=== PATIENT | male | born 1960 | race Caucasian/White ===

== ENCOUNTER → 2017-08-30 17:09 | Outpatient (CLI) | payer BC, SELFPAY ==
[2017-08-30 16:56] VITALS: BP 118/70; BMI 29.4
--- NOTE | 2017-08-30 17:26 | RAD_ITS ---
STUDY: X-RAY - LEFT TIBIA AND FIBULA REASON FOR EXAM: Male, 56 years old. Pain and swelling redness anterior albarran area status post injury 2 weeks ago TECHNIQUE: 4 view(s) of the tibia and fibula were obtained. COMPARISON: None. FINDINGS: There is a left knee, medial hemiarthroplasty. Normal visualized fibula. There is a subtle focus of soft tissue swelling anterior to the knee without evidence of underlying fracture. There is no visualized obvious foreign body. There is mild soft tissue swelling overlying the region of the patella tendon. There is mild soft tissue swelling about the medial malleolus. RAD/Tibia & Fibula 2 Views IMPRESSION: Areas of soft tissue swelling as detailed above without visualized fracture or evidence of underlying bony erosion. Medial compartment hemiarthroplasty. Electronically Signed: Sada Hammonds MD at 21:39 EST Tel , Service support ,
== END ==
PROVIDERS: Family Provider Family Medicine Geriatric Medicine; PCP Family Medicine Geriatric Medicine; Visit Provider Physician Assistant Surgical
DX: S80.12XA Contusion of left lower leg, initial encounter (principal); X58.XXXA Exposure to other specified factors, initial encounter
CPT/HCPCS: 73590

== ENCOUNTER → 2017-09-02 16:22 | Outpatient (CLI) | payer BC, SELFPAY ==
--- NOTE | 2017-08-31 14:21 | VDLE_ITS ---
Reason For Study: LEG PAIN AND SWELLING RIGHT LEFT CFV is compressible, spontaneous, phasic, GSV is normal. competent and demonstrates normal CFV is compressible, spontaneous, phasic, augmentation. competent, and demonstrates normal Procedure augmentation. Exam performed in department. FV is compressible, spontaneous, phasic, A preliminary report was called and/or faxed competent and demonstrates normal to Dr. Huertas. augmentation. POP V is compressible, spontaneous, phasic, competent and demonstrates normal augmentation. T/P Trunk is compressible. PTV is compressible. LT PerV is compressible. Interpretation Summary Deep veins of the left lower extremity are patent and compressible segmentally. There is no evidence of left lower extremity deep vein thrombosis. Valvular competence appears intact within the proximal deep venous system on the left . The left greater saphenous vein appears patent and compressible segmentally. Ordering Physician: Marlon Cottrell Referring Physician: Arnav Huertas Chi Performed By: Maribell Foster RVT
== END ==
LOC: VL 08-31 19:27 → CVS 16:23
PROVIDERS: Family Provider Family Medicine Geriatric Medicine; PCP Family Medicine Geriatric Medicine; Visit Provider Physician Assistant Surgical
DX: S80.12XA Contusion of left lower leg, initial encounter (principal); X58.XXXA Exposure to other specified factors, initial encounter; Y93.9 Activity, unspecified; Y92.9 Unspecified place or not applicable; Y99.9 Unspecified external cause status
CPT/HCPCS: 93971

== ENCOUNTER 2018-06-12 17:35 | Inpatient (IN) | payer BC, SELFPAY ==
[2018-06-12 17:37] VITALS: BP 154/102; PULSE 125; RESP 15; TEMP 36.8; O2SAT 96; BMI 29.9
--- NOTE | 2018-06-12 17:57 | ED.VISSUMM ---
- ER Visit Summary Date of Service: 06/12/18 Chief Complaint: Left knee pain History of Present Illness: The patient is a 57 M presenting with left knee pain. Patient states he was walking and his knee just gave out. He did not fall completely to the floor. He has had pain in the left knee since. He states it has been clicking and making popping noises. He tried no medications at home. He has a history of previous partial knee replacement in June [address] Mcnulty. Physical Examination: Vitals are stable. Patient is afebrile. Alert no acute distress. HEENT exam is unremarkable. Neck is supple. Lungs are clear and equal bilaterally. Heart is regular rate and rhythm. Extremities medial left knee tenderness, painful limited range of motion. No erythema or warmth. No calf tenderness. Normal distal pulses Skin is warm and dry. No focal neurologic deficit. Remainder of exam is unremarkable. Emergency Department Course and Treatment: Patient declined pain medication. X-ray of left knee shows broken hardware. Discussed with Dr. Main who recommends revision with Dr. Knight. Discussed with Dr. Knight and patient will be admitted. Disposition: Admission Impression: Left knee broken hardware This note was generated with [employer] dictation software. It may contain incorrect words, spelling, and punctuation that were not noted in review of the chart prior to signing ED Disposition - Plan for ED Patient: Chief Complaint: Lower Extremity Injury Referrals: Arnav Huertas Chi, MD [Primary Care Provider] -
--- NOTE | 2018-06-12 18:00 | RAD_ITS ---
STUDY: X-RAY - LEFT KNEE REASON FOR EXAM: Male, 57 years old. Pain TECHNIQUE: 4 view(s) of the knee. COMPARISON: None. FINDINGS: Normal visualized distal femur. Normal visualized proximal tibia and fibula. Normal proximal tibiofibular articulation. Prosthetic medial femorotibial compartment. Narrowed lateral femorotibial compartment. Normal patellofemoral articulation with patellar spurring.. The soft tissue structures are unremarkable. RAD/Knee 4 or More Views IMPRESSION: Degenerative changes and medial compartmental prosthesis No evidence for acute fracture Electronically Signed: Chidi Decker MD at 19:08 EST , Service support ,
[2018-06-12 19:16] LABS: Absolute Neutrophil Count 7.5 X10^3/uL (2.0-7.7); Basophil# 0.03 X10^3/uL; Basophil% 0.3 % (0-1); Eosinophil# 0.23 X10^3/uL; Eosinophils% 2.2 % (0-5); Hematocrit 46.4 % (40-54); Hemoglobin 15.3 g/dl (13.0-16.5); Lymphocyte % 19.5 % (19-41); Mean Corpuscular Hgb 30.7 pg (27.0-32.0); Mean Platelet Vol. 9.3 fl (6.2-12.0); Monocyte% 4.9 % (0-10); Neutrophil # 7.45 X10^3/uL (2.7-7.7); Neutrophil % 72.7 % (47-70); POSITIVE COUNT NO; POSITIVE DIFFERENTIAL NO; POSITIVE MORPHOLOGY NO; Platelet Count 178 K/mm3 (150-450); RBC Distribution Width CV 13.2 % (11.6-14.6); RBC Distribution Width SD 44.2 fl (35.1-43.9); Red Blood Count 4.99 M/mm3 (4.6-6.2); White Blood Count 10.3 K/mm3 (4.4-11.0)
[2018-06-12 19:29] LABS: Anion Gap 7 (5-15); BUN 19 mg/dL (7-18); BUN/Creat Ratio 15.1 RATIO (10-20); Calcium,Total 8.4 mg/dL (8.5-10.1); Chloride 107 mmol/L (98-107); Creatinine, Serum 1.26 mg/dL (0.70-1.30); EST Glomerular Filtration Rate 63 mL/min (>60); Est Glom Filt Rate - Afr Amer 76 mL/min (>60); Estimated Creatinine Clearance 74.86 ml/min; Glucose 149 mg/dL (74-106); Potassium 3.6 mmol/L (3.5-5.1); Sodium Level 141 mmol/L (136-145)
[2018-06-12 19:43] VITALS: BMI 29.9
[2018-06-12 20:04] VITALS: BP 128/87; PULSE 102; RESP 18; TEMP 36.9
[2018-06-12] MEDS: Lactated Ringers 1,000 ML 125 ML IV (21:56)
[2018-06-12] MEDS: Acetaminophen 500 MG Tablet 1000 MG PO (21:57)
[2018-06-12] MEDS: Losartan Potassium 50 MG Tablet PO (21:57)
[2018-06-12] MEDS: hydroCHLOROthiazide 12.5mg 12.5 MG PO (21:59)
[2018-06-12] MEDS: Pantoprazole Sodium 20 MG Tablet PO (22:00)
[2018-06-13] VITALS (11 sets, daily range): BP systolic 121–134; BP diastolic 71–95; PULSE 70–92; RESP 14–18; TEMP 35.9–37.1; O2SAT 92–98; BMI 29.2
[2018-06-13] MEDS: Lactated Ringers 1,000 ML 125 ML IV ×2 (06:11→16:20)
[2018-06-13] MEDS: Acetaminophen 500 MG Tablet 1000 MG PO ×2 (06:12→18:09)
--- NOTE | 2018-06-13 08:42 | EKG12_ITS ---
Test Reason : PRE-OPERATIVE Blood Pressure : / mmHG Vent. Rate : 074 BPM Atrial Rate : 074 BPM P-R Int : 172 ms QRS Dur : 092 ms QT Int : 400 ms P-R-T Axes : 039 -15 001 degrees QTc Int : 444 ms Normal sinus rhythm Inferior infarct , age undetermined Abnormal ECG When compared with ECG of 31-JUL-2016 04:55, Premature ventricular complexes are no longer Present Confirmed by GISELLE JOHNSON MD ([id number]), fashion editor FOREST FRITZ ([id number]) on 06/16/2018 2:26:20 PM Also confirmed by GISELLE JOHNSON MD ([id number]), FOREST Matta ([id number]) on 06/16/2018 2:27:08 PM Referred By: SYBIL Confirmed By:GISELLE JOHNSON MD
[2018-06-13 09:17] LABS: Partial Thromboplast Time 33.1 Seconds (24.1-36.2); Prothrombin Time (Protime)PT. 13.1 SECONDS (11.7-14.9)
--- NOTE | 2018-06-13 10:00 | CASEMGMT ---
RN MEGHANA Face to Face with patient for initial transition planning/care coordination assessment. RN CM introduced self and role at [facility]. Patient lying in bed, alert and oriented, at bedside. Patient willing to participate in assessment and is able to answer all questions appropriately. Care providers, pharmacy, and demographics verified. Patient wishes to discharge home and denied HHC at this time. Patient states he has no further needs or concerns at this time. CM to follow for discharge planning needs that may arise. PCP: EMILY Specialists: None Preferred Pharmacy:[facility] or [facility] Insurance: [place] Pres[place] Benef[place]: [place] Living Will/HPOA: None LNOK: Living Arrangements: Patient lives with in 1 story home with 2 steps to enter home. Transportation: DME/HHC: Patient has shower chair and crutches. Script obtained for FWW and faxed to [employer]. Script obtained for outpatient therapy and placed on chart. Disposition Plan: Patient to discharge home with outpatient therapy, family support, and follow-up plans in place. Milka KINGSTONN, RN, CM
--- NOTE | 2018-06-13 11:18 | PCM.HP.STD ---
History of Present Illness Date of Admission: 06/13/18 Chief Complaint: Knee pain, left The patient is a 57 year old M presents today with left knee pain. Patient had a left partial knee replacement in June 2016. Patient notes that he had no infections or redness of the incision after surgery however took about 6-8 months to fully recover. He did have some what he felt was instability or looseness of the knee and clicking. He had been reevaluated multiple times. He has had no fevers chills or night sweats. No signs of infection. However, yesterday while he was walking his knee gave out on him causing him to fall. Since that time he said inability to flex and extend his knee stating it feels like something is catching in there. He has 9 out of 10 pain with weightbearing and motion. Better with immobilization and bedrest. No numbness or tingling distally. He does have some associated swelling of the knee. Of note patient did have a PE 2 days after his partial knee replacement which required anticoagulation. Past Medical History Past Medical History (Chronic Problems): Chronic Problems (Last Updated 09/23/17 @ 10:02 by Zuly Chavez) Status post left knee surgery (Chronic) HTN (hypertension) (Chronic) Medical History: Medical History (Last Updated 09/23/17 @ 10:02 by Zuly Chavez) Cellulitis of left anterior lower leg (Acute) L03.116 Contusion of left calf (Acute) S80.12XA GERD (gastroesophageal reflux disease) (Acute) K21.9 Essential hypertension, benign (Acute) I10 HTN (hypertension) (Chronic) I10 Abnormal electrocardiogram (Acute) R94.31 Chest pain (Acute) R07.9 Chicken pox B01.9 Cough R05 Elevated prostate specific antigen (PSA) R97.20 Gastroenteritis K52.9 Headache R51 Herpes zoster B02.9 Keloid scar L91.0 Knee pain M25.569 Lightheadedness R42 Pulmonary embolism I26.99 Renal cyst, left N28.1 Sebaceous cyst L72.3 Dyslipidemia E78.5 Erectile dysfunction N52.9 HTN (hypertension) I10 Hypercholesteremia E78.00 Neuropathic pain M79.2 NUSRAT (obstructive sleep apnea) G47.33 Osteoarthritis of left knee M17.12 Allergies No Known Allergies Allergy (Verified 06/12/18 17:36) Home Medications: Ambulatory Orders Medication Instructions Recorded Esomeprazole Mag Trihydrate 20 mg PO QHS 07/10/16 [Nexium] Losartan/Hydrochlorothiazide 1 ea PO QHS 07/10/16 [Losartan-Hctz 50-12.5 mg Tab] Surgical History: Surgical History (Last Updated 09/23/17 @ 10:07 by Zuly Chavez) Status post left knee surgery (Chronic) Z98.890 History of back surgery Z98.890 History of knee replacement Z96.659 Broke L1 09/2010 rods & screws H/O hernia repair Z98.890, Z87.19 8 History of tonsillectomy Z98.890, Z90.89 Incision and drainage back abscess 12/31 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 S/P left knee arthroscopy Z98.890 Surgical History: - Smoking Status: Never smoker - *Family History Paternal Family History: Family History (Last Updated 09/23/17 @ 10:08 by Zuly Chavez) Father Hypertension History Items: No pertinent history Review of Systems Constitutional: Denies: Chills, Fever, Weight Change HEENT: Denies: Head Aches, Sinus Congestion, Sinus Drainage Cardiovascular: Denies: Chest Pain, Palpitations Respiratory: Denies: Cough, Shortness of breath at rest, Sputum production Gastrointestinal: Denies: Abdominal Pain, Nausea, Vomiting Genitourinary: Denies: Dysuria Musculoskeletal: Reports: Joint Pain, Joint Tenderness - See HPI Skin: Denies: Rash, Wounds Neurological: Denies: Numbness, Tingling, Focal weakness Psychiatric: Denies: Anxiety, Depression, Homicidal Ideations, Suicidal Ideations Hematologic/ Lymphatic: Denies: Easy Bruising, Easy Bleeding VTE Information - Inpt Only VTE Present on Admission: No VTE Mechan Device Prophylaxis: SCD's, Thigh High MICHELLE Hose VTE Pharm Prophylaxis ordered?: No Reason prophylaxis not ordered:: Treatment Not Indicated - Will initiate treatment after surgery Objective: X-rays of the left knee were reviewed showing a dislocated polyethylene. Implants appear to be in stable alignment and well fixed. - Physical Exam General: Alert, Oriented x3, Cooperative HEENT: Atraumatic, PERRLA Oral: Moist Mucosa Neck: No JVD Lungs: - - Nonlabored breathing Cardiovascular: Regular rate Abdomen: Non Tender, Non-Distended Extremities: No clubbing, - - Left lower extremity: Previous incision clean dry and intact, no redness or erythema. Mild effusion of the knee. Patient has crepitus with range of motion he has palpation with tenderness over the dislocated implant, you can feel it in the superior medial joint.. Motor is intact dorsiflexion, EHL and plantar flexion. Sensation is intact to light touch saphenous, kaleigh,l superficial peroneal, deep peroneal and tibial distributions. Calves are soft and supple. Vital Signs Temp Pulse Resp BP Pulse Ox 97.8 F 79 18 126/85 H 95 06/13/18 08:00 06/13/18 08:00 06/13/18 08:00 06/13/18 08:00 06/13/18 08:00 Oxygen Flow Rate (L/min) 2 Oxygen Delivery Method Room Air Weight: 221 lb 5.506 oz Body Mass Index (BMI) 29.2 Intake and Output for Last 24 Hours 06/11/18 06/12/18 06/13/18 23:59 23:59 23:59 Intake Total 1010 / 1010 Output Total 525 / 525 Balance 485 / 485 Laboratory Tests Past 24 Hrs 06/12/18 06/12/18 06/13/18 19:07 19:07 09:02 WBC 10.3 RBC 4.99 Hgb 15.3 Hct 46.4 MCV 93.0 MCH 30.7 MCHC 33.0 RDW 13.2 RDW Differential 44.2 H Plt Count 178 MPV 9.3 Immature Gran % (Auto) 0.400 Neut % (Auto) 72.7 H Lymph % (Auto) 19.5 [place] % (Auto) 4.9 Eos % (Auto) 2.2 Baso % (Auto) 0.3 Absolute Neuts (auto) 7.5 Absolute Lymphs (auto) 2.00 Total Counted Not Reportable PT 13.1 INR 1.0 APTT 33.1 Sodium 141 Potassium 3.6 Chloride 107 Carbon Dioxide 27.0 Anion Gap 7 BUN 19 H Creatinine 1.26 Estim Creat Clear Calc 74.86 Est GFR (MDRD) Af Amer 76 Est GFR (MDRD) Non-Af 63 BUN/Creatinine Ratio 15.1 Glucose 149 H Calcium 8.4 L Assessment/Plan All Active Problems (Last Updated 09/23/17 @ 10:02 by Zuly Chavez) Cellulitis of left anterior lower leg (Acute) Contusion of left calf (Acute) GERD (gastroesophageal reflux disease) (Acute) Essential hypertension, benign (Acute) Abnormal electrocardiogram (Acute) Chest pain (Acute) Left knee dislocated mobile-bearing polyethylene Natural history of the disease process and treatment options were discussed the patient. Patient has good joint spaces and the remainder of his joint. He is young in age. At this time we discussed revision total knee replacement versus polyethylene exchange. Sounds like patient has a history of instability at this time I recommended a polyethylene exchange implants appear well fixed. The remainder of his joint is healthy and I do feel it is appropriate to salvage the implant at this time. He has no signs of infection will shortly take cultures at the time of surgery. Risks and benefits were discussed the patient including but not limited to blood loss, DVTs, PEs, rest damage, infection, general risk of anesthesia including loss of life. Patient is n.p.o., antibiotics ordered on-call to the operating room we will proceed with surgery this afternoon. GILBERTO [facility] Office:
[2018-06-13] MEDS: Scopolamine 1mg/72hr Patch 1 PATCH TD (11:58)
--- NOTE | 2018-06-13 11:59 | NURSING ---
report called to gilda martínez in ac, pt taken to ac area for preops-rn notified Rx preop antb to be sent to their unit, it is not on ms3, verified that scopalamine patch not given 06/12 d/t not on unit
[2018-06-13] MEDS: Cefazolin 2 GM in 0.9% Normal Saline 100 ML IV (12:37)
--- NOTE | 2018-06-13 13:31 | PCM.OPRPT ---
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 Overcorrection was avoided grinder operator tool: Marleny Araujo Type of Anesthesia:: General Anesthesiologist: Adolfo Olivas Special Medications: 2 g Ancef, 1 g TXA at incision, 1 g TXA after tourniquet went down Specimen's removed: 3 separate specimens were sent to microbiology Estimated Blood Loss (mL): 15 Fluids Replaced: 1100 milliliters crystalloid Description of Procedure: 57 yo m history of left unicompartmental knee replacement in presents with polyethylene dislocation. Reviewed options were discussed the patient. Based on acuity of the symptoms and stability of implants on radiograph polyethylene exchange is recommended. Risks and benefits of the procedure were discussed with the patient including but not limited to blood loss, DVTs, PEs, neurovascular damage, infection, general risk of anesthesia including loss of life. Demonstrated understanding and was able to sign informed consent. On the date of procedure patient's L lower extremity was marked in the preoperative area. The patient was then taken back to the operating room where the patient was placed on the table in the supine position. All bony prominences were identified a well-padded. Anesthesia assumed control of the C-spine and airway and remained controlled throughout the remainder of the procedure. A tourniquet was placed on the operative thigh and the leg was prepped in a sterile fashion. The surgeon then scrubbed at this time .Upon reentering the room left lower extremity was draped in a standard orthopedic fashion. A timeout was then called and everyone agreed upon the side, the site, the procedure to be performed, patient's identity and antibiotics given. A midline skin incision was made and sharp dissection was taken down through skin subcutaneous tissue and fat. Appropriate flaps were elevated medially and laterally. His arthrotomy was identified and the standard medial parapatellar incision was made and the patella was subluxed laterally. The appropriate minimal MCL release was done. At this point an appropriate synovectomy was performed patient did not have significant amount of synovitis. He did have a large effusion. 3 separate specimens were sent from the synovium. Knee was then flexed up the 3 mm polyethylene was removed. Once polyethylene was removed we debrided the posterior knee ACL was checked and intact. Excessive synovium around the implant was debrided and the implants were checked. Femoral and tibial implants were stable. 6 L of normal saline were then irrigated throughout the wound with low-pressure lavage and the wound was once again explored. All remaining tissue that was suspicious was seen in the wound was once again irrigated with normal saline. Polyethylene trials were then used to determine the appropriate polyethylene. Based on our trials a 6 mm polyethylene was then opened and put back into place after appropriate trialing. This allowed for appropriate correction of the alignment and tension of the soft tissues in flexion and extension. Knee was taken through range of motion as well and no signs of impingement were noted after appropriate debridement tourniquet was let down and hemostasis was obtained as well as possible. Once the final components were placed the wound was copiously irrigated with normal saline solution. The wound was closed in a layer plascencia fashion using #1 vicryl interrupted sutures for the arthrotomy, 2-0 interrupted Vicryl for the subcuticular layer and phoebe for final skin closure. A sterile compressive dressing was then placed. The patient was then awakened from anesthesia, transferred to the [facility] and transferred to the PACU for recovery. Post op plan Patient will be placed on Xarelto due to previous PE. Medical service will be consulted. Patient is weightbearing as tolerated, activity as tolerated. Follow-up in the office in 2 weeks. Patient will remain on doxycycline for 1 week as we follow cultures. Grafts/Implants Used: Biomet Jesse partial knee system medium 6 mm left medial poly - Complications none - Admit VTE Documentation VTE Present on Admission: No VTE Mechan Device Prophylaxis: SCD's, Thigh High MICHELLE Hose VTE Pharm Prophylaxis ordered?: Yes
--- NOTE | 2018-06-13 13:37 | OP.PCM_ITS ---
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 Overcorrection was avoided human resources mgr: Marleny Araujo Type of Anesthesia:: General Anesthesiologist: Adolfo Olivas Special Medications: 2 g Ancef, 1 g TXA at incision, 1 g TXA after tourniquet went down Specimen's removed: 3 separate specimens were sent to microbiology Estimated Blood Loss (mL): 15 Fluids Replaced: 1100 milliliters crystalloid Description of Procedure: 57 yo m history of left unicompartmental knee replacement in presents with polyethylene dislocation. Reviewed options were discussed the patient. Based on acuity of the symptoms and stability of implants on radiograph polyethylene exchange is recommended. Risks and benefits of the procedure were discussed with the patient including but not limited to blood loss, DVTs, PEs, neurovascular damage, infection, general risk of anesthesia including loss of life. Demonstrated understanding and was able to sign informed consent. On the date of procedure patient's L lower extremity was marked in the preoperative area. The patient was then taken back to the operating room where the patient was placed on the table in the supine position. All bony prominences were identified a well-padded. Anesthesia assumed control of the C-spine and airway and remained controlled throughout the remainder of the procedure. A tourniquet was placed on the operative thigh and the leg was prepped in a st erile fashion. The surgeon then scrubbed at this time .Upon reentering the room left lower extremity was draped in a standard orthopedic fashion. A timeout was then called and everyone agreed upon the side, the site, the procedure to be performed, patient's identity and antibiotics given. A midline skin incision was made and sharp dissection was taken down through skin subcutaneous tissue and fat. Appropriate flaps were elevated medially and laterally. His arthrotomy was identified and the standard medial parapatellar incision was made and the patella was subluxed laterally. The appropriate minimal MCL release was done. At this point an appropriate synovectomy was performed patient did not have significant amount of synovitis. He did have a large effusion. 3 separate specimens were sent from the synovium. Knee was then flexed up the 3 mm polyethylene was removed. Once polyethylene was removed we debrided the posterior knee ACL was checked and intact. Excessive synovium around the implant was debrided and the implants were checked. Femoral and tibial implants were stable. 6 L of normal saline were then irrigated throughout the wound with low-pressure lavage and the wound was once again explored. All remaining tissue that was suspicious was seen in the wound was once again irrigated with normal saline. Polyethylene trials were then used to determine the appropriate polyethylene. Based on our trials a 6 mm polyethylene was then opened and put back into place after appropriate trialing. This allowed for appropriate correction of the alignment and tension of the soft tissues in flexion and extension. Knee was taken through range of motion as well and no signs of impingement were noted after appropriate debridement tourniquet was let down and hemostasis was obtained as well as possible. Once the final components were placed the wound was copiously irrigated with normal saline solution. The wound was closed in a layer plascencia fashion using #1 vicryl interrupted sutures for the arthrotomy, 2-0 interrupted Vicryl for the subcuticular layer and phoebe for final skin closure. A sterile compressive dressing was then placed. The patient was then awakened from anesthesia, transferred to the [facility] and transferred to the PACU for recovery. Post op plan Patient will be placed on Xarelto due to previous PE. Medical service will be consulted. Patient is weightbearing as tolerated, activity as tolerated. Follow-up in the office in 2 weeks. Patient will remain on doxycycline for 1 week as we follow cultures. Grafts/Implants Used: Biomet [place] partial knee system medium 6 mm left medial poly - Complications none - Admit VTE Documentation VTE Present on Admission: No VTE Mechan Device Prophylaxis: SCD's, Thigh High MICHELLE Hose VTE Pharm Prophylaxis ordered?: Yes
[2018-06-13] MEDS: Lactated Ringers 1,000 ML 999 ML IV (14:10)
--- NOTE | 2018-06-13 14:15 | RAD_ITS ---
STUDY: X-RAY - LEFT KNEE REASON FOR EXAM: Male, 57 years old. Postop left knee TECHNIQUE: 2 view(s) of the knee. COMPARISON: 06/12/2018 FINDINGS: Status post medial hemiarthroplasty with interval repositioning of metallic densities. There is anterior surgical skin clips, large effusion with pocket of air. There is demineralization of osseous structures. Normal fibula. Normal proximal tibiofibular articulation. There is moderate degenerative arthrosis of the lateral femorotibial compartment with moderate joint space narrowing. There is mild to moderate degenerative arthrosis of the patellofemoral articulation. RAD/Knee 1 or 2 Views IMPRESSION: Surgical repositioning of radiopaque densities. Status post right medial hemiarthroplasty. Effusion and pockets of air consistent of recent surgical intervention. Osteopenia and degenerative changes. Electronically Signed: Liliana Verma MD at 3:48 EST , Service support ,
--- NOTE | 2018-06-13 15:42 | PCM.PROGNOTE ---
Subjective: Patient seen and examined. S/P revision left partial knee replacement. Complains of pain 01/28. Hospitalist consulted for medical management. Patient reports history of PE following initial partial knee replacement 2 years ago. He is no longer on anticoagulation. He also reports a history of hypertension and GERD. Complains of mild postoperative nausea. No other complaints. - Physical Exam General: Alert, Oriented x3, Cooperative HEENT: Atraumatic, PERRLA, EOMI, Normocephalic Neck: Supple, No JVD, Negative Carotid Bruits Lungs: Clear to auscultation, Normal air movement Cardiovascular: Regular rate, Regular Rhythm, Normal S1, Normal S2, No murmurs Abdomen: Bowel Sounds Present, Soft, Non Tender, Non-Distended Extremities: No clubbing, No cyanosis, No edema, Capillary Refill Less than 3 Seconds Skin: No rashes, No breakdown Musculoskeletal: No Tenderness to Palpation of Joints or Extremities Neurological: Cranial nerves II-XII grossly intact, Neuro grossly intact Psych/Mental Status: Normal Affect, Appropriate Vital Signs Temp Pulse Resp BP Pulse Ox 97.3 F L 70 16 126/83 H 94 06/13/18 15:00 06/13/18 15:00 06/13/18 15:00 06/13/18 15:00 06/13/18 15:00 Oxygen Flow Rate (L/min) 2 Oxygen Delivery Method Nasal Cannula Weight: 221 lb 5.506 oz Body Mass Index (BMI) 29.2 Intake and Output for Last 24 Hours 06/11/18 06/12/18 06/13/18 23:59 23:59 23:59 Intake Total 2693 / 2693 Output Total 525 / 525 Balance 2168 / 2168 Microbiology Past 72 Hours 06/13/18 14:12 Gram Stain - Final Tissue - Other 06/13/18 14:12 Gram Stain - Final Tissue - Other 06/13/18 14:12 Gram Stain - Final Tissue - Other Laboratory Tests Past 24 Hrs 06/12/18 06/12/18 06/13/18 19:07 19:07 09:02 WBC 10.3 RBC 4.99 Hgb 15.3 Hct 46.4 MCV 93.0 MCH 30.7 MCHC 33.0 RDW 13.2 RDW Differential 44.2 H Plt Count 178 MPV 9.3 Immature Gran % (Auto) 0.400 Neut % (Auto) 72.7 H Lymph % (Auto) 19.5 Bailey % (Auto) 4.9 Eos % (Auto) 2.2 Baso % (Auto) 0.3 Absolute Neuts (auto) 7.5 Absolute Lymphs (auto) 2.00 Total Counted Not Reportable PT 13.1 INR 1.0 APTT 33.1 Sodium 141 Potassium 3.6 Chloride 107 Carbon Dioxide 27.0 Anion Gap 7 BUN 19 H Creatinine 1.26 Estim Creat Clear Calc 74.86 Est GFR (MDRD) Af Amer 76 Est GFR (MDRD) Non-Af 63 BUN/Creatinine Ratio 15.1 Glucose 149 H Calcium 8.4 L Medical Necessity - Tobacco Use Smoking Status: Never smoker Assessment/Plan All Active Problems (Last Updated 09/23/17 @ 10:02 by Zuly Chavez) Cellulitis of left anterior lower leg (Acute) Contusion of left calf (Acute) GERD (gastroesophageal reflux disease) (Acute) Essential hypertension, benign (Acute) Abnormal electrocardiogram (Acute) Chest pain (Acute) 1. Hypertension- stable, continue home losartan/HCTZ regimen. 2. History of PE, provoked by prior partial knee replacement- Initiated on Xarelto. 3. GERD-continue PPI. Famotidine added per ortho. 4. Status post revision left partial knee replacement due to failed left medial compartment partial knee replacement dislocation- Management per ortho. PRN pain regimen. GI prophylaxis. PT/OT. DVT prophylaxis-Xarelto This patient was seen by ALISON Streeter under the supervision of Dr. Boss.
[2018-06-13] MEDS: Ketorolac 15 MG/ML Vial IV (16:06)
[2018-06-13] MEDS: Ondansetron 4 MG/2 ML Vial IV (16:06)
[2018-06-13] MEDS: oxyCODONE 5 MG Tablet PO (18:09)
[2018-06-13] MEDS: Cefazolin 1 GM/50 ML BAG IV (21:50)
[2018-06-13] MEDS: Morphine 2 MG/ML Syringe IV (21:53)
[2018-06-13] MEDS: Losartan Potassium 50 MG Tablet PO (22:00)
[2018-06-13] MEDS: Pantoprazole Sodium 20 MG Tablet PO (22:00)
[2018-06-13] MEDS: hydroCHLOROthiazide 12.5mg 12.5 MG PO (22:00)
[2018-06-13] MEDS: Doxycycline 100 MG CAPSULE PO (22:02)
[2018-06-14 02:20] VITALS: BP 115/62; PULSE 64; RESP 16; TEMP 36.4; O2SAT 95
[2018-06-14] MEDS: Cefazolin 1 GM/50 ML BAG IV (04:30)
[2018-06-14] MEDS: Morphine 2 MG/ML Syringe IV (04:32)
[2018-06-14] MEDS: Acetaminophen 500 MG Tablet 1000 MG PO ×2 (06:12→13:51)
[2018-06-14] MEDS: Rivaroxaban 10 MG Tablet PO (06:13)
[2018-06-14] MEDS: 0.9% NaCl Peripheral Flush Adult/Peds IV (06:15)
[2018-06-14 06:34] VITALS: O2SAT 90
--- NOTE | 2018-06-14 07:45 | PCM.PN.ORT ---
Subjective: Patient is doing well. Notes that the block is beginning to wear off and pain is starting to increase. No chest pain or shortness of breath. No acute events overnight. Overall without significant complaints. Objective: Postoperative x-rays reveal well aligned proximal knee replacement with well fixed implants. - Physical Exam General: Alert, Oriented x3, Cooperative Extremities: - - Left lower extremity: Dressing is clean dry and intact Sensations intact to light touch saphenous, sural, superficial peroneal, deep peroneal, and tibial distributions Motors intact EHL, DF, PF calves are soft and supple Vital Signs Temp Pulse Resp BP Pulse Ox 97.5 F L 64 16 115/62 95 06/14/18 02:20 06/14/18 02:20 06/14/18 02:20 06/14/18 02:20 06/14/18 02:20 Oxygen Flow Rate (L/min) 2 Oxygen Delivery Method CPAP Weight: 221 lb 5.506 oz Body Mass Index (BMI) 29.2 Intake and Output for Last 24 Hours 06/12/18 06/13/18 06/14/18 23:59 23:59 23:59 Intake Total 4171 / 4171 520 / 520 Output Total 1175 / 1175 Balance 2996 / 2996 520 / 520 Microbiology Past 72 Hours 06/13/18 14:12 Gram Stain - Final Tissue - Other 06/13/18 14:12 Gram Stain - Final Tissue - Other 06/13/18 14:12 Gram Stain - Final Tissue - Other Laboratory Tests Past 24 Hrs 06/13/18 09:02 PT 13.1 INR 1.0 APTT 33.1 Medical Necessity - Tobacco Use Smoking Status: Never smoker Assessment/Plan All Active Problems (Last Updated 06/13/18 @ 18:19 by Gael Boss DO) Cellulitis of left anterior lower leg (Resolved) Contusion of left calf (Resolved) Chest pain (Resolved) Postop day 1 revision left partial knee replacement polyethylene exchange for dislocated mobile-bearing polyethylene 1. DVT prophylaxis: Xarelto, patient has history of PE 2. Pain control: Continue current regimen will discontinue IV pain medications patient wishes to attempt discharge today 3. Physical therapy: Weight-bear as tolerated activity as tolerated 4. Encourage incentive spirometry 5. Cultures: We will continue to follow cultures. Patient has no significant risk or signs of infection. Remain on doxycycline for 1 week as we follow cultures from revision. 6. Disposition: Patient is hoping for discharge today. Are going to attempt discharge today after a participates in therapy. If patient does well with therapy he will go home today. If therapy is unsuccessful he will stay overnight. [facility] Office:
--- NOTE | 2018-06-14 07:52 | PCM.DC.TKR ---
Discharge Diet: No Restrictions Discharge Activity: May Not Drive May shower in (days): 1 Ice area for (Minutes): 20 - every hour while awake. Weight Bearing Status: Weight bearing as tolerated Elevate: Operative Extremity Additional Activity Instructions:: Wear elastic stockings for 2 weeks after your surgery. Call your doctor if your incision/area has: Continuous Slow Oozing, Sudden Increased Bleeding, Increased Pain/ Swelling, Increased Redness, Foul Smelling Discharge Call your doctor if you observe: Fever of 101 or Higher, Coldness, Increased Pain, Numbness or Tingling, Change in Color, Calf discomfort, Uncontrolled pain Remove Dressing in (days):: 06-17-2018 Additional Dressing/Incision Instructions:: If incision is clean dry and intact may leave the wound open to air and continue showering. If there is continued drainage continue daily dry dressing changes and keep incision clean dry and intact until there is no drainage. Allergies/Adverse Reactions: Allergies No Known Allergies Allergy (Verified 06/12/18 17:36) Medications to take at Discharge Esomeprazole Mag Trihydrate [Nexium] 20 mg PO QHS 07/10/16 Losartan/Hydrochlorothiazide [Losartan-Hctz 50-12.5 mg Tab] 1 ea PO QHS 07/10/16 Acetaminophen [Tylenol] 1,000 mg PO Q8 #90 tab 06/14/18 Doxycycline 100 mg PO BID #14 cap 06/14/18 Ensure Enlive 120 ml PO TID liquid 06/14/18 Famotidine [Pepcid] 20 mg PO DAILY #30 tab 06/14/18 Meloxicam [Mobic] 7.5 mg PO BID #60 tab 06/14/18 Oxycodone [Oxyir] 5 - 10 mg PO Q4H PRN PRN 7 Days #60 tab 06/14/18 Rivaroxaban [Xarelto] 10 mg PO DAILY@0600 #14 tab 06/14/18 Senna/Docusate Sodium [Senokot-S] 2 tab PO BID PRN PRN #30 tab 06/14/18 The following prescriptions were given: Oxycodone [Oxyir] 5 - 10 mg PO Q4H PRN PRN 7 Days #60 tab PRN Reason: Pain Acetaminophen [Tylenol] 1,000 mg PO Q8 #90 tab Famotidine [Pepcid] 20 mg PO DAILY #30 tab Rivaroxaban [Xarelto] 10 mg PO DAILY@0600 #14 tab Senna/Docusate Sodium [Senokot-S] 2 tab PO BID PRN PRN #30 tab PRN Reason: Constipation Doxycycline 100 mg PO BID #14 cap Meloxicam [Mobic] 7.5 mg PO BID #60 tab Primary Care Physician: Arnav Huertas Chi, MD [Primary Care Provider] - Test Results: Test results from this visit will be discussed in further detail at your follow-up appointment, if applicable. Please Follow Up With: John Davila PA-C - 2 weeks When: [facility] [place] [phone]
[2018-06-14 08:00] VITALS: BP 99/68; PULSE 82; RESP 16; TEMP 36.4; O2SAT 96
[2018-06-14] MEDS: oxyCODONE 5 MG Tablet PO ×2 (08:00→13:51)
[2018-06-14] MEDS: Doxycycline 100 MG CAPSULE PO (08:06)
[2018-06-14] MEDS: Famotidine 20 MG Tablet PO (08:06)
[2018-06-14 08:07] LABS: Hematocrit 44.3 % (40-54); Hemoglobin 15.1 g/dl (13.0-16.5); Mean Corp Hgb Conc 34.1 g/gl (32-36); Mean Corpuscular Hgb 31.1 pg (27.0-32.0); Mean Corpuscular Volume 91.2 fL (80-94); Mean Platelet Vol. 9.5 fl (6.2-12.0); Platelet Count 237 K/mm3 (150-450); RBC Distribution Width CV 12.9 % (11.6-14.6); RBC Distribution Width SD 42.4 fl (35.1-43.9); Red Blood Count 4.86 M/mm3 (4.6-6.2); Scan Indicated on CBC? Y/N NO; White Blood Count 16.4 K/mm3 (4.4-11.0)
[2018-06-14 08:45] LABS: Anion Gap 9 (5-15); BUN 16 mg/dL (7-18); BUN/Creat Ratio 17.2 RATIO (10-20); Calcium,Total 8.6 mg/dL (8.5-10.1); Chloride 102 mmol/L (98-107); Creatinine, Serum 0.93 mg/dL (0.70-1.30); EST Glomerular Filtration Rate 90 mL/min (>60); Est Glom Filt Rate - Afr Amer 109 mL/min (>60); Estimated Creatinine Clearance 101.43 ml/min; Glucose 184 mg/dL (74-106); Potassium 3.5 mmol/L (3.5-5.1); Sodium Level 136 mmol/L (136-145)
--- NOTE | 2018-06-14 10:51 | PN_ITS ---
Subjective: Patient is a 57-year-old male who underwent a revision of a left partial knee replacement on 06/13/2018. Hospitalist service was consulted for management of chronic medical problems. He is possibly going to be discharged today if he does well with physical therapy. I reviewed Dr. Knight's note. All events of the past 24 hours of been reviewed. He is afebrile and vital signs are stable. Pulse ox ranges from 90-96% on room air. He is on CPAP at night for NUSRAT. All lab was personally reviewed. Hemoglobin is stable at 15.1. Electrolytes a re within normal limits and the creatinine is decreased from 1.26-0.93 with fluids. Blood sugars have been elevated in the hospital and the fasting blood sugar today was 184. They have been mildly elevated in the past but not this high. He did receive a one-time dose of dexamethasone 20 mg at the time of surgery. Following knee surgery in the past he developed a DVT/PE. He was not on anticoagulation at discharge from the hospital at that time. He has already been started on Xarelto. He states his pain is adequately controlled at rest and he has not had physical therapy yet today. He denies nausea, shortness of breath, chest pain, palpitations, calf pain. Objective: PHYSICAL EXAM: GENERAL: alert, oriented X 3, Cooperative, NAD, sitting in a chair ORAL: moist mucosa, no mucosal lesions NECK: No JVD, supple, trachea midline LUNGS: CTA, symmetric chest expansion HEART: RRR, Normal S1 and S2, no rub, no gallop, no murmur ABDOMEN: soft, NT, ND, BS present, no guarding with palpation EXTREMITIES: no edema, no cyanosis, no calf tenderness SKIN: No rashes, no breakdown NEUROLOGIC: no focal neurologic deficits PSYCH: appropriate, normal affect, pleasant L - Physical Exam Vital Signs Temp Pulse Resp BP Pulse Ox 97.5 F L 82 16 99/68 96 06/14/18 08:00 06/14/18 08:00 06/14/18 08:00 06/14/18 08:00 06/14/18 08:00 Oxygen Flow Rate (L/min) 2 Oxygen Delivery Method Room Air Weight: 221 lb 5.506 oz Body Mass Index (BMI) 29.2 Intake and Output for Last 24 Hours 06/12/18 06/13/18 06/14/18 23:59 23:59 23:59 Intake Total 4171 / 4171 520 / 520 Output Total 1175 / 1175 Balance 2996 / 2996 520 / 520 Microbiology Past 72 Hours 06/13/18 14:12 Gram Stain - Final Tissue - Other Wound Culture - Preliminary No growth-Final to follow 06/13/18 14:12 Gram Stain - Final Tissue - Other Wound Culture - Preliminary No growth-Final to follow 06/13/18 14:12 Gram Stain - Final Tissue - Other Wound Culture - Preliminary No growth-Final to follow Laboratory Tests Past 24 Hrs 06/14/18 06/14/18 07:36 07:36 WBC 16.4 H RBC 4.86 Hgb 15.1 Hct 44.3 MCV 91.2 MCH 31.1 MCHC 34.1 RDW 12.9 RDW Differential 42.4 Plt Count 237 MPV 9.5 Sodium 136 Potassium 3.5 Chloride 102 Carbon Dioxide 25.0 Anion Gap 9 BUN 16 Creatinine 0.93 Estim Creat Clear Calc 101.43 Est GFR (MDRD) Af Amer 109 Est GFR (MDRD) Non-Af 90 BUN/Creatinine Ratio 17.2 Glucose 184 H Calcium 8.6 Medical Necessity - Tobacco Use Smoking Status: Never smoker Assessment/Plan All Active Problems (Last Updated 06/13/18 @ 18:19 by Gael Boss DO) Cellulitis of left anterior lower leg (Resolved) Contusion of left calf (Resolved) Chest pain (Resolved) Impressions 1. Postoperative day #1-status post revision of left partial knee replacement by Dr. Knight 2. History of DVT/pulmonary embolus following a knee replacement 2 years ago but not on anticoagulation at that time. Patient will be discharged on Xarelto. 3. Hypertension-controlled 4. Hyperglycemia 5. GERD Patient has no personal or family history of diabetes mellitus. He did receive Decadron 20 mg yesterday and this may be the etiology of the fasting hyperglycemia. He denies any polyuria, polydipsia or blurred vision. Hemoglobin A1c has been ordered and if this is greater than 6 we will have him discuss intervention with his primary care physician. Okay to discharge from hospitalist perspective on Xarelto. If the patient remains in the hospital I will see him again in the a.m. Please do not hesitate to call with any questions or problems. Code Visit Inpatient E&M: 75445 Subs Hosp L2
[2018-06-14 11:14] LABS: Hemoglobin A1c 6.2 % (4.2-6.3)
--- NOTE | 2018-06-14 14:45 | CM.UR ---
Received call from Letitia STACY. States the took RX to [facility] to fill and their insurance requires prior auth on Xarelto. Called pharmacy and obtained the information for where to call for PA. Called that number and it said they no longer do the PA for [facility] and it gave me another number to call. Called that number and it recommended doing on-line at [facility]. However I do not have access to that so it did give a phone number [phone]. Called that number and left a voicemail according to directions including patients name, , ID number, medication strength, ordering provider, provider's NPI and a phone number for provider. also included in message that vet has hx of DVT and he had a knee surgery. I also left the phone and fax number to the pharmacy the patient uses. Requested an expedited determination. Message said normal would be 72 hours and expeditited would be 24 hours. Patient had his dose today. Alerted Letitia to what was done. She verbalizes understanding. patient had previously been on med and got the free trial. Instructed to check at pharmacy tomorrow. Whit Rowe RN, CCM.
[2018-06-14 15:57] VITALS: BP 120/75; PULSE 80; RESP 16; TEMP 36.8; O2SAT 98
--- NOTE | 2018-06-14 16:30 | NURSING ---
assisted pt to ambulate in hallway, no new bleeding noted. educated pt and on maintaining dressing with MICHELLE hose and SANCHEZ wraps. they verbalized understanding.
== END 2018-06-14 16:54 | disposition home or self-care (01) | DRG 489 ==
LOC: ED 18:22 → MS3 19:31
PROVIDERS: Admitting Provider Specialist; Emergency Provider Emergency Medicine; Family Provider Family Medicine Geriatric Medicine; PCP Family Medicine Geriatric Medicine; Visit Provider Internal Medicine
PROC: 5A09357 Assistance with Respiratory Ventilation, Less than 24 Consecutive Hours, Continuous Positive Airway Pressure (ICD-10-PCS; CPT 27487; principal; 2018-06-13 07:15)
DX: T84.023A Instability of internal left knee prosthesis, initial encounter (principal); Z96.652 Presence of left artificial knee joint; Z86.711 Personal history of pulmonary embolism; I10 Essential (primary) hypertension; K21.9 Gastro-esophageal reflux disease without esophagitis; G47.33 Obstructive sleep apnea (adult) (pediatric); Z23 Encounter for immunization
CPT/HCPCS: 36415; 73560; 73564; 80048; 83036; 85025; 85027; 85610; 85730; 87015; 87070; 87075; 87102; 87116; 87205; 87206; 93005; 97161; 97165; 99251; 99282; C1776; J7120; 90686; A4216; G0463; J2405

== ENCOUNTER 2018-06-22 12:58 | Emergency (ER) | payer BC, SELFPAY ==
[2018-06-13 08:23] VITALS: BMI 29.2
[2018-06-22 12:58] VITALS: BP 150/87; PULSE 101; RESP 16; TEMP 36.6; O2SAT 98; BMI 29.7
--- NOTE | 2018-06-22 13:32 | RAD_ITS ---
STUDY: X-RAY - LEFT KNEE REASON FOR EXAM: Male, 57 years old. Postoperative inflammation redness swelling TECHNIQUE: 3 view(s) of the knee. COMPARISON: 06/13/2018. Left knee x-ray FINDINGS: There is a medial compartment plate and tibial compartment plate hemiarthroplasty. Since prior study there is worsening of the soft tissue edema anterior to the knee and a persistent larger more inhomogeneous joint effusion. There are overlying persistent skin phoebe. There is moderate degenerative arthrosis of the lateral femorotibial compartment with moderate joint space narrowing. Normal patellofemoral articulation. RAD/Knee 1 or 2 Views IMPRESSION: Worse Soft tissue edema worse heterogeneous joint effusion finding suspicious for postoperative infection. Medial compartment hemiarthroplasty. Electronically Signed: Sada Hammonds MD at 14:48 EST Tel , Service support ,
--- NOTE | 2018-06-22 13:36 | ED.DCSUM_ITS ---
- ER Visit Summary Date of Service: 06/22/18 Chief Complaint: Left knee pain History of Present Illness: The patient is a 57 M who is 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 On Saturday, June 12, a piece of the prosthetic came out through the skin and he required reconstruction by Dr. Modnragon er on June 13. Patient was discharged and has been doing well. Over the last couple days he noted increasing pain to the area of his left knee. Today he woke up and noticed some redness. Denies any drainage or bleeding. Denies fever or systemic symptoms. He does have some swelling to the area, but it has not changed much since the surgery. He is on Xarelto for history of PE. Physical Examination: Afebrile and vital signs unremarkable. Left knee shows postoperative changes with phoebe in place anteriorly. He does have some diffuse swelling about the knee. There is also some erythema to the medial aspect of the incision and distal to the incision. He is diffusely tender. No deformity. Good range of motion. Good extension. Good strength and sensation. Neurovascular intact distally. Calf soft and supple. Test Results: X-ray and laboratory studies pending. Emergency Department Course and Treatment: Patient declined pain medicine. I am concerned for a skin infection. Will check labs and a knee x-ray. Will discuss with orthopedics. White count normal. BUN 27 but otherwise metabolic panel normal. ESR 12 and CRP 45. X-ray showed worsening edema and joint effusion concerning for surgical site infection. I was concerned he would need p.o. or possibly IV antibiotics. Findings including the x-ray findings were discussed with Dr. Villatoro. He told me that Dr. Knight typically would like to see the patient before starting antibiotics, and that based on the results and vitals, he would like to see him in the office. Dr. Villatoro contacted Dr. Knight, and he confirmed this. He will follow-up with the patient tomorrow in the office. I discussed this with the patient and he was in agreement. He was given the number and will call tomorrow morning for follow-up. Return for fevers or any new or worsening issues. Treatment Plan: As above Disposition: Discharged Impression: 1. Left knee pain This note was generated with Hip[employer]ation software. It may contain incorrect words, spelling, and punctuation that were not noted in review of the chart prior to signing ED Disposition - Plan for ED Patient: Chief Complaint: Lower Extremity Injury Referrals: Arnav Huertas Chi, MD [Primary Care Provider] -
[2018-06-22 14:06] LABS: Erythrocyte Sedimentation Rate 12 mm/hr (0-20)
[2018-06-22 14:10] LABS: Absolute Lymphocyte Count 2.12 X10^3/ul (0.83-4.51); Absolute Neutrophil Count 5.7 X10^3/uL (2.0-7.7); Basophil# 0.02 X10^3/uL; Basophil% 0.2 % (0-1); Eosinophil# 0.36 X10^3/uL; Eosinophils% 3.9 % (0-5); Hematocrit 43.5 % (40-54); Hemoglobin 14.4 g/dl (13.0-16.5); Lymphocyte # 2.12 X10^3/ul (4.0); Lymphocyte % 23.1 % (19-41); Mean Corp Hgb Conc 33.1 g/gl (32-36); Mean Corpuscular Hgb 30.3 pg (27.0-32.0); Mean Corpuscular Volume 91.6 fL (80-94); Mean Platelet Vol. 8.8 fl (6.2-12.0); Monocyte# 0.96 X10^3/uL; Monocyte% 10.4 % (0-10); Neutrophil # 5.66 X10^3/uL (2.7-7.7); Neutrophil % 61.6 % (47-70); POSITIVE COUNT NO; POSITIVE DIFFERENTIAL NO; POSITIVE MORPHOLOGY NO; Platelet Count 222 K/mm3 (150-450); RBC Distribution Width CV 12.9 % (11.6-14.6); RBC Distribution Width SD 43.2 fl (35.1-43.9); Red Blood Count 4.75 M/mm3 (4.6-6.2); White Blood Count 9.2 K/mm3 (4.4-11.0)
[2018-06-22 14:18] LABS: Anion Gap 10 (5-15); BUN 27 mg/dL (7-18); BUN/Creat Ratio 27.8 RATIO (10-20); Calcium,Total 8.6 mg/dL (8.5-10.1); Chloride 102 mmol/L (98-107); Creatinine, Serum 0.97 mg/dL (0.70-1.30); EST Glomerular Filtration Rate 85 mL/min (>60); Est Glom Filt Rate - Afr Amer 103 mL/min (>60); Estimated Creatinine Clearance 97.24 ml/min; Glucose 87 mg/dL (74-106); Potassium 3.7 mmol/L (3.5-5.1); Sodium Level 141 mmol/L (136-145)
--- NOTE | 2018-06-22 15:34 | ED.DEP ---
ED Disposition - Plan for ED Patient: Chief Complaint: Lower Extremity Injury Instructions: Post-Op Tips: Knee Referrals: Amari Knight MD [STAFF PHYSICIAN] - Additional Instructions: Call tomorrow for follow-up tomorrow. Return for any worsening issues, fevers, or any other concerns.
[2018-06-22 15:41] VITALS: BP 115/92; PULSE 91; RESP 16; O2SAT 98
--- NOTE | 2018-06-22 15:42 | ED.RN ---
REVIEWED D/C INSTRUCTIONS, FOLLOW UP CARE, AND S/S THAT WOULD WARRANT A RETURN TO THE ED WITH PT. PT VERBALIZED AN UNDERSTANDING AND DENIES FURTHER QUESTIONS FOR THIS RN. PT SKIN P/W/D, RESP EVEN AND UNLABORED, PT A&O X 3, NO DISTRESS NOTED. PT AMBULATED OUT OF ED, GAIT STEADY.
--- OUTSIDE RECORDS SUMMARY | 2018-08-15 23:35 | XMS RPT_ITS | Clinical Summary ---
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 Hypersomnia 99834810 Resolved Cristian Juan Hypersomnia (SNOMED CT) 08/20 08/20 Kyle NUSRAT, adult 15095787381 Active Cristian Juan Obstructive On (SNOMED 09/19 09/19 Kyle sleep apnea of AutoPAP, CT) adult AHI 9 Cough 91830280 Active Gael A Cough (SNOMED CT) 09/12 09/12 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 SPECIALIST-C Abnormal 699292028 Active Tracy Harman Electrocardiog EKG (SNOMED CT) 08/27 08/27 Chayo blair abnormal RN Chest pain 48486618 Active Tracy Harman Chest pain (SNOMED CT) 08/27 08/27 Chayo RN Lightheaded 061855124 Active Tova S Lightheadednes ness (SNOMED CT) 08/20 08/20 Sylvie HARD HAT DIVER s Hypersomnia 57448671 Removed Tova S Hypersomnia (SNOMED CT) 08/20 08/20 Mercer HARD HAT DIVER PE 60012485 Active Tova S Pulmonary (SNOMED CT) 08/20 08/20 Sylvie HARD HAT DIVER embolism Orthopedic 478406595 Active Reggie Lyons Postoperative surgical (SNOMED CT) 08/15 08/15 Nery physical aftercare examination Knee pain, 47216943 Active Zuly N Knee pain right (SNOMED CT) 07/25 07/25 Tejada 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 Matt Armendariz Localized, knee (SNOMED CT) 08/26 08/26 [place] primary osteoarthritis Knee pain, 89595831 Active Matt Armendariz Knee pain left (SNOMED CT) 08/26 08/26 [place] Gastroenter 04237981 Active Jianming Gastroenteriti itis, acute (SNOMED CT) 08/18 08/18 Ike armendariz Headache 06498570 Active Jianming Headache (SNOMED CT) Ike ESPINOZA SPECIAL Z12.5 Resolved Jianming Encounter for SCREENING (ICD-10-CM) Ike ESPINOZA screening for MALIGNANT malignant NEOPLASM OF neoplasm of PROSTATE prostate DIZZINESS 907649297 Resolved Jianming Dizziness (SNOMED CT) Ike ESPINOZA SEBACEOUS 634377121 Resolved Jianming Infected CYST, (SNOMED CT) Ike ESPINOZA sebaceous cyst INFECTED MAXILLARY 48023287 Resolved Jianming Maxillary SINUSITIS (SNOMED CT) 01/07 01/07 Ike ESPINOZA sinusitis MAXILLARY 51641745 Resolved Jianming Maxillary and SINUSITIS (SNOMED CT) 11/20 11/20 Ike ESPINOZA sinusitis ethimoid ETHMOID 81909880 Resolved Jianming Ethmoidal SINUSITIS (SNOMED CT) 12/26 12/26 Ike ESPINOZA sinusitis MAXILLARY 55895793 Removed Jianming Maxillary and SINUSITIS (SNOMED CT) 11/20 11/20 Ike ESPINOZA sinusitis ethimoid KELOID SCAR 58808667 Active Jianming Keloid scar (SNOMED CT) 10/13 10/13 Ike ESPINOZA DYSLIPIDEMI 458127919 Active Jianming Dyslipidemia A (SNOMED CT) 09/13 09/13 Ike ESPINOZA PROSTATE 636934206 Active Jianming Raised SPECIFIC (SNOMED CT) 09/13 09/13 Ike ESPINOZA prostate ANTIGEN, specific ELEVATED antigen SPECIAL Z12.5 Removed Jianming Encounter for SCREENING (ICD-10-CM) 0 0 Ike ESPINOZA screening for MALIGNANT malignant NEOPLASM OF neoplasm of PROSTATE prostate HEALTH 933302947 [facility] (SNOMED CT) 0 0 Ike ESPINOZA examination of EXAM patient HERPES 5338023 Active [facility] Herpes zoster ZOSTER (SNOMED CT) 04/16 04/16 Ike ESPINOZA ETHMOID 18022576 Removed [facility] Ethmoidal SINUSITIS (SNOMED CT) 12/26 12/26 Ike ESPINOZA sinusitis SEBACEOUS 688636659 Removed Jiamsing Infected CYST, (SNOMED CT) Ike ESPINOZA sebaceous cyst INFECTED DIZZINESS 522160511 Removed Jianming Dizziness (SNOMED CT) 0 Ike ESPINOZA SEBACEOUS 609198093 [facility] Epidermoid CYST (SNOMED CT) Ike ESPINOZA cyst of skin MAXILLARY 80831557 Removed Braeden Maxillary SINUSITIS (SNOMED CT) 01/07 01/07 Carlos ESPINOZA sinusitis PHARYNGITIS 825515142 Resolved [facility] Acute , ACUTE (SNOMED CT) 08/19 08/19 Carlos ESPINOZA pharyngitis PHARYNGITIS 643868526 Removed Braeden Acute , ACUTE (SNOMED CT) 08/19 08/19 Carlos ESPINOZA pharyngitis PHYSICAL 5276711 Inactive [facility] Physical EXAMINATION (SNOMED CT) 08/19 08/19 Carlos ESPINOZA examination procedure CELLULITIS 231393919 Resolved [facility] Cellulitis and AND ABSCESS (SNOMED CT) 01/08 01/08 Carlos ESPINOZA abscess of OF TRUNK trunk HYPERTENSIO 81603541 Active [facility] Hypertensive N (SNOMED CT) 01/23 01/23 Carlos ESPINOZA disorder HYPERCHOLES 74392751 Active Braeden M Hypercholester TEROLEMIA (SNOMED CT) 01/23 01/23 Carlos ESPINOZA olemia RENAL CYST, 25959409 Active Braeden Berkowitz Simple renal LEFT (SNOMED CT) 01/23 01/23 Carlos ESPINOZA cyst CELLULITIS 658594797 Removed Kota R Cellulitis and AND ABSCESS (SNOMED CT) 01/08 01/08 Natanael ESPINOZA abscess of OF TRUNK trunk Medications Medication Instructions Start Stop Generic Name NDC Provider Date Date AZITHROMYCIN 250 2 tablets by / AZITHROMYCIN [id number] Tova S MG TABS mouth today and 22 Mercer HARD HAT DIVER then 1 tablet daily for the next 4 days NEXIUM 40 MG One tablet by / ESOMEPRAZOLE [id number] Joshua CPDR mouth daily 03 MAGNESIUM Ike ESPINOZA AMLODIPINE One tablet by / AMLODIPINE [id number] Joshua BESYLATE 10 MG mouth daily 25 BESYLATE Ike ESPINOZA TABS BYSTOLIC 20 MG One tablet by / NEBIVOLOL HCL 43117824477 Jianming TABS mouth daily 02 Ike ESPINOZA AMOXICILLIN 500 One tablet by / AMOXICILLIN 04158418540 Marcianming MG CAPS mouth four Ramires times daily TRIAMCINOLONE apply to / TRIAMCINOLONE [id number] Joshua ACETONIDE 0.1 % affected area 25 ACETONIDE Ike ESPINOZA CREA twice daily, avoid face, axillary, and groin area DESONIDE 0.05 % apply to / DESONIDE 76248606867 Marcianming CREA affected area 26 Ike ESPINOZA twice daily, avoid face, axillary and groin area VALACYCLOVIR HCL One tablet by VALACYCLOVIR HCL 01953237934 Aidnaing 1 GM TABS mouth three Ike ESPINOZA times daily AMOXICILLIN 500 One tablet by / AMOXICILLIN 77718272868 Jianming MG TABS mouth three [facility] times daily BYSTOLIC 10 MG One tablet by / NEBIVOLOL HCL 31008528706 Jianming TABS mouth daily 02 Ike ESPINOZA AUGMENTIN One tablet by / AMOXICILLIN-POT [id number] Braeden Berkowitz 875-125 MG TABS mouth twice CLAVULANATE Carlos ESPINOZA daily. ZITHROMAX Z-GENA 2 tabs PO on / AZITHROMYCIN 56891039319 Braeden Berkowitz 250 MG TABS day one, then 1 Carlos ESPINOZA tab PO daily for 4 days ATENOLOL 25 MG One tablet by ATENOLOL 36345966702 Braeden Berkowitz TABS mouth daily Carlos ESPINOZA AMOXICILLIN 500 One tablet by AMOXICILLIN 68742490085 Jianming MG TABS mouth three Ike ESPINOZA times daily BYSTOLIC 10 MG One tablet by NEBIVOLOL HCL 75710225143 Jianming TABS mouth daily Ike ESPINOZA DESONIDE 0.05 % apply to DESONIDE 71201891912 Jianming CREA affected area Ike ESPINOZA twice daily, avoid face, axillary and groin area ATENOLOL 25 MG One tablet by ATENOLOL 40999833979 Jianming TABS mouth daily Ike ESPINOZA CRESTOR 10 MG One tablet by ROSUVASTATIN 53574925896 Braeden M TABS mouth daily CALCIUM Carlos ESPINOZA CRESTOR 10 MG One tablet by ROSUVASTATIN 37572673170 Jianming TABS mouth daily CALCIUM Ike ESPINOZA SULFAMETHOXAZOLE SULFAMETHOXAZOLE 21757140564 Radha Cruz -TRIMETHOPRIM -TRIMETHOPRIM David TABS TABS SULFAMETHOXAZOLE SULFAMETHOXAZOLE 44468305222 Braeden M -TRIMETHOPRIM -TRIMETHOPRIM Carlos ESPINOZA TABS TABS HYDROCODONE-ACET Two tablets by HYDROCODONE-ACET 91361962637 Radha Cruz AMINOPHEN TABS mouth daily AMINOPHEN TABS David HYDROCODONE-ACET Two tablets by HYDROCODONE-ACET 04942610121 Braeden M AMINOPHEN TABS mouth daily AMINOPHEN TABS Carlos ESPINOZA DIAZEPAM TABS 2 awee DIAZEPAM TABS 02240032781 Radha Hernandez DIAZEPAM TABS 2 aweek DIAZEPAM TABS 06125031376 Carlos ESPINOZA AMOXICILLIN 500 One tablet by AMOXICILLIN 90337561676 Jianming MG CAPS mouth four Ike ESPINOZA times daily AMLODIPINE One tablet by AMLODIPINE 14673656068 Matt Armendariz BESYLATE 10 MG mouth daily BESYLATE [place] TABS BYSTOLIC 20 MG One tablet by NEBIVOLOL HCL 56522403063 Matt Armendariz TABS mouth daily [place] TRIAMCINOLONE apply to TRIAMCINOLONE 89418145046 Matt Armendariz ACETONIDE 0.1 % affected area ACETONIDE [place] CREA twice daily, avoid face, axillary, and groin area NEXIUM 40 MG One tablet by / ESOMEPRAZOLE 94769062575 Zuly L CPDR mouth daily MAGNESIUM York LOSARTAN One tab one / LOSARTAN 85604131885 Zuly L POTASSIUM-HCTZ time daily POTASSIUM-HCTZ York 50-12.5 MG TABS NEXIUM 40 MG One tablet by / ESOMEPRAZOLE 24510277525 Zuly CPDR mouth daily 30 MAGNESIUM Floresita Chavez [employer] AZITHROMYCIN 250 2 tablets by AZITHROMYCIN 82304602185 Bambi M MG TABS mouth today and Audi then 1 tablet daily for the next 4 days XARELTO 20 MG One tablet by / RIVAROXABAN 17714372460 Zuly TABS mouth daily 30 Floresita Chavez [employer] XARELTO 20 MG One tablet by RIVAROXABAN 05773888502 Alessia A TABS mouth daily Yensho [employer] Medications Administered No information available. Allergies, Adverse Reactions, Alerts Allergy Name Reaction Description Start Date Severity Status Provider NKDA Mild Active Tracy Domingo RN Results Date Name Value Unit Range Flag Description Lab Report: CMP BILI TOTAL 0.60 mg/dL 0.00-1.00 N bilirubin, serum, total ALK PHOS 54 U/L 50-136 N alkaline phosphatase, serum ALBUMIN 3.8 g/dL 3.4-5.0 N albumin, serum Lab Report: Urinalysis, Routine (Dipstick) WBC DIPSTK U Negative Negative leukocyte esterase, urine, by dipstick OCC BLD UR 10 Negative H Occult Blood, urine NITRITE UA Negative Negative Nitrite Urine UROBILIURDIP Normal mg/dL Normal urobilinogen, urine, by dipstick PROTEIN, URN Negative Negative Albumin [Presence] in Urine PH URINE 6.0 5.0 - 8.0 pH, urine, semiquantitative SPEC GR URIN 1.020 1.002-1.030 specific gravity, urine KETONES URN Negative Negative ketones, urine, by test strip BILIRUBIN UR Negative Negative bilirubin, urine GLUCOSE UA Normal mg/dL Normal Glucose Urine CLARITY UR Clear Clear clarity, urine, point UA COLOR Yellow Yellow urine color Lab Report: Basic Metabolic Profile (BMP) ANION GAP 10 5-15 anion gap, serum CALCIUM 8.0 mg/dL 8.5-10.1 L calcium, serum BUN/CREAT 15.7 RATIO 10-20 urea nitrogen/creatinine ratio, serum CCVCREABSA 108.48 mL/min calculated corrected value of creatinine clearance with body surface area GFRAA 114 mL/min >60 Glomerular Filtration rate GFR EST 95 mL/min >60 estimated glomerular filtration rate GLUCOSE SER 130 mg/dL 70-110 H blood glucose Lab Report: CBC-Complete Blood Cnt No Diff MPV 9.7 fL 6.2-12.0 mean platelet volume RDW-SD 43.4 fL 35.1-43.9 red blood cell distribution width, size density RDW 13.1 % 11.6-14.6 red blood cell distribution width MCHC RBC 33.4 G/GL g/dL 32-36 mean corpuscular hemoglobin concentration, RBC MCH 31.1 pg 27.0-32.0 mean corpuscular hemoglobin, RBC MCV 93.0 fL 80-94 mean corpuscular volume, RBC RBC M/UL 4.54 10*6/uL 4.6-6.2 L red blood count Lab Report: Testosterone, Serum Total TESTOS FREE 202 ng/dL 241-827 L testosterone, serum, free Lab Report: Quantiferon TB-Gold TB QUANT Negative Negative Quantiferon Gold TB blood test for tuberculosis screening Clinical Lists Update: Preload CARDEFECHO 55 % Left ventricular Ejection fraction VLDL 32 mg/dL very low density lipoproteins LDL 120 mg/dL Cholesterol in LDL [Mass/volume] in Serum or Plasma HDL 43 mg/dL Cholesterol in HDL [Mass/volume] in Serum or Plasma CHOLESTEROL 195 mg/dL Cholesterol [Mass/volume] in Serum or Plasma TRIGLYCRDES 160 mg/dL Triglyceride [Mass/volume] in Serum or Plasma SGOT (AST) 10 U/L aspartate aminotransferase (SGOT), serum SGPT (ALT) 2 U/L alanine aminotransferase (SGPT), serum CREATININE 1.00 mg/dL creatinine, serum BUN 14 mg/dL urea nitrogen, blood CO2 30.0 mmol/L carbon dioxide, venous blood CHLORIDE 102 mmol/L chloride, serum POTASSIUM 3.9 mmol/L potassium, serum SODIUM 138 mmol/L sodium, serum PLATELETS 255 10*3/mm3 platelet count HCT 45.2 % hematocrit, blood HGB 14.9 g/dL hemoglobin, blood WBC BLOOD 8.7 10*9/L leukocyte (white blood cells) count, blood Replaced Document: [facility]mark ECG Observations EKG INTERP Sinus Rhythm Low voltage electrocardiogram in precordial leads. interpretation -Poor R-wave progression -may be secondary to pulmonary disease consider old anterior infarct. - Nonspecific T-abnormality. ABNORMAL EKG T AXIS -1 deg T wave axis, electrocardiogram EKG QRS AXIS -15 deg QRS axis, electrocardiogram EKG PWAVAXIS 44 deg P wave axis, electrocardiogram QRS INTERVAL 98 ms QRS duration, electrocardiogram QT INTERVAL new path ms QT interval, electrocardiogram NV INTERVAL 150 ms NV interval, electrocardiogram EKGHRTRATE 94 BPM heart rate on electrocardiogram Microbiology: RESPIRATORY PANEL MOLECULAR ZZ-GE-unk . GE use only - for [employer] import when terms are not otherwise specified Append: Dr. 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 Dietary management education, guidance, and counseling (procedure) ALCOHOLCOUNS no Alcoholism counseling (procedure) SMOK STATUS Never smoker Tobacco use [facility] Plan of Care Type Date Detail Appointment 08:00 AM Matt Mcnulty, [address] [facility], [address], [place], [address], Appointment 08:00 AM Tova Mercer [facility], [address] [place] [address], [address], [place], [address] Referral Cardiac Referral [facility], [address] [place] [address], [address], [place], [address] Referral Physical Therapy [facility], [address] [facility] [address] [facility], [place], [address] Referral Urology Referral Marcello Denton, [address] [facility], [address], [place], [address] Pending order Follow Up Appt 6 months Pending order CSM Pending order *DDIMQ - Fibrin Degrd Ultrsens Qual/Semiquan Pending order Retitration with follow up (patient on CPAP currently) Pending order BWA Pending order Follow Up Appt 3 months Pending order X-Ray, Knee Pending order X-Ray, Knee Pending order X-Ray, Knee Pending Order excluded from report: Pending order Follow Up Appt 3 months Pending order CSM Pending order *Respiratory Panel Pending order PFM Pending order EKG (In office) Pending order Complete portable sleep workup (portable,CPAP as indicated) & follow up Pending order Complete sleep workup (PSG,CPAP as indicated) & Follow up Pending Order excluded from report: Pending order BWA Pending order Follow Up Appt 1 month Pending order Complete sleep workup (PSG,CPAP as indicated) & Follow up Pending order X-Ray, Knee Pending order X-Ray, Knee Pending order *CBC without Diff Pending order *CMP Complete Metabolic Panel Pending order *Lipid Profile Pending order *UA - Urinalysis w/o Micro Pending order *Lipid Profile Pending order *PSA, Annual Screening Pending order Excision Benign Lesion Trunk/Arm/Leg 2.1-3.0 cm Pending order Echocardiogram (complete) Pending order Stress Echocardiogram (treadmill) Pending order *Lipid Profile Pending order *CMP Complete Metabolic Panel Pending order US Abdomen, limited Pending order *Urinalysis, complete Pending Order excluded from report: Pending order *Urinalysis, complete Patient education [id number] Procedures Code Procedure Name Date Entry Date 02693-4 *DDIMQ - Fibrin Degrd Ultrsens Qual/Semiquan RWFU Retitration with follow up (patient on CPAP currently) F/U BWA BWA FUA 3 months Follow Up Appt 3 months CPT-29212 X-Ray, Knee Order excluded from report: FUA 3 months Follow Up Appt 3 months F/U CSM CSM 92764-5 *Respiratory Panel CPT-67388 EKG (In office) F/U PFM PFM CPSP Complete portable sleep workup (portable,CPAP as indicated) & follow up F/U BWA [facility] FUA 1 month Follow Up Appt 1 month [id number] Cardiac Referral CS Complete sleep workup (PSG,CPAP as indicated) & Follow up Order excluded from report: Physical Therapy Physical Therapy General CPT-21446 X-Ray, Knee 83742-4 *CBC without Diff 0786-1 *CMP Complete Metabolic Panel 77248-1 *Lipid Profile 0610-1 *UA - Urinalysis w/o Micro Urology Urology Referral 62846-1 *Lipid Profile 2857-1 *PSA, Annual Screening CPT-94191 Excision Benign Lesion Trunk/Arm/Leg 2.1-3.0 cm 23044-1 *Lipid Profile 0786-1 *CMP Complete Metabolic Panel Echo Echocardiogram (complete) SET Stress Echocardiogram (treadmill) CPT-62634 US Abdomen, limited CPT-UAComp *Urinalysis, complete Order excluded from report: Vital Signs Date Name Value Unit Description BMI (Body Mass Index) 27.80 kg/m2 Body Mass Index [Ratio] Body Temperature 97.6 [degF] temperature E&M BP Diastolic 70 mm[Hg] blood pressure, diastolic - 8462-4 BP Systolic 135 mm[Hg] blood pressure, systolic - 8480-6 Heart Rate 80 /min pulse rate E&M - 8867-4 Height 72 [in_us] height E&M - 8302-2 Respiratory Rate 18 /min respiratory rate E&M - 9279-1 Weight Measured 205 [lb_av] weight E&M - 3141-9 Body Temperature 36.7 Chhaya temperature in centigrade E&M Weight Measured 98.18 kg weight in kilograms E&M BSA (Body Surface Area) 0 body surface area Height 185.42 cm height in centimeters E&M BP Diastolic 96 mm[Hg] blood pressure, diastolic, second observation BP Systolic 133 mm[Hg] blood pressure, systolic, second observation Heart Rate 70 pulse rate #2
--- OUTSIDE RECORDS SUMMARY | 2018-08-15 23:35 | XMS RPT_ITS | Clinical Summary ---
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 Hypersomnia 74251121 Resolved Cristian Juan Hypersomnia (SNOMED CT) 08/20 08/20 Kyle NUSRAT, adult 77742458159 Active Cristian Juan Obstructive On (SNOMED 09/19 09/19 Kyle sleep apnea of AutoPAP, CT) adult AHI 9 Cough 24670439 Active Gael A Cough (SNOMED CT) 09/12 09/12 Molina ADMISSIONS RECRUITER-C Abnormal 636565443 Active Tracy Harman Electrocardiog EKG (SNOMED CT) 08/27 08/27 Chayo blair abnormal RN Chest pain 80374330 Active Tracy Harman Chest pain (SNOMED CT) 08/27 08/27 Chayo RN Lightheaded 877914267 Active Tova S Lightheadednes ness (SNOMED CT) 08/20 08/20 Mercer CERTIFIED FIRE INVESTIGATOR s Hypersomnia 43692898 Removed Tova S Hypersomnia (SNOMED CT) 08/20 08/20 Mercer CERTIFIED FIRE INVESTIGATOR PE 85700674 Active Tova S Pulmonary (SNOMED CT) 08/20 08/20 Mercer CERTIFIED FIRE INVESTIGATOR embolism Orthopedic 199018989 Active Reggie Lyons Postoperative surgical (SNOMED CT) 08/15 08/15 Nery physical aftercare examination Knee pain, 48451192 Active Zuly N Knee pain right (SNOMED CT) 07/25 07/25 Tejada OA of left 928885334 Active Matt Powers Localized, knee (SNOMED CT) 08/26 08/26 Hamlet primary osteoarthritis Knee pain, 62727933 Active Matt Powers Knee pain left (SNOMED CT) 08/26 08/26 [place] Gastroenter 54732641 Active Jianming Gastroenteriti itis, acute (SNOMED CT) 08/18 08/18 Ike ESPINOZA s Headache 97414090 Active Jianming Headache (SNOMED CT) Ike ESPINOZA SPECIAL Z12.5 Resolved Jianming Encounter for SCREENING (ICD-10-CM) Ike ESPINOZA screening for MALIGNANT malignant NEOPLASM OF neoplasm of PROSTATE prostate DIZZINESS 268492845 Resolved Jianming Dizziness (SNOMED CT) Ike ESPINOZA SEBACEOUS 054307067 Resolved Jianming Infected CYST, (SNOMED CT) Ike ESPINOZA sebaceous cyst INFECTED MAXILLARY 89333602 Resolved Jianming Maxillary SINUSITIS (SNOMED CT) 01/07 01/07 Ike ESPINOZA sinusitis MAXILLARY 73838877 Resolved Jianming Maxillary and SINUSITIS (SNOMED CT) 11/20 11/20 Ike ESPINOZA sinusitis ethimoid ETHMOID 19361363 Resolved Jianming Ethmoidal SINUSITIS (SNOMED CT) 12/26 12/26 Ike ESPINOZA sinusitis MAXILLARY 21193942 Removed Jianming Maxillary and SINUSITIS (SNOMED CT) 11/20 11/20 Ike ESPINOZA sinusitis ethimoid KELOID SCAR 45527908 Active Jianming Keloid scar (SNOMED CT) 10/13 10/13 Ike ESPINOZA DYSLIPIDEMI 935763804 Active Jianming Dyslipidemia A (SNOMED CT) 09/13 09/13 Ike ESPINOZA PROSTATE 372827636 Active Jianming Raised SPECIFIC (SNOMED CT) 09/13 09/13 Ike ESPINOZA prostate ANTIGEN, specific ELEVATED antigen SPECIAL Z12.5 Removed Joshua Encounter for SCREENING (ICD-10-CM) 0 0 Ike ESPINOZA screening for MALIGNANT malignant NEOPLASM OF neoplasm of PROSTATE prostate HEALTH 025085510 Active Joshua General MAINTENANCE (SNOMED CT) 0 0 Ike ESPINOZA examination of EXAM patient HERPES 1481333 [facility]oster Z[facility] (SNOMED CT) 04/16 04/16 Ike ESPINOZA ETHMOID 58815368 Removed Jiasding Ethmoidal SINUSITIS (SNOMED CT) 12/26 12/26 Ike ESPINOZA sinusitis SEBACEOUS 963235082 Removed Jianming Infected CYST, (SNOMED CT) Ike ESPINOZA sebaceous cyst INFECTED DIZZINESS 040072015 Removed Jianming Dizziness (SNOMED CT) 0 Ike ESPINOZA SEBACEOUS 610297493 Active Joshua Epidermoid CYST (SNOMED CT) 0 0 Ike ESPINOZA cyst of skin MAXILLARY 04594399 Removed Braeden Berkowitz Maxillary SINUSITIS (SNOMED CT) 01/07 01/07 Carlos ESPINOZA sinusitis PHARYNGITIS 338637175 Resolved Braeden Berkowitz Acute , ACUTE (SNOMED CT) 08/19 08/19 Carlos ESPINOZA pharyngitis PHARYNGITIS 379220807 Removed Braeden Berkowitz Acute , ACUTE (SNOMED CT) 08/19 08/19 Carlos ESPINOZA pharyngitis PHYSICAL 6087810 Inactive Braeden Berkowitz Physical EXAMINATION (SNOMED CT) 08/19 08/19 Carlos ESPINOZA examination CELLULITIS 389605033 Resolved Braeden M Cellulitis and AND ABSCESS (SNOMED CT) 01/08 01/08 Carlos ESPINOZA abscess of OF TRUNK trunk HYPERTENSIO 45330049 Active Braeden Berkowitz Hypertensive N (SNOMED CT) 01/23 01/23 Carlos ESPINOZA disorder HYPERCHOLES 92871226 Active Braeden Berkowitz Hypercholester TEROLEMIA (SNOMED CT) 01/23 01/23 Carlos ESPINOZA olemia RENAL CYST, 17094264 Active Braeden Berkowitz Simple renal LEFT (SNOMED CT) 01/23 01/23 Carlos ESPINOZA cyst CELLULITIS 012731421 Removed Kota Cruz Cellulitis and AND ABSCESS (SNOMED CT) 01/08 01/08 Natanael ESPINOZA abscess of OF TRUNK trunk Medications Medication Instructions Start Stop Generic Name NDC Provider Date Date AZITHROMYCIN 250 2 tablets by / AZITHROMYCIN [id number] Tova S MG TABS mouth today and 22 Mercer CERTIFIED FIRE INVESTIGATOR then 1 tablet daily for the next 4 days NEXIUM 40 MG One tablet by / ESOMEPRAZOLE 29334766795 Adinaing CPDR mouth daily 03 MAGNESIUM Ike ESPINOZA AMLODIPINE One tablet by / AMLODIPINE 97122369863 Adinaing BESYLATE 10 MG mouth daily 25 BESYLATE Ike ESPINOZA TABS BYSTOLIC 20 MG One tablet by / NEBIVOLOL HCL 86257348406 Jianming TABS mouth daily 02 Ike ESPINOZA AMOXICILLIN 500 One tablet by / AMOXICILLIN 66464203184 Jianming MG CAPS mouth four Ike ESPINOZA times daily TRIAMCINOLONE apply to / TRIAMCINOLONE [id number] Joshua ACETONIDE 0.1 % affected area 25 ACETONIDE Ike ESPINOZA CREThierry twice daily, avoid face, axillary, and groin area DESONIDE 0.05 % apply to / DESONIDE 48416438975 Jianming CREA affected area 26 Ike ESPINOZA twice daily, avoid face, axillary and groin area VALACYCLOVIR HCL One tablet by / VALACYCLOVIR HCL 70069857915 Jianming 1 GM TABS mouth three Ike ESPINOZA times daily AMOXICILLIN 500 One tablet by / AMOXICILLIN 52635912642 Jianming MG TABS mouth three Ramires times daily BYSTOLIC 10 MG One tablet by / NEBIVOLOL HCL 45256182856 Jianming TABS mouth daily Ike ESPINOZA AUGMENTIN One tablet by / AMOXICILLIN-POT 21076657728 Braeden Berkowitz 875-125 MG TABS mouth twice CLAVULANATE Carlos ESPINOZA daily. ZITHROMAX Z-GENA 2 tabs PO on / AZITHROMYCIN 70951144335 Braeden M 250 MG TABS day one, then 1 Carlos ESPINOZA tab PO daily for 4 days ATENOLOL 25 MG One tablet by ATENOLOL 69683963606 Braeden Berkowitz TABS mouth daily Carlos ESPINOZA AMOXICILLIN 500 One tablet by AMOXICILLIN 85295527346 Jianming MG TABS mouth three Ike ESPINOZA times daily BYSTOLIC 10 MG One tablet by NEBIVOLOL HCL 73135453893 Jianming TABS mouth daily Ike ESPINOZA DESONIDE 0.05 % apply to DESONIDE 09915104284 Marcianmsharon CREA affected area Ike ESPINOZA twice daily, avoid face, axillary and groin area ATENOLOL 25 MG One tablet by ATENOLOL 37284728044 Jianming TABS mouth daily Ike ESPINOZA CRESTOR 10 MG One tablet by ROSUVASTATIN 65602751272 Braeden M TABS mouth daily CALCIUM Carlos ESPINOZA CRESTOR 10 MG One tablet by ROSUVASTATIN 36793870470 Jianming TABS mouth daily CALCIUM Ike ESPINOZA SULFAMETHOXAZOLE SULFAMETHOXAZOLE 37824486879 Radha Cruz -TRIMETHOPRIM -TRIMETHOPRIM David TABS TABS SULFAMETHOXAZOLE SULFAMETHOXAZOLE 42474537883 Braeden M -TRIMETHOPRIM -TRIMETHOPRIM Carlos ESPINOZA TABS TABS HYDROCODONE-ACET Two tablets by HYDROCODONE-ACET 10086177091 Radha Cruz AMINOPHEN TABS mouth daily AMINOPHEN TABS David HYDROCODONE-ACET Two tablets by HYDROCODONE-ACET 77224798264 Braeden M AMINOPHEN TABS mouth daily AMINOPHEN TABS Carlos ESPINOZA DIAZEPAM TABS 2 awee DIAZEPAM TABS 02085739598 Radha R David DIAZEPAM TABS 2 aweek DIAZEPAM TABS 92390016562 Carlos ESPINOZA AMOXICILLIN 500 One tablet by AMOXICILLIN 15617607878 Jianming MG CAPS mouth four Ike ESPINOZA times daily AMLODIPINE One tablet by AMLODIPINE 23611488321 Matt S BESYLATE 10 MG mouth daily BESYLATE Hamlet TABS BYSTOLIC 20 MG One tablet by NEBIVOLOL HCL 47754031574 Matt Powers TABS mouth daily Hamlet TRIAMCINOLONE apply to TRIAMCINOLONE 27903058191 Matt Powers ACETONIDE 0.1 % affected area ACETONIDE Ham[place] CREA twice daily, avoid face, axillary, and groin area NEXIUM 40 MG One tablet by / ESOMEPRAZOLE 08793222880 Zuly L CPDR mouth daily MAGNESIUM [place] LOSARTAN One tab one LOSARTAN 30583803581 Zuly L POTASSIUM-HCTZ time daily POTASSIUM-HCTZ York 50-12.5 MG TABS NEXIUM 40 MG One tablet by / ESOMEPRAZOLE 24725668306 Zuly CPDR mouth daily 30 MAGNESIUM Floresita Chavez DEVULCANIZER CHARGER AZITHROMYCIN 250 2 tablets by AZITHROMYCIN 89769340479 Bambi M MG TABS mouth today and Audi then 1 tablet daily for the next 4 days XARELTO 20 MG One tablet by / RIVAROXABAN 21559671619 Zuly TABS mouth daily 30 Floresita Chavez DEVULCANIZER CHARGER XARELTO 20 MG One tablet by RIVAROXABAN 49263358333 Alessia A TABS mouth daily Yensho DEVULCANIZER CHARGER Medications Administered No information available. Allergies, Adverse [...] INTERVAL new path ms QT interval, electrocardiogram HI INTERVAL 150 ms HI interval, electrocardiogram EKGHRTRATE 94 BPM heart rate on electrocardiogram Microbiology: RESPIRATORY PANEL MOLECULAR ZZ-GE-unk . GE use only - for LinkLogic import when terms are not otherwise specified Append: Dr. Francois referral (close loop) CONS[facility]ATION [facility]-[id number]^08/20/2016 Clinical consultation report (record artifact) Lab Report: D-Dimer Quantitative (DVT/PE) DDIMER < 0.27 FEU/ug/m ug/mL 0.27-0.49 L D-dimer quantitative mcg/mL Office Visit: NUSRAT & pulmonary embolism FALLRSKASSES No Fall risk assessment Office Visit MEDS REVIEW Done Documentation of current medications (procedure) DIET LANDCARE OFFICER yes Dietary management education, guidance, and counseling (procedure) ALCOHOLCOUNS no Alcoholism counseling (procedure) SMOK STATUS Never smoker Tobacco use [facility] Plan of Care Type Date Detail Appointment 08:00 AM Tova Mercer [facility], [address] [place] [address], [address], [place], [address] Referral Cardiac Referral Group Heart, [address] [place] [address], [address], [place], [address] Referral Physical Therapy General Rehab Services, [facility] [address], [place], [address] Referral Urology Referral Marcello Denton, [address] [place] [address], [address], [place], [address] Pending order X-Ray, Knee Pending order Follow Up Appt 6 months [...] Procedures Code Procedure Name Date Entry Date 91189-0 *DDIMQ - Fibrin Degrd Ultrsens Qual/Semiquan RWFU Retitration with follow up (patient on CPAP currently) F/U BWA BWA FUA 3 months Follow Up Appt 3 months CPT-69468 X-Ray, Knee Order excluded from report: FUA 3 months Follow Up Appt 3 months F/U CSM CSM 09915-5 *Respiratory Panel CPT-45336 EKG (In office) F/U PFM PFM CPSP Complete portable sleep workup (portable,CPAP as indicated) & follow up F/U BWA BWA FUA 1 month Follow Up Appt 1 month SCT-[id number] Cardiac Referral CS Complete sleep workup (PSG,CPAP as indicated) & Follow up Order excluded from report: Physical Therapy Physical Therapy General CPT-34626 X-Ray, Knee 79999-6 *CBC without Diff 0786-1 *CMP Complete Metabolic Panel 17169-9 *Lipid Profile 0610-1 *UA - Urinalysis w/o Micro Urology Urology Referral 36895-9 *Lipid Profile 2857-1 *PSA, Annual Screening CPT-36429 Excision Benign Lesion Trunk/Arm/Leg 2.1-3.0 cm 99779-8 *Lipid Profile 0786-1 *CMP Complete Metabolic Panel Echo Echocardiogram (complete) SET Stress Echocardiogram (treadmill) CPT-96413 US Abdomen, limited CPT-UAComp *Urinalysis, complete Order [...]
--- OUTSIDE RECORDS SUMMARY | 2018-08-15 23:35 | XMS RPT_ITS | Clinical Summary ---
:1960 Author Organization [facility], [facility] Address [address] [place] [address] Phone Care Team Providers Name Role Phone Zuly Kaufman Unavailable Unavailable Conditions or Problems Problem Problem Onset Status Entry Provider Comment Standard Annotate Name Code Date Date Description Prosthetic 298501202 Active Matt S Implantation unicompartm (SNOMED CT) 11/21 11/26 [place]let of joint ental knee prosthesis arthrop into knee joint Hypersomnia 71069435 Resolved Cristian Juan Hypersomnia (SNOMED CT) 08/20 08/20 Kyle NUSRAT, adult 59689962188 Active Cristian Juan Obstructive On (SNOMED 09/19 09/19 Kyle sleep apnea of AutoPAP, CT) adult AHI 9 Cough 90918303 Active Gael A Cough (SNOMED CT) 09/12 09/12 Molina FOREST 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-C Abnormal 397504196 Active Tracy Harman Electrocardiog EKG (SNOMED CT) 08/27 08/27 Chayo blair abnormal RN Chest pain 07180441 Active Tracy Harman Chest pain (SNOMED CT) 08/27 08/27 Chayo RN Lightheaded 744837441 Active Tova S Lightheadednes ness (SNOMED CT) 08/20 08/20 Sylvie EDUCATIONAL AID s Hypersomnia 72663384 Removed Tova S Hypersomnia (SNOMED CT) 08/20 08/20 Mercer EDUCATIONAL AID PE 37993167 Active Tova S Pulmonary (SNOMED CT) 08/20 08/20 Sylvie EDUCATIONAL AID embolism Orthopedic 344688133 Active Reggie Lyons Postoperative surgical (SNOMED CT) 08/15 08/15 Nery physical aftercare examination Knee pain, 57466182 Active Zuly N Knee pain right (SNOMED CT) 07/25 07/25 Tejada OA of left 026639948 Active Matt Armendariz Localized, knee (SNOMED CT) 08/26 08/26 [place]let primary osteoarthritis Knee pain, 42368262 Active Matt Armendariz Knee pain left (SNOMED CT) 08/26 08/26 [place] Gastroenter 82584434 Active Jianming Gastroenteriti itis, acute (SNOMED CT) 08/18 08/18 Ike armendariz Headache 07922600 Active Jianming Headache (SNOMED CT) Ike ESPINOZA SPECIAL Z12.5 Resolved Jianming Encounter for SCREENING (ICD-10-CM) Ike ESPINOZA screening for MALIGNANT malignant NEOPLASM OF neoplasm of PROSTATE prostate DIZZINESS 510129604 Resolved Jianming Dizziness (SNOMED CT) Ike ESPINOZA SEBACEOUS 404859205 Resolved Jianming Infected CYST, (SNOMED CT) Ike ESPINOZA sebaceous cyst INFECTED MAXILLARY 22045772 Resolved Jianming Maxillary SINUSITIS (SNOMED CT) 01/07 01/07 Ike ESPINOZA sinusitis MAXILLARY 43166094 Resolved Jianming Maxillary and SINUSITIS (SNOMED CT) 11/20 11/20 Ike ESPINOZA sinusitis ethimoid ETHMOID 92461013 Resolved Jianming Ethmoidal SINUSITIS (SNOMED CT) 12/26 12/26 Ike ESPINOZA sinusitis MAXILLARY 35283069 Removed Jianming Maxillary and SINUSITIS (SNOMED CT) 11/20 11/20 Ike ESPINOZA sinusitis ethimoid KELOID SCAR 01818216 Active Jianming Keloid scar (SNOMED CT) 10/13 10/13 Ike ESPINOZA DYSLIPIDEMI 539145236 Active Jianming Dyslipidemia A (SNOMED CT) 09/13 09/13 Ike ESPINOZA PROSTATE 540837705 Active Jianming Raised SPECIFIC (SNOMED CT) 09/13 09/13 Ike ESPINOZA prostate ANTIGEN, specific ELEVATED antigen SPECIAL Z12.5 Removed Jianmsharon Encounter for SCREENING (ICD-10-CM) 0 0 Ike ESPINOZA screening for MALIGNANT malignant NEOPLASM OF neoplasm of PROSTATE prostate HEALTH 378709872 Active [facility] General MAINTENANCE (SNOMED CT) 0 0 Ike ESPINOZA examination of EXAM patient HERPES 4057714 [facility] zoster ZOST[facility] (SNOMED CT) 04/16 04/16 Ike ESPINOZA ETHMOID 40846238 Removed [facility] Ethmoidal SINUSITIS (SNOMED CT) 12/26 12/26 Ike ESPINOZA sinusitis SEBACEOUS 325919545 Removed [facility] Infected CYST, (SNOMED CT) Ike ESPINOZA sebaceous cyst INFECTED DIZZINESS 145626483 Removed Jianming Dizziness (SNOMED CT) 0 Ike ESPINOZA SEBACEOUS 632374443 [facility] Epidermoid CYST (SNOMED CT) 0 Ike ESPINOZA cyst of skin MAXILLARY 19372887 Removed [facility] Maxillary SINUSITIS (SNOMED CT) 01/07 01/07 Carlos ESPINOZA sinusitis PHARYNGITIS 004564620 Resolved [facility] Acute , ACUTE (SNOMED CT) 08/19 08/19 Carlos ESPINOZA pharyngitis PHARYNGITIS 564830736 Removed Braeden M Acute , ACUTE (SNOMED CT) 08/19 08/19 Carlos ESPINOZA pharyngitis PHYSICAL 2893741 Inactive [facility] Physical EXAMINATION (SNOMED CT) 08/19 08/19 Carlos ESPINOZA examination procedure CELLULITIS 687213909 Resolved [facility] Cellulitis and AND ABSCESS (SNOMED CT) 01/08 01/08 Carlos ESPINOZA abscess of OF TRUNK trunk HYPERTENSIO 59413189 Active [facility] M Hypertensive N (SNOMED CT) 01/23 01/23 Carlos ESPINOZA disorder HYPERCHOLES 59877189 Active Braeden M Hypercholester TEROLEMIA (SNOMED CT) 01/23 01/23 Carlos ESPINOZA olemia RENAL CYST, 11653012 Active Braeden Berkowitz Simple renal LEFT (SNOMED CT) 01/23 01/23 Carlos ESPINOZA cyst CELLULITIS 629582684 Removed Kota R Cellulitis and AND ABSCESS (SNOMED CT) 01/08 01/08 Natanael ESPINOZA abscess of OF TRUNK trunk Medications Medication Instructions Start Stop Generic Name NDC Provider Date Date AZITHROMYCIN 250 2 tablets by / AZITHROMYCIN [id number] Toav S MG TABS mouth today and 22 Mercer EDUCATIONAL AID then 1 tablet daily for the next 4 days NEXIUM 40 MG One tablet by / ESOMEPRAZOLE 34003336525 Joshua CPDR mouth daily 03 MAGNESIUM Ike ESPINOZA AMLODIPINE One tablet by / AMLODIPINE 20115029852 Joshua BESYLATE 10 MG mouth daily 25 BESYLATE Ike ESPINOZA TABS BYSTOLIC 20 MG One tablet by / NEBIVOLOL HCL 99958412247 Jianming TABS mouth daily 02 Ike ESPINOZA AMOXICILLIN 500 One tablet by / AMOXICILLIN 45102087649 Marcianmsharon MG CAPS mouth four [facility] times daily TRIAMCINOLONE apply to / TRIAMCINOLONE 87266642003 Joshua ACETONIDE 0.1 % affected area 25 ACETONIDE Ike ESPINOZA CREA twice daily, avoid face, axillary, and groin area DESONIDE 0.05 % apply to / DESONIDE 37829005120 Marcianming CREA affected area 26 Ike ESPINOZA twice daily, avoid face, axillary and groin area VALACYCLOVIR HCL One tablet by VALACYCLOVIR HCL 39414234292 Adinaing 1 GM TABS mouth three Ike ESPINOZA times daily AMOXICILLIN 500 One tablet by / AMOXICILLIN 44503927003 Jianming MG TABS mouth three [facility] times daily BYSTOLIC 10 MG One tablet by / NEBIVOLOL HCL 12629697904 Jianming TABS mouth daily Ike ESPINOZA AUGMENTIN One tablet by / AMOXICILLIN-POT 68473652462 Braeden Berkowitz 875-125 MG TABS mouth twice CLAVULANATE Carlos ESPINOZA daily. ZITHROMAX Z-GENA 2 tabs PO on / AZITHROMYCIN 24157120918 Braeden Berkowitz 250 MG TABS day one, then 1 Carlos ESPINOZA tab PO daily for 4 days ATENOLOL 25 MG One tablet by ATENOLOL 53704147399 Braeden Berkowitz TABS mouth daily Carlos ESPINOZA BYSTOLIC 10 MG One tablet by NEBIVOLOL HCL 66335861921 Jianming TABS mouth daily Ike ESPINOZA AMOXICILLIN 500 One tablet by AMOXICILLIN 19260163739 Jianming MG CAPS mouth four Ike ESPINOZA times daily ATENOLOL 25 MG One tablet by ATENOLOL 58406749589 Jianming TABS mouth daily / Ike ESPINOZA AMLODIPINE One tablet by AMLODIPINE 30616788688 Matt Armendariz BESYLATE 10 MG mouth daily BESYLATE [place] TABS CRESTOR 10 MG One tablet by ROSUVASTATIN 99874469708 Braeden Berkowitz TABS mouth daily CALCIUM Carlos ESPINOZA CRESTOR 10 MG One tablet by ROSUVASTATIN 25471182516 Jianming TABS mouth daily CALCIUM Ike ESPINOZA AMOXICILLIN 500 One tablet by AMOXICILLIN 37818281008 Jianming MG TABS mouth three Ike ESPINOZA times daily SULFAMETHOXAZOLE SULFAMETHOXAZOLE 33595228470 Radha Cruz -TRIMETHOPRIM -TRIMETHOPRIM David TABS TABS SULFAMETHOXAZOLE SULFAMETHOXAZOLE 26404112901 Braeden Berkowitz -TRIMETHOPRIM -TRIMETHOPRIM Carlos ESPINOZA TABS TABS HYDROCODONE-ACET Two tablets by HYDROCODONE-ACET 23166824922 Radha R AMINOPHEN TABS mouth daily AMINOPHEN TABS David DIAZEPAM TABS 2 aweek DIAZEPAM TABS 34683245463 Radha Cruz David DESONIDE 0.05 % apply to DESONIDE 14476864433 Marcianming CREA affected area Ike ESPINOZA twice daily, avoid face, axillary and groin area TRIAMCINOLONE apply to TRIAMCINOLONE 42210696569 Matt Armendariz ACETONIDE 0.1 % affected area ACETONIDE [place] CREA twice daily, avoid face, axillary, and groin area BYSTOLIC 20 MG One tablet by NEBIVOLOL HCL 90716569716 Matt Armendariz TABS mouth daily [place] NEXIUM 40 MG One tablet by ESOMEPRAZOLE 14380014309 Zuly L CPDR mouth daily MAGNESIUM [place] AZITHROMYCIN 250 2 tablets by AZITHROMYCIN 14962876934 Bambi M MG TABS mouth today and Audi then 1 tablet daily for the next 4 days XARELTO 20 MG One tablet by / RIVAROXABAN 79118362842 Zuly TABS mouth daily 30 Floresita Chavez GARAGE DOOR INSTALLER XARELTO 20 MG One tablet by RIVAROXABAN 19210476719 Alessia A TABS mouth daily Yensho GARAGE DOOR INSTALLER LOSARTAN One tab one / LOSARTAN 08664550851 Zuly L POTASSIUM-HCTZ time daily POTASSIUM-HCTZ York 50-12.5 MG TABS NEXIUM 40 MG One tablet by / ESOMEPRAZOLE 17357101811 Zuly CPDR mouth daily 30 MAGNESIUM Floresita Chavez GARAGE DOOR INSTALLER DIAZEPAM TABS 2 aweek DIAZEPAM TABS 17649234664 Braeden Carlos ESPINOZA HYDROCODONE-ACET Two tablets by HYDROCODONE-ACET 58170914534 [facility] AMINOPHEN TABS mouth AMINOPHEN TABS Carlos ESPINOZA Medications Administered No information available. Allergies, Adverse [...] INTERVAL new path ms QT interval, electrocardiogram MS INTERVAL 150 ms MS interval, electrocardiogram EKGHRTRATE 94 BPM heart rate on electrocardiogram Microbiology: RESPIRATORY PANEL MOLECULAR ZZ-GE-unk . GE use only - for LinkLogic import when terms are not otherwise specified Office Visit: f/u cough FALLRSKASSES No Fall risk assessment Append: Dr. Francois referral (close loop) CONSULTATION [facility]-[id number]^08/20/2016 Clinical consultation report (record artifact) Office Visit: NUSRAT MEDS REVIEW Done Documentation of current medications (procedure) DIET SHEET METAL TECHNICIAN yes Dietary management education, guidance, and counseling (procedure) ALCOHOLCOUNS no Alcoholism counseling (procedure) SMOK STATUS Never smoker Tobacco use [facility] Lab Report: D-Dimer Quantitative (DVT/PE) DDIMER < 0.27 FEU/ug/m ug/mL 0.27-0.49 L D-dimer quantitative mcg/mL Plan of Care Type Date Detail Appointment 02:30 PM Cristian Wright, [address] [place] [address] [address], [place], [address] Appointment 08:00 AM Matt Mcnulty, [address] [facility], [address], [place], [address], Referral Cardiac Referral Group Heart, [address] [place] [address], [address], [place], [address] Referral Physical Therapy General Rehab Services, [address] [facility], [place], [address] Referral Urology Referral Marcello Denton, [address] [facility], [address], [place], [address] Pending order *DDIMQ - Fibrin Degrd Ultrsens [...] Procedures Code Procedure Name Date Entry Date 68076-5 *DDIMQ - Fibrin Degrd Ultrsens Qual/Semiquan CPT-67596 X-Ray, Knee Order excluded from report: 63596-8 *Respiratory Panel CPT-55491 EKG (In office) F/U PFM PFM CPSP Complete portable sleep workup (portable,CPAP as indicated) & follow up F/U BWA BWA FUA 1 month Follow Up Appt 1 month [id number] Cardiac Referral CS Complete sleep workup (PSG,CPAP as indicated) & Follow up Order excluded from report: Physical Therapy Physical Therapy General CPT-76095 X-Ray, Knee 86365-4 *CBC without Diff 0786-1 *CMP Complete Metabolic Panel 94156-6 *Lipid Profile 0610-1 *UA - Urinalysis w/o Micro Urology Urology Referral 51897-3 *Lipid Profile 2857-1 *PSA, Annual Screening CPT-26643 Excision Benign Lesion Trunk/Arm/Leg 2.1-3.0 cm 74943-8 *Lipid Profile 0786-1 *CMP Complete Metabolic Panel Echo Echocardiogram (complete) SET Stress Echocardiogram (treadmill) CPT-14705 US Abdomen, limited CPT-UAComp *Urinalysis, complete Order excluded from report: Vital Signs Date Name Value Unit Description BMI (Body Mass Index) 29.43 kg/m2 Body Mass Index [Ratio] Body Temperature 97.8 [degF] temperature E&M BP Diastolic 91 mm[Hg] blood pressure, diastolic - 8462-4 BP Systolic 132 mm[Hg] blood pressure, systolic - 8480-6 Heart Rate 97 /min pulse rate E&M - 8867-4 Height 72 [in_us] height E&M - 8302-2 O2 % BldC Oximetry 97 % oxygen saturation, oximetry Respiratory Rate 18 /min respiratory rate E&M - 9279-1 Weight Measured 217 [lb_av] weight E&M - 3141-9 Body Temperature [...]
--- OUTSIDE RECORDS SUMMARY | 2018-08-15 23:35 | XMS RPT_ITS | Clinical Summary ---
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 Hypersomnia 32314987 Resolved Cristian Juan Hypersomnia (SNOMED CT) 08/20 08/20 Kyle NUSRAT, adult 36846451468 Active Cristian Juan Obstructive On (SNOMED 09/19 09/19 Kyle sleep apnea of AutoPAP, CT) adult AHI 9 Cough 94688532 Active Gael A Cough (SNOMED CT) 09/12 09/12 Molina PRINCIPAL MILITARY ANALYST-C Abnormal 528032080 Active Tracy Harman Electrocardiog EKG (SNOMED CT) 08/27 08/27 Chayo blair abnormal RN Chest pain 78293488 Active Tracy Harman Chest pain (SNOMED CT) 08/27 08/27 Chayo RN Lightheaded 378495185 Active Tova S Lightheadednes ness (SNOMED CT) 08/20 08/20 Sylvie SUPERINTENDENT NONSELLING s Hypersomnia 37411231 Removed Tova S Hypersomnia (SNOMED CT) 08/20 08/20 Mercer SUPERINTENDENT NONSELLING PE 39885440 Active Tova S Pulmonary (SNOMED CT) 08/20 08/20 Sylvie SUPERINTENDENT NONSELLING embolism Orthopedic 321668850 Active Reggie Lyons Postoperative surgical (SNOMED CT) 08/15 08/15 Nery physical aftercare examination Knee pain, 15961942 Active Zuly N Knee pain right (SNOMED CT) 07/25 07/25 Tejada OA of left 916779105 Active Matt Armendariz Localized, knee (SNOMED CT) 08/26 08/26 Halmet primary osteoarthritis Knee pain, 93057026 Active Matt Armendariz Knee pain left (SNOMED CT) 08/26 08/26 [place]let Gastroenter 50598534 Active Jianming Gastroenteriti itis, acute (SNOMED CT) 08/18 08/18 Ike armendariz Headache 06291227 Active Jianming Headache (SNOMED CT) Ike ESPINOZA SPECIAL Z12.5 Resolved Jianming Encounter for SCREENING (ICD-10-CM) Ike ESPIONZA screening for MALIGNANT malignant NEOPLASM OF neoplasm of PROSTATE prostate DIZZINESS 601095030 Resolved Jianming Dizziness (SNOMED CT) Ike ESPINOZA SEBACEOUS 485418080 Resolved Jianming Infected CYST, (SNOMED CT) Ike ESPINOZA sebaceous cyst INFECTED MAXILLARY 49272137 Resolved Jianming Maxillary SINUSITIS (SNOMED CT) 01/07 01/07 Ike ESPINOZA sinusitis MAXILLARY 39506120 Resolved Jianming Maxillary and SINUSITIS (SNOMED CT) 11/20 11/20 Ike ESPINOZA sinusitis ethimoid ETHMOID 93483954 Resolved Jianming Ethmoidal SINUSITIS (SNOMED CT) 12/26 12/26 Ike ESPINOZA sinusitis MAXILLARY 20110434 Removed Jianming Maxillary and SINUSITIS (SNOMED CT) 11/20 11/20 Ike ESPINOZA sinusitis ethimoid KELOID SCAR 31973313 Active Jianming Keloid scar (SNOMED CT) 10/13 10/13 Ike ESPINOZA DYSLIPIDEMI 831575944 Active Jianming Dyslipidemia A (SNOMED CT) 09/13 09/13 Ike ESPINOZA PROSTATE 036169970 Active Jianming Raised SPECIFIC (SNOMED CT) 09/13 09/13 Ike ESPINOZA prostate ANTIGEN, specific ELEVATED antigen SPECIAL Z12.5 Removed Jianming Encounter for SCREENING (ICD-10-CM) 0 0 Ike ESPINOZA screening for MALIGNANT malignant NEOPLASM OF neoplasm of PROSTATE prostate HEALTH 209710568 Active [facility]IN[facility] (SNOMED CT) 0 0 Ike ESPINOZA examination of EXAM patient HERPES 7098933 Active [facility] Herpes zoster ZOSTER (SNOMED CT) 04/16 04/16 Ike ESPINOZA ETHMOID 52210282 Removed [facility] Ethmoidal SINUSITIS (SNOMED CT) 12/26 12/26 Ike ESPINOZA sinusitis SEBACEOUS 232737793 Removed [facility] Infected CYST, (SNOMED CT) Ike ESPINOZA sebaceous cyst INFECTED DIZZINESS 770286096 Removed Jiagaing Dizziness (SNOMED CT) 0 Ike ESPINOZA SEBACEOUS 454141729 Active [facility] Epidermoid CYST (SNOMED CT) Ike ESPINOZA cyst of skin MAXILLARY 80070970 Removed Braeden Maxillary SINUSITIS (SNOMED CT) 01/07 01/07 Carlos ESPINOZA sinusitis PHARYNGITIS 191226468 Resolved [facility] Acute , ACUTE (SNOMED CT) 08/19 08/19 Carlos ESPINOZA pharyngitis PHARYNGITIS 749306320 Removed Braeden Acute , ACUTE (SNOMED CT) 08/19 08/19 Carlos ESPINOZA pharyngitis PHYSICAL 9592625 Inactive [facility] Physical EXAMINATION (SNOMED CT) 08/19 08/19 Carlos ESPINOZA examination procedure CELLULITIS 433565749 Resolved [facility] Cellulitis and AND ABSCESS (SNOMED CT) 01/08 01/08 Carlos ESPINOZA abscess of OF TRUNK trunk HYPERTENSIO 84005055 Active [facility] M Hypertensive N (SNOMED CT) 01/23 01/23 Carlos ESPINOZA disorder HYPERCHOLES 45690560 Active Braeden M Hypercholester TEROLEMIA (SNOMED CT) 01/23 01/23 Carlos ESPINOZA olemia RENAL CYST, 46792205 Active Braeden Berkowitz Simple renal LEFT (SNOMED CT) 01/23 01/23 Carlos ESPINOZA cyst CELLULITIS 792390858 Removed Kota R Cellulitis and AND ABSCESS (SNOMED CT) 01/08 01/08 Natanael ESPINOZA abscess of OF TRUNK trunk Medications Medication Instructions Start Stop Generic Name NDC Provider Date Date AZITHROMYCIN 250 2 tablets by / AZITHROMYCIN [id number] Tova S MG TABS mouth today and 22 Mercer SUPERINTENDENT NONSELLING then 1 tablet daily for the next 4 days NEXIUM 40 MG One tablet by / ESOMEPRAZOLE 17496384068 Adinaing CPDR mouth daily 03 MAGNESIUM Ike ESPINOZA AMLODIPINE One tablet by / AMLODIPINE 73202870393 Joshua BESYLATE 10 MG mouth daily 25 BESYLATE Ike ESPINOZA TABS BYSTOLIC 20 MG One tablet by / NEBIVOLOL HCL 12214620097 Jianming TABS mouth daily 02 Ike ESPINOZA AMOXICILLIN 500 One tablet by / AMOXICILLIN 56394382251 Marcianmsharon MG CAPS mouth four Ramires times daily TRIAMCINOLONE apply to / TRIAMCINOLONE 61661245104 Joshua ACETONIDE 0.1 % affected area 25 ACETONIDE Ike ESPINOZA CREA twice daily, avoid face, axillary, and groin area DESONIDE 0.05 % apply to / DESONIDE 13352107774 Marcianming CREA affected area 26 Ike ESPINOZA twice daily, avoid face, axillary and groin area VALACYCLOVIR HCL One tablet by / VALACYCLOVIR HCL 96853795043 Adinaing 1 GM TABS mouth three Ike ESPINOZA times daily AMOXICILLIN 500 One tablet by / AMOXICILLIN 60775541010 Jianming MG TABS mouth three [facility] times daily BYSTOLIC 10 MG One tablet by / NEBIVOLOL HCL 64838669091 Jianming TABS mouth daily 02 Ike ESPINOZA AUGMENTIN One tablet by / AMOXICILLIN-POT 04453096330 Braeden Berkowitz 875-125 MG TABS mouth twice CLAVULANATE Carlos ESPINOZA daily. ZITHROMAX Z-GENA 2 tabs PO on / AZITHROMYCIN 85102454563 Braeden Berkowitz 250 MG TABS day one, then 1 Carlos ESPINOZA tab PO daily for 4 days ATENOLOL 25 MG One tablet by ATENOLOL 58778624464 Braeden Berkowitz TABS mouth daily Carlos ESPINOZA AMOXICILLIN 500 One tablet by AMOXICILLIN 38206323331 Jianming MG TABS mouth three Ike ESPINOZA times daily BYSTOLIC 10 MG One tablet by NEBIVOLOL HCL 15561048396 Jianming TABS mouth daily Ike ESPINOZA DESONIDE 0.05 % apply to DESONIDE 93365742796 Jianming CREA affected area Ike ESPINOZA twice daily, avoid face, axillary and groin area ATENOLOL 25 MG One tablet by ATENOLOL 46782802807 Jianming TABS mouth daily Ike ESPINOZA CRESTOR 10 MG One tablet by ROSUVASTATIN 73079475538 Braeden M TABS mouth daily CALCIUM Carlos ESPINOZA CRESTOR 10 MG One tablet by ROSUVASTATIN 76686948455 Jianming TABS mouth daily CALCIUM Ike ESPINOZA SULFAMETHOXAZOLE SULFAMETHOXAZOLE 01394777827 Radha Cruz -TRIMETHOPRIM -TRIMETHOPRIM David TABS TABS SULFAMETHOXAZOLE SULFAMETHOXAZOLE 95966524205 Braeden M -TRIMETHOPRIM -TRIMETHOPRIM Carlos ESPINOZA TABS TABS HYDROCODONE-ACET Two tablets by HYDROCODONE-ACET 42989884152 Radha Cruz AMINOPHEN TABS mouth daily AMINOPHEN TABS David HYDROCODONE-ACET Two tablets by HYDROCODONE-ACET 61828613468 Braeden M AMINOPHEN TABS mouth daily AMINOPHEN TABS Carlos ESPINOZA DIAZEPAM TABS 2 aw DIAZEPAM TABS 62547622443 Radha R David DIAZEPAM TABS 2 aweek DIAZEPAM TABS 30273763562 Carlos ESPINOZA AMOXICILLIN 500 One tablet by AMOXICILLIN 58573817498 Jianming MG CAPS mouth four Ike ESPINOZA times daily AMLODIPINE One tablet by AMLODIPINE 50967276376 Matt S BESYLATE 10 MG mouth daily BESYLATE [place] TABS BYSTOLIC 20 MG One tablet by NEBIVOLOL HCL 67330190318 Matt Armendariz TABS mouth daily [place] TRIAMCINOLONE apply to TRIAMCINOLONE 72500710548 Matt Armendariz ACETONIDE 0.1 % affected area ACETONIDE [place] CREA twice daily, avoid face, axillary, and groin area NEXIUM 40 MG One tablet by ESOMEPRAZOLE 86205117345 Zuly L CPDR mouth daily MAGNESIUM [place] LOSARTAN One tab one / LOSARTAN 79445713430 Zuly L POTASSIUM-HCTZ time daily POTASSIUM-HCTZ [place] 50-12.5 MG TABS NEXIUM 40 MG One tablet by / ESOMEPRAZOLE 18571394331 Zuly CPDR mouth daily 30 MAGNESIUM Floresita Chavez COMMISSARY OFFICER AZITHROMYCIN 250 2 tablets by AZITHROMYCIN 40546720397 Bambi M MG TABS mouth today and Audi then 1 tablet daily for the next 4 days XARELTO 20 MG One tablet by / RIVAROXABAN 60821399810 Zuly TABS mouth daily 30 Floresita Chavez COMMISSARY OFFICER XARELTO 20 MG One tablet by RIVAROXABAN 00738490946 Alessia A TABS mouth daily Yensho COMMISSARY OFFICER Medications Administered No information available. Allergies, Adverse [...] INTERVAL new path ms QT interval, electrocardiogram WA INTERVAL 150 ms WA interval, electrocardiogram EKGHRTRATE 94 BPM heart rate on electrocardiogram Microbiology: RESPIRATORY PANEL MOLECULAR ANGÉLICA-GE-unk . GE use only - for LinkLogic import when terms are not otherwise specified Office Visit: f/u cough FALLRSKASSES No Fall risk assessment Append: Dr. Francois referral (close loop) CONSULTATION [facility]-[id number]^08/20/2016 Clinical consultation report (record artifact) Office Visit MEDS REVIEW Done Documentation of current medications (procedure) DIET CUSTOM CAR BUILDER yes Dietary management education, guidance, and counseling (procedure) ALCOHOLCOUNS no Alcoholism counseling (procedure) SMOK STATUS Never smoker Tobacco use [facility] Lab Report: D-Dimer Quantitative (DVT/PE) DDIMER < 0.27 FEU/ug/m ug/mL 0.27-0.49 L D-dimer quantitative mcg/mL Plan of Care Type Date Detail Appointment 02:00 PM Tova Mercer CNP, [address] [facility], [facility] [address], [place], [address] Appointment 02:30 PM Cristian Wright, [address] [place] [address], [address], [place], [address] Appointment 08:00 AM Matt Mcnulty, [address] [facility], [address], [place], [address], Referral [facility], [address] [place] [address], [address], [place], [address] Referral Physical Therapy [facility], [address] [facility], [place], [address] Referral Urology Referral Marcello Denton, [address] [facility], [address], [place], [address] Pending order *DDIMQ - Fibrin Degrd Ultrsens [...] Procedures Code Procedure Name Date Entry Date 28386-6 *DDIMQ - Fibrin Degrd Ultrsens Qual/[place]an CPT-67749 X-Ray, Knee Order excluded from report: 98258-4 *Respiratory Panel CPT-49293 EKG (In office) F/U PFM PFM CPSP Complete portable sleep workup (portable,CPAP as indicated) & follow up F/U BWA BWA FUA 1 month Follow Up Appt 1 month [id number]-[id number] Cardiac Referral CS Complete sleep workup (PSG,CPAP as indicated) & Follow up Order excluded from report: Physical Therapy Physical Therapy General CPT-43847 X-Ray, Knee 79794-6 *CBC without Diff 0786-1 *CMP Complete Metabolic Panel 52721-8 *Lipid Profile 0610-1 *UA - Urinalysis w/o Micro Urology Urology Referral 95779-2 *Lipid Profile 2857-1 *PSA, Annual Screening CPT-23360 Excision Benign Lesion Trunk/Arm/Leg 2.1-3.0 cm 18865-4 *Lipid Profile 0786-1 *CMP Complete Metabolic Panel Echo Echocardiogram (complete) SET Stress Echocardiogram (treadmill) CPT-70035 US Abdomen, limited CPT-UAComp *Urinalysis, complete Order excluded from report: Vital Signs Date Name Value Unit Description Body Temperature 97.1 [degF] temperature E&M BP Diastolic 94 mm[Hg] blood pressure, diastolic - 8462-4 BP Systolic 136 mm[Hg] blood pressure, systolic - 8480-6 Heart Rate 120 /min pulse rate E&M - 8867-4 Height 0 [in_us] height E&M - 8302-2 O2 % BldC Oximetry 98 % oxygen saturation, oximetry Respiratory Rate 18 /min respiratory rate E&M - 9279-1 Weight Measured 213 [lb_av] weight E&M - 3141-9 Body Temperature 36.7 Chhaya temperature in centigrade E&M Weight Measured 98.18 kg weight in kilograms E&M BSA (Body Surface Area) 0 body surface area BMI (Body Mass Index) 28.10 kg/m2 Body Mass Index [Ratio] Height 185.42 cm height in centimeters E&M BP Diastolic 96 mm[Hg] blood pressure, diastolic, second observation BP Systolic 133 mm[Hg] blood pressure, systolic, second observation Heart Rate 70 pulse rate #2
--- OUTSIDE RECORDS SUMMARY | 2018-08-15 23:35 | XMS RPT_ITS | Clinical Summary ---
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 Hypersomnia 46060074 Resolved Cristian Juan Hypersomnia (SNOMED CT) 08/20 08/20 Kyle NUSRAT, adult 90216326517 Active Cristian Juan Obstructive On (SNOMED 09/19 09/19 Kyle sleep apnea of AutoPAP, CT) adult AHI 9 Cough 59829495 Active Gael A Cough (SNOMED CT) 09/12 09/12 Molina METAL MELTER-C Abnormal 705412952 Active Tracy Harman Electrocardiog EKG (SNOMED CT) 08/27 08/27 Chayo blair abnormal RN Chest pain 64569511 Active Tracy Harman Chest pain (SNOMED CT) 08/27 08/27 Chayo RN Lightheaded 952578898 Active Tova S Lightheadednes ness (SNOMED CT) 08/20 08/20 Sylvie RETAIL ROUTE SUPERVISOR s Hypersomnia 52546939 Removed Tova S Hypersomnia (SNOMED CT) 08/20 08/20 Mercer RETAIL ROUTE SUPERVISOR PE 42506056 Active Tova S Pulmonary (SNOMED CT) 08/20 08/20 Sylvie RETAIL ROUTE SUPERVISOR embolism Orthopedic 907970662 Active Reggie Lyons Postoperative surgical (SNOMED CT) 08/15 08/15 Nery physical aftercare examination Knee pain, 14480329 Active Zuly N Knee pain right (SNOMED CT) 07/25 07/25 Tejada OA of left 424814934 Active Matt Armendariz Localized, knee (SNOMED CT) 08/26 08/26 [place]let primary osteoarthritis Knee pain, 84546306 Active Matt Armendariz Knee pain left (SNOMED CT) 08/26 08/26 [place] Gastroenter 65941864 Active Jianming Gastroenteriti itis, acute (SNOMED CT) 08/18 08/18 Ike armendariz Headache 41343738 Active Jianming Headache (SNOMED CT) Ike ESPINOZA SPECIAL Z12.5 Resolved Jianming Encounter for SCREENING (ICD-10-CM) Ike ESPINOZA screening for MALIGNANT malignant NEOPLASM OF neoplasm of PROSTATE prostate DIZZINESS 337993074 Resolved Jianming Dizziness (SNOMED CT) Ike ESPINOZA SEBACEOUS 469574037 Resolved Jianming Infected CYST, (SNOMED CT) Ike ESPINOZA sebaceous cyst INFECTED MAXILLARY 29561828 Resolved Jianming Maxillary SINUSITIS (SNOMED CT) 01/07 01/07 Ike ESPINOZA sinusitis MAXILLARY 33450571 Resolved Jianming Maxillary and SINUSITIS (SNOMED CT) 11/20 11/20 Ike ESPINOZA sinusitis ethimoid ETHMOID 25230196 Resolved Jianming Ethmoidal SINUSITIS (SNOMED CT) 12/26 12/26 Ike ESPINOZA sinusitis MAXILLARY 43443152 Removed Jianming Maxillary and SINUSITIS (SNOMED CT) 11/20 11/20 Ike ESPINOZA sinusitis ethimoid KELOID SCAR 15642160 Active Jianming Keloid scar (SNOMED CT) 10/13 10/13 Ike ESPINOZA DYSLIPIDEMI 664574800 Active Jianming Dyslipidemia A (SNOMED CT) 09/13 09/13 Ike ESPINOZA PROSTATE 477567862 Active Jianming Raised SPECIFIC (SNOMED CT) 09/13 09/13 Ike ESPINOZA prostate ANTIGEN, specific ELEVATED antigen SPECIAL Z12.5 Removed Jianmsharon Encounter for SCREENING (ICD-10-CM) 0 0 Ike ESPINOZA screening for MALIGNANT malignant NEOPLASM OF neoplasm of PROSTATE prostate HEALTH 423876829 Active Marciaksing General MAINTENANCE (SNOMED CT) 0 0 Ike ESPINOZA examination of EXAM patient HERPES 7681303 [facility] Her[facility] zoster [facility] (SNOMED CT) 04/16 04/16 Ike ESPINOZA ETHMOID 93902199 Removed Jiaksing Ethmoidal SINUSITIS (SNOMED CT) 12/26 12/26 Ike ESPINOZA sinusitis SEBACEOUS 704569892 Removed Jiaksing Infected CYST, (SNOMED CT) Ike ESPINOZA sebaceous cyst INFECTED DIZZINESS 077889126 Removed Jianming Dizziness (SNOMED CT) 0 Ike ESPINOZA SEBACEOUS 914100738 [facility] Epidermoid CYST (SNOMED CT) 0 Ike ESPINOZA cyst of skin MAXILLARY 97142378 Removed [facility] Maxillary SINUSITIS (SNOMED CT) 01/07 01/07 Carlos ESPINOZA sinusitis PHARYNGITIS 021872053 Resolved [facility] Acute , ACUTE (SNOMED CT) 08/19 08/19 Carlos ESPINOZA pharyngitis PHARYNGITIS 261493213 Removed Braeden M Acute , ACUTE (SNOMED CT) 08/19 08/19 Carlos ESPINOZA pharyngitis PHYSICAL 4661188 Inactive [facility] Physical EXAMINATION (SNOMED CT) 08/19 08/19 Carlos ESPINOZA examination procedure CELLULITIS 374884100 Resolved [facility] Cellulitis and AND ABSCESS (SNOMED CT) 01/08 01/08 Carlos ESPINOZA abscess of OF TRUNK trunk HYPERTENSIO 25175700 Active [facility] M Hypertensive N (SNOMED CT) 01/23 01/23 Carlos ESPINOZA disorder HYPERCHOLES 39792614 Active Braeden M Hypercholester TEROLEMIA (SNOMED CT) 01/23 01/23 Carlos ESPINOZA olemia RENAL CYST, 51614168 Active Braeden Berkowitz Simple renal LEFT (SNOMED CT) 01/23 01/23 Carlos ESPINOZA cyst CELLULITIS 122914855 Removed Kota R Cellulitis and AND ABSCESS (SNOMED CT) 01/08 01/08 Natanael ESPINOZA abscess of OF TRUNK trunk Medications Medication Instructions Start Stop Generic Name NDC Provider Date Date AZITHROMYCIN 250 2 tablets by / AZITHROMYCIN [id number] Tova S MG TABS mouth today and 22 Mercer RETAIL ROUTE SUPERVISOR then 1 tablet daily for the next 4 days NEXIUM 40 MG One tablet by / ESOMEPRAZOLE 81441954949 Joshua CPDR mouth daily 03 MAGNESIUM Ike ESPINOZA AMLODIPINE One tablet by / AMLODIPINE 52212504601 Joshua BESYLATE 10 MG mouth daily 25 BESYLATE Ike ESPINOZA TABS BYSTOLIC 20 MG One tablet by / NEBIVOLOL HCL 85376474146 Jianming TABS mouth daily 02 Ike ESPINOZA AMOXICILLIN 500 One tablet by / AMOXICILLIN 02956631209 Marcianmsharon MG CAPS mouth four [facility] times daily TRIAMCINOLONE apply to / TRIAMCINOLONE 26962244489 Joshua ACETONIDE 0.1 % affected area 25 ACETONIDE Ike ESPINOZA CREA twice daily, avoid face, axillary, and groin area DESONIDE 0.05 % apply to / DESONIDE 04031179665 Marcianming CREA affected area 26 Ike ESPINOZA twice daily, avoid face, axillary and groin area VALACYCLOVIR HCL One tablet by VALACYCLOVIR HCL 55548777912 Adinaing 1 GM TABS mouth three Ike ESPINOZA times daily AMOXICILLIN 500 One tablet by / AMOXICILLIN 07736905767 Jianming MG TABS mouth three [facility] times daily BYSTOLIC 10 MG One tablet by / NEBIVOLOL HCL 80185586770 Jianming TABS mouth daily Ike ESPINOZA AUGMENTIN One tablet by / AMOXICILLIN-POT 90314833395 Braeden Berkowitz 875-125 MG TABS mouth twice CLAVULANATE Carlos ESPINOZA daily. ZITHROMAX Z-GENA 2 tabs PO on / AZITHROMYCIN 19676320380 Braeden Berkowitz 250 MG TABS day one, then 1 Carlos ESPINOZA tab PO daily for 4 days ATENOLOL 25 MG One tablet by ATENOLOL 15783083401 Braeden Berkowitz TABS mouth daily Carlos ESPINOZA AMOXICILLIN 500 One tablet by AMOXICILLIN 96394401782 Jianming MG TABS mouth three Ike ESPINOZA times daily BYSTOLIC 10 MG One tablet by NEBIVOLOL HCL 01007082658 Jianming TABS mouth daily Ike ESPINOZA DESONIDE 0.05 % apply to DESONIDE 81321468038 Jianming CREA affected area Ike ESPINOZA twice daily, avoid face, axillary and groin area ATENOLOL 25 MG One tablet by ATENOLOL 60763878782 Jianming TABS mouth daily Ike ESPINOZA CRESTOR 10 MG One tablet by ROSUVASTATIN 90002510193 Braeden M TABS mouth daily CALCIUM Carlos ESPINOZA CRESTOR 10 MG One tablet by ROSUVASTATIN 03450123044 Jianming TABS mouth daily CALCIUM Ike ESPINOZA SULFAMETHOXAZOLE SULFAMETHOXAZOLE 90812635037 Radha Cruz -TRIMETHOPRIM -TRIMETHOPRIM David TABS TABS SULFAMETHOXAZOLE SULFAMETHOXAZOLE 92839588749 Braeden M -TRIMETHOPRIM -TRIMETHOPRIM Carlos ESPINOZA TABS TABS HYDROCODONE-ACET Two tablets by HYDROCODONE-ACET 00302585847 Radha Cruz AMINOPHEN TABS mouth daily AMINOPHEN TABS David HYDROCODONE-ACET Two tablets by HYDROCODONE-ACET 71007594450 Braeden M AMINOPHEN TABS mouth daily AMINOPHEN TABS Carlos ESPINOZA DIAZEPAM TABS 2 aw DIAZEPAM TABS 87779605115 Radha Bhate DIAZEPAM TABS 2 aweek DIAZEPAM TABS 57847327073 Carlos ESPINOZA AMOXICILLIN 500 One tablet by AMOXICILLIN 11114342691 Jianming MG CAPS mouth four Ike ESPINOZA times daily AMLODIPINE One tablet by AMLODIPINE 52870189656 Matt S BESYLATE 10 MG mouth daily BESYLATE [place] TABS BYSTOLIC 20 MG One tablet by NEBIVOLOL HCL 02065315625 Matt Armendariz TABS mouth daily [place] TRIAMCINOLONE apply to TRIAMCINOLONE 60058284862 Matt Armendariz ACETONIDE 0.1 % affected area ACETONIDE [place] CREA twice daily, avoid face, axillary, and groin area NEXIUM 40 MG One tablet by / ESOMEPRAZOLE 07531250842 Zuly L CPDR mouth daily MAGNESIUM York LOSARTAN One tab one LOSARTAN 49654562293 Uzly L POTASSIUM-HCTZ time daily POTASSIUM-HCTZ York 50-12.5 MG TABS NEXIUM 40 MG One tablet by / ESOMEPRAZOLE 51686359931 Zuly CPDR mouth daily 30 MAGNESIUM Floresita Chavez SENIOR ANDROID DEVELOPER AZITHROMYCIN 250 2 tablets by AZITHROMYCIN 32799948834 Bambi M MG TABS mouth today and Audi then 1 tablet daily for the next 4 days XARELTO 20 MG One tablet by / RIVAROXABAN 09706300163 Zuly TABS mouth daily 30 Floresita Chavez SENIOR ANDROID DEVELOPER XARELTO 20 MG One tablet by RIVAROXABAN 49146171508 Alessia A TABS mouth daily Yensho SENIOR ANDROID DEVELOPER Medications Administered No information available. Allergies, Adverse [...] INTERVAL new path ms QT interval, electrocardiogram CO INTERVAL 150 ms CO interval, electrocardiogram EKGHRTRATE 94 BPM heart rate on electrocardiogram Microbiology: RESPIRATORY PANEL MOLECULAR ZZ-GE-unk . GE use only - for LinkLogic import when terms are not otherwise specified Office Visit: f/u cough FALLRSKASSES No Fall risk assessment Append: Dr. Francois referral (close loop) CONSULTATION [facility]-[id number]^08/20/2016 Clinical consultation report (record artifact) Office Visit: NUSRAT MEDS REVIEW Done Documentation of current medications (procedure) DIET TARGETING ACQUISITION OFFICER yes Dietary management education, guidance, and counseling (procedure) ALCOHOLCOUNS no Alcoholism counseling (procedure) SMOK STATUS Never smoker Tobacco use [facility] Lab Report: D-Dimer Quantitative (DVT/PE) DDIMER < 0.27 FEU/ug/m ug/mL 0.27-0.49 L D-dimer quantitative mcg/mL Plan of Care Type Date Detail Appointment 02:30 PM Cristian Wright, [address] [place] [address] [address], [place], [address] Appointment 08:00 AM Matt Mcnulty, [address] [facility], [address], [place], [address], Referral Cardiac Referral Group Heart, [address] [place] [address], [address], [place], [address] Referral Physical Therapy [facility], [address] [facility], [place], [address] Referral Urology Referral Marcello Denton, [address] [facility], [address], [place], [address] Pending order *DDIMQ - Fibrin Degrd Ultrsens [...] Procedures Code Procedure Name Date Entry Date 38175-6 *DDIMQ - Fibrin Degrd Ultrsens Qual/Semiquan CPT-99798 X-Ray, Knee Order excluded from report: 81498-8 *Respiratory Panel CPT-73501 EKG (In office) F/U PFM PFM CPSP Complete portable sleep workup (portable,CPAP as indicated) & follow up F/U BWA BWA FUA 1 month Follow Up Appt 1 month SCT-[id number] Cardiac Referral CS Complete sleep workup (PSG,CPAP as indicated) & Follow up Order excluded from report: Physical Therapy Physical Therapy General CPT-81695 X-Ray, Knee 71333-8 *CBC without Diff 0786-1 *CMP Complete Metabolic Panel 88063-6 *Lipid Profile 0610-1 *UA - Urinalysis w/o Micro Urology Urology Referral 39733-1 *Lipid Profile 2857-1 *PSA, Annual Screening CPT-16167 Excision Benign Lesion Trunk/Arm/Leg 2.1-3.0 cm 56618-8 *Lipid Profile 0786-1 *CMP Complete Metabolic Panel Echo Echocardiogram (complete) SET Stress Echocardiogram (treadmill) CPT-70173 US Abdomen, limited CPT-UAComp *Urinalysis, complete Order [...]
--- OUTSIDE RECORDS SUMMARY | 2018-08-15 23:36 | XMS RPT_ITS | Clinical Summary ---
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 Hypersomnia 88544986 Resolved Cristian Juan Hypersomnia (SNOMED CT) 08/20 08/20 Kyle NUSRAT, adult 57553864509 Active Cristian Juan Obstructive On (SNOMED 09/19 09/19 Kyle sleep apnea of AutoPAP, CT) adult AHI 9 Cough 44739608 Active Gael A Cough (SNOMED CT) 09/12 09/12 Jesse MEDICAL PARASITOLOGIST-C Abnormal 868448030 Active Tracy Harman Electrocardiog EKG (SNOMED CT) 08/27 08/27 Chayo blair abnormal RN Chest pain 43479066 Active Tracy Harman Chest pain (SNOMED CT) 08/27 08/27 Chayo RN Lightheaded 609682201 Active Tova S Lightheadednes ness (SNOMED CT) 08/20 08/20 Sylvie GROUNDS/MAINTENANCE SPECIALIST s Hypersomnia 29201970 Removed Tova S Hypersomnia (SNOMED CT) 08/20 08/20 Mercer GROUNDS/MAINTENANCE SPECIALIST PE 98544020 Active Tova S Pulmonary (SNOMED CT) 08/20 08/20 Sylvie GROUNDS/MAINTENANCE SPECIALIST embolism Orthopedic 005681721 Active Reggie Lyons Postoperative surgical (SNOMED CT) 08/15 08/15 Nery physical aftercare examination Knee pain, 10365393 Active Zuly N Knee pain right (SNOMED CT) 07/25 07/25 Tejada OA of left 971743572 Active Matt Armendariz Localized, knee (SNOMED CT) 08/26 08/26 [place] primary osteoarthritis Knee pain, 52587278 Active Matt Armendariz Knee pain left (SNOMED CT) 08/26 08/26 [place] Gastroenter 11287145 Active Jianming Gastroenteriti itis, acute (SNOMED CT) 08/18 08/18 Ike armendariz Headache 98333891 Active Jianming Headache (SNOMED CT) Ike ESPINOZA SPECIAL Z12.5 Resolved Jianming Encounter for SCREENING (ICD-10-CM) Ike ESPINOZA screening for MALIGNANT malignant NEOPLASM OF neoplasm of PROSTATE prostate DIZZINESS 952685240 Resolved Jianming Dizziness (SNOMED CT) Ike ESPINOZA SEBACEOUS 581159077 Resolved Jianming Infected CYST, (SNOMED CT) Ike ESPINOZA sebaceous cyst INFECTED MAXILLARY 34317632 Resolved Jianming Maxillary SINUSITIS (SNOMED CT) 01/07 01/07 Ike ESPINOZA sinusitis MAXILLARY 56270473 Resolved Jianming Maxillary and SINUSITIS (SNOMED CT) 11/20 11/20 Ike ESPINOZA sinusitis ethimoid ETHMOID 45825783 Resolved Jianming Ethmoidal SINUSITIS (SNOMED CT) 12/26 12/26 Ike ESPINOZA sinusitis MAXILLARY 38446182 Removed Jianming Maxillary and SINUSITIS (SNOMED CT) 11/20 11/20 Ike ESPINOZA sinusitis ethimoid KELOID SCAR 01656822 Active Jianming Keloid scar (SNOMED CT) 10/13 10/13 Ike ESPINOZA DYSLIPIDEMI 974534585 Active Jianming Dyslipidemia A (SNOMED CT) 09/13 09/13 Ike ESPINOZA PROSTATE 518570626 Active Jianming Raised SPECIFIC (SNOMED CT) 09/13 09/13 Ike ESPINOZA prostate ANTIGEN, specific ELEVATED antigen SPECIAL Z12.5 [facility] Encounter for SCREENING (ICD-10-CM) 0 0 Ike ESPINOZA screening for MALIGNANT malignant NEOPLASM OF neoplasm of PROSTATE prostate HEALTH 566487713 Active Jiawaing General MAINTENANCE (SNOMED CT) 0 0 Ike ESPINOZA examination of EXAM patient HERPES 5561907 [facility] Herpes zoster ZOSTER (SNOMED CT) 04/16 04/16 Ike ESPINOZA ETHMOID 25372804 Removed Jiawaing Ethmoidal SINUSITIS (SNOMED CT) 12/26 12/26 Ike ESPINOZA sinusitis SEBACEOUS 173309574 Removed Jiawaing Infected CYST, (SNOMED CT) Ike ESPINOZA sebaceous cyst INFECTED DIZZINESS 926319601 Removed Jianming Dizziness (SNOMED CT) 0 Ike ESPINOZA SEBACEOUS 768451226 [facility] Epidermoid CYST (SNOMED CT) 0 kIe ESPINOZA cyst of skin MAXILLARY 24659859 Removed Braeden Berkowitz Maxillary SINUSITIS (SNOMED CT) 01/07 01/07 Carlos ESPINOZA sinusitis PHARYNGITIS 839273981 Resolved Braeden Berkowitz Acute , ACUTE (SNOMED CT) 08/19 08/19 Carlos ESPINOZA pharyngitis PHARYNGITIS 458371942 Removed Braeden Berkowitz Acute , ACUTE (SNOMED CT) 08/19 08/19 Carlos ESPINOZA pharyngitis PHYSICAL 7007764 Inactive Braeden Berkowitz Physical EXAMINATION (SNOMED CT) 08/19 08/19 Carlos ESPINOZA examination procedure CELLULITIS 759280689 Resolved Braeden M Cellulitis and AND ABSCESS (SNOMED CT) 01/08 01/08 Carlos ESPINOZA abscess of OF TRUNK trunk HYPERTENSIO 67115467 Active Braeden M Hypertensive N (SNOMED CT) 01/23 01/23 Carlos ESPINOZA disorder HYPERCHOLES 81057577 Active Braeden M Hypercholester TEROLEMIA (SNOMED CT) 01/23 01/23 Carlos ESPINOZA olemia RENAL CYST, 94235471 Active Braeden Berkowitz Simple renal LEFT (SNOMED CT) 01/23 01/23 Carlos ESPINOZA cyst CELLULITIS 817413664 Removed Kota Cruz Cellulitis and AND ABSCESS (SNOMED CT) 01/08 01/08 Natanael ESPINOZA abscess of OF TRUNK trunk Medications Medication Instructions Start Stop Generic Name NDC Provider Date Date AZITHROMYCIN 250 2 tablets by / AZITHROMYCIN 58188242297 Tova S MG TABS mouth today and 22 Mercer GROUNDS/MAINTENANCE SPECIALIST then 1 tablet daily for the next 4 days NEXIUM 40 MG One tablet by / ESOMEPRAZOLE 38938780675 Joshua CPDR mouth daily 03 MAGNESIUM Ike ESPINOZA AMLODIPINE One tablet by / AMLODIPINE 02465908394 Joshua BESYLATE 10 MG mouth daily 25 BESYLATE Ike ESPINOZA TABS BYSTOLIC 20 MG One tablet by / NEBIVOLOL HCL 22272099213 Jianming TABS mouth daily 02 Ike ESPINOZA AMOXICILLIN 500 One tablet by / AMOXICILLIN 41810502072 Marcianming MG CAPS mouth four Ramires times daily TRIAMCINOLONE apply to / TRIAMCINOLONE 57151341102 Joshua ACETONIDE 0.1 % affected area 25 ACETONIDE Ike ESPINOZA CREA twice daily, avoid face, axillary, and groin area DESONIDE 0.05 % apply to / DESONIDE 83607088696 Jianming CREA affected area 26 Ike ESPINOZA twice daily, avoid face, axillary and groin area VALACYCLOVIR HCL One tablet by VALACYCLOVIR HCL 66073534683 Jianming 1 GM TABS mouth three Ike ESPINOZA times daily AMOXICILLIN 500 One tablet by / AMOXICILLIN 76202134065 Jianming MG TABS mouth three [facility] times daily BYSTOLIC 10 MG One tablet by / NEBIVOLOL HCL 70430713699 Jianming TABS mouth daily Ike ESPINOZA AUGMENTIN One tablet by / AMOXICILLIN-POT 34949642610 Braeden Berkowitz 875-125 MG TABS mouth twice CLAVULANATE Carlos ESPINOZA daily. ZITHROMAX Z-GENA 2 tabs PO on / AZITHROMYCIN 26383608787 Braeden Berkowitz 250 MG TABS day one, then 1 Carlos ESPINOZA tab PO daily for 4 days ATENOLOL 25 MG One tablet by ATENOLOL 64251903408 Braeden Berkowitz TABS mouth daily Carlos ESPINOZA AMOXICILLIN 500 One tablet by AMOXICILLIN 32665032246 Jianming MG TABS mouth three Ike ESPINOZA times daily BYSTOLIC 10 MG One tablet by NEBIVOLOL HCL 16455944182 Jianming TABS mouth daily Ike ESPINOZA DESONIDE 0.05 % apply to DESONIDE 00447887945 Marcianmsharon CREA affected area Ike ESPINOZA twice daily, avoid face, axillary and groin area ATENOLOL 25 MG One tablet by ATENOLOL 77243219330 Jianming TABS mouth daily Ike ESPINOZA CRESTOR 10 MG One tablet by ROSUVASTATIN 13007473846 Braeden M TABS mouth daily CALCIUM Carlos ESPINOZA CRESTOR 10 MG One tablet by ROSUVASTATIN 11329168036 Jianming TABS mouth daily CALCIUM Ike ESPINOZA SULFAMETHOXAZOLE SULFAMETHOXAZOLE 71420261210 Radha Cruz -TRIMETHOPRIM -TRIMETHOPRIM David TABS TABS SULFAMETHOXAZOLE SULFAMETHOXAZOLE 14409480163 Braeden Berkowitz -TRIMETHOPRIM -TRIMETHOPRIM Carlos ESPINOZA TABS TABS HYDROCODONE-ACET Two tablets by HYDROCODONE-ACET 92887746104 Radha Cruz AMINOPHEN TABS mouth daily AMINOPHEN TABS David HYDROCODONE-ACET Two tablets by HYDROCODONE-ACET 79860899235 Braeden M AMINOPHEN TABS mouth daily AMINOPHEN TABS Carlos ESPINOZA DIAZEPAM TABS 2 aw DIAZEPAM TABS 79239776097 Radha R David DIAZEPAM TABS 2 aweek DIAZEPAM TABS 72241875604 Carlos ESPINOZA AMOXICILLIN 500 One tablet by AMOXICILLIN 37114303079 Jianming MG CAPS mouth four Ike ESPINOZA times daily AMLODIPINE One tablet by AMLODIPINE 46686684195 Matt S BESYLATE 10 MG mouth daily BESYLATE [place] TABS BYSTOLIC 20 MG One tablet by NEBIVOLOL HCL 08325796606 Matt Armendariz TABS mouth daily [place] TRIAMCINOLONE apply to TRIAMCINOLONE 97773887341 Matt Armendariz ACETONIDE 0.1 % affected area ACETONIDE [place] CREA twice daily, avoid face, axillary, and groin area NEXIUM 40 MG One tablet by ESOMEPRAZOLE 46060773073 Zuly L CPDR mouth daily MAGNESIUM York LOSARTAN One tab one / LOSARTAN 49804648388 Zuly L POTASSIUM-HCTZ time daily POTASSIUM-HCTZ York 50-12.5 MG TABS NEXIUM 40 MG One tablet by / ESOMEPRAZOLE 76258299805 Zuly CPDR mouth daily 30 MAGNESIUM Floresita Chavez ASSOCIATE PROFESSOR OF ANTHROPOLOGY AZITHROMYCIN 250 2 tablets by AZITHROMYCIN 34009951466 Bambi M MG TABS mouth today and Audi then 1 tablet daily for the next 4 days XARELTO 20 MG One tablet by / RIVAROXABAN 32279669596 Zuly TABS mouth daily 30 Floresita Chavez ASSOCIATE PROFESSOR OF ANTHROPOLOGY XARELTO 20 MG One tablet by RIVAROXABAN 93888582886 Alessia A TABS mouth daily Yensho ASSOCIATE PROFESSOR OF ANTHROPOLOGY Medications Administered No information available. Allergies, Adverse [...] Append: Dr. Francois referral (close loop) CONSULTATION [facility]-[id number]^08/20/2016 Clinical consultation report (record artifact) Office Visit MEDS REVIEW Done Documentation of current medications (procedure) DIET ZONING ENGINEER yes Dietary management education, guidance, and counseling (procedure) ALCOHOLCOUNS no Alcoholism counseling (procedure) SMOK STATUS Never smoker Tobacco use [facility] Plan of Care Type Date Detail Appointment 02:00 PM Tova Mercer CNP, [address] [place] [address], [address], [place], [address] Appointment 02:30 PM Cristian Wright, [address] [place] [address], [address], [place], [address] Appointment 08:00 AM Matt Mcnulty, [address] [facility], [address], [place], [address], Referral Cardiac Referral Group Heart, [address] [place] [address], [address], [place], [address] Referral Physical Therapy [facility], [address] [facility], [place], [address] Referral Urology Referral Marcello Denton, [address] [facility], [address], [place], [address] Pending order *DDIMQ - Fibrin Degrd Ultrsens [...] Procedures Code Procedure Name Date Entry Date CPT-67652 X-Ray, Knee Order excluded from report: 88588-7 *Respiratory Panel CPT-69224 EKG (In office) F/U PFM PFM CPSP Complete portable sleep workup (portable,CPAP as indicated) & follow up F/U BWA BWA FUA 1 month Follow Up Appt 1 month [id number] Cardiac Referral CS Complete sleep workup (PSG,CPAP as indicated) & Follow up Order excluded from report: Physical Therapy Physical Therapy General CPT-58026 X-Ray, Knee 27548-6 *CBC without Diff 0786-1 *CMP Complete Metabolic Panel 11960-3 *Lipid Profile 0610-1 *UA - Urinalysis w/o Micro Urology Urology Referral 81593-1 *Lipid Profile 2857-1 *PSA, Annual Screening CPT-82609 Excision Benign Lesion Trunk/Arm/Leg 2.1-3.0 cm 18425-7 *Lipid Profile 0786-1 *CMP Complete Metabolic Panel Echo Echocardiogram (complete) SET Stress Echocardiogram (treadmill) CPT-27165 US Abdomen, limited CPT-UAComp *Urinalysis, complete Order [...]
--- OUTSIDE RECORDS SUMMARY | 2018-08-15 23:36 | XMS RPT_ITS | Clinical Summary ---
:1960 Author Organization [facility] Address [address] [place] [address] Phone Care Team Providers Name Role Phone Tejada, Zuly N Unavailable Conditions or Problems Problem Problem Onset Status Entry Provider Comment Standard Annotate Name Code Date Date Description Hypersomnia 29158126 Resolved Cristian Juan Hypersomnia (SNOMED CT) 08/20 08/20 Kyle NUSRAT, adult [id number] Active Cristian Juan Obstructive On (SNOMED 09/19 09/19 Kyle sleep apnea of AutoPAP, CT) adult AHI 9 Cough 70308115 Active Gael A Cough (SNOMED CT) 09/12 09/12 Molina BAG BLEACHER-C Abnormal 453700745 Active Tracy Harman Electrocardiog EKG (SNOMED CT) 08/27 08/27 Chayo blair abnormal RN Chest pain 77301310 Active Tracy Harman Chest pain (SNOMED CT) 08/27 08/27 Chayo RN Lightheaded 466509997 Active Tova S Lightheadednes ness (SNOMED CT) 08/20 08/20 Sylvie LOPEZ s Hypersomnia 15449434 Removed Tova S Hypersomnia (SNOMED CT) 08/20 08/20 Mercer SHAKER WASHER PE 53344813 Active Tova S Pulmonary (SNOMED CT) 08/20 08/20 Mercer SHAKER WASHER embolism Orthopedic 332654616 Active Reggie Lyons Postoperative surgical (SNOMED CT) 08/15 08/15 Nery physical aftercare examination Knee pain, 98291709 Active Zuly Yee Knee pain right (SNOMED CT) 07/25 07/25 Tejdaa OA of left 041003530 Active Matt Armendariz Localized, knee (SNOMED CT) 08/26 08/26 [place] primary osteoarthritis Knee pain, 71345245 Active Matt Armendariz Knee pain left (SNOMED CT) 08/26 08/26 [place] Gastroenter 33163695 Active Jianming Gastroenteriti itis, acute (SNOMED CT) 08/18 08/18 Ike armendariz Headache 89197635 Active Jianming Headache (SNOMED CT) Ike ESPINOZA SPECIAL Z12.5 Resolved Jianming Encounter for SCREENING (ICD-10-CM) Ike ESPINOZA screening for MALIGNANT malignant NEOPLASM OF neoplasm of PROSTATE prostate DIZZINESS 285850139 Resolved Jianming Dizziness (SNOMED CT) Ike ESPINOZA SEBACEOUS 361572483 Resolved Jianming Infected CYST, (SNOMED CT) Ike ESPINOZA sebaceous cyst INFECTED MAXILLARY 26056681 Resolved Jianming Maxillary SINUSITIS (SNOMED CT) 01/07 01/07 Ike ESPINOZA sinusitis MAXILLARY 25958696 Resolved Jianming Maxillary and SINUSITIS (SNOMED CT) 11/20 11/20 Ike ESPINOZA sinusitis ethimoid ETHMOID 85739868 Resolved Jianming Ethmoidal SINUSITIS (SNOMED CT) 12/26 12/26 Ike ESPINOZA sinusitis MAXILLARY 56124988 Removed Jianming Maxillary and SINUSITIS (SNOMED CT) 11/20 11/20 Ike ESPINOZA sinusitis ethimoid KELOID SCAR 01555685 Active Jianming Keloid scar (SNOMED CT) 10/13 10/13 Ike ESPINOZA DYSLIPIDEMI 288718654 Active Jianming Dyslipidemia A (SNOMED CT) 09/13 09/13 Ike ESPINOZA PROSTATE 926045701 Active Jianming Raised SPECIFIC (SNOMED CT) 09/13 09/13 Ike ESPINOZA prostate ANTIGEN, specific ELEVATED antigen SPECIAL Z12.5 Removed Jianming Encounter for SCREENING (ICD-10-CM) Ike ESPINOZA screening for MALIGNANT malignant NEOPLASM OF neoplasm of PROSTATE prostate HEALTH 164519928 Active Jianming General MAINTENANCE (SNOMED CT) 0 Ike ESPINOZA examination of EXAM patient HER[facility] 7001081 [facility] (SNOMED CT) 04/16 04/16 Ike ESPINOZA ETHMOID 02056790 Removed Jiahiing Ethmoidal SINUSITIS (SNOMED CT) 12/26 12/26 Ike ESPINOZA sinusitis SEBACEOUS 284952996 Removed Jianming Infected CYST, (SNOMED CT) Ike ESPINOZA sebaceous cyst INFECTED DIZZINESS 144385520 Removed Jianming Dizziness (SNOMED CT) Ike ESPINOZA SEBACEOUS 992594742 Active Jianming Epidermoid CYST (SNOMED CT) 0 Ike ESPINOZA cyst of skin MAXILLARY 31764015 Removed Braeden Maxillary SINUSITIS (SNOMED CT) 01/07 01/07 Carlos ESPINOZA sinusitis PHARYNGITIS 214926949 Resolved [facility] Acute , ACUTE (SNOMED CT) 08/19 08/19 Carlos ESPINOZA pharyngitis PHARYNGITIS 145680957 Removed Psychiatric M Acute , ACUTE (SNOMED CT) 08/19 08/19 Carlos ESPINOZA pharyngitis PHYSICAL 0273837 Inactive [facility] Physical EXAMINATION (SNOMED CT) 08/19 08/19 Carlos ESPINOZA examination procedure CELLULITIS 057286698 Resolved Braeden Cellulitis and AND ABSCESS (SNOMED CT) 01/08 01/08 Carlos ESPINOZA abscess of OF TRUNK trunk HYPERTENSIO 77985891 Active shar M Hypertensive N (SNOMED CT) 01/23 01/23 Carlos ESPINOZA disorder HYPERCHOLES 23918403 Active Braeden M Hypercholester TEROLEMIA (SNOMED CT) 01/23 01/23 Carlos ESPINOZA olemia RENAL CYST, 01358689 Active Braeden M Simple renal LEFT (SNOMED CT) 01/23 01/23 Carlos ESPINOZA cyst CELLULITIS 433120500 Removed Kota Cruz Cellulitis and AND ABSCESS (SNOMED CT) 01/08 01/08 Natanael ESPINOZA abscess of OF TRUNK trunk Medications Medication Instructions Start Stop Generic Name ND Provider Date Date AZITHROMYCIN 250 2 tablets by / AZITHROMYCIN [id number] Tova S MG TABS mouth today and 22 Mercer SHAKER WASHER then 1 tablet daily for the next 4 days NEXIUM 40 MG One tablet by / ESOMEPRAZOLE 58730160176 Joshua CPDR mouth daily 03 MAGNESIUM Ike ESPINOZA AMLODIPINE One tablet by / AMLODIPINE [id number] Joshua BESYLATE 10 MG mouth daily 25 BESYLATE Ike ESPINOZA TABS BYSTOLIC 20 MG One tablet by / NEBIVOLOL HCL 25195698844 Jianming TABS mouth daily 02 Ike ESPINOZA AMOXICILLIN 500 One tablet by / AMOXICILLIN 67237196660 Marcianming MG CAPS mouth four Ike ESPINOZA times daily TRIAMCINOLONE apply to / TRIAMCINOLONE [id number] Joshua ACETONIDE 0.1 % affected area 25 ACETONIDE Ike ESPINOZA CREThierry twice daily, avoid face, axillary, and groin area DESONIDE 0.05 % apply to / DESONIDE 95260082415 Marcianming CREA affected area 26 Ike ESPINOZA twice daily, avoid face, axillary and groin area VALACYCLOVIR HCL One tablet by / VALACYCLOVIR 50644696888 Jianming 1 GM TABS mouth three HCL Ike ESPINOZA times daily AMOXICILLIN 500 One tablet by / AMOXICILLIN 33496219035 Jianming MG TABS mouth three Ramires times daily BYSTOLIC 10 MG One tablet by / NEBIVOLOL HCL 39847597266 Jianming TABS mouth daily Ike ESPINOZA AUGMENTIN One tablet by / AMOXICILLIN-POT [id number] Braeden Berkowitz 875-125 MG TABS mouth twice CLAVULANATE Carlos ESPINOZA daily. ZITHROMAX Z-GENA 2 tabs PO on / AZITHROMYCIN 82188682244 Braeden M 250 MG TABS day one, then 1 Carlos ESPINOZA tab PO daily for 4 days ATENOLOL 25 MG One tablet by ATENOLOL 09802957334 Braeden M TABS mouth daily Carlos ESPINOZA AMOXICILLIN 500 One tablet by AMOXICILLIN 55744889973 Jianming MG TABS mouth three Ike ESPINOZA times daily BYSTOLIC 10 MG One tablet by NEBIVOLOL HCL 70073854956 Jianming TABS mouth daily Ike ESPINOZA DESONIDE 0.05 % apply to DESONIDE 41167874017 Marcianming CREA affected area Iek ESPINOZA twice daily, avoid face, axillary and groin area ATENOLOL 25 MG One tablet by ATENOLOL 16414047385 Jianming TABS mouth daily Ike ESPINOZA CRESTOR 10 MG One tablet by ROSUVASTATIN 43809504527 Braeden M TABS mouth daily CALCIUM Carlos ESPINOZA CRESTOR 10 MG One tablet by ROSUVASTATIN 21573403295 Jianming TABS mouth daily CALCIUM Ike ESPINOZA SULFAMETHOXAZOLE SULFAMETHOXAZOL 37930713622 Radha Cruz -TRIMETHOPRIM E-TRIMETHOPRIM David TABS TABS SULFAMETHOXAZOLE SULFAMETHOXAZOL 54846909314 Braeden -TRIMETHOPRIM E-TRIMETHOPRIM Carlos ESPINOZA TABS TABS HYDROCODONE-ACET Two tablets by HYDROCODONE-SANCHEZ 36350623601 Radha Cruz AMINOPHEN TABS mouth daily TAMINOPHEN TABS David HYDROCODONE-ACET Two tablets by HYDROCODONE-SANCHEZ 34770777931 [facility] AMINOPHEN TABS mouth TAMINOPHEN TABS Carlos ESPINOZA DIAZEPAM TABS 2 aw DIAZEPAM TABS 36141703987 Radha Bhate DIAZEPAM TABS 2 aweek DIAZEPAM TABS 70271574431 Braeden Carlos ESPINOZA AMOXICILLIN 500 One tablet by AMOXICILLIN 72356050413 Jianming MG CAPS mouth four Ike ESPINOZA times daily AMLODIPINE One tablet by AMLODIPINE 41139054998 Matt S BESYLATE 10 MG mouth daily BESYLATE [place] TABS BYSTOLIC 20 MG One tablet by NEBIVOLOL HCL 55151178828 Matt S TABS mouth daily [place] TRIAMCINOLONE apply to TRIAMCINOLONE [id number] Matt Armendariz ACETONIDE 0.1 % affected area ACETONIDE [place] CREA twice daily, avoid face, axillary, and groin area LOSARTAN One tab one LOSARTAN 23194765537 Zuly L POTASSIUM-HCTZ time daily 06 POTASSIUM-HCTZ [place] 50-12.5 MG TABS XARELTO 20 MG One tablet by / RIVAROXABAN 61815378703 Zuly TABS mouth daily 30 Floresita Chavez EPIC ANALYST NEXIUM 40 MG One tablet by / ESOMEPRAZOLE 73007192557 Zuly CPDR mouth daily 30 MAGNESIUM Floresita Chavez EPIC ANALYST NEXIUM 40 MG One tablet by ESOMEPRAZOLE 20097219229 Zuly L CPDR mouth daily MAGNESIUM [place] AZITHROMYCIN 250 2 tablets by AZITHROMYCIN 23114734620 Bambi M MG TABS mouth today and Audi then 1 tablet daily for the next 4 days Medications Administered No information available. Allergies, Adverse Reactions, Alerts Allergy Name Reaction Start Date Severity Status Provider Description NKDA Mild Active Tracy Domingo RN Results [...] UA Negative Negative Nitrite Urine UROBILIURDIP Normal mg/d Normal urobilinogen, urine, L by dipstick PROTEIN, URN Negative Negative Albumin [Presence] in Urine PH URINE 6.0 5.0 - 8.0 pH, urine, semiquantitative SPEC GR URIN 1.020 1.002-1.030 specific gravity, urine KETONES URN Negative Negative ketones, urine, by test strip BILIRUBIN UR Negative Negative bilirubin, urine GLUCOSE UA Normal mg/d Normal Glucose Urine L CLARITY UR Clear Clear clarity, urine, point UA COLOR Yellow Yellow urine color Lab Report: Basic Metabolic Profile (BMP) ANION GAP 10 5-15 anion gap, serum CALCIUM 8.0 mg/dL 8.5-10.1 L calcium, serum BUN/CREAT 15.7 RATIO 10-20 urea nitrogen/creatin ine ratio, serum CCVCREABSA 108.48 mL/min calculated corrected [...] SODIUM 138 mmol/L sodium, serum PLATELETS 255 10*3/mm platelet count 3 HCT 45.2 % hematocrit, blood HGB 14.9 g/dL hemoglobin, blood WBC BLOOD 8.7 10*9/L leukocyte (white blood cells) count, blood Replaced Document: [facility] ECG Observations EKG INTERP Sinus Rhythm Low electrocardiogram voltage in interpretation precordial leads. -Poor R-wave progression -may be secondary to pulmonary disease consider old anterior infarct. - Nonspecific T-abnormality. ABNORMAL EKG T AXIS -1 deg T wave axis, electrocardiogram EKG QRS AXIS -15 deg QRS axis, electrocardiogram EKG PWAVAXIS 44 deg P wave axis, electrocardiogram QRS INTERVAL 98 ms QRS duration, electrocardiogram QT INTERVAL new path ms QT interval, electrocardiogram UT INTERVAL 150 ms UT interval, electrocardiogram EKGHRTRATE 94 BPM heart rate on electrocardiogram Microbiology: RESPIRATORY PANEL MOLECULAR ZZ-GE-unk . GE use only - for LinkLogic import when terms are not otherwise specified Office Visit: f/u cough FALLRSKASSES No Fall risk assessment MEDS REVIEW Done Documentation of current medications (procedure) DIET BUILDING TRADES INSTRUCTOR yes Dietary management education, guidance, and counseling (procedure) ALCOHOLCOUNS no Alcoholism counseling (procedure) SMOK STATUS Never smoker Tobacco use [facility] Append: Dr. Francois referral (close loop) CONSULTATION [facility]-[id number]^08/20/2016 Clinical consultation report (record artifact) Plan of Care Type Date Detail Appointment 08:15 AM Matt Mcnulty, [address] [place] [address], [address], [place], [address], Appointment 08:00 AM Tova Mercer [facility], [address] [place] [address], [address], [place], [address] Appointment 08:00 AM Matt Mcnulty, [address] [place] [address], [address], [place], [address], Referral Cardiac Referral [facility], [address] [place] [address], [address], [place], [address] Referral Physical Therapy [facility], [facility] [address], [place], [address] Referral Urology Referral Marcello Denton, [address] [place] [address], [address], [place], [address] Pending order X-Ray, Knee Pending order X-Ray, [...] Procedures Code Procedure Name Date Entry Date CPT-03619 X-Ray, Knee Order excluded from report: 06449-9 *Respiratory Panel CPT-54212 EKG (In office) F/U PFM PFM CPSP Complete portable sleep workup (portable,CPAP as indicated) & follow up F/U BWA BWA FUA 1 month Follow Up Appt 1 month [facility]-[id number] Cardiac Referral CS Complete sleep workup (PSG,CPAP as indicated) & Follow up Order excluded from report: Physical Therapy Physical Therapy General CPT-23121 X-Ray, Knee 78671-8 *CBC without Diff 0786-1 *CMP Complete Metabolic Panel 52794-1 *Lipid Profile 0610-1 *UA - Urinalysis w/o Micro Urology Urology Referral 76928-4 *Lipid Profile 2857-1 *PSA, Annual Screening CPT-75864 Excision Benign Lesion Trunk/Arm/Leg 2.1-3.0 cm 40312-6 *Lipid Profile 0786-1 *CMP Complete Metabolic Panel Echo Echocardiogram (complete) SET Stress Echocardiogram (treadmill) CPT-36269 US Abdomen, limited CPT-UAComp *Urinalysis, complete Order [...] weight in kilograms E&M BSA (Body Surface 0 body surface area Area) BMI (Body Mass Index) 28.10 kg/m2 Body Mass Index [Ratio] Height 185.42 cm height in centimeters E&M BP Diastolic 96 mm[Hg] blood pressure, diastolic, second observation BP Systolic 133 mm[Hg] blood pressure, systolic, second observation Heart Rate 70 pulse rate #2
--- OUTSIDE RECORDS SUMMARY | 2018-08-15 23:36 | XMS RPT_ITS | Clinical Summary ---
:1960 Author Organization [employer] [facility] Address [address] [place] [address] Phone Care Team Providers Name Role Phone Hamlet Matt Priya Unavailable Conditions or Problems Problem Problem Onset Status Entry Provider Comment Standard Annotate Name Code Date Date Description Hypersomnia 98454070 Resolved Cristian Juan Hypersomnia (SNOMED CT) 08/20 08/20 Kyle NUSRAT, adult 39205115418 Active Cristian Juan Obstructive On (SNOMED 09/19 09/19 Kyle sleep apnea of AutoPAP, CT) adult AHI 9 Cough 53157149 Active Gael A Cough (SNOMED CT) 09/12 09/12 Molina STNA-C Abnormal 984995456 Active Tracy Harman Electrocardiog EKG (SNOMED CT) 08/27 08/27 Chayo blair abnormal RN Chest pain 04931456 Active Tracy Harman Chest pain (SNOMED CT) 08/27 08/27 Chayo RN Lightheaded 291401131 Active Tova S Lightheadednes ness (SNOMED CT) 08/20 08/20 Sylvie AUTO PORTER s Hypersomnia 88465891 Removed Tova S Hypersomnia (SNOMED CT) 08/20 08/20 Mercer AUTO PORTER PE 74423761 Active Tova S Pulmonary (SNOMED CT) 08/20 08/20 Mercer AUTO PORTER embolism Orthopedic 288389365 Active Reggie Lyons Postoperative surgical (SNOMED CT) 08/15 08/15 Nery physical aftercare examination Knee pain, 74806891 Active Zuly N Knee pain right (SNOMED CT) 07/25 07/25 Tejada OA of left 175816277 Active Matt Armendariz Localized, knee (SNOMED CT) 08/26 08/26 Hamlet primary osteoarthritis Knee pain, 37473782 Active Matt Armendariz Knee pain left (SNOMED CT) 08/26 08/26 Hamlet Gastroenter 55270640 Active Jianming Gastroenteriti itis, acute (SNOMED CT) 08/18 08/18 Ike armendariz Headache 26933273 Active Jianming Headache (SNOMED CT) Ike ESPINOZA SPECIAL Z12.5 Resolved Jianming Encounter for SCREENING (ICD-10-CM) Ike ESPINOZA screening for MALIGNANT malignant NEOPLASM OF neoplasm of PROSTATE prostate DIZZINESS 162132312 Resolved Jianming Dizziness (SNOMED CT) Ike ESPINOZA SEBACEOUS 566195217 Resolved Jianming Infected CYST, (SNOMED CT) Ike ESPINOZA sebaceous cyst INFECTED MAXILLARY 62407781 Resolved Jianming Maxillary SINUSITIS (SNOMED CT) 01/07 01/07 Ike ESPINOZA sinusitis MAXILLARY 42686336 Resolved Jianming Maxillary and SINUSITIS (SNOMED CT) 11/20 11/20 Ike ESPINOZA sinusitis ethimoid ETHMOID 54749613 Resolved Jianming Ethmoidal SINUSITIS (SNOMED CT) 12/26 12/26 Ike ESPINOZA sinusitis MAXILLARY 38777983 Removed Jianming Maxillary and SINUSITIS (SNOMED CT) 11/20 11/20 Ike ESPINOZA sinusitis ethimoid KELOID SCAR 36242252 Active Jianming Keloid scar (SNOMED CT) 10/13 10/13 Ike ESPINOZA DYSLIPIDEMI 447457035 Active Jianming Dyslipidemia A (SNOMED CT) 09/13 09/13 Ike ESPINOZA PROSTATE 844563264 Active Jianming Raised SPECIFIC (SNOMED CT) 09/13 09/13 Ike ESPINOZA prostate ANTIGEN, specific ELEVATED antigen SPECIAL Z12.5 Removed Jianming Encounter for SCREENING (ICD-10-CM) Ike ESPINOZA screening for MALIGNANT malignant NEOPLASM OF neoplasm of PROSTATE prostate HEALTH 605378867 Active Jianming General MAINTENANCE (SNOMED CT) Ike ESPINOZA examination of EXAM patient HERPES 5011929 Active Jianming Herpes zoster ZOSTER (SNOMED CT) 04/16 04/16 Ike ESPINOZA ETHMOID 62368099 Removed Jianming Ethmoidal SINUSITIS (SNOMED CT) 12/26 12/26 Ike ESPINOZA sinusitis SEBACEOUS 763143280 Removed Jianming Infected CYST, (SNOMED CT) Ike ESPINOZA sebaceous cyst INFECTED DIZZINESS 718823417 Removed Jianming Dizziness (SNOMED CT) Ike ESPINOZA SEBACEOUS 464938794 Active Jianming Epidermoid CYST (SNOMED CT) Ike ESPINOZA cyst of skin MAXILLARY 88147451 Removed Braeden Maxillary SINUSITIS (SNOMED CT) 01/07 01/07 Carlos ESPINOZA sinusitis PHARYNGITIS 617608568 Resolved [facility] M Acute , ACUTE (SNOMED CT) 08/19 08/19 Carlos ESPINOZA pharyngitis PHARYNGITIS 797730135 Removed Braeden M Acute , ACUTE (SNOMED CT) 08/19 08/19 Carlos ESPINOZA pharyngitis PHYSICAL 4237296 Inactive [facility] M Physical EXAMINATION (SNOMED CT) 08/19 08/19 Carlos ESPINOZA examination procedure CELLULITIS Resolved ar M Cellulitis and AND ABSCESS (SNOMED CT) 01/08 01/08 Carlos ESPINOZA abscess of OF TRUNK trunk HYPERTENSIO 23896212 Active shar M Hypertensive N (SNOMED CT) 01/23 01/23 Carlos ESPINOZA disorder HYPERCHOLES 01878712 Active Braeden M Hypercholester TEROLEMIA (SNOMED CT) 01/23 01/23 Carlos ESPINOZA olemia RENAL CYST, 85334786 Active Braeden M Simple renal LEFT (SNOMED CT) 01/23 01/23 Carlos ESPINOZA cyst CELLULITIS 504863918 Removed Kota Cruz Cellulitis and AND ABSCESS (SNOMED CT) 01/08 01/08 Natanael ESPINOZA abscess of OF TRUNK trunk Medications Medication Instructions Start Stop Generic Name ND Provider Date Date AZITHROMYCIN 250 2 tablets by / AZITHROMYCIN [id number] Tova S MG TABS mouth today and 22 Mercer AUTO PORTER then 1 tablet daily for the next 4 days NEXIUM 40 MG One tablet by / ESOMEPRAZOLE 08389312590 Joshua CPDR mouth daily 03 MAGNESIUM Ike ESPINOZA AMLODIPINE One tablet by / AMLODIPINE 76560973367 Joshua BESYLATE 10 MG mouth daily 25 BESYLATE Ike ESPINOZA TABS BYSTOLIC 20 MG One tablet by / NEBIVOLOL HCL 96294237111 Jianming TABS mouth daily 02 Ike ESPINOZA AMOXICILLIN 500 One tablet by / AMOXICILLIN 29336163064 Marcianming MG CAPS mouth four Ramires times daily TRIAMCINOLONE apply to / TRIAMCINOLONE 06243469111 Joshua ACETONIDE 0.1 % affected area 25 ACETONIDE Ike ESPINOZA CREThierry twice daily, avoid face, axillary, and groin area DESONIDE 0.05 % apply to / DESONIDE 41810207983 Marcianmsharon CREA affected area 26 Ike ESPINOZA twice daily, avoid face, axillary and groin area VALACYCLOVIR HCL One tablet by / VALACYCLOVIR 72946726547 Jianming 1 GM TABS mouth three HCL Ike ESPINOZA times daily AMOXICILLIN 500 One tablet by / AMOXICILLIN 65948001110 Jianming MG TABS mouth three 07 Ramires times daily BYSTOLIC 10 MG One tablet by / NEBIVOLOL HCL 78652069612 Marcianming TABS mouth daily 02 Ike ESPINOZA AUGMENTIN One tablet by / AMOXICILLIN-POT 72385856395 Braeden Berkowitz 875-125 MG TABS mouth twice CLAVULANATE Carlos ESPINOZA daily. ZITHROMAX Z-GENA 2 tabs PO on / AZITHROMYCIN 16563599756 Braeden M 250 MG TABS day one, then 1 Carlos ESPINOZA tab PO daily for 4 days ATENOLOL 25 MG One tablet by ATENOLOL 55345935171 Braeden M TABS mouth daily Carlos ESPINOZA AMOXICILLIN 500 One tablet by AMOXICILLIN 24653103465 Jianming MG TABS mouth three Ike ESPINOZA times daily BYSTOLIC 10 MG One tablet by NEBIVOLOL HCL 61032511716 Jianming TABS mouth daily Ike ESPINOZA DESONIDE 0.05 % apply to DESONIDE 87565144632 Marcianmsharon CREA affected area Ike ESPINOZA twice daily, avoid face, axillary and groin area ATENOLOL 25 MG One tablet by ATENOLOL 36693258283 Jianming TABS mouth daily Ike ESPINOZA CRESTOR 10 MG One tablet by ROSUVASTATIN 27797605352 Braeden M TABS mouth daily CALCIUM Carlos ESPINOZA CRESTOR 10 MG One tablet by ROSUVASTATIN 24679918732 Jianming TABS mouth daily CALCIUM Ike ESPINOZA SULFAMETHOXAZOLE SULFAMETHOXAZOL 54908804173 Radha Cruz -TRIMETHOPRIM E-TRIMETHOPRIM David TABS TABS SULFAMETHOXAZOLE SULFAMETHOXAZOL 47905847925 Braeden -TRIMETHOPRIM E-TRIMETHOPRIM Carlos ESPINOZA TABS TABS HYDROCODONE-ACET Two tablets by HYDROCODONE-SANCHEZ 20987678744 Radha Cruz AMINOPHEN TABS mouth daily TAMINOPHEN TABS David HYDROCODONE-ACET Two tablets by HYDROCODONE-SANCHEZ 82051374711 Braeden M AMINOPHEN TABS mouth TAMINOPHEN TABS Carlos ESPINOZA DIAZEPAM TABS 2 aw DIAZEPAM TABS 27802164751 Radha Hernandez DIAZEPAM TABS 2 aweek DIAZEPAM TABS 68273664303 Braeden Carlos ESPINOZA AMOXICILLIN 500 One tablet by AMOXICILLIN 84863072048 Jianming MG CAPS mouth four Ike ESPINOZA times daily AMLODIPINE One tablet by AMLODIPINE 50868822429 Matt S BESYLATE 10 MG mouth daily BESYLATE Hamlet TABS BYSTOLIC 20 MG One tablet by NEBIVOLOL HCL 84981013332 Matt S TABS mouth daily Hamlet TRIAMCINOLONE apply to TRIAMCINOLONE 11762292287 Matt Armendariz ACETONIDE 0.1 % affected area ACETONIDE Hamlet CREA twice daily, avoid face, axillary, and groin area LOSARTAN One tab one LOSARTAN 17828823595 Zuly L POTASSIUM-HCTZ time daily POTASSIUM-HCTZ York 50-12.5 MG TABS XARELTO 20 MG One tablet by / RIVAROXABAN 97712602151 Zuly TABS mouth daily 30 Floresita Chavez REFINERY OPERATOR COKING NEXIUM 40 MG One tablet by / ESOMEPRAZOLE 50067330229 Zuly CPDR mouth daily 30 MAGNESIUM Floresita Chavez REFINERY OPERATOR COKING NEXIUM 40 MG One tablet by ESOMEPRAZOLE 44247938389 Zuly L CPDR mouth daily MAGNESIUM York AZITHROMYCIN 250 2 tablets by AZITHROMYCIN 02334600507 Bambi M MG TABS mouth today and [...] INTERVAL new path ms QT interval, electrocardiogram [place] INTERVAL 150 ms [place] interval, electrocardiogram EKGHRTRATE 94 BPM heart rate on electrocardiogram Microbiology: RESPIRATORY PANEL MOLECULAR ZZ-GE-unk . GE use only - for LinkLogic import when terms are not otherwise specified Office Visit: f/u cough FALLRSKASSES No Fall risk assessment MEDS REVIEW Done Documentation of current medications (procedure) DIET CONSOLIDATION ACCOUNTANT yes Dietary management education, guidance, and counseling (procedure) ALCOHOLCOUNS no Alcoholism counseling (procedure) SMOK STATUS Never smoker Tobacco use [facility] Append: Dr. Francois referral (close loop) CONSULTATION [facility]-[id number]^08/20/2016 Clinical consultation report (record artifact) Plan of Care Type Date Detail Appointment 08:15 AM Matt Mcnulty, [address] [place] [address], [address], [place], [address], Appointment 08:00 AM Tova Mercer [facility], [address] [place] [address] [address], [place], [address] Appointment 08:00 AM Matt Mcnulty, [address] [place] [address], [address], [place], [address], Referral Cardiac Referral [facility], [address] [place] [address], [address], [place], [address] Referral Physical Therapy General Re[facility] Services, [facility], [facility] [place], [address] Referral Urology Referral Marcello Denton, [address] [facility], [address], [place], [address] Pending order X-Ray, Knee Pending order X-Ray, [...] Procedures Code Procedure Name Date Entry Date CPT-13767 X-Ray, Knee Order excluded from report: 69302-0 *Respiratory Panel CPT-59598 EKG (In office) F/U PFM PFM CPSP Complete portable sleep workup (portable,CPAP as indicated) & follow up F/U BWA BWA FUA 1 month Follow Up Appt 1 month SCT-[id number] Cardiac Referral CS Complete sleep workup (PSG,CPAP as indicated) & Follow up Order excluded from report: Physical Therapy Physical Therapy General CPT-04123 X-Ray, Knee 93120-6 *CBC without Diff 0786-1 *CMP Complete Metabolic Panel 71031-8 *Lipid Profile 0610-1 *UA - Urinalysis w/o Micro Urology Urology Referral 67638-0 *Lipid Profile 2857-1 *PSA, Annual Screening CPT-52697 Excision Benign Lesion Trunk/Arm/Leg 2.1-3.0 cm 58110-7 *Lipid Profile 0786-1 *CMP Complete Metabolic Panel Echo Echocardiogram (complete) SET Stress Echocardiogram (treadmill) CPT-98641 US Abdomen, limited CPT-UAComp *Urinalysis, complete Order [...]
--- OUTSIDE RECORDS SUMMARY | 2018-08-15 23:36 | XMS RPT_ITS ---
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 Hypersomnia 58496378 Resolved Cristian Juan Hypersomnia (SNOMED CT) 08/20 08/20 Kyle NUSRAT, adult 01268604684 Active Cristian Juan Obstructive On (SNOMED 09/19 09/19 Kyle sleep apnea of AutoPAP, CT) adult AHI 9 Cough 20374354 Active Gael A Cough (SNOMED CT) 09/12 09/12 Molina SUPERVISOR 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 AND 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-C Abnormal 342278761 Active Tracy Harman Electrocardiog EKG (SNOMED CT) 08/27 08/27 Chayo blair abnormal RN Chest pain 42354955 Active Tracy Harman Chest pain (SNOMED CT) 08/27 08/27 Chayo RN Lightheaded 743565156 Active Tova S Lightheadednes ness (SNOMED CT) 08/20 08/20 Mercer ENVIRONMENTAL INTERN s Hypersomnia 82463027 Removed Tova S Hypersomnia (SNOMED CT) 08/20 08/20 Mercer ENVIRONMENTAL INTERN PE 77537548 Active Tova S Pulmonary (SNOMED CT) 08/20 08/20 Mercer ENVIRONMENTAL INTERN embolism Orthopedic 869474561 Active Reggie Lyons Postoperative surgical (SNOMED CT) 08/15 08/15 Nery physical aftercare examination Knee pain, 32320398 Active Zuly N Knee pain right (SNOMED CT) 07/25 07/25 Tejada OA of left 357966090 Active Matt Powers Localized, knee (SNOMED CT) 08/26 08/26 Hamlet primary osteoarthritis Knee pain, 63289587 Active Matt Powers Knee pain left (SNOMED CT) 08/26 08/26 Hamlet Gastroenter 53578137 Active Jianming Gastroenteriti itis, acute (SNOMED CT) 08/18 08/18 Ike ESPINOZA s Headache 96328990 Active Jianming Headache (SNOMED CT) Ike ESPINOZA SPECIAL Z12.5 Resolved Jianming Encounter for SCREENING (ICD-10-CM) Ike ESPINOZA screening for MALIGNANT malignant NEOPLASM OF neoplasm of PROSTATE prostate DIZZINESS 399100581 Resolved Jianming Dizziness (SNOMED CT) Ike ESPINOZA SEBACEOUS 429434325 Resolved Jianming Infected CYST, (SNOMED CT) Ike ESPINOZA sebaceous cyst INFECTED MAXILLARY 81220778 Resolved Jianming Maxillary SINUSITIS (SNOMED CT) 01/07 01/07 Ike ESPINOZA sinusitis MAXILLARY 42851302 Resolved Jianming Maxillary and SINUSITIS (SNOMED CT) 11/20 11/20 Ike ESPINOZA sinusitis ethimoid ETHMOID 35549295 Resolved Jianming Ethmoidal SINUSITIS (SNOMED CT) 12/26 12/26 Ike ESPINOZA sinusitis MAXILLARY 60296812 Removed Jianming Maxillary and SINUSITIS (SNOMED CT) 11/20 11/20 Ike ESPINOZA sinusitis ethimoid KELOID SCAR 31212955 Active Jianming Keloid scar (SNOMED CT) 10/13 10/13 Ike ESPINOZA DYSLIPIDEMI 951486301 Active Jianming Dyslipidemia A (SNOMED CT) 09/13 09/13 Ike ESPINOZA PROSTATE 376642992 Active Jianming Raised SPECIFIC (SNOMED CT) 09/13 09/13 Ike ESPINOZA prostate ANTIGEN, specific ELEVATED antigen SPECIAL Z12.5 Removed Joshua Encounter for SCREENING (ICD-10-CM) 0 0 Ike ESPINOZA screening for MALIGNANT malignant NEOPLASM OF neoplasm of PROSTATE prostate HEALTH 043613018 Active Joshua General MAINTENANCE (SNOMED CT) 0 0 Ike ESPINOZA examination of EXAM patient HER[facility]65470 [facility] (SNOMED CT) 04/16 04/16 Ike ESPINOZA ETHMOID 61413901 Removed Jiacting Ethmoidal SINUSITIS (SNOMED CT) 12/26 12/26 Ike ESPINOZA sinusitis SEBACEOUS 097591817 Removed Jianming Infected CYST, (SNOMED CT) Ike ESPINOZA sebaceous cyst INFECTED DIZZINESS 419211308 Removed Jianming Dizziness (SNOMED CT) 0 Ike ESPINOZA SEBACEOUS 212530986 Active Joshua Epidermoid CYST (SNOMED CT) 0 0 Ike ESPINOZA cyst of skin MAXILLARY 06172022 Removed Braeden Berkowitz Maxillary SINUSITIS (SNOMED CT) 01/07 01/07 Carlos ESPINOZA sinusitis PHARYNGITIS 609134556 Resolved Braeden Berkowitz Acute , ACUTE (SNOMED CT) 08/19 08/19 Calros ESPINOZA pharyngitis PHARYNGITIS 295899733 Removed Braeden Berkowitz Acute , ACUTE (SNOMED CT) 08/19 08/19 Carlos ESPINOZA pharyngitis PHYSICAL 7250279 Inactive Braeden Berkowitz Physical EXAMINATION (SNOMED CT) 08/19 08/19 Carlos ESPINOZA examination CELLULITIS 697057833 Resolved Braeden M Cellulitis and AND ABSCESS (SNOMED CT) 01/08 01/08 Carlos ESPINOZA abscess of OF TRUNK trunk HYPERTENSIO 58495441 Active Braeden Berkowitz Hypertensive N (SNOMED CT) 01/23 01/23 Carlos ESPINOZA disorder HYPERCHOLES 75963790 Active Braeden Berkowitz Hypercholester TEROLEMIA (SNOMED CT) 01/23 01/23 Carlos ESPINOZA olemia RENAL CYST, 03131431 Active Braeden Berkowitz Simple renal LEFT (SNOMED CT) 01/23 01/23 Carlos ESPINOZA cyst CELLULITIS 645891521 Removed Kota Cruz Cellulitis and AND ABSCESS (SNOMED CT) 01/08 01/08 Natanael ESPINOZA abscess of OF TRUNK trunk Medications Medication Instructions Start Stop Generic Name NDC Provider Date Date AZITHROMYCIN 250 2 tablets by / AZITHROMYCIN [id number] Tova S MG TABS mouth today and 22 Mercer ENVIRONMENTAL INTERN then 1 tablet daily for the next 4 days NEXIUM 40 MG One tablet by / ESOMEPRAZOLE 22724510452 Adinaing CPDR mouth daily 03 MAGNESIUM Ike ESPINOZA AMLODIPINE One tablet by / AMLODIPINE 42941021716 Adinaing BESYLATE 10 MG mouth daily 25 BESYLATE Ike ESPINOZA TABS BYSTOLIC 20 MG One tablet by / NEBIVOLOL HCL 24748167915 Jianming TABS mouth daily 02 Ike ESPINOZA AMOXICILLIN 500 One tablet by / AMOXICILLIN 63285614463 Jianming MG CAPS mouth four Ike ESPINOZA times daily TRIAMCINOLONE apply to / TRIAMCINOLONE 41213120095 Joshua ACETONIDE 0.1 % affected area 25 ACETONIDE Ike ESPINOZA CREThierry twice daily, avoid face, axillary, and groin area DESONIDE 0.05 % apply to / DESONIDE 70229936258 Jianming CREA affected area 26 Ike ESPINOZA twice daily, avoid face, axillary and groin area VALACYCLOVIR HCL One tablet by / VALACYCLOVIR HCL 53128147665 Jianming 1 GM TABS mouth three Ike ESPINOZA times daily AMOXICILLIN 500 One tablet by / AMOXICILLIN 14909102467 Jianming MG TABS mouth three Ramires times daily BYSTOLIC 10 MG One tablet by / NEBIVOLOL HCL 44014215631 Jianming TABS mouth daily Ike ESPINOZA AUGMENTIN One tablet by / AMOXICILLIN-POT 98908456012 Braeden Berkowitz 875-125 MG TABS mouth twice CLAVULANATE Carlos ESPINOZA daily. ZITHROMAX Z-GEAN 2 tabs PO on / AZITHROMYCIN 02694106530 Braeden M 250 MG TABS day one, then 1 Carlos ESPINOZA tab PO daily for 4 days ATENOLOL 25 MG One tablet by ATENOLOL 50326058622 Braeden Berkowitz TABS mouth daily Carlos ESPINOZA AMOXICILLIN 500 One tablet by AMOXICILLIN 19393254602 Jianming MG TABS mouth three Ike ESPINOZA times daily BYSTOLIC 10 MG One tablet by NEBIVOLOL HCL 92970816416 Jianming TABS mouth daily Ike ESPINOZA DESONIDE 0.05 % apply to DESONIDE 82620865955 Marcianmsharon CREA affected area Ike ESPINOZA twice daily, avoid face, axillary and groin area ATENOLOL 25 MG One tablet by ATENOLOL 98646618967 Jianming TABS mouth daily Ike ESPINOZA CRESTOR 10 MG One tablet by ROSUVASTATIN 40179781324 Braeden M TABS mouth daily CALCIUM Carlos ESPINOZA CRESTOR 10 MG One tablet by ROSUVASTATIN 07323790623 Jianming TABS mouth daily CALCIUM Ike ESPINOZA SULFAMETHOXAZOLE SULFAMETHOXAZOLE 20533602430 Radha Cruz -TRIMETHOPRIM -TRIMETHOPRIM David TABS TABS SULFAMETHOXAZOLE SULFAMETHOXAZOLE 49222106726 Braeden M -TRIMETHOPRIM -TRIMETHOPRIM Carlos ESPINOZA TABS TABS HYDROCODONE-ACET Two tablets by HYDROCODONE-ACET 11355320303 Radha Cruz AMINOPHEN TABS mouth daily AMINOPHEN TABS David HYDROCODONE-ACET Two tablets by HYDROCODONE-ACET 92780992352 Braeden M AMINOPHEN TABS mouth daily AMINOPHEN TABS Carlos ESPINOZA DIAZEPAM TABS 2 awee DIAZEPAM TABS 37663291931 Radha R David DIAZEPAM TABS 2 aweek DIAZEPAM TABS 73734132709 Carlos ESPINOZA AMOXICILLIN 500 One tablet by AMOXICILLIN 66692266391 Jianming MG CAPS mouth four Ike ESPINOZA times daily AMLODIPINE One tablet by AMLODIPINE 20107516040 Matt S BESYLATE 10 MG mouth daily BESYLATE [place] TABS BYSTOLIC 20 MG One tablet by NEBIVOLOL HCL 42557842104 Matt Powers TABS mouth daily [place]let TRIAMCINOLONE apply to TRIAMCINOLONE 93175178507 Matt Powers ACETONIDE 0.1 % affected area ACETONIDE [place] CREA twice daily, avoid face, axillary, and groin area NEXIUM 40 MG One tablet by / ESOMEPRAZOLE 08046160584 Zuly L CPDR mouth daily MAGNESIUM [place] LOSARTAN One tab one LOSARTAN 37645826664 Zuly L POTASSIUM-HCTZ time daily POTASSIUM-HCTZ York 50-12.5 MG TABS NEXIUM 40 MG One tablet by / ESOMEPRAZOLE 26402575864 Zuly CPDR mouth daily 30 MAGNESIUM Floresita Chavez HATCH SUPERVISOR AZITHROMYCIN 250 2 tablets by AZITHROMYCIN 83609810414 Bambi M MG TABS mouth today and Audi then 1 tablet daily for the next 4 days XARELTO 20 MG One tablet by / RIVAROXABAN 41556215381 Zuly TABS mouth daily 30 Floresita Chavez HATCH SUPERVISOR XARELTO 20 MG One tablet by RIVAROXABAN 33549123069 Alessia A TABS mouth daily Yensho HATCH SUPERVISOR Medications Administered No information available. Allergies, Adverse [...] INTERVAL new path ms QT interval, electrocardiogram [place] INTERVAL 150 ms DC interval, electrocardiogram EKGHRTRATE 94 BPM heart rate on electrocardiogram Microbiology: RESPIRATORY PANEL MOLECULAR ZZ-GE-unk . GE use only - for LinkLogic import when terms are not otherwise specified Append: Dr. Francois referral (close loop) CONSULTATION [facility]-[id number]^08/20/2016 Clinical consultation report (record artifact) Lab Report: D-Dimer Quantitative (DVT/PE) DDIMER < 0.27 FEU/ug/m ug/mL 0.27-0.49 L D-dimer quantitative mcg/mL Office Visit: NUSRAT & pulmonary embolism FALLRSKASSES No Fall risk assessment MEDS REVIEW Done Documentation of current medications (procedure) DIET STANDPIPE TENDER yes Dietary management education, guidance, and counseling (procedure) ALCOHOLCOUNS no Alcoholism counseling (procedure) SMOK STATUS Never smoker Tobacco use [facility] Plan of Care Type Date Detail Appointment 08:00 AM Matt Mcnulty, [address] [facility], [address], [place], [address], Appointment 08:00 AM Tova Mercer [facility], [address] [place] [address], [address], [place], [address] Referral Cardiac Referral Group Heart, [address] [place] [address], [address], [place], [address] Referral Physical Therapy General Rehab Services, [address] [facility], [place], [address] Referral Urology Referral Marcello Denton, [address] [facility], [address], [place], [address] Pending order X-Ray, Knee Pending order Follow [...] Procedures Code Procedure Name Date Entry Date 76883-5 *DDIMQ - Fibrin Degrd Ultrsens Qual/Semiquan RWFU Retitration with follow up (patient on CPAP currently) F/U BWA BWA FUA 3 months Follow Up Appt 3 months CPT-22587 X-Ray, Knee Order excluded from report: FUA 3 months Follow Up Appt 3 months F/U CSM CSM 96695-1 *Respiratory Panel CPT-12678 EKG (In office) F/U PFM PFM CPSP Complete portable sleep workup (portable,CPAP as indicated) & follow up F/U BWA BWA FUA 1 month Follow Up Appt 1 month SCT-[id number] Cardiac Referral CS Complete sleep workup (PSG,CPAP as indicated) & Follow up Order excluded from report: Physical Therapy Physical Therapy General CPT-06550 X-Ray, Knee 93447-0 *CBC without Diff 0786-1 *CMP Complete Metabolic Panel 60879-6 *Lipid Profile 0610-1 *UA - Urinalysis w/o Micro Urology Urology Referral 46426-0 *Lipid Profile 2857-1 *PSA, Annual Screening CPT-04335 Excision Benign Lesion Trunk/Arm/Leg 2.1-3.0 cm 95772-3 *Lipid Profile 0786-1 *CMP Complete Metabolic Panel Echo Echocardiogram (complete) SET Stress Echocardiogram (treadmill) CPT-59248 US Abdomen, limited CPT-UAComp *Urinalysis, complete Order [...]
--- OUTSIDE RECORDS SUMMARY | 2018-08-15 23:37 | XMS RPT_ITS | Clinical Summary ---
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 Hypersomnia 98681947 Resolved Cristian Juan Hypersomnia (SNOMED CT) 08/20 08/20 Kyle NUSRAT, adult 98560260333 Active Cristian Juan Obstructive On (SNOMED 09/19 09/19 Kyle sleep apnea of AutoPAP, CT) adult AHI 9 Cough 30241732 Active Gale A Cough (SNOMED CT) 09/12 09/12 Jesse FACILITIES CUSTODIAN-C Abnormal 890817813 Active Tracy Harman Electrocardiog EKG (SNOMED CT) 08/27 08/27 Chayo blair abnormal RN Chest pain 49455825 Active Tracy Harman Chest pain (SNOMED CT) 08/27 08/27 Chayo RN Lightheaded 126198350 Active Tova S Lightheadednes ness (SNOMED CT) 08/20 08/20 Sylvie SPORTS JOURNALIST s Hypersomnia 12566426 Removed Tova S Hypersomnia (SNOMED CT) 08/20 08/20 Mercer SPORTS JOURNALIST PE 61457758 Active Tova S Pulmonary (SNOMED CT) 08/20 08/20 Sylvie SPORTS JOURNALIST embolism Orthopedic 208143900 Active Reggie Lyons Postoperative surgical (SNOMED CT) 08/15 08/15 Nery physical aftercare examination Knee pain, 79364938 Active Zuly N Knee pain right (SNOMED CT) 07/25 07/25 Tejada OA of left 222020425 Active Matt Armendariz Localized, knee (SNOMED CT) 08/26 08/26 Hamlet primary osteoarthritis Knee pain, 64971983 Active Matt Armendariz Knee pain left (SNOMED CT) 08/26 08/26 [place] Gastroenter 25405068 Active Jianming Gastroenteriti itis, acute (SNOMED CT) 08/18 08/18 Ike armendariz Headache 58307180 Active Jianming Headache (SNOMED CT) Ike ESPINOZA SPECIAL Z12.5 Resolved Jianming Encounter for SCREENING (ICD-10-CM) Ike ESPINOZA screening for MALIGNANT malignant NEOPLASM OF neoplasm of PROSTATE prostate DIZZINESS 453407073 Resolved Jianming Dizziness (SNOMED CT) Ike ESPINOZA SEBACEOUS 287558376 Resolved Jianming Infected CYST, (SNOMED CT) Ike ESPINOZA sebaceous cyst INFECTED MAXILLARY 90625901 Resolved Jianming Maxillary SINUSITIS (SNOMED CT) 01/07 01/07 Ike ESPINOZA sinusitis MAXILLARY 99179691 Resolved Jianming Maxillary and SINUSITIS (SNOMED CT) 11/20 11/20 Ike ESPINOZA sinusitis ethimoid ETHMOID 92953030 Resolved Jianming Ethmoidal SINUSITIS (SNOMED CT) 12/26 12/26 Ike ESPINOZA sinusitis MAXILLARY 65088712 Removed Jianming Maxillary and SINUSITIS (SNOMED CT) 11/20 11/20 Ike ESPINOZA sinusitis ethimoid KELOID SCAR 51264596 Active Jianming Keloid scar (SNOMED CT) 10/13 10/13 Ike ESPINOZA DYSLIPIDEMI 910200728 Active Jianming Dyslipidemia A (SNOMED CT) 09/13 09/13 Ike ESPINOZA PROSTATE 211128323 Active Jianming Raised SPECIFIC (SNOMED CT) 09/13 09/13 Ike ESPINOZA prostate ANTIGEN, specific ELEVATED antigen SPECIAL Z12.5 [facility] Encounter for SCREENING (ICD-10-CM) 0 0 Ike ESPINOZA screening for MALIGNANT malignant NEOPLASM OF neoplasm of PROSTATE prostate HEALTH 463817963 Active Jiaaring General MAINTENANCE (SNOMED CT) 0 0 Iek ESPINOZA examination of EXAM patient HERPES 8007901 [facility] Herpes zoster ZOSTER (SNOMED CT) 04/16 04/16 Ike ESPINOZA ETHMOID 33257528 Removed Jiaaring Ethmoidal SINUSITIS (SNOMED CT) 12/26 12/26 Ike ESPINOZA sinusitis SEBACEOUS 331551444 Removed Jiaaring Infected CYST, (SNOMED CT) Ike ESPINOZA sebaceous cyst INFECTED DIZZINESS 386882201 Removed Jianming Dizziness (SNOMED CT) 0 Ike ESPINOZA SEBACEOUS 261881028 [facility] Epidermoid CYST (SNOMED CT) 0 Ike ESPINOZA cyst of skin MAXILLARY 53691648 Removed Braeden Berkowitz Maxillary SINUSITIS (SNOMED CT) 01/07 01/07 Carlos ESPINOZA sinusitis PHARYNGITIS 949960772 Resolved Braeden Berkowitz Acute , ACUTE (SNOMED CT) 08/19 08/19 Carlos ESPINOZA pharyngitis PHARYNGITIS 488744893 Removed Braeden Berkowitz Acute , ACUTE (SNOMED CT) 08/19 08/19 Carlos ESPINOZA pharyngitis PHYSICAL 8064115 Inactive Braeden Berkowitz Physical EXAMINATION (SNOMED CT) 08/19 08/19 Carlos ESPINOZA examination procedure CELLULITIS 306310750 Resolved Braeden M Cellulitis and AND ABSCESS (SNOMED CT) 01/08 01/08 Carlos ESPINOZA abscess of OF TRUNK trunk HYPERTENSIO 76254325 Active Braeden M Hypertensive N (SNOMED CT) 01/23 01/23 Carlos ESPINOZA disorder HYPERCHOLES 83798233 Active Braeden M Hypercholester TEROLEMIA (SNOMED CT) 01/23 01/23 Carlos ESPINOZA olemia RENAL CYST, 51228310 Active Braeden Berkowitz Simple renal LEFT (SNOMED CT) 01/23 01/23 Carlos ESPINOZA cyst CELLULITIS 983326615 Removed Kota Cruz Cellulitis and AND ABSCESS (SNOMED CT) 01/08 01/08 Natanael ESPINOZA abscess of OF TRUNK trunk Medications Medication Instructions Start Stop Generic Name NDC Provider Date Date AZITHROMYCIN 250 2 tablets by / AZITHROMYCIN [id number] Tova S MG TABS mouth today and 22 Mercer SPORTS JOURNALIST then 1 tablet daily for the next 4 days NEXIUM 40 MG One tablet by / ESOMEPRAZOLE 43917065827 Joshua CPDR mouth daily 03 MAGNESIUM Ike ESPINOZA AMLODIPINE One tablet by / AMLODIPINE 86139339495 Joshua BESYLATE 10 MG mouth daily 25 BESYLATE Ike ESPINOZA TABS BYSTOLIC 20 MG One tablet by / NEBIVOLOL HCL 06552570556 Jianming TABS mouth daily 02 Ike ESPINOZA AMOXICILLIN 500 One tablet by / AMOXICILLIN 05168820845 Marcianming MG CAPS mouth four Ramires times daily TRIAMCINOLONE apply to / TRIAMCINOLONE 02061117959 Joshua ACETONIDE 0.1 % affected area 25 ACETONIDE Ike ESPINOZA CREA twice daily, avoid face, axillary, and groin area DESONIDE 0.05 % apply to / DESONIDE 36701042438 Jianming CREA affected area 26 Ike ESPINOZA twice daily, avoid face, axillary and groin area VALACYCLOVIR HCL One tablet by VALACYCLOVIR HCL 49360239675 Jianming 1 GM TABS mouth three Ike ESPINOZA times daily AMOXICILLIN 500 One tablet by / AMOXICILLIN 29600922261 Jianming MG TABS mouth three [facility] times daily BYSTOLIC 10 MG One tablet by / NEBIVOLOL HCL 12696484711 Jianming TABS mouth daily Ike ESPINOZA AUGMENTIN One tablet by / AMOXICILLIN-POT 00355046902 Braeden Berkowitz 875-125 MG TABS mouth twice CLAVULANATE Carlos ESPINOZA daily. ZITHROMAX Z-GENA 2 tabs PO on / AZITHROMYCIN 24601279364 Braeden Berkowitz 250 MG TABS day one, then 1 Carlos ESPINOZA tab PO daily for 4 days ATENOLOL 25 MG One tablet by ATENOLOL 48920400750 Braeden M TABS mouth daily Carlos ESPINOZA BYSTOLIC 10 MG One tablet by NEBIVOLOL HCL 92020007940 Jianming TABS mouth daily Iek ESPINOZA DESONIDE 0.05 % apply to DESONIDE 17854080232 Jianming CREA affected area Ike ESPINOZA twice daily, avoid face, axillary and groin area AMOXICILLIN 500 One tablet by AMOXICILLIN 98022666050 Jianming MG CAPS mouth four Ike ESPINOZA times daily SULFAMETHOXAZOLE SULFAMETHOXAZOLE 49915613598 Radha Cruz -TRIMETHOPRIM -TRIMETHOPRIM David TABS TABS CRESTOR 10 MG One tablet by ROSUVASTATIN 13659453694 [facility] TABS mouth daily CALCIUM Carlos ESPINOZA DIAZEPAM TABS 2 aweek DIAZEPAM TABS 74543845959 Carlos ESPINOZA AMOXICILLIN 500 One tablet by AMOXICILLIN 54777479667 Jianming MG TABS mouth three Ike ESPINOZA times daily SULFAMETHOXAZOLE SULFAMETHOXAZOLE 21254235766 Braeden -TRIMETHOPRIM -TRIMETHOPRIM Carlos ESPINOZA TABS TABS DIAZEPAM TABS 2 aw DIAZEPAM TABS 12583674070 Radha Hernandez HYDROCODONE-ACET Two tablets by HYDROCODONE-ACET 65782831520 Radha Cruz AMINOPHEN TABS mouth daily AMINOPHEN TABS David TRIAMCINOLONE apply to TRIAMCINOLONE 89469865830 Matt Armendariz ACETONIDE 0.1 % affected area ACETONIDE [place] CREA twice daily, avoid face, axillary, and groin area AMLODIPINE One tablet by AMLODIPINE 02271866554 Matt S BESYLATE 10 MG mouth daily BESYLATE [place] TABS BYSTOLIC 20 MG One tablet by NEBIVOLOL HCL 79487200484 Matt S TABS mouth daily [place] LOSARTAN One tab one / LOSARTAN 21907782668 Zuly Lyons POTASSIUM-HCTZ time daily POTASSIUM-HCTZ York 50-12.5 MG TABS NEXIUM 40 MG One tablet by / ESOMEPRAZOLE 40413461779 Zuly CPDR mouth daily 30 MAGNESIUM Floresita Chavez SUPERVISOR BOTTLE MACHINES HYDROCODONE-ACET Two tablets by HYDROCODONE-ACET 95121106072 Braeden Berkowitz AMINOPHEN TABS mouth daily / AMINOPHEN TABS Carlos ESPINOZA ATENOLOL 25 MG One tablet by ATENOLOL 81486175373 Jianming TABS mouth daily / Ike ESPINOZA CRESTOR 10 MG One tablet by ROSUVASTATIN 70010808291 Jianming TABS mouth daily / CALCIUM Ike ESPINOZA NEXIUM 40 MG One tablet by / ESOMEPRAZOLE 35948316734 Zuly L CPDR mouth daily MAGNESIUM York AZITHROMYCIN 250 2 tablets by AZITHROMYCIN 27931754473 Bambi M MG TABS mouth today and Audi then 1 tablet daily for the next 4 days XARELTO 20 MG One tablet by / RIVAROXABAN 13971816801 Zuly TABS mouth daily 30 Floresita Chavez SUPERVISOR BOTTLE MACHINES XARELTO 20 MG One tablet by / RIVAROXABAN 24317793104 Alessia A TABS mouth daily Yensho SUPERVISOR BOTTLE MACHINES Medications Administered No information available. Allergies, Adverse [...] INTERVAL new path ms QT interval, electrocardiogram ID INTERVAL 150 ms ID interval, electrocardiogram EKGHRTRATE 94 BPM heart rate on electrocardiogram Microbiology: RESPIRATORY PANEL MOLECULAR ZZ-GE-unk . GE use only - for LinkLogic import when terms are not otherwise specified Office Visit: f/u cough FALLRSKASSES No Fall risk assessment Append: Dr. Francois referral (close loop) CONSULTATION [facility]-[id number]^08/20/2016 Clinical consultation report (record artifact) Office Visit MEDS REVIEW Done Documentation of current medications (procedure) DIET LACING STRING CUTTER yes Dietary management education, guidance, and counseling (procedure) ALCOHOLCOUNS no Alcoholism counseling (procedure) SMOK STATUS Never smoker Tobacco use [facility] Lab Report: D-Dimer Quantitative (DVT/PE) DDIMER < 0.27 FEU/ug/m ug/mL 0.27-0.49 L D-dimer quantitative mcg/mL Plan of Care Type Date Detail Appointment 02:30 PM Cristian Wright, [address] [place] [address], [address], [place], [address] Appointment 08:00 AM Matt Mcnulty, [address] [facility], [address], [place], [address], Referral Cardiac Referral Group Heart, [address] [place] [address], [address], [place], [address] Referral Physical Therapy [facility], [address] [facility], [place], [address] Referral Urology Referral Marcello Denton, [address] [facility], [address], [place], [address] Pending order *DDIMQ - Fibrin Degrd Ultrsens [...] Procedures Code Procedure Name Date Entry Date 91825-6 *DDIMQ - Fibrin Degrd Ultrsens Qual/Semiquan CPT-06345 X-Ray, Knee Order excluded from report: 90777-7 *Respiratory Panel CPT-06618 EKG (In office) F/U PFM PFM CPSP Complete portable sleep workup (portable,CPAP as indicated) & follow up F/U BWA BWA FUA 1 month Follow Up Appt 1 month [id number] Cardiac Referral CS Complete sleep workup (PSG,CPAP as indicated) & Follow up Order excluded from report: Physical Therapy Physical Therapy General CPT-11701 X-Ray, Knee 50594-6 *CBC without Diff 0786-1 *CMP Complete Metabolic Panel 24924-6 *Lipid Profile 0610-1 *UA - Urinalysis w/o Micro Urology Urology Referral 39273-0 *Lipid Profile 2857-1 *PSA, Annual Screening CPT-95859 Excision Benign Lesion Trunk/Arm/Leg 2.1-3.0 cm 11638-2 *Lipid Profile 0786-1 *CMP Complete Metabolic Panel Echo Echocardiogram (complete) SET Stress Echocardiogram (treadmill) CPT-75196 US Abdomen, limited CPT-UAComp *Urinalysis, complete Order [...]
--- OUTSIDE RECORDS SUMMARY | 2018-08-15 23:37 | XMS RPT_ITS | Clinical Summary ---
:1960 Author Organization [facility] Address [address] [place] [address] Phone Care Team Providers Name Role Phone Bambi Huntley Unavailable Unavailable Conditions or Problems Problem Problem Onset Status Entry Provider Comment Standard Annotate Name Code Date Date Description Prosthetic 727706016 Active Matt Armendariz Implantation unicompartm (SNOMED CT) 11/21 11/26 [place] of joint ental knee prosthesis arthrop into knee joint Hypersomnia 99250149 Resolved Cristian Juan Hypersomnia (SNOMED CT) 08/20 08/20 Kyle NUSRAT, adult 72204305457 Active Cristian Juan Obstructive On (SNOMED 09/19 09/19 Kyle sleep apnea of AutoPAP, CT) adult AHI 9 Cough 45150294 Active Gael A Cough (SNOMED CT) 09/12 09/12 Molina PRINCIPAL PRODUCT MANAGER-C Abnormal 405939473 Active Tracy Harman Electrocardiog EKG (SNOMED CT) 08/27 08/27 Chayo blair abnormal RN Chest pain 24694543 Active Tracy Harman Chest pain (SNOMED CT) 08/27 08/27 Chayo RN Lightheaded 061543945 Active Tova S Lightheadednes ness (SNOMED CT) 08/20 08/20 Sylvie ELEMENTARY SCHOOL ART TEACHER s Hypersomnia 04510465 Removed Tova S Hypersomnia (SNOMED CT) 08/20 08/20 Mercer ELEMENTARY SCHOOL ART TEACHER PE 74481042 Active Tova S Pulmonary (SNOMED CT) 08/20 08/20 Sylvie ELEMENTARY SCHOOL ART TEACHER embolism Orthopedic 404187195 Active Reggie Lyons Postoperative surgical (SNOMED CT) 08/15 08/15 Nery physical aftercare examination Knee pain, 56361834 Active Zuly N Knee pain right (SNOMED CT) 07/25 07/25 Tejada OA of left 715270722 Active Matt Armendariz Localized, knee (SNOMED CT) 08/26 08/26 [place] primary osteoarthritis Knee pain, 20235768 Active Matt Armendariz Knee pain left (SNOMED CT) 08/26 08/26 [place] Gastroenter 22897850 Active Jianming Gastroenteriti itis, acute (SNOMED CT) 08/18 08/18 Ike armendariz Headache 77760233 Active Jianming Headache (SNOMED CT) Ike ESPINOZA SPECIAL Z12.5 Resolved Jianming Encounter for SCREENING (ICD-10-CM) Ike ESPINOZA screening for MALIGNANT malignant NEOPLASM OF neoplasm of PROSTATE prostate DIZZINESS 123160430 Resolved Jianming Dizziness (SNOMED CT) Ike ESPINOZA SEBACEOUS 191371938 Resolved Jianming Infected CYST, (SNOMED CT) Ike ESPINOZA sebaceous cyst INFECTED MAXILLARY 57333162 Resolved Jianming Maxillary SINUSITIS (SNOMED CT) 01/07 01/07 Ike ESPINOZA sinusitis MAXILLARY 01863507 Resolved Jianming Maxillary and SINUSITIS (SNOMED CT) 11/20 11/20 Ike ESPINOZA sinusitis ethimoid ETHMOID 09367182 Resolved Jianming Ethmoidal SINUSITIS (SNOMED CT) 12/26 12/26 Ike ESPINOZA sinusitis MAXILLARY 74643915 Removed Jianming Maxillary and SINUSITIS (SNOMED CT) 11/20 11/20 Ike ESPINOZA sinusitis ethimoid KELOID SCAR 58946011 Active Jianming Keloid scar (SNOMED CT) 10/13 10/13 Ike ESPINOZA DYSLIPIDEMI 143849403 Active Jianming Dyslipidemia A (SNOMED CT) 09/13 09/13 Ike ESPINOZA PROSTATE 543982061 Active Jianming Raised SPECIFIC (SNOMED CT) 09/13 09/13 Ike ESPINOZA prostate ANTIGEN, specific ELEVATED antigen SPECIAL Z12.5 Removed Jianming Encounter for SCREENING (ICD-10-CM) 0 0 Ike ESPINOZA screening for MALIGNANT malignant NEOPLASM OF neoplasm of PROSTATE prostate HEALTH 093007536 [facility] (SNOMED CT) 0 0 Ike ESPINOZA examination of EXAM patient HERPES 0394884 [facility] Herpes zoster ZOSTER (SNOMED CT) 04/16 04/16 Ike ESPINOZA ETHMOID 07309435 [facility] Ethmoidal SINUSITIS (SNOMED CT) 12/26 12/26 Ike ESPINOZA sinusitis SEBACEOUS 544332069 Removed Jiacaing Infected CYST, (SNOMED CT) Ike ESPINOZA sebaceous cyst INFECTED DIZZINESS 006735810 Removed Jianming Dizziness (SNOMED CT) 0 Ike ESPINOZA SEBACEOUS 728461158 [facility] Epidermoid CYST (SNOMED CT) Ike ESPINOZA cyst of skin MAXILLARY 66722058 Removed Braeden Maxillary SINUSITIS (SNOMED CT) 01/07 01/07 Carlos ESPINOZA sinusitis PHARYNGITIS 671095263 Resolved [facility] Acute , ACUTE (SNOMED CT) 08/19 08/19 Carlos ESPINOZA pharyngitis PHARYNGITIS 323618543 Removed Braeden Acute , ACUTE (SNOMED CT) 08/19 08/19 Carlos ESPINOZA pharyngitis PHYSICAL 4379110 Inactive [facility] Physical EXAMINATION (SNOMED CT) 08/19 08/19 Carlos ESPINOZA examination procedure CELLULITIS 447944934 Resolved [facility] Cellulitis and AND ABSCESS (SNOMED CT) 01/08 01/08 Carlos ESPINOZA abscess of OF TRUNK trunk HYPERTENSIO 02237236 Active [facility] Hypertensive N (SNOMED CT) 01/23 01/23 Carlos ESPINOZA disorder HYPERCHOLES 56585533 Active Braeden M Hypercholester TEROLEMIA (SNOMED CT) 01/23 01/23 Carlos ESPINOZA olemia RENAL CYST, 67209406 Active Braeden Berkowitz Simple renal LEFT (SNOMED CT) 01/23 01/23 Carlos ESPINOZA cyst CELLULITIS 035534100 Removed Kota R Cellulitis and AND ABSCESS (SNOMED CT) 01/08 01/08 Natanael ESPINOZA abscess of OF TRUNK trunk Medications Medication Instructions Start Stop Generic Name NDC Provider Date Date AZITHROMYCIN 250 2 tablets by / AZITHROMYCIN [id number] Tova S MG TABS mouth today and 22 Mercer ELEMENTARY SCHOOL ART TEACHER then 1 tablet daily for the next 4 days NEXIUM 40 MG One tablet by / ESOMEPRAZOLE 76817976069 Joshua CPDR mouth daily 03 MAGNESIUM Ike ESPINOZA AMLODIPINE One tablet by / AMLODIPINE 99911425706 Joshua BESYLATE 10 MG mouth daily 25 BESYLATE Ike ESPINOZA TABS BYSTOLIC 20 MG One tablet by / NEBIVOLOL HCL 53309371422 Jianming TABS mouth daily 02 Ike ESPINOZA AMOXICILLIN 500 One tablet by / AMOXICILLIN 78649195636 Marcianming MG CAPS mouth four Ramires times daily TRIAMCINOLONE apply to / TRIAMCINOLONE 50817369963 Joshua ACETONIDE 0.1 % affected area 25 ACETONIDE Ike ESPINOZA CREA twice daily, avoid face, axillary, and groin area DESONIDE 0.05 % apply to / DESONIDE 53323342823 Marcianming CREA affected area 26 Ike ESPINOZA twice daily, avoid face, axillary and groin area VALACYCLOVIR HCL One tablet by VALACYCLOVIR HCL 59867366839 Adinaing 1 GM TABS mouth three Ike ESPINOZA times daily AMOXICILLIN 500 One tablet by / AMOXICILLIN 07933866885 Jianming MG TABS mouth three [facility] times daily BYSTOLIC 10 MG One tablet by / NEBIVOLOL HCL 81031732477 Jianming TABS mouth daily 02 Ike ESPINOZA AUGMENTIN One tablet by / AMOXICILLIN-POT 44887833410 Braeden Berkowitz 875-125 MG TABS mouth twice CLAVULANATE Carlos ESPINOZA daily. ZITHROMAX Z-GENA 2 tabs PO on / AZITHROMYCIN 84572384902 Braeden Berkowitz 250 MG TABS day one, then 1 Carlos ESPINOZA tab PO daily for 4 days ATENOLOL 25 MG One tablet by ATENOLOL 41580398487 Braeden Berkowitz TABS mouth daily Carlos ESPINOZA AMOXICILLIN 500 One tablet by AMOXICILLIN 42981401819 Jianming MG TABS mouth three Ike ESPINOZA times daily BYSTOLIC 10 MG One tablet by NEBIVOLOL HCL 69588098867 Jianming TABS mouth daily Ike ESPINOZA DESONIDE 0.05 % apply to DESONIDE 12244445332 Jianming CREA affected area Ike ESPINOZA twice daily, avoid face, axillary and groin area ATENOLOL 25 MG One tablet by ATENOLOL 51096019203 Jianming TABS mouth daily Ike ESPINOZA CRESTOR 10 MG One tablet by ROSUVASTATIN 33175528954 Braeden M TABS mouth daily CALCIUM Carlos ESPINOZA CRESTOR 10 MG One tablet by ROSUVASTATIN 78463079579 Jianming TABS mouth daily CALCIUM Ike ESPINOZA SULFAMETHOXAZOLE SULFAMETHOXAZOLE 25994653550 Radha Cruz -TRIMETHOPRIM -TRIMETHOPRIM David TABS TABS SULFAMETHOXAZOLE SULFAMETHOXAZOLE 57573348625 Braeden M -TRIMETHOPRIM -TRIMETHOPRIM Carlos ESPINOZA TABS TABS HYDROCODONE-ACET Two tablets by HYDROCODONE-ACET 93642323326 Radha Cruz AMINOPHEN TABS mouth daily AMINOPHEN TABS David HYDROCODONE-ACET Two tablets by HYDROCODONE-ACET 71919712922 Braeden M AMINOPHEN TABS mouth daily AMINOPHEN TABS Carlos ESPINOZA DIAZEPAM TABS 2 awee DIAZEPAM TABS 43466564291 Radha Hernandez DIAZEPAM TABS 2 aweek DIAZEPAM TABS 02746732692 Carlos ESPINOZA AMOXICILLIN 500 One tablet by AMOXICILLIN 87401753565 Jianming MG CAPS mouth four Ike ESPINOZA times daily AMLODIPINE One tablet by AMLODIPINE 08397125573 Matt Armendariz BESYLATE 10 MG mouth daily BESYLATE [place] TABS BYSTOLIC 20 MG One tablet by NEBIVOLOL HCL 95155769894 Matt Armendariz TABS mouth daily [place] TRIAMCINOLONE apply to TRIAMCINOLONE 21764042366 Matt Armendariz ACETONIDE 0.1 % affected area ACETONIDE [place] CREA twice daily, avoid face, axillary, and groin area NEXIUM 40 MG One tablet by / ESOMEPRAZOLE 85015009604 Zuly L CPDR mouth daily MAGNESIUM York LOSARTAN One tab one / LOSARTAN 40205888835 Zuly L POTASSIUM-HCTZ time daily POTASSIUM-HCTZ York 50-12.5 MG TABS NEXIUM 40 MG One tablet by / ESOMEPRAZOLE 76444241181 Zuly CPDR mouth daily 30 MAGNESIUM Floresita Chavez CRANKSHAFT GRINDER AZITHROMYCIN 250 2 tablets by AZITHROMYCIN 44441391768 Bambi M MG TABS mouth today and Audi then 1 tablet daily for the next 4 days XARELTO 20 MG One tablet by / RIVAROXABAN 10315375428 Zuly TABS mouth daily 30 Floresita Chavez CRANKSHAFT GRINDER XARELTO 20 MG One tablet by RIVAROXABAN 11087256274 Alessia A TABS mouth daily Yensho CRANKSHAFT GRINDER Medications Administered No information available. Allergies, Adverse [...] INTERVAL new path ms QT interval, electrocardiogram AK INTERVAL 150 ms AK interval, electrocardiogram EKGHRTRATE 94 BPM heart rate on electrocardiogram Microbiology: RESPIRATORY PANEL MOLECULAR ZZ-GE-unk . GE use only - for LinkLogic import when terms are not otherwise specified Append: Dr. Francois referral (close loop) CONSULTATION [facility]-[id number]^08/20/2016 Clinical consultation report (record artifact) Lab Report: D-Dimer Quantitative (DVT/PE) DDIMER < 0.27 FEU/ug/m ug/mL 0.27-0.49 L D-dimer quantitative mcg/mL Office Visit: NUSRAT & pulmonary embolism FALLRSKASSES No Fall risk assessment MEDS REVIEW Done Documentation of current medications (procedure) DIET POWER GENERATION TURBINE ROOM OPERATOR yes Dietary management education, guidance, and counseling (procedure) ALCOHOLCOUNS no Alcoholism counseling (procedure) SMOK STATUS Never smoker Tobacco use [facility] Plan of Care Type Date Detail Appointment 02:00 PM Cristian Wright, [address] [facility], [address], [place], [address] Appointment 08:00 AM Matt Mcnulty, [address] [facility], [address], [place], [address], Appointment 08:00 AM Tova Mercer CNP, [address] [place] [address], [address], [place], [address] Referral Cardiac Referral Group Heart, [address] [place] [address], [address], [place], [address] Referral Physical Therapy General Rehab Services, [address] [facility], [place], [address] Referral Urology Referral Marcello Denton, [address] [facility], [address], [place], [address] Pending order Follow Up Appt 6 months [...] Procedures Code Procedure Name Date Entry Date 24154-7 *DDIMQ - Fibrin Degrd Ultrsens Qual/Semiquan RWFU Retitration with follow up (patient on CPAP currently) F/U BWA BWA FUA 3 months Follow Up Appt 3 months CPT-76050 X-Ray, Knee Order excluded from report: FUA 3 months Follow Up Appt 3 months F/U CSM CSM 96137-0 *Respiratory Panel CPT-19859 EKG (In office) F/U PFM PFM CPSP Complete portable sleep workup (portable,CPAP as indicated) & follow up F/U BWA BWA FUA 1 month Follow Up Appt 1 month [facility]-[id number] Cardiac Referral CS Complete sleep workup (PSG,CPAP as indicated) & Follow up Order excluded from report: Physical Therapy Physical Therapy General CPT-42422 X-Ray, Knee 50315-2 *CBC without Diff 0786-1 *CMP Complete Metabolic Panel 31835-6 *Lipid Profile 0610-1 *UA - Urinalysis w/o Micro Urology Urology Referral 01754-5 *Lipid Profile 2857-1 *PSA, Annual Screening CPT-34944 Excision Benign Lesion Trunk/Arm/Leg 2.1-3.0 cm 76193-6 *Lipid Profile 0786-1 *CMP Complete Metabolic Panel Echo Echocardiogram (complete) SET Stress Echocardiogram (treadmill) CPT-67009 US Abdomen, limited CPT-UAComp *Urinalysis, complete Order [...]
--- OUTSIDE RECORDS SUMMARY | 2018-08-15 23:37 | XMS RPT_ITS | Clinical Summary ---
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 Hypersomnia 92233573 Resolved Cristian Juan Hypersomnia (SNOMED CT) 08/20 08/20 Kyle NUSRAT, adult 44589180149 Active Cristian Juan Obstructive On (SNOMED 09/19 09/19 Kyle sleep apnea of AutoPAP, CT) adult AHI 9 Cough 57412265 Active Gael A Cough (SNOMED CT) 09/12 09/12 Molina PETAL SHAPER HAND-C Abnormal 110481184 Active Tracy Harman Electrocardiog EKG (SNOMED CT) 08/27 08/27 Chayo blair abnormal RN Chest pain 70508122 Active Tracy Harman Chest pain (SNOMED CT) 08/27 08/27 Chayo RN Lightheaded 579160774 Active Tova S Lightheadednes ness (SNOMED CT) 08/20 08/20 Sylvie EMAIL ENGINEER s Hypersomnia 46472898 Removed Tova S Hypersomnia (SNOMED CT) 08/20 08/20 Mercer EMAIL ENGINEER PE 24422532 Active Tova S Pulmonary (SNOMED CT) 08/20 08/20 Sylvie EMAIL ENGINEER embolism Orthopedic 948707453 Active Reggie Lyons Postoperative surgical (SNOMED CT) 08/15 08/15 Nery physical aftercare examination Knee pain, 94428797 Active Zuly N Knee pain right (SNOMED CT) 07/25 07/25 Tejada OA of left 595189554 Active Matt Armendariz Localized, knee (SNOMED CT) 08/26 08/26 Hamlet primary osteoarthritis Knee pain, 59793560 Active Matt Armendariz Knee pain left (SNOMED CT) 08/26 08/26 [place]let Gastroenter 96955514 Active Jianming Gastroenteriti itis, acute (SNOMED CT) 08/18 08/18 Ike armendariz Headache 60665970 Active Jianming Headache (SNOMED CT) Ike ESPINOZA SPECIAL Z12.5 Resolved Jianming Encounter for SCREENING (ICD-10-CM) Ike ESPINOZA screening for MALIGNANT malignant NEOPLASM OF neoplasm of PROSTATE prostate DIZZINESS 607863956 Resolved Jianming Dizziness (SNOMED CT) Ike ESPINOZA SEBACEOUS 897523450 Resolved Jianming Infected CYST, (SNOMED CT) Ike ESPINOZA sebaceous cyst INFECTED MAXILLARY 33916524 Resolved Jianming Maxillary SINUSITIS (SNOMED CT) 01/07 01/07 Ike ESPINOZA sinusitis MAXILLARY 01176959 Resolved Jianming Maxillary and SINUSITIS (SNOMED CT) 11/20 11/20 Ike ESPINOZA sinusitis ethimoid ETHMOID 61729739 Resolved Jianming Ethmoidal SINUSITIS (SNOMED CT) 12/26 12/26 Ike ESPINOZA sinusitis MAXILLARY 50995486 Removed Jianming Maxillary and SINUSITIS (SNOMED CT) 11/20 11/20 Ike ESPINOZA sinusitis ethimoid KELOID SCAR 03743769 Active Jianming Keloid scar (SNOMED CT) 10/13 10/13 Ike ESPINOZA DYSLIPIDEMI 446308184 Active Jianming Dyslipidemia A (SNOMED CT) 09/13 09/13 Ike ESPINOZA PROSTATE 394194065 Active Jianming Raised SPECIFIC (SNOMED CT) 09/13 09/13 Ike ESPINOZA prostate ANTIGEN, specific ELEVATED antigen SPECIAL Z12.5 Removed Jianming Encounter for SCREENING (ICD-10-CM) 0 0 Ike ESPINOZA screening for MALIGNANT malignant NEOPLASM OF neoplasm of PROSTATE prostate HEALTH 243242407 [facility] (SNOMED CT) 0 0 Ike ESPINOZA examination of EXAM patient HERPES 3027783 Active [facility] Herpes zoster ZOSTER (SNOMED CT) 04/16 04/16 Ike ESPINOZA ETHMOID 93083652 Removed [facility] Ethmoidal SINUSITIS (SNOMED CT) 12/26 12/26 Ike ESPINOZA sinusitis SEBACEOUS 074604587 Removed Jiaiaing Infected CYST, (SNOMED CT) Ike ESPINOZA sebaceous cyst INFECTED DIZZINESS 600075753 Removed Jianming Dizziness (SNOMED CT) 0 Ike ESPINOZA SEBACEOUS 226269225 [facility] Epidermoid CYST (SNOMED CT) Ike ESPINOZA cyst of skin MAXILLARY 29554770 Removed Braeden Maxillary SINUSITIS (SNOMED CT) 01/07 01/07 Carlos ESPINOZA sinusitis PHARYNGITIS 489634936 Resolved [facility] Acute , ACUTE (SNOMED CT) 08/19 08/19 Carlos ESPINOZA pharyngitis PHARYNGITIS 718993280 Removed Braeden Acute , ACUTE (SNOMED CT) 08/19 08/19 Carlos ESPINOZA pharyngitis PHYSICAL 9755162 Inactive [facility] Physical EXAMINATION (SNOMED CT) 08/19 08/19 Carlos ESPINOZA examination procedure CELLULITIS 837501845 Resolved [facility] Cellulitis and AND ABSCESS (SNOMED CT) 01/08 01/08 Carlos ESPINOZA abscess of OF TRUNK trunk HYPERTENSIO 25319797 Active [facility] Hypertensive N (SNOMED CT) 01/23 01/23 Carlos ESPINOZA disorder HYPERCHOLES 31735619 Active Braeden M Hypercholester TEROLEMIA (SNOMED CT) 01/23 01/23 Carlos ESPINOZA olemia RENAL CYST, 25141458 Active Braeden Berkowitz Simple renal LEFT (SNOMED CT) 01/23 01/23 Carlos ESPINOZA cyst CELLULITIS 925699042 Removed Kota R Cellulitis and AND ABSCESS (SNOMED CT) 01/08 01/08 Natanael ESPINOZA abscess of OF TRUNK trunk Medications Medication Instructions Start Stop Generic Name NDC Provider Date Date AZITHROMYCIN 250 2 tablets by / AZITHROMYCIN [id number] Tova S MG TABS mouth today and 22 Mercer EMAIL ENGINEER then 1 tablet daily for the next 4 days NEXIUM 40 MG One tablet by / ESOMEPRAZOLE 21587522124 Joshua CPDR mouth daily 03 MAGNESIUM Ike ESPINOZA AMLODIPINE One tablet by / AMLODIPINE 64447772439 Joshua BESYLATE 10 MG mouth daily 25 BESYLATE Ike ESPINOZA TABS BYSTOLIC 20 MG One tablet by / NEBIVOLOL HCL 67044923177 Jianming TABS mouth daily 02 Ike ESPINOZA AMOXICILLIN 500 One tablet by / AMOXICILLIN 90007565413 Marcianming MG CAPS mouth four Ramires times daily TRIAMCINOLONE apply to / TRIAMCINOLONE 04078220565 Joshua ACETONIDE 0.1 % affected area 25 ACETONIDE Ike ESPINOZA CREA twice daily, avoid face, axillary, and groin area DESONIDE 0.05 % apply to / DESONIDE 25692097030 Marcianming CREA affected area 26 Ike ESPINOZA twice daily, avoid face, axillary and groin area VALACYCLOVIR HCL One tablet by VALACYCLOVIR HCL 43369619119 Aidnaing 1 GM TABS mouth three Ike ESPINOZA times daily AMOXICILLIN 500 One tablet by / AMOXICILLIN 27807517135 Jianming MG TABS mouth three [facility] times daily BYSTOLIC 10 MG One tablet by / NEBIVOLOL HCL 56556107051 Jianming TABS mouth daily 02 Ike ESPINOZA AUGMENTIN One tablet by / AMOXICILLIN-POT 56260438546 Bareden Berkowitz 875-125 MG TABS mouth twice CLAVULANATE Carlos ESPINOZA daily. ZITHROMAX Z-GENA 2 tabs PO on / AZITHROMYCIN 47738054580 Braeden Berkowitz 250 MG TABS day one, then 1 04 Carlos ESPINOZA tab PO daily for 4 days ATENOLOL 25 MG One tablet by ATENOLOL 56701441873 Braeden M TABS mouth daily Carlos ESPINOZA HYDROCODONE-ACET Two tablets by HYDROCODONE-ACET 77860685549 Braeden AMINOPHEN TABS mouth daily AMINOPHEN TABS Carlos ESPINOZA HYDROCODONE-ACET Two tablets by HYDROCODONE-ACET 11353128634 Radha Cruz AMINOPHEN TABS mouth daily AMINOPHEN TABS David DIAZEPAM TABS 2 aweek DIAZEPAM TABS 15722001920 Carlos ESPINOZA BYSTOLIC 10 MG One tablet by NEBIVOLOL HCL 32913152690 Jianming TABS mouth daily Ike ESPINOZA AMOXICILLIN 500 One tablet by AMOXICILLIN 60120006773 Jianming MG CAPS mouth four Ike ESPINOZA times daily ATENOLOL 25 MG One tablet by ATENOLOL 52912781005 Jianming TABS mouth daily Ike ESPINOZA DIAZEPAM TABS 2 aw DIAZEPAM TABS 43777074699 Radha Cruz Davdi SULFAMETHOXAZOLE SULFAMETHOXAZOLE 15874987874 [facility] -TRIMETHOPRIM -TRIMETHOPRIM Carlos ESPINOZA TABS TABS AMOXICILLIN 500 One tablet by AMOXICILLIN 85409423902 Jianming MG TABS mouth three Ike ESPINOZA times daily SULFAMETHOXAZOLE SULFAMETHOXAZOLE 18563874573 Radha Cruz -TRIMETHOPRIM -TRIMETHOPRIM David TABS TABS CRESTOR 10 MG One tablet by ROSUVASTATIN 29091167714 Jianming TABS mouth daily CALCIUM Ike ESPINOZA CRESTOR 10 MG One tablet by ROSUVASTATIN 05361817790 Braeden M TABS mouth daily CALCIUM Carlos ESPINOZA DESONIDE 0.05 % apply to DESONIDE 51328872862 Marcianming CREA affected area Ike ESPINOZA twice daily, avoid face, axillary and groin area TRIAMCINOLONE apply to TRIAMCINOLONE 61785048784 Matt Armendariz ACETONIDE 0.1 % affected area ACETONIDE [place] GARCIA twice daily, avoid face, axillary, and groin area BYSTOLIC 20 MG One tablet by NEBIVOLOL HCL 38183622536 Matt S TABS mouth daily [place] NEXIUM 40 MG One tablet by ESOMEPRAZOLE 25417834277 Zuly L CPDR mouth daily MAGNESIUM [place] AZITHROMYCIN 250 2 tablets by AZITHROMYCIN 61065573601 Bambi M MG TABS mouth today and Audi then 1 tablet daily for the next 4 days AMLODIPINE One tablet by AMLODIPINE 71571615145 Matt S BESYLATE 10 MG mouth daily BESYLATE [place] TABS XARELTO 20 MG One tablet by / RIVAROXABAN 30007021581 Zuly TABS mouth daily 30 Floresita Chavez OUTSIDE SALES ENGINEER LOSARTAN One tab one / LOSARTAN 10683529645 Zuly L POTASSIUM-HCTZ time daily POTASSIUM-HCTZ York 50-12.5 MG TABS NEXIUM 40 MG One tablet by / ESOMEPRAZOLE 25937193993 Zuly CPDR mouth daily 30 MAGNESIUM Floresita Chavez OUTSIDE SALES ENGINEER XARELTO 20 MG One tablet by RIVAROXABAN 72136778877 Alessia A TABS mouth daily Yensho OUTSIDE SALES ENGINEER Medications Administered No information available. Allergies, Adverse [...] INTERVAL new path ms QT interval, electrocardiogram KS INTERVAL 150 ms KS interval, electrocardiogram EKGHRTRATE 94 BPM heart rate on electrocardiogram Microbiology: RESPIRATORY PANEL MOLECULAR ZZ-GE-unk . GE use only - for LinkLogic import when terms are not otherwise specified Append: Dr. Francois referral (close loop) CONSULTATION [facility]-[id number]^08/20/2016 Clinical consultation report (record artifact) Lab Report: D-Dimer Quantitative (DVT/PE) DDIMER < 0.27 FEU/ug/m ug/mL 0.27-0.49 L D-dimer quantitative mcg/mL Office Visit: NUSRAT & pulmonary embolism FALLRSKASSES No Fall risk assessment MEDS REVIEW Done Documentation of current medications (procedure) DIET SUPERVISOR AIR CONDITIONING INSTALLER yes Dietary management education, guidance, and counseling (procedure) ALCOHOLCOUNS no Alcoholism counseling (procedure) SMOK STATUS Never smoker Tobacco use [facility] Plan of Care Type Date Detail Appointment 08:00 AM Matt Mcnulty, [address] [facility], [address], [place], [address], Appointment 08:00 AM Tova Mercer [facility], [address] [place] [address], [address], [place], [address] Referral Cardiac Referral Group Heart, [address] [place] [address], [address], [place], [address] Referral Physical Therapy [facility], [address] [facility], [place], [address] Referral Urology Referral Marcello Denton, [address] [facility], [address], [place], [address] Pending order Follow Up Appt 6 months [...] Procedures Code Procedure Name Date Entry Date 37638-3 *DDIMQ - Fibrin Degrd Ultrsens Qual/Semiquan RWFU Retitration with follow up (patient on CPAP currently) F/U BWA BWA FUA 3 months Follow Up Appt 3 months CPT-18003 X-Ray, Knee Order excluded from report: FUA 3 months Follow Up Appt 3 months F/U CSM CSM 41907-6 *Respiratory Panel CPT-70770 EKG (In office) F/U PFM PFM CPSP Complete portable sleep workup (portable,CPAP as indicated) & follow up F/U BWA [facility] FUA 1 month Follow Up Appt 1 month [id number] Cardiac Referral CS Complete sleep workup (PSG,CPAP as indicated) & Follow up Order excluded from report: Physical Therapy Physical Therapy General CPT-58785 X-Ray, Knee 58993-8 *CBC without Diff 0786-1 *CMP Complete Metabolic Panel 10477-3 *Lipid Profile 0610-1 *UA - Urinalysis w/o Micro Urology Urology Referral 52310-2 *Lipid Profile 2857-1 *PSA, Annual Screening CPT-39112 Excision Benign Lesion Trunk/Arm/Leg 2.1-3.0 cm 17240-4 *Lipid Profile 0786-1 *CMP Complete Metabolic Panel Echo Echocardiogram (complete) SET Stress Echocardiogram (treadmill) CPT-90308 US Abdomen, limited CPT-UAComp *Urinalysis, complete Order [...]
--- OUTSIDE RECORDS SUMMARY | 2018-08-15 23:37 | XMS RPT_ITS | Clinical Summary ---
:1960 [address] 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 Hypersomnia 48779288 Resolved Cristian Juan Hypersomnia (SNOMED CT) 08/20 08/20 Kyle NUSRAT, adult 01220157452 Active Cristian Juan Obstructive On (SNOMED 09/19 09/19 Kyle sleep apnea of AutoPAP, CT) adult AHI 9 Cough 48446256 Active Gael A Cough (SNOMED CT) 09/12 09/12 Molina [employer] Abnormal 456170588 Active Tracy Harman Electrocardiog EKG (SNOMED CT) 08/27 08/27 Chayo blair abnormal RN Chest pain 24968273 Active Tracy Harman Chest pain (SNOMED CT) 08/27 08/27 Chayo RN Lightheaded 353688255 Active Tova S Lightheadednes ness (SNOMED CT) 08/20 08/20 Mercer MANAGER STONE s Hypersomnia 19361866 Removed Tova S Hypersomnia (SNOMED CT) 08/20 08/20 Mercer MANAGER STONE PE 83747708 Active Tova S Pulmonary (SNOMED CT) 08/20 08/20 Mercer MANAGER STONE embolism Orthopedic 890715447 Active Reggie Lyons Postoperative surgical (SNOMED CT) 08/15 08/15 Nery physical aftercare examination Knee pain, 14071222 Active Zuly N Knee pain right (SNOMED CT) 07/25 07/25 Tejada OA of left 321102186 Active Matt Powers Localized, knee (SNOMED CT) 08/26 08/26 Hamlet primary osteoarthritis Knee pain, 50145847 Active Matt Powers Knee pain left (SNOMED CT) 08/26 08/26 [place] Gastroenter 04990792 Active Jianming Gastroenteriti itis, acute (SNOMED CT) 08/18 08/18 Ike ESPINOZA s Headache 26449791 Active Jianming Headache (SNOMED CT) Ike ESPINOZA SPECIAL Z12.5 Resolved Jianming Encounter for SCREENING (ICD-10-CM) Ike ESPINOZA screening for MALIGNANT malignant NEOPLASM OF neoplasm of PROSTATE prostate DIZZINESS 220267621 Resolved Jianming Dizziness (SNOMED CT) Ike ESPINOZA SEBACEOUS 714373352 Resolved Jianming Infected CYST, (SNOMED CT) Ike ESPINOZA sebaceous cyst INFECTED MAXILLARY 37619756 Resolved Jianming Maxillary SINUSITIS (SNOMED CT) 01/07 01/07 Ike ESPINOZA sinusitis MAXILLARY 80849357 Resolved Jianming Maxillary and SINUSITIS (SNOMED CT) 11/20 11/20 Ike ESPINOZA sinusitis ethimoid ETHMOID 53489375 Resolved Jianming Ethmoidal SINUSITIS (SNOMED CT) 12/26 12/26 Ike ESPINOZA sinusitis MAXILLARY 05266511 Removed Jianming Maxillary and SINUSITIS (SNOMED CT) 11/20 11/20 Ike ESPINOZA sinusitis ethimoid KELOID SCAR 29765291 Active Jianming Keloid scar (SNOMED CT) 10/13 10/13 Ike ESPINOZA DYSLIPIDEMI 006509021 Active Jianming Dyslipidemia A (SNOMED CT) 09/13 09/13 Ike ESPINOZA PROSTATE 916497210 Active Jianming Raised SPECIFIC (SNOMED CT) 09/13 09/13 Ike ESPINOZA prostate ANTIGEN, specific ELEVATED antigen SPECIAL Z12.5 Removed Joshua Encounter for SCREENING (ICD-10-CM) 0 0 Ike ESPINOZA screening for MALIGNANT malignant NEOPLASM OF neoplasm of PROSTATE prostate HEALTH 141785260 Active Joshua General MAINTENANCE (SNOMED CT) 0 0 Ike ESPINOZA examination of EXAM patient HERPES 5258637 [facility] Herpes zoster ZOSTER (SNOMED CT) 04/16 04/16 Ike ESPINOZA ETHMOID 45286096 Removed Jianjing Ethmoidal SINUSITIS (SNOMED CT) 12/26 12/26 Ike ESPINOZA sinusitis SEBACEOUS 350294185 Removed Jianming Infected CYST, (SNOMED CT) Ike ESPINOZA sebaceous cyst INFECTED DIZZINESS 029881628 Removed Jianming Dizziness (SNOMED CT) 0 Ike ESPINOZA SEBACEOUS 679711002 Active Joshua Epidermoid CYST (SNOMED CT) 0 0 Ike ESPINOZA cyst of skin MAXILLARY 76682999 Removed Braeden Berkowitz Maxillary SINUSITIS (SNOMED CT) 01/07 01/07 Carlos ESPINOZA sinusitis PHARYNGITIS 153714926 Resolved Braeden Berkowitz Acute , ACUTE (SNOMED CT) 08/19 08/19 Carlos ESPINOZA pharyngitis PHARYNGITIS 450929005 Removed Braeden Berkowitz Acute , ACUTE (SNOMED CT) 08/19 08/19 Carlos ESPINOZA pharyngitis PHYSICAL 6337411 Inactive Braeden Berkowitz Physical EXAMINATION (SNOMED CT) 08/19 08/19 Carlos ESPINOZA examination procedure CELLULITIS 489047468 Resolved Braeden M Cellulitis and AND ABSCESS (SNOMED CT) 01/08 01/08 Carlos ESPINOZA abscess of OF TRUNK trunk HYPERTENSIO 03591171 Active Braeden Berkowitz Hypertensive N (SNOMED CT) 01/23 01/23 Carlos ESPINOZA disorder HYPERCHOLES 81633538 Active Braeden Berkowitz Hypercholester TEROLEMIA (SNOMED CT) 01/23 01/23 Carlos ESPINOZA olejenny RENAL CYST, 41086111 Active Braeden Berkowitz Simple renal LEFT (SNOMED CT) 01/23 01/23 Carlos ESPINOZA cyst CELLULITIS 134637473 Removed Kota Cruz Cellulitis and AND ABSCESS (SNOMED CT) 01/08 01/08 Natanael ESPINOZA abscess of OF TRUNK trunk Medications Medication Instructions Start Stop Generic Name NDC Provider Date Date AZITHROMYCIN 250 2 tablets by / AZITHROMYCIN 63391700900 Tova S MG TABS mouth today and 22 Mercer MANAGER STONE then 1 tablet daily for the next 4 days NEXIUM 40 MG One tablet by / ESOMEPRAZOLE 25629396432 Joshua CPDR mouth daily 03 MAGNESIUM Ike ESPINOZA AMLODIPINE One tablet by / AMLODIPINE 05654014285 Joshua BESYLATE 10 MG mouth daily 25 BESYLATE Ike ESPINOZA TABS BYSTOLIC 20 MG One tablet by / NEBIVOLOL HCL 95556977587 Jianming TABS mouth daily 02 Ike ESPINOZA AMOXICILLIN 500 One tablet by / AMOXICILLIN 84795853038 Marcianming MG CAPS mouth four Ramires times daily TRIAMCINOLONE apply to / TRIAMCINOLONE 90286328441 Joshua ACETONIDE 0.1 % affected area 25 ACETONIDE Ike ESPINOZA CREThierry twice daily, avoid face, axillary, and groin area DESONIDE 0.05 % apply to / DESONIDE 76842267894 Jianming CREA affected area 26 Ike ESPINOZA twice daily, avoid face, axillary and groin area VALACYCLOVIR HCL One tablet by / VALACYCLOVIR 27741666470 Jianming 1 GM TABS mouth three HCL Ike ESPINOZA times daily AMOXICILLIN 500 One tablet by / AMOXICILLIN 56380403708 Jianming MG TABS mouth three 07 Ramires times daily BYSTOLIC 10 MG One tablet by / NEBIVOLOL HCL 75491916695 Jianming TABS mouth daily 02 Ike ESPINOZA AUGMENTIN One tablet by / AMOXICILLIN-POT 37700291232 Braeden Berkowitz 875-125 MG TABS mouth twice CLAVULANATE Carlos ESPINOZA daily. ZITHROMAX Z-GENA 2 tabs PO on / AZITHROMYCIN 34120772276 Braeden M 250 MG TABS day one, then 1 Carlos ESPINOZA tab PO daily for 4 days ATENOLOL 25 MG One tablet by ATENOLOL 50411475001 Braeden M TABS mouth daily Carlos ESPINOZA AMOXICILLIN 500 One tablet by AMOXICILLIN 41815643167 Jianming MG TABS mouth three Ike ESPINOZA times daily BYSTOLIC 10 MG One tablet by / NEBIVOLOL HCL 70836909764 Jianming TABS mouth daily Ike ESPINOZA DESONIDE 0.05 % apply to DESONIDE 21511365500 Jianming CREA affected area Ike ESPINOZA twice daily, avoid face, axillary and groin area ATENOLOL 25 MG One tablet by ATENOLOL 71419518451 Jianming TABS mouth daily Ike ESPINOZA CRESTOR 10 MG One tablet by ROSUVASTATIN 69214925102 Braeden M TABS mouth daily CALCIUM Carlos ESPINOZA CRESTOR 10 MG One tablet by ROSUVASTATIN 81923749526 Jianming TABS mouth daily CALCIUM Ike ESPINOZA SULFAMETHOXAZOLE SULFAMETHOXAZOL 80202002943 Radha Cruz -TRIMETHOPRIM E-TRIMETHOPRIM David TABS TABS SULFAMETHOXAZOLE SULFAMETHOXAZOL 12528599454 Braeden M -TRIMETHOPRIM E-TRIMETHOPRIM Carlos ESPINOZA TABS TABS HYDROCODONE-ACET Two tablets by HYDROCODONE-SANCHEZ 72476308709 Radha Cruz AMINOPHEN TABS mouth daily TAMINOPHEN TABS David HYDROCODONE-ACET Two tablets by HYDROCODONE-SANCHEZ 74240046127 Braeden M AMINOPHEN TABS mouth daily TAMINOPHEN TABS Carlos ESPINOZA DIAZEPAM TABS 2 aw DIAZEPAM TABS 89471057801 Radha R David DIAZEPAM TABS 2 aweek DIAZEPAM TABS 63007560078 Carlos ESPNIOZA AMOXICILLIN 500 One tablet by AMOXICILLIN 00073233647 Jianming MG CAPS mouth four Ike ESPINOZA times daily AMLODIPINE One tablet by AMLODIPINE 61457153798 Matt S BESYLATE 10 MG mouth daily BESYLATE [place] TABS BYSTOLIC 20 MG One tablet by NEBIVOLOL HCL 99145122724 Matt S TABS mouth daily [place] TRIAMCINOLONE apply to TRIAMCINOLONE 59624427251 Matt Powers ACETONIDE 0.1 % affected area ACETONIDE [place] CREA twice daily, avoid face, axillary, and groin area LOSARTAN One tab one LOSARTAN 46378781039 Zuly L POTASSIUM-HCTZ time daily POTASSIUM-HCTZ York 50-12.5 MG TABS XARELTO 20 MG One tablet by / RIVAROXABAN 68136302777 Zuly TABS mouth daily 30 Floresita Chavez FINANCE LECTURER NEXIUM 40 MG One tablet by / ESOMEPRAZOLE 54748498102 Zuly CPDR mouth daily 30 MAGNESIUM Floresita Chavez FINANCE LECTURER NEXIUM 40 MG One tablet by ESOMEPRAZOLE 85168256034 Zuly L CPDR mouth daily MAGNESIUM [place] AZITHROMYCIN 250 2 tablets by AZITHROMYCIN 10294134292 Bambi M MG TABS mouth today and [...] INTERVAL new path ms QT interval, electrocardiogram NE INTERVAL 150 ms NE interval, electrocardiogram EKGHRTRATE 94 BPM heart rate on electrocardiogram Microbiology: RESPIRATORY PANEL MOLECULAR ZZ-GE-unk . GE use only - for LinkLogic import when terms are not otherwise specified Office Visit: f/u cough FALLRSKASSES No Fall risk assessment Append: Dr. Francois referral (close loop) CONSULTATION [facility]-[id number]^08/20/2016 Clinical consultation report (record artifact) Office Visit MEDS REVIEW Done Documentation of current medications (procedure) DIET PIG FURNACE OPERATOR yes Dietary management education, guidance, and counseling (procedure) ALCOHOLCOUNS no Alcoholism counseling (procedure) SMOK STATUS Never smoker Tobacco use [facility] Plan of Care Type Date Detail Appointment 08:00 AM Tova Mercer [facility], [address] [place] [address], [address], [place], [address] Appointment 08:00 AM Matt Mcnulty, [address] [facility], [address], [place], [address], Referral Cardiac Referral [facility], [address] [place] [address], [address], [place], [address] Referral Physical Therapy [facility], [address] [facility], [place], [address] Referral Urology Referral Marcello Denton, [address] [facility], [address], [place], [address] Pending order X-Ray, Knee Pending order X-Ray, [...] Procedures Code Procedure Name Date Entry Date CPT-92107 X-Ray, Knee Order excluded from report: 01083-4 *Respiratory Panel CPT-25824 EKG (In office) F/U PFM PFM CPSP Complete portable sleep workup (portable,CPAP as indicated) & follow up F/U BWA BWA FUA 1 month Follow Up Appt 1 month [id number] Cardiac Referral CS Complete sleep workup (PSG,CPAP as indicated) & Follow up Order excluded from report: Physical Therapy Physical Therapy General CPT-73120 X-Ray, Knee 99098-8 *CBC without Diff 0786-1 *CMP Complete Metabolic Panel 19136-8 *Lipid Profile 0610-1 *UA - Urinalysis w/o Micro Urology Urology Referral 39091-6 *Lipid Profile 2857-1 *PSA, Annual Screening CPT-48007 Excision Benign Lesion Trunk/Arm/Leg 2.1-3.0 cm 32634-6 *Lipid Profile 0786-1 *CMP Complete Metabolic Panel Echo Echocardiogram (complete) SET Stress Echocardiogram (treadmill) CPT-59377 US Abdomen, limited CPT-UAComp *Urinalysis, complete Order [...]
--- OUTSIDE RECORDS SUMMARY | 2018-08-15 23:38 | XMS RPT_ITS | Clinical Summary ---
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 Hypersomnia 23697422 Resolved Cristian Juan Hypersomnia (SNOMED CT) 08/20 08/20 Kyle NUSRAT, adult 34462682189 Active Cristian Juan Obstructive On (SNOMED 09/19 09/19 Kyle sleep apnea of AutoPAP, CT) adult AHI 9 Cough 53083366 Active Gael A Cough (SNOMED CT) 09/12 09/12 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 Abnormal 312734539 Active Tracy Harman Electrocardiog EKG (SNOMED CT) 08/27 08/27 Chayo blair abnormal RN Chest pain 27857877 Active Tracy Harman Chest pain (SNOMED CT) 08/27 08/27 Chayo RN Lightheaded 913063117 Active Tova S Lightheadednes ness (SNOMED CT) 08/20 08/20 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 Hypersomnia 06336074 Removed Tova S Hypersomnia (SNOMED CT) 08/20 08/20 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 PE 02591527 Active Tova S Pulmonary (SNOMED CT) 08/20 08/20 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 embolism Orthopedic 412213389 Active Reggie Lyons Postoperative surgical (SNOMED CT) 08/15 08/15 Nery physical aftercare examination Knee pain, 71507384 Active Zuly N Knee pain right (SNOMED CT) 07/25 07/25 Tejada 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 Active Matt Powers Localized, knee (SNOMED CT) 08/26 08/26 [place] primary osteoarthritis Knee pain, 96891471 Active Matt Powers Knee pain left (SNOMED CT) 08/26 08/26 [place] Gastroenter 40080766 Active Jianming Gastroenteriti itis, acute (SNOMED CT) 08/18 08/18 Ike ESPINOZA s Headache 60471800 Active Jianming Headache (SNOMED CT) Ike ESPINOZA SPECIAL Z12.5 Resolved Jianming Encounter for SCREENING (ICD-10-CM) Ike ESPINOZA screening for MALIGNANT malignant NEOPLASM OF neoplasm of PROSTATE prostate DIZZINESS 500097342 Resolved Jianming Dizziness (SNOMED CT) Ike ESPINOZA SEBACEOUS 060188021 Resolved Jianming Infected CYST, (SNOMED CT) Ike ESPINOZA sebaceous cyst INFECTED MAXILLARY 36599711 Resolved Jianming Maxillary SINUSITIS (SNOMED CT) 01/07 01/07 Ike ESPINOZA sinusitis MAXILLARY 08225489 Resolved Jianming Maxillary and SINUSITIS (SNOMED CT) 11/20 11/20 Ike ESPINOZA sinusitis ethimoid ETHMOID 13337979 Resolved Jianming Ethmoidal SINUSITIS (SNOMED CT) 12/26 12/26 Ike ESPINOZA sinusitis MAXILLARY 06014316 Removed Jianming Maxillary and SINUSITIS (SNOMED CT) 11/20 11/20 Ike ESPINOZA sinusitis ethimoid KELOID SCAR 24400010 Active Jianming Keloid scar (SNOMED CT) 10/13 10/13 Ike ESPINOZA DYSLIPIDEMI 026106335 Active Jianming Dyslipidemia A (SNOMED CT) 09/13 09/13 Ike ESPINOZA PROSTATE 398044447 Active Jianming Raised SPECIFIC (SNOMED CT) 09/13 09/13 Ike ESPINOZA prostate ANTIGEN, specific ELEVATED antigen SPECIAL Z12.5 Removed Joshua Encounter for SCREENING (ICD-10-CM) 0 0 Ike ESPINOZA screening for MALIGNANT malignant NEOPLASM OF neoplasm of PROSTATE prostate HEALTH 919176519 Active Joshua General MAINTENANCE (SNOMED CT) 0 0 Ike ESPINOZA examination of EXAM patient HERPES 4001924 [facility] (SNOMED CT) 04/16 04/16 Ike ESPINOZA ETHMOID 84279541 Removed Jiadcing Ethmoidal SINUSITIS (SNOMED CT) 12/26 12/26 Ike ESPINOZA sinusitis SEBACEOUS 544224688 Removed Jianming Infected CYST, (SNOMED CT) Ike ESPINOZA sebaceous cyst INFECTED DIZZINESS 382509598 Removed Jianming Dizziness (SNOMED CT) 0 Ike ESPINOZA SEBACEOUS 586643241 Active Joshua Epidermoid CYST (SNOMED CT) 0 0 Ike ESPINOZA cyst of skin MAXILLARY 87706393 Removed Braeden Berkowitz Maxillary SINUSITIS (SNOMED CT) 01/07 01/07 Carlos ESPINOZA sinusitis PHARYNGITIS 123573326 Resolved Braeden Berkowitz Acute , ACUTE (SNOMED CT) 08/19 08/19 Carlos ESPINOZA pharyngitis PHARYNGITIS 540622473 Removed Braeden Berkowitz Acute , ACUTE (SNOMED CT) 08/19 08/19 Carlos ESPINOZA pharyngitis PHYSICAL 9054637 Inactive Braeden Berkowitz Physical EXAMINATION (SNOMED CT) 08/19 08/19 Carlos ESPINOZA examination procedure CELLULITIS 842055067 Resolved Braeden M Cellulitis and AND ABSCESS (SNOMED CT) 01/08 01/08 Carlos ESPINOZA abscess of OF TRUNK trunk HYPERTENSIO 81056758 Active Braeden Berkowitz Hypertensive N (SNOMED CT) 01/23 01/23 Carlos ESPINOZA disorder HYPERCHOLES 96772249 Active Braeden Berkowitz Hypercholester TEROLEMIA (SNOMED CT) 01/23 01/23 Carlos ESPINOZA olejenny RENAL CYST, 86125040 Active Braeden Berkowitz Simple renal LEFT (SNOMED CT) 01/23 01/23 Carlos ESPINOZA cyst CELLULITIS 557188981 Removed Kota Cruz Cellulitis and AND ABSCESS (SNOMED CT) 01/08 01/08 Natanael ESPINOZA abscess of OF TRUNK trunk Medications Medication Instructions Start Stop Generic Name NDC Provider Date Date AZITHROMYCIN 250 2 tablets by / AZITHROMYCIN [id number] Tova S MG TABS mouth today and 22 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 then 1 tablet daily for the next 4 days NEXIUM 40 MG One tablet by / ESOMEPRAZOLE [id number] Joshua CPDR mouth daily 03 MAGNESIUM Ike ESPINOZA AMLODIPINE One tablet by / AMLODIPINE 35392811219 Joshua BESYLATE 10 MG mouth daily 25 BESYLATE Ike ESPINOZA TABS BYSTOLIC 20 MG One tablet by / NEBIVOLOL HCL 81672156607 Jianming TABS mouth daily 02 Ike ESPINOZA AMOXICILLIN 500 One tablet by / AMOXICILLIN 61143113250 Marcianming MG CAPS mouth four Ramires times daily TRIAMCINOLONE apply to / TRIAMCINOLONE [id number] Joshua ACETONIDE 0.1 % affected area 25 ACETONIDE Ike ESPINOZA CREThierry twice daily, avoid face, axillary, and groin area DESONIDE 0.05 % apply to / DESONIDE 64394632722 Jianming CREA affected area 26 Ike ESPINOZA twice daily, avoid face, axillary and groin area VALACYCLOVIR HCL One tablet by / VALACYCLOVIR 53358018230 Jianming 1 GM TABS mouth three HCL Ike ESPINOZA times daily AMOXICILLIN 500 One tablet by / AMOXICILLIN 76170354529 Jianming MG TABS mouth three 07 Ramires times daily BYSTOLIC 10 MG One tablet by / NEBIVOLOL HCL 10323850711 Jianming TABS mouth daily 02 Ike ESPINOZA AUGMENTIN One tablet by / AMOXICILLIN-POT [id number] Braeden Berkowitz 875-125 MG TABS mouth twice CLAVULANATE Carlos ESPINOZA daily. ZITHROMAX Z-GENA 2 tabs PO on / AZITHROMYCIN 73480086803 Braeden M 250 MG TABS day one, then 1 Carlos ESPINOZA tab PO daily for 4 days ATENOLOL 25 MG One tablet by ATENOLOL 80747458124 [facility] M TABS mouth daily Carlos ESPINOZA AMOXICILLIN 500 One tablet by AMOXICILLIN 95365762841 Jianming MG TABS mouth three Ike ESPINOZA times daily DESONIDE 0.05 % apply to DESONIDE 74363988618 Jianming CREA affected area Ike ESPINOZA twice daily, avoid face, axillary and groin area AMOXICILLIN 500 One tablet by AMOXICILLIN 88931123521 Jianming MG CAPS mouth four Ike ESPINOZA times daily AMLODIPINE One tablet by AMLODIPINE 09300195502 Matt Powers BESYLATE 10 MG mouth daily BESYLATE [place] TABS ATENOLOL 25 MG One tablet by ATENOLOL 57375292128 Jianming TABS mouth daily / Ike ESPINOZA CRESTOR 10 MG One tablet by ROSUVASTATIN 03487597484 [facility] M TABS mouth daily CALCIUM Carlos ESPINOZA CRESTOR 10 MG One tablet by ROSUVASTATIN 07141220674 Jianming TABS mouth daily CALCIUM Ike ESPINOZA SULFAMETHOXAZOLE SULFAMETHOXAZOL 23526127552 Radha R -TRIMETHOPRIM E-TRIMETHOPRIM David TABS TABS SULFAMETHOXAZOLE SULFAMETHOXAZOL 06070576561 Braeden -TRIMETHOPRIM E-TRIMETHOPRIM Carlos ESPINOZA TABS TABS HYDROCODONE-ACET Two tablets by HYDROCODONE-SANCHEZ 49473899899 Radha R AMINOPHEN TABS mouth daily TAMINOPHEN TABS David HYDROCODONE-ACET Two tablets by HYDROCODONE-SANCHEZ 88936412753 Braeden M AMINOPHEN TABS mouth daily TAMINOPHEN TABS Carlos ESPINOZA DIAZEPAM TABS 2 awee DIAZEPAM TABS 50934456946 Radha R David DIAZEPAM TABS 2 aweek DIAZEPAM TABS 80066379683 Carlos ESPINOZA AZITHROMYCIN 250 2 tablets by / AZITHROMYCIN 37974386256 Bambi M MG TABS mouth today and Audi then 1 tablet daily for the next 4 days BYSTOLIC 20 MG One tablet by NEBIVOLOL HCL 49199017809 Matt Powers TABS mouth daily [place] BYSTOLIC 10 MG One tablet by NEBIVOLOL HCL 63515181257 Joshua TABS mouth daily Ike ESPINOZA NEXIUM 40 MG One tablet by ESOMEPRAZOLE 38593546911 Zuly L CPDR mouth daily MAGNESIUM [place] TRIAMCINOLONE apply to TRIAMCINOLONE 98787384256 Matt Powers ACETONIDE 0.1 % affected area ACETONIDE [place] CREA twice daily, avoid face, axillary, and groin area LOSARTAN One tab one LOSARTAN 40787441869 Zuly L POTASSIUM-HCTZ time daily POTASSIUM-HCTZ [place] 50-12.5 MG TABS XARELTO 20 MG One tablet by / RIVAROXABAN 17845235536 Zuly TABS mouth daily 30 Floresita Chavez BIRD RAISER NEXIUM 40 MG One tablet by / ESOMEPRAZOLE 48427535411 Zuly CPDR mouth daily 30 MAGNESIUM Floresita Chavez BIRD RAISER Medications Administered No information available. Allergies, Adverse [...] Append: Dr. Francois referral (close loop) CONSULTATION RUST-[id number]^08/20/2016 Clinical consultation report (record artifact) Office Visit MEDS REVIEW Done Documentation of current medications (procedure) DIET POULTRY OFFAL ICER yes Dietary management education, guidance, and counseling (procedure) ALCOHOLCOUNS no Alcoholism counseling (procedure) SMOK STATUS Never smoker Tobacco use [facility] Plan of Care Type Date Detail Appointment 08:00 AM Tova Mercer [facility], [address] [place] [address], [address], [place], [address] Appointment 08:00 AM Matt Mcnulty, [address] [facility], [address], [place], [address], Referral Cardiac Referral [facility], [address] [place] [address], [address], [place], [address] Referral Physical Therapy [facility], [address] [facility] [address], [place], [address] Referral Urology Referral Marcello Denton, [address] [facility], [address], [place], [address] Pending order X-Ray, Knee Pending order X-Ray, [...] Procedures Code Procedure Name Date Entry Date CPT-44855 X-Ray, Knee Order excluded from report: 76869-4 *Respiratory Panel CPT-43344 EKG (In office) F/U PFM PFM CPSP Complete portable sleep workup (portable,CPAP as indicated) & follow up F/U BWA BWA FUA 1 month Follow Up Appt 1 month [id number] Cardiac Referral CS Complete sleep workup (PSG,CPAP as indicated) & Follow up Order excluded from report: Physical Therapy Physical Therapy General CPT-56295 X-Ray, Knee 92771-5 *CBC without Diff 0786-1 *CMP Complete Metabolic Panel 81205-2 *Lipid Profile 0610-1 *UA - Urinalysis w/o Micro Urology Urology Referral 05916-4 *Lipid Profile 2857-1 *PSA, Annual Screening CPT-65463 Excision Benign Lesion Trunk/Arm/Leg 2.1-3.0 cm 49699-0 *Lipid Profile 0786-1 *CMP Complete Metabolic Panel Echo Echocardiogram (complete) SET Stress Echocardiogram (treadmill) CPT-59141 US Abdomen, limited CPT-UAComp *Urinalysis, complete Order [...]
--- OUTSIDE RECORDS SUMMARY | 2018-08-15 23:38 | XMS RPT_ITS ---
:1960 Author Organization OHIP Support Name Relationship Address Phone CHARTER Unavailable [address] + [place] [address] SHAHLA, R[place] Unavailable [address] + [place] [address] CHARTER Unavailable [address] + [place] [address] SHAVER, RICO Unavailable [address] + [place] [address] CHARTER Unavailable [address] + [place] [address] SHAVER, RICO Unavailable [address] + [place] [address] CHARTER Unavailable [address] + [place] [address] SHAVER, RICO Unavailable [address] + [place] [address] CHARTER Unavailable [address] + [place] [address] SHAVER, RICO Unavailable [address] + [place] [address] CHARTER Unavailable [address] + [place] [address] SHAVER, IRCO Unavailable [address] + [place] [address] CHARTER Unavailable [address] + [place] [address] SHAVER, RICO Unavailable [address] + [place] [address] CHARTER Unavailable [address] + [place] [address] SHAHLA, R[place] Unavailable [address] + [place] [address] RICO GALE Unavailable [address] + [place] [address] TIME ARIAS CABLE Unavailable [address] + [place] [address] RICO GALE Unavailable [address] + [place] [address] TIME ARIAS CABLE Unavailable [address] + [place] [address] Care Team Providers Name Role Phone Valentín, Mangum Attending Unavailable Sybil Amari Referring Unavailable Aleksandar, Arnav Chi Attending Unavailable Aleksandar, Arnav Chi Primary Care Unavailable SimbaMarlon Attending Unavailable Aleksandar, Arnav Chi Referring Unavailable Aleksandar, Arnav Chi Primary Care Unavailable Simba, Marlon Attending Unavailable Simba, Marlon Referring Unavailable Aleksandar, Arnav Chi Primary Care Unavailable SimbaMarlon Attending Unavailable Simba, Marlon Referring Unavailable Aleksandar, Arnav Chi Primary Care Unavailable Aleksandar, Arnav Chi Primary Care Unavailable Amari Knight Admitting Unavailable Tereletsky, Gael Consulting Unavailable Sementi, Dorota Attending Unavailable Sybil, Amari Admitting Unavailable Aleksandar, Arnav Chi Primary Care Unavailable Tereletsky, Gael Consulting Unavailable Tereletsky, Gael Attending Unavailable Sybil, Amari Consulting Unavailable Sybil, Amari Admitting Unavailable Sementi, Dorota Attending Unavailable Aleksandar, Arnav Chi Primary Care Unavailable Tereletsky, Gael Consulting Unavailable Sementi, Dorota Consulting Unavailable Sybil, Amari Attending Unavailable Sybil, Amari Referring Unavailable Aleksandar, Arnav Chi Primary Care Unavailable Aleksandar, Arnav Chi Primary Care Unavailable Brandon Alvarez Attending Unavailable PROBLEMS PROBLEMS DATE TYPE CONDITION / CODE ATTENDING STATUS SOURCE 07/04/2018 Unknown R94.31 - Abnormal Valentín, Mangum Active [place] electrocardiogram Community [ECG] [EKG] / Hospital R94.31(ICD-10) Repository 07/04/2018 Unknown I10 - Essential Valentín, Mangum Active [place] (primary) hypertension Community / I10(ICD-10) Hospital Repository 06/16/2018 Unknown G89.18 - Other acute Sementi, Active [place] postprocedural pain / [facility] Community G89.18(ICD-10) Hospital Repository 09/03/2017 Unknown S80.12XA - Contusion Marlon Cottrell Active [place] of left lower leg, Community initial encounter / Hospital S80.12XA(ICD-10) Repository 08/30/2017 Unknown J01.90 - Acute SimbaMarlon Active [place] sinusitis, unspecified Community / J01.90(ICD-10) Hospital Repository 07/12/2017 Unknown E87.6 - Hypokalemia / Arnav Huertas Chi Active [place] E87.6(ICD-10) [facility] Hospital Repository PROCEDURES PROCEDURES No Procedure Records FoundRESULTS RESULTS DISCHARGE INSTRUCTION Observed: 06/22/2018 Status: F Source: [place] 4:54 PM [facility] REPOSITORY [facility] Medical Records Department [address] [place] [address] Discharge Instruction 06/22/18 1534 MR#: [id number] Acct: [id number] Name: TAZ GALE Rep #: [id number] : 1960 57 From: Brandon Alvarez MD PCP: Arnav Huertas MD, Chi Status: DEP ER ED Disposition - Plan for ED Patient: Chief Complaint: Lower Extremity Injury Instructions: Post-Op Tips: Knee Referrals: Amari Knight MD [STAFF PHYSICIAN] - Additional Instructions: Call tomorrow for follow-up tomorrow. Return for any worsening issues, fevers, or any other concerns. What to do if you have Problems For any increased pain, shortness of breath, bleeding, nausea or vomiting, chest pain, or any unexpected problems, contact your Primary Care Provider. Call [facility] Registry ([phone]) or report to the closest Emergency Room. Call 911 if necessary. 06/22/18 2242 <Electronically signed by Brandon Alvarez MD> Date Brandon Alvarez MD Cosigner Signature (If Indicated): Date CC: Arnav Huertas MD EMERGENCY DEPARTMENT Observed: 06/22/2018 Status: F Source: [place] SUMMARY 4:54 PM [facility] REPOSITORY [facility] Medical Records Department [address] [place] [address] Emergency Department Summary 06/22/18 1334 MR#: [id number] Acct: [id number] Name: TAZ GALE Rep #: [id number] : 1960 57 From: Brandon Alvarez MD PCP: Arnav Huertas MD, Chi Status: DEP ER - ER Visit Summary Date of Service: 06/22/18 Chief Complaint: Left knee pain History of Present Illness: The patient is a 57 M who is 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 On Saturday, June 12, a piece of the prosthetic came out through the skin and he required reconstruction by Dr. Knight on June 13. Patient was discharged and has been doing well. Over the last couple days he noted increasing pain to the area of his left knee. Today he woke up and noticed some redness. Denies any drainage or bleeding. Denies fever or systemic symptoms. He does have some swelling to the area, but it has not changed much since the surgery. He is on Xarelto for history of PE. Physical Examination: Afebrile and vital signs unremarkable. Left knee shows postoperative changes with phoebe in place anteriorly. He does have some diffuse swelling about the knee. There is also some erythema to the medial aspect of the incision and distal to the incision. He is diffusely tender. No deformity. Good range of motion. Good extension. Good strength and sensation. Neurovascular intact distally. Calf soft and supple. Test Results: X-ray and laboratory studies pending. Emergency Department Course and Treatment: Patient declined pain medicine. I am concerned for a skin infection. Will check labs and a knee x-ray. Will discuss with orthopedics. White count normal. BUN 27 but otherwise metabolic panel normal. ESR 12 and CRP 45. X-ray showed worsening edema and joint effusion concerning for surgical site infection. I was concerned he would need p.o. or possibly IV antibiotics. Findings including the x-ray findings were discussed with Dr. Villatoro. He told me that Dr. Knight typically would like to see the patient before starting antibiotics, and that based on the results and vitals, he would like to see him in the office. Dr. Villatoro contacted Dr. Knight, and he confirmed this. He will follow-up with the patient tomorrow in the office. I discussed this with the patient and he was in agreement. He was given the number and will call tomorrow morning for follow- up. Return for fevers or any new or worsening issues. Treatment Plan: As above Disposition: Discharged Impression: 1. Left knee pain This note was generated with Boomrat dictation software. It may contain incorrect words, spelling, and punctuation that were not noted in review of the chart prior to signing ED Disposition - Plan for ED Patient: Chief Complaint: Lower Extremity Injury Referrals: Arnav Huertas Chi, MD [Primary Care Provider] - What to do if you have Problems For any increased pain, shortness of breath, bleeding, nausea or vomiting, chest pain, or any unexpected problems, contact your Primary Care Provider. Call [facility] ([phone]) or report to the closest Emergency Room. Call 911 if necessary. 06/22/18 1654 <Electronically signed by Brandno Alvarez MD> Date Brandon Alvarez MD Cosigner Signature (If Indicated): Date CC: Arnav Huertas MD ERYTHROCYTE SED RATE Collected: 06/22/2018 Status: F Source: [place] 1:55 PM [facility] REPOSITORY TYPE CODE TESTS RESULT OUT OF RANGE REFERENCE UNITS LAB L102.0000 0-20 mm/hr Normal SED RATE 12 Performed By: #### L101.9900, L100.0100 #### [facility] [address] [place], [address] CBC W/DIFF, AUTOMATED Collected: 06/22/2018 Status: F Source: [place] 1:55 PM [facility] REPOSITORY TYPE CODE TESTS RESULT OUT OF RANGE REFERENCE UNITS LAB L100.1000 4.4-11.0 K/mm3 Normal WBC 9.2 LAB L100.1200 4.6-6.2 M/mm3 Normal RBC 4.75 LAB L100.1300 13.0-16.5 g/dl Normal HGB 14.4 LAB L100.1400 40-54 % Normal HCT 43.5 LAB L100.1500 80-94 fL Normal MCV 91.6 LAB L100.1600 27.0-32.0 pg Normal MCH 30.3 LAB L100.1700 32-36 g/gl Normal MCHC 33.1 LAB L100.1810 11.6-14.6 % Normal RDW CV 12.9 LAB L100.1820 35.1-43.9 fl Normal RDW SD 43.2 LAB L100.1900 150-450 K/mm3 Normal PLT 222 LAB L100.2000 6.2-12.0 fl Normal MPV 8.8 LAB L100.2100 47-70 % Normal NEUT% 61.6 LAB L100.2200 19-41 % Normal LY% 23.1 LAB L100.2300 0-10 % High MONO% 10.4 LAB L100.2400 0-5 % Normal EO% 3.9 LAB L100.2500 0-1 % Normal BASO% 0.2 LAB L100.2550 0.0-0.9 % Normal IM GRAN % 0.800 Result Comment: IG% - Immature Granulocytes (promyelocytes, myelocytes and metamyelocytes) > 1% indicates that a LEFT SHIFT is Present. LAB L100.2620 2.0-7.7 X10 3/uL Normal Absolute Neut 5.7 LAB L100.2720 0.83-4.51 X10 3/ul Normal Absolute Lymph 2.12 Performed By: #### L101.9900, L100.0100 #### [facility] [address] [place], [address] BASIC METABOLIC Collected: 06/22/2018 Status: F Source: [place] PROFILE ([facility]) 1:55 PM [facility] REPOSITORY TYPE CODE TESTS RESULT OUT OF RANGE REFERENCE UNITS LAB L501.0100 74-106 mg/dL Normal GLU 87 Result Comment: Please note revised GLUCOSE reference range effective 2017. LAB L501.1000 7-18 mg/dL High BUN 27 LAB L501.1100 0.70-1.30 mg/dL Normal CREAT,SERUM 0.97 Result Comment: The validity of the calculated GFR AND GFRAA in patients over 70 years has not been determined. Clinical correlation is essential. LAB L501.1110 >60 mL/min Normal EST GFR 85 Result Comment: Non- GFR Calc LAB L501.1115 >60 mL/min Normal EST GFR - AA 103 Result Comment: GFR Calc LAB L501.1255 ml/min Normal Estimated CRCL 97.24 LAB L501.1300 10-20 RATIO High BUN/CRE 27.8 LAB L501.2200 8.5-10 mg/dL Normal .1 CA 8.6 LAB L501.5300 136-14 mmol/L Normal 5 NA 141 LAB L501.5600 3.5-5. mmol/L Normal 1 K 3.7 LAB L501.5900 98-107 mmol/L Normal CL 102 LAB L501.6100 21.0-3 mmol/L Normal 2.0 CO2 29.0 LAB L501.6200 5-15 Normal GAP 10 Performed By: #### L500.2500, L501.6710 #### [facility] [address] [facility], [address] CRP Collected: 06/22/2018 Status: F Source: [place] 1:55 PM [facility] REPOSITORY TYPE CODE TESTS RESULT OUT OF RANGE REFERENCE UNITS LAB L501.6710 0.0-3.0 mg/L High 45.20 C-REACTIVE PROT Result Comment: C-Reactive Protein (CRP) provides useful information for the diagnosis, therapy and monitoring of inflammatory processes and associated diseases. For the evaluation of Relative Risk for Cardiovascular Disease, a High Sensitivity CRP (HSCRP) should be ordered. Performed By: #### L500.2500, L501.6710 #### [facility] [address] [facility] [place], [address] KNEE 1 OR 2 VIEWS Observed: 06/22/2018 Status: F Source: [place] 1:33 PM [facility] REPOSITORY [facility] Imaging Services [address] [place] [address] Knee 1 or 2 Views MR#: [id number] Acct: [id number] Name: SANDEEPYURI SCHUMACHERDinorah Bañuelos Rep #: [id number] : 1960 M 57 From: Sada Hammonds MD PCP: Arnav Huertas MD, Chi Status: REG ER Study: Knee 1 or 2 Views Date of Exam: 06/22/18 Exam# [id number] Ordering Dr: Brandon Alvarez MD STUDY: X-RAY - LEFT KNEE REASON FOR EXAM: Male, 57 years old. Postoperative inflammation redness swelling TECHNIQUE: 3 view(s) of the knee. COMPARISON: 06/13/2018. Left knee x-ray FINDINGS: There is a medial compartment plate and tibial compartment plate hemiarthroplasty. Since prior study there is worsening of the soft tissue edema anterior to the knee and a persistent larger more inhomogeneous joint effusion. There are overlying persistent skin phoebe. There is moderate degenerative arthrosis of the lateral femorotibial compartment with moderate joint space narrowing. Normal patellofemoral articulation. RAD/Knee 1 or 2 Views IMPRESSION: Worse Soft tissue edema worse heterogeneous joint effusion finding suspicious for postoperative infection. Medial compartment hemiarthroplasty. Electronically Signed: Sada Hammonds MD at 14:48 EST Tel , Service support , CC: Brandon Alvarez MD; Arnav Huertas MD Manufacturing Production Technician: Signed 12 LEAD ELECTROCARDIOGRAM Observed: 06/20/2018 Status: F Source: [place] 9:23 AM [facility] REPOSITORY [facility] Cardiovascular Services [address] [place] [address] 12 Lead EKG 06/13/18 1037 MR#: [id number] Acct: [id number] Name: TAZ GALE Sarmad Rep #: [id number] : 1960 57 From: Jovanni Laura MD Attending Dr: Dorota Colón Status: DIS IN Ordering Dr: Amari Knight MD Date: 06/13/18 Location: [facility] Sex: M C Admitted: 06/12/18 Test Reason : PRE-OPERATIVE Blood Pressure : / mmHG Vent. Rate : 074 BPM Atrial Rate : 074 BPM P-R Int : 172 ms QRS Dur : 092 ms QT Int : 400 ms P-R-T Axes : 039 -15 001 degrees QTc Int : 444 ms Normal sinus rhythm Inferior infarct , age undetermined Abnormal ECG When compared with ECG of 31-JUL-2016 04:55, Premature ventricular complexes are no longer Present Confirmed by JOVANNI LAURA MD ([id number]), movie editor [employer] ([id number]) on 06/16/2018 2:26:20 PM Also confirmed by JOVANNI LAURA MD ([id number]), movie editor [employer] ([id number]) on 06/16/2018 2:27:08 PM Referred By: SYBIL Confirmed By:JOVANNI LAURA MD 06/16/18 1427 Date Jovanni Laura MD CC: Dorota Colón; Amari Knight MD; Arnav Huertas MD Signed INITAL EVALUATION (1) Observed: 06/19/2018 Status: F Source: [place] - PT 12:12 PM [facility] REPOSITORY [facility] [address] [place] [address]. [address] [place], [place] [address] Fax REHABILITATION SERVICES INITIAL EVALUATION MR#: [id number] Acct: [id number] Name: TAZ GALE Rep #: [id number] : 1960 57 From: Zion aWshburn PT, ATC Referring Dr.: Amari Knight MD Status: REG RCR Insurance: [employer] S[employer] PAY INSURANCE Patient's Visit Information TAZ GALE is a 57 year old M referred to Physical Therapy by Amari Knight MD with a diagnosis of L TKA. Date of Evaluation: 06/19/18 Physical Therapist: Zion Washburn PT, - Visit Plan Frequency: 2-3x /Week Duration: 4-6 Weeks Plan: L knee PROM/mobs, stretching and strengthening, balance and proprio, nustep, and HEP - Subjective Findings: DOS: 06/13/18. Pt reports he had L TKA performed on 07/19/16. Pt reports he was cooking turkeys on when his prostheic popped out of place in his L knee. Pt reports there was immediate pain and swelling, but he waited until after dinner to go to the ER. Pt reports he had a retread performed on the following day where they replaced his disc that came out. Pt reports he is still in a lot of pain today. Pt notes his incision is painful and still seeping some. Pt reports he is trying to stretch his L knee at home, but it really pulls on his phoebe when he tries. No Tingling or numbness in L LE. sleep difficulty secondary to pain. 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 Pt negotiates one step at a time. 4/10 at rest, 8/10 at worst. - Pain L TKA Pain Intensity (Out of 10): 4 Pain Intensity Range: 8 - Objective Neuro: B LE sensation is WNL to light touch. Girth at joint line: L knee 41 cm, R knee 37 cm. ROM: R knee 0-125 degrees; L knee. Observation: Incision covered by bandage today. Appears to be healing well with no obvious signs of infection. MMT: R knee is 5/5 throughout. L knee 3-/5 and painful - Goals Goal 1:: Decrease R knee pain x 50% to aid with sleep Goal Time Frame: 4-6 Weeks Goal 2:: Increase R knee ROM x 50 degrees to aid with restoring a normalized gait pattern Goal Time Frame: 4-6 Weeks Goal 3:: Increase R knee strength x 1 grade to aid with RTW Goal Time Frame: 4-6 Weeks Goal 4:: I with HEP - Rehabilitation Potential Physical Therapy Diagnosis: L knee pain, weakness, and limited ROM secondary to L TKA Rehabilitation Potential: Good - Anticipated Interventions Patient/Client Instruction: Educate patient on: Condition, Plan of Care For the Purpose of:: To improve self management Therapeutic Exercise to Include: Strength training, Balance training, Flexibilty training, Gait and locomotor training, Passive ROM, Active ROM, Dynamic Lumbar Stabilization For the Purpose of:: To decrease pain, To increase ROM, To improve muscle performance and motor function Cryotherapy (ice pack, ice massage): Yes For the Purpose of:: To decrease pain Thank you for the opportunity to evaluate your patient. For Medicare and Medicare HMO plans, please review the plan of care and approve it. It will need to be FAXED BACK to us at [phone] for Medicare purposes. For Medicare only, by signing this I certify the plan of care. Please let me know if there are questions or concerns regarding this plan of care. Physician Signature: Date: <Electronically signed by Zion Washburn PT, ATC> 06/19/18 1212 CC: Amari Knight MD; Arnav Huertas MD [facility] Signed DISCHARGE INSTRUCTION Observed: 06/14/2018 Status: F Source: [place] 7:53 AM [facility] REPOSITORY [facility] Medical Records Department [address] [place] [address] Instructions for Home/Discharge Instructions 06/14/18 0752 MR#: [id number] Acct: [id number] Name: TAZ GALE Rep #: [id number] : 1960 57 From: Amari Knight MD PCP: Arnav Huertas MD, Chi Status: ADM IN Discharge Diet: No Restrictions Discharge Activity: May Not Drive May shower in (days): 1 Ice area for (Minutes): 20 - every hour while awake. Weight Bearing Status: Weight bearing as tolerated Elevate: Operative Extremity Additional Activity Instructions:: Wear elastic stockings for 2 weeks after your surgery. Call your doctor if your incision/area has: Continuous Slow Oozing, Sudden Increased Bleeding, Increased Pain/ Swelling, Increased Redness, Foul Smelling Discharge Call your doctor if you observe: Fever of 101 or Higher, Coldness, Increased Pain, Numbness or Tingling, Change in Color, Calf discomfort, Uncontrolled pain Remove Dressing in (days):: 06-17-2018 Additional Dressing/Incision Instructions:: If incision is clean dry and intact may leave the wound open to air and continue showering. If there is continued drainage continue daily dry dressing changes and keep incision clean dry and intact until there is no drainage. Allergies/Adverse Reactions: Allergies No Known Allergies Allergy (Verified 06/12/18 17:36) Medications to take at Discharge Esomeprazole Mag Trihydrate [Nexium] 20 mg PO QHS 07/10/16 Losartan/Hydrochlorothiazide [Losartan-Hctz 50-12.5 mg Tab] 1 ea PO QHS 07/10/16 Acetaminophen [Tylenol] 1,000 mg PO Q8 #90 tab 06/14/18 Doxycycline 100 mg PO BID #14 cap 06/14/18 Ensure Enlive 120 ml PO TID liquid 06/14/18 Famotidine [Pepcid] 20 mg PO DAILY #30 tab 06/14/18 Meloxicam [Mobic] 7.5 mg PO BID #60 tab 06/14/18 Oxycodone [Oxyir] 5 - 10 mg PO Q4H PRN PRN 7 Days #60 tab 06/14/18 Rivaroxaban [Xarelto] 10 mg PO DAILY@0600 #14 tab 06/14/18 Senna/Docusate Sodium [Senokot-S] 2 tab PO BID PRN PRN #30 tab 06/14/18 The following prescriptions were given: Oxycodone [Oxyir] 5 - 10 mg PO Q4H PRN PRN 7 Days #60 tab PRN Reason: Pain Acetaminophen [Tylenol] 1,000 mg PO Q8 #90 tab Famotidine [Pepcid] 20 mg PO DAILY #30 tab Rivaroxaban [Xarelto] 10 mg PO DAILY@0600 #14 tab Senna/Docusate Sodium [Senokot-S] 2 tab PO BID PRN PRN #30 tab PRN Reason: Constipation Doxycycline 100 mg PO BID #14 cap Meloxicam [Mobic] 7.5 mg PO BID #60 tab Primary Care Physician: Arnav Huertas Chi, MD [Primary Care Provider] - Test Results: Test results from this visit will be discussed in further detail at your follow-up appointment, if applicable. Please Follow Up With: John Davila PA-C - 2 weeks When: [facility] [place] [phone] 06/14/18 0750 <Electronically signed by Amari Knight MD> Date Amari Knight MD CC: Gael Boss DO; Arnav Huertas MD CBC-COMPLETE BLOOD CNT Collected: 06/14/2018 Status: F Source: [place] NO DIFF 7:36 AM [facility] REPOSITORY TYPE CODE TESTS RESULT OUT OF RANGE REFERENCE UNITS LAB L100.1000 4.4-11.0 K/mm3 High WBC 16.4 LAB L100.1200 4.6-6.2 M/mm3 Normal RBC 4.86 LAB L100.1300 13.0-16.5 g/dl Normal HGB 15.1 LAB L100.1400 40-54 % Normal HCT 44.3 LAB L100.1500 80-94 fL Normal MCV 91.2 LAB L100.1600 27.0-32.0 pg Normal MCH 31.1 LAB L100.1700 32-36 g/gl Normal MCHC 34.1 LAB L100.1810 11.6-14.6 % Normal RDW CV 12.9 LAB L100.1820 35.1-43.9 fl Normal RDW SD 42.4 LAB L100.1900 150-450 K/mm3 Normal PLT 237 LAB L100.2000 6.2-12.0 fl Normal MPV 9.5 Performed By: #### L100.0500 #### [facility] [address] [place], [address] BASIC METABOLIC Collected: 06/14/2018 Status: F Source: [place] PROFILE (BMP) 7:36 AM [facility] REPOSITORY TYPE CODE TESTS RESULT OUT OF RANGE REFERENCE UNITS LAB L501.0100 74-106 mg/dL High GLU 184 Result Comment: Fasting Glucose result greater than or equal to 126 mg/dL suggests DIABETES MELLITUS per A.D.A. criteria. Please note revised GLUCOSE reference range effective 2017. LAB L501.1000 7-18 mg/dL Normal BUN 16 LAB L501.1100 0.70-1.30 mg/dL Normal CREAT,SERUM 0.93 Result Comment: The validity of the calculated GFR AND GFRAA in patients over 70 years has not been determined. Clinical correlation is essential. LAB L501.1110 >60 mL/min Normal EST GFR 90 Result Comment: Non- GFR Calc LAB L501.1115 >60 mL/min Normal EST GFR - AA 109 Result Comment: GFR Calc LAB L501.1255 ml/min Normal Estimated CRCL 101.43 LAB L501.1300 10-20 RATIO BUN/CRE Normal 17.2 LAB L501.2200 8.5-10 mg/dL .1 CA Normal 8.6 LAB L501.5300 136-14 mmol/L 5 NA Normal 136 LAB L501.5600 3.5-5. mmol/L 1 K Normal 3.5 LAB L501.5900 98-107 mmol/L CL Normal 102 LAB L501.6100 21.0-3 mmol/L 2.0 CO2 Normal 25.0 LAB L501.6200 5-15 GAP Normal 9 Performed By: #### L500.2500 #### [facility] [address] [facility] [place], [place], [address] HEMOGLOBIN A1C Collected: 06/14/2018 Status: F Source: [place] 7:36 AM [facility] REPOSITORY Order Comment: Comments: OK to use the AM blood draw TYPE CODE TESTS RESULT OUT OF RANGE REFERENCE UNITS LAB L501.9985 4.2-6.3 % Normal HGB A1C 6.2 Performed By: #### L501.9985 #### [facility] [address] [facility] [place], [place], [address] Observed: 06/13/2018 Status: F Source: [place] CULTURE, DEEP WOUND 2:12 PM [facility] REPOSITORY Order Date: 02/20/17 Comments: #1. MEDIAL GUTTER, LEFT KNEE Gram Stain Gram Stain No White Blood Cells No organisms seen Wound Culture No growth aerobically. Cult, Anaerobic No growth in 5 days. Performed By: #### M100.1500 #### [facility] [address] [facility] [place], [place], [address] Observed: 06/13/2018 Status: F Source: [place] CULTURE, DEEP WOUND 2:12 PM [facility] REPOSITORY Order Date: 02/20/17 Comments: #3. POSTERIOR KNEE, LEFT Gram Stain Gram Stain No White Blood Cells No organisms seen Wound Culture No growth aerobically. Cult, Anaerobic No growth in 5 days. Performed By: #### M100.1500 #### [facility] [address] [facility] [place], [address] Observed: 06/13/2018 Status: F Source: [place] CULTURE, DEEP WOUND 2:12 PM [facility] REPOSITORY Order Date: 02/20/17 Comments: #2. ACL MEMBRANE, LEFT Gram Stain Gram Stain No White Blood Cells No organisms seen Wound Culture No growth aerobically. Cult, Anaerobic No growth in 5 days. 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 Reviewed options were discussed the patient. Based on acuity of the symptoms and stability of implants on radiograph polyethylene exchange is recommended. Risks and benefits of the procedure were discussed with the patient including but not limited to blood loss, DVTs, PEs, neurovascular damage, infection, general risk of anesthesia including loss of life. Demonstrated understanding and was able to sign informed consent. On the date of procedure patient's L lower extremity was marked in the preoperative area. The patient was then taken back to the operating room where the patient was placed on the table in the supine position. All bony prominences were identified a well-padded. Anesthesia assumed control of the C-spine and airway and remained controlled throughout the remainder of the procedure. A tourniquet was placed on the operative thigh and the leg was prepped in a sterile fashion. The surgeon then scrubbed at this time .Upon reentering the room left lower extremity was draped in a standard orthopedic fashion. A timeout was then called and everyone agreed upon the side, the site, the procedure to be performed, patient's identity and antibiotics given. A midline skin incision was made and sharp dissection was taken down through skin subcutaneous tissue and fat. Appropriate flaps were elevated medially and laterally. His arthrotomy was identified and the standard medial parapatellar incision was made and the patella was subluxed laterally. The appropriate minimal MCL release was done. At this point an appropriate synovectomy was performed patient did not have significant amount of synovitis. He did have a large effusion. 3 separate specimens were sent from the synovium. Knee was then flexed up the 3 mm polyethylene was removed. Once polyethylene was removed we debrided the posterior knee ACL was checked and intact. Excessive synovium around the implant was debrided and the implants were checked. Femoral and tibial implants were stable. 6 L of normal saline were then irrigated throughout the wound with low-pressure lavage and the wound was once again explored. All remaining tissue that was suspicious was seen in the wound was once again irrigated with normal saline. Polyethylene trials were then used to determine the appropriate polyethylene. Based on our trials a 6 mm polyethylene was then opened and put back into place after appropriate trialing. This allowed for appropriate correction of the alignment and tension of the soft tissues in flexion and extension. Knee was taken through range of motion as well and no signs of impingement were noted after appropriate debridement tourniquet was let down and hemostasis was obtained as well as possible. Once the final components were placed the wound was copiously irrigated with normal saline solution. The wound was closed in a layer plascencia fashion using #1 vicryl interrupted sutures for the arthrotomy, 2-0 interrupted Vicryl for the subcuticular layer and phoebe for final skin closure. A sterile compressive dressing was then placed. The patient was then awakened from anesthesia, transferred to the r[place] and transferred to the PACU for recovery. Post op plan Patient will be placed on Xarelto due to previous PE. Medical service will be consulted. Patient is weightbearing as tolerated, activity as tolerated. Follow-up in the office in 2 weeks. Patient will remain on doxycycline for 1 week as we follow cultures. Grafts/Implants Used: [employer] partial knee system medium 6 mm left medial poly - Complications none - Admit VTE Documentation VTE Present on Admission: No VTE Mechan Device Prophylaxis: SCD's, Thigh High MICHELLE Hose VTE Pharm Prophylaxis ordered?: Yes 06/13/18 1338 <Electronically signed by Amari Knight MD> Date Amari Knight MD CC: Amari Knight MD; Arnav Huertas MD Signed KNEE 1 OR 2 VIEWS Observed: 06/13/2018 Status: F Source: [place] 12:23 PM [facility] REPOSITORY [facility] Imaging Services [address] [place] [address] Knee 1 or 2 Views MR#: [id number] Acct: [id number] Name: TAZ GALE Rep #: [id number] : 1960 M 57 From: Liliana Verma MD PCP: Arnav Huertas MD, Chi Status: ADM IN Study: Knee 1 or 2 Views Date of Exam: 06/13/18 Exam# [id number] Ordering Dr: Amari Knight MD STUDY: X-RAY - LEFT KNEE REASON FOR EXAM: Male, 57 years old. Postop left knee TECHNIQUE: 2 view(s) of the knee. COMPARISON: 06/12/2018 FINDINGS: Status post medial hemiarthroplasty with interval repositioning of metallic densities. There is anterior surgical skin clips, large effusion with pocket of air. There is demineralization of osseous structures. Normal fibula. Normal proximal tibiofibular articulation. There is moderate degenerative arthrosis of the lateral femorotibial compartment with moderate joint space narrowing. There is mild to moderate degenerative arthrosis of the patellofemoral articulation. RAD/Knee 1 or 2 Views IMPRESSION: Surgical repositioning of radiopaque densities. Status post right medial hemiarthroplasty. Effusion and pockets of air consistent of recent surgical intervention. Osteopenia and degenerative changes. Electronically Signed: Liliana Verma MD at 3:48 EST , Service support , CC: Amari Knight MD; Arnav Huertas MD Manufacturing Production Technician: Signed HISTORY AND PHYSICAL Observed: 06/13/2018 Status: F Source: [place] EXAM 11:24 AM [facility] REPOSITORY [facility] Medical Records Department [address] [place] [address] History and Physical 06/13/18 1118 MR#: [id number] Acct: [id number] Name: TAZ GALE Rep #: [id number] : 1960 57 From: Amari Knight MD PCP: Arnav Huertas MD, Chi Status: ADM IN Location: [facility] GV152-5 History of Present Illness Date of Admission: 06/13/18 Chief Complaint: Knee pain, left The patient is a 57 year old M presents today with left knee pain. Patient had a left partial knee replacement in June 2016. Patient notes that he had no infections or redness of the incision after surgery however took about 6-8 months to fully recover. He did have some what he felt was instability or looseness of the knee and clicking. He had been reevaluated multiple times. He has had no fevers chills or night sweats. No signs of infection. However, yesterday while he was walking his knee gave out on him causing him to fall. Since that time he said inability to flex and extend his knee stating it feels like something is catching in there. He has 9 out of 10 pain with weightbearing and motion. Better with immobilization and bedrest. No numbness or tingling distally. He does have some associated swelling of the knee. Of note patient did have a PE 2 days after his partial knee replacement which required anticoagulation. Past Medical History Past Medical History (Chronic Problems): Chronic Problems (Last Updated 09/23/17 @ 10:02 by Zuly Chavez) Status post left knee surgery (Chronic) HTN (hypertension) (Chronic) Medical History: Medical History (Last Updated 09/23/17 @ 10:02 by Zuly Chavez) Cellulitis of left anterior lower leg (Acute) L03.116 Contusion of left calf (Acute) S80.12XA GERD (gastroesophageal reflux disease) (Acute) K21.9 Essential hypertension, benign (Acute) I10 HTN (hypertension) (Chronic) I10 Abnormal electrocardiogram (Acute) R94.31 Chest pain (Acute) R07.9 Chicken pox B01.9 Cough R05 Elevated prostate specific antigen (PSA) R97.20 Gastroenteritis K52.9 Headache R51 Herpes zoster B02.9 Keloid scar L91.0 Knee pain M25.569 Lightheadedness R42 Pulmonary embolism I26.99 Renal cyst, left N28.1 Sebaceous cyst L72.3 Dyslipidemia E78.5 Erectile dysfunction N52.9 HTN (hypertension) I10 Hypercholesteremia E78.00 Neuropathic pain M79.2 NUSRAT (obstructive sleep apnea) G47.33 Osteoarthritis of left knee M17.12 Allergies No Known Allergies Allergy (Verified 06/12/18 17:36) Home Medications: Ambulatory Orders Medication Instructions Recorded Esomeprazole Mag Trihydrate 20 mg PO QHS 07/10/16 [Nexium] Losartan/Hydrochlorothiazide 1 ea PO QHS 07/10/16 [Losartan-Hctz 50-12.5 mg Tab] Surgical History: Surgical History (Last Updated 09/23/17 @ 10:07 by Zuly Chavez) Status post left knee surgery (Chronic) Z98.890 History of back surgery Z98.890 History of knee replacement Z96.659 Broke L1 09/2010 rods AND screws H/O hernia repair Z98.890, Z87.19 8 History of tonsillectomy Z98.890, Z90.89 Incision and drainage back abscess 6/12 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 S/P left knee arthroscopy Z98.890 Surgical History: - Smoking Status: Never smoker - *Family History Paternal Family History: Family History (Last Updated 09/23/17 @ 10:08 by Zuly Chavez) Father Hypertension History Items: No pertinent history Review of Systems Constitutional: Denies: Chills, Fever, Weight Change HEENT: Denies: Head Aches, Sinus Congestion, Sinus Drainage Cardiovascular: Denies: Chest Pain, Palpitations Respiratory: Denies: Cough, Shortness of breath at rest, Sputum production Gastrointestinal: Denies: Abdominal Pain, Nausea, Vomiting Genitourinary: Denies: Dysuria Musculoskeletal: Reports: Joint Pain, Joint Tenderness - See HPI Skin: Denies: Rash, Wounds Neurological: Denies: Numbness, Tingling, Focal weakness Psychiatric: Denies: Anxiety, Depression, Homicidal Ideations, Suicidal Ideations Hematologic/ Lymphatic: Denies: Easy Bruising, Easy Bleeding VTE Information - Inpt Only VTE Present on Admission: No VTE Mechan Device Prophylaxis: SCD's, Thigh High MICHELLE Hose VTE Pharm Prophylaxis ordered?: No Reason prophylaxis not ordered:: Treatment Not Indicated - Will initiate treatment after surgery Objective: X-rays of the left knee were reviewed showing a dislocated polyethylene. Implants appear to be in stable alignment and well fixed. - Physical Exam General: Alert, Oriented x3, Cooperative HEENT: Atraumatic, PERRLA Oral: Moist Mucosa Neck: No JVD Lungs: - - Nonlabored breathing Cardiovascular: Regular rate Abdomen: Non Tender, Non-Distended Extremities: No clubbing, - - Left lower extremity: Previous incision clean dry and intact, no redness or erythema. Mild effusion of the knee. Patient has crepitus with range of motion he has palpation with tenderness over the dislocated implant, you can feel it in the superior medial joint.. Motor is intact dorsiflexion, EHL and plantar flexion. Sensation is intact to light touch saphenous, kaleigh,l superficial peroneal, deep peroneal and tibial distributions. Calves are soft and supple. Vital Signs Temp Pulse Resp BP Pulse Ox 97.8 F 79 18 126/85 H 95 06/13/18 08:00 06/13/18 08:00 06/13/18 08:00 06/13/18 08:00 06/13/18 08:00 Oxygen Flow Rate (L/min) 2 Oxygen Delivery Method Room Air Weight: 221 lb 5.506 oz Body Mass Index (BMI) 29.2 Intake and Output for Last 24 Hours Intake Total 1010 / 1010 Output Total 525 / 525 Balance 485 / 485 Laboratory Tests Past 24 Hrs Assessment/Plan All Active Problems (Last Updated 09/23/17 @ 10:02 by Zuly Chavez) Cellulitis of left anterior lower leg (Acute) Contusion of left calf (Acute) GERD (gastroesophageal reflux disease) (Acute) Essential hypertension, benign (Acute) Abnormal electrocardiogram (Acute) Chest pain (Acute) Left knee dislocated mobile-bearing polyethylene Natural history of the disease process and treatment options were discussed the patient. Patient has good joint spaces and the remainder of his joint. He is young in age. At this time we discussed revision total knee replacement versus polyethylene exchange. Sounds like patient has a history of instability at this time I recommended a polyethylene exchange implants appear well fixed. The remainder of his joint is healthy and I do feel it is appropriate to salvage the implant at this time. He has no signs of infection will shortly take cultures at the time of surgery. Risks and benefits were discussed the patient including but not limited to blood loss, DVTs, PEs, rest damage, infection, general risk of anesthesia including loss of life. Patient is n.p.o., antibiotics ordered on-call to the operating room we will proceed with surgery this afternoon. [facility] Office: 06/13/18 1124 <Electronically signed by Amari Knight MD> Date Amari Knight MD Cosigner Signature: Date (if applicable) CC: Amari Knight MD; Arnav Huertas MD Signed PROTHROMBIN TIME W/INR Collected: 06/13/2018 Status: F Source: [facility] 9:02 AM [facility] REPOSITORY TYPE CODE TESTS RESULT OUT OF RANGE REFERENCE UNITS LAB L300.4150 11.7-14.9 SECONDS Normal PROTIME 13.1 LAB L300.4200 Normal INR 1.0 Performed By: #### L300.3900, L300.4310 #### [facility] [address] [place], [place], [address] PARTIAL THROMBOPLAST Collected: 06/13/2018 Status: F Source: [place] TIME 9:02 AM [facility] REPOSITORY TYPE CODE TESTS RESULT OUT OF RANGE REFERENCE UNITS LAB L300.4310 24.1-36.2 Seconds Normal PTT 33.1 Performed By: #### L300.3900, L300.4310 #### [facility] [address] [place], [address] CBC W/DIFF, AUTOMATED Collected: 06/12/2018 Status: F Source: [place] 7:07 PM [facility] REPOSITORY TYPE CODE TESTS RESULT OUT OF RANGE REFERENCE UNITS LAB L100.1000 4.4-11.0 K/mm3 Normal WBC 10.3 LAB L100.1200 4.6-6.2 M/mm3 Normal RBC 4.99 LAB L100.1300 13.0-16.5 g/dl Normal HGB 15.3 LAB L100.1400 40-54 % Normal HCT 46.4 LAB L100.1500 80-94 fL Normal MCV 93.0 LAB L100.1600 27.0-32.0 pg Normal MCH 30.7 LAB L100.1700 32-36 g/gl Normal MCHC 33.0 LAB L100.1810 11.6-14.6 % Normal RDW CV 13.2 LAB L100.1820 35.1-43.9 fl High RDW SD 44.2 LAB L100.1900 150-450 K/mm3 Normal PLT 178 LAB L100.2000 6.2-12.0 fl Normal MPV 9.3 LAB L100.2100 47-70 % High NEUT% 72.7 LAB L100.2200 19-41 % Normal LY% 19.5 LAB L100.2300 0-10 % Normal MONO% 4.9 LAB L100.2400 0-5 % Normal EO% 2.2 LAB L100.2500 0-1 % Normal BASO% 0.3 LAB L100.2550 0.0-0.9 % Normal IM GRAN % 0.400 Result Comment: IG% - Immature Granulocytes (promyelocytes, myelocytes and metamyelocytes) > 1% indicates that a LEFT SHIFT is Present. LAB L100.2620 2.0-7.7 X10 3/uL Normal Absolute Neut 7.5 LAB L100.2720 0.83-4.51 X10 3/ul Normal Absolute Lymph 2.00 Performed By: #### L100.0100 #### [facility] [address] [place], [place], [address] BASIC METABOLIC Collected: 06/12/2018 Status: F Source: [place] PROFILE (BMP) 7:07 PM [facility] REPOSITORY TYPE CODE TESTS RESULT OUT OF RANGE REFERENCE UNITS LAB L501.0100 74-106 mg/dL High GLU 149 Result Comment: Fasting Glucose result greater than or equal to 126 mg/dL suggests DIABETES MELLITUS per A.D.A. criteria. Please note revised GLUCOSE reference range effective 2017. LAB L501.1000 7-18 mg/dL High BUN 19 LAB L501.1100 0.70-1.30 mg/dL Normal CREAT,SERUM 1.26 Result Comment: The validity of the calculated GFR AND GFRAA in patients over 70 years has not been determined. Clinical correlation is essential. LAB L501.1110 >60 mL/min Normal EST GFR 63 Result Comment: Non- GFR Calc LAB L501.1115 >60 mL/min Normal EST GFR - AA 76 Result Comment: GFR Calc LAB L501.1255 ml/min Normal Estimated CRCL 74.86 LAB L501.1300 10-20 RATIO Normal BUN/CRE 15.1 LAB L501.2200 8.5-10 mg/dL Low .1 CA 8.4 LAB L501.5300 136-14 mmol/L Normal 5 NA 141 LAB L501.5600 3.5-5. mmol/L Normal 1 K 3.6 LAB L501.5900 98-107 mmol/L Normal CL 107 LAB L501.6100 21.0-3 mmol/L Normal 2.0 CO2 27.0 LAB L501.6200 5-15 Normal GAP 7 Performed By: #### L500.2500 #### [facility] [address] [place], [address] EMERGENCY DEPARTMENT Observed: 06/12/2018 Status: F Source: [place] SUMMARY 7:03 PM [facility] REPOSITORY [facility] Medical Records Department [address] [place] [address] Emergency Department Summary 06/12/18 1757 MR#: [id number] Acct: [id number] Name: TAZ GALE Rep #: [id number] : 1960 57 From: Emily Chavez MD PCP: Arnav Huertas MD, Chi Status: REG ER - ER Visit Summary Date of Service: 06/12/18 Chief Complaint: Left knee pain History of Present Illness: The patient is a 57 M presenting with left knee pain. Patient states he was walking and his knee just gave out. He did not fall completely to the floor. He has had pain in the left knee since. He states it has been clicking and making popping noises. He tried no medications at home. He has a history of previous partial knee replacement in June [address] Mcnulty. Physical Examination: Vitals are stable. Patient is afebrile. Alert no acute distress. HEENT exam is unremarkable. Neck is supple. Lungs are clear and equal bilaterally. Heart is regular rate and rhythm. Extremities medial left knee tenderness, painful limited range of motion. No erythema or warmth. No calf tenderness. Normal distal pulses Skin is warm and dry. No focal neurologic deficit. Remainder of exam is unremarkable. Emergency Department Course and Treatment: Patient declined pain medication. X-ray of left knee shows broken hardware. Discussed with Dr. Main who recommends revision with Dr. Knight. Discussed with Dr. Knight and patient will be admitted. Disposition: Admission Impression: Left knee broken hardware This note was generated with Boom[employer] dictation software. It may contain incorrect words, spelling, and punctuation that were not noted in review of the chart prior to signing ED Disposition - Plan for ED Patient: Chief Complaint: Lower Extremity Injury Referrals: Arnav Huertas Chi, MD [Primary Care Provider] - What to do if you have Problems For any increased pain, shortness of breath, bleeding, nausea or vomiting, chest pain, or any unexpected problems, contact your Primary Care Provider. Call [facility] ([phone]) or report to the closest Emergency Room. Call 911 if necessary. 06/12/18 1903 <Electronically signed by Emily Chavez MD> Date Emily Chavez MD Cosigner Signature (If Indicated): Date CC: Arnav Huertas MD KNEE 4 OR MORE Observed: 06/12/2018 Status: F Source: [place] VIEWS 5:45 PM [facility] REPOSITORY [facility] Imaging Services [address] [place] [address] Knee 4 or More Views MR#: [id number] Acct: [id number] Name: TAZ GALE Rep #: [id number] : 1960 M 57 From: Chidi Decker MD PCP: Arnav Huertas MD, Chi Status: REG ER Study: Knee 4 or More Views Date of Exam: 06/12/18 Exam# [id number] Ordering Dr: Emily Chavez MD STUDY: X-RAY - LEFT KNEE REASON FOR EXAM: Male, 57 years old. Pain TECHNIQUE: 4 view(s) of the knee. COMPARISON: None. FINDINGS: Normal visualized distal femur. Normal visualized proximal tibia and fibula. Normal proximal tibiofibular articulation. Prosthetic medial femorotibial compartment. Narrowed lateral femorotibial compartment. Normal patellofemoral articulation with patellar spurring.. The soft tissue structures are unremarkable. RAD/Knee 4 or More Views IMPRESSION: Degenerative changes and medial compartmental prosthesis No evidence for acute fracture Electronically Signed: Chidi Decker MD at 19:08 EST , Service support , CC: Emily Chavez MD; Arnav Huertas MD Manufacturing Production Technician: Signed VENOUS DUPLEX LOWER Observed: 09/02/2017 Status: F Source: [place] EXTREMITY 10:05 PM [facility] REPOSITORY [facility] Cardiovascular Services [address] [place] [address] Venous Duplex US, Unilateral 09/02/17 1534 MR#: [id number] Acct: [id number] Name: TAZ GALE Rep #: [id number] : 1960 56 From: Amador Oconnell MD Attending Dr: Marlon Farfan Status: REG CLI Ordering Dr: Marlon Cottrell Date: 08/31/17 Location: [facility] Sex: M C Admitted: Reason For Study: LEG PAIN AND SWELLING RIGHT LEFT CFV is compressible, spontaneous, phasic, GSV is normal. competent and demonstrates normal CFV is compressible, spontaneous, phasic, augmentation. competent, and demonstrates normal Procedure augmentation. Exam performed in department. FV is compressible, spontaneous, phasic, A preliminary report was called and/or faxed competent and demonstrates normal to Dr. Huertas. augmentation. POP V is compressible, spontaneous, phasic, competent and demonstrates normal augmentation. T/P Trunk is compressible. PTV is compressible. LT PerV is compressible. Interpretation Summary Deep veins of the left lower extremity are patent and compressible segmentally. There is no evidence of left lower extremity deep vein thrombosis. Valvular competence appears intact within the proximal deep venous system on the left . The left greater saphenous vein appears patent and compressible segmentally. Ordering Physician: Marlon Cottrell Referring Physician: Arnav Huertas Chi Performed By: Maribell Foster RVT 09/02/172203 Date Amador Oconnell MD CC: Marlon JEFFERY; Arnav Huertas MD Date Dictated: 09/02/171533 Date Transcribed: 09/02/172203 Manufacturing Production Technician: Signed URGENT CARE VISIT Observed: 08/30/2017 Status: F Source: [place] REPORT 5:49 PM [facility] [address] [place] [address] [address] [place] [address] OFFICE VISIT Date of Service: 08/30/17 MR#: [id number] Acct: [id number] Name: TAZ GALE Rep #: [id number] : 1960 Provider: Marlon JEFFERY Age/Sex: 56/M Location: [facility] Status: Signed Intake Vital Signs08/30/17 Height 6 ft 1 in Intake Visit Reasons: SICK Allergies No Known Allergies Allergy (Verified 08/30/17 17:00) Medications Esomeprazole Mag Trihydrate [Nexium] 20 mg PO QHS 07/10/16 [History Confirmed 08/30/17] Losartan/Hydrochlorothiazide [Losartan-Hctz 50-12.5 mg Tab] 1 ea PO QHS 07/10/16 [History Confirmed 08/30/17] doxycycline hyclate 100 mg capsule 100 mg PO BID 10 Days #20 cap 08/30/17 [Rx Confirmed 08/30/17] PFSH Medical History Knee pain (Acute) HTN (hypertension) (Chronic) Surgical History History of back surgery (Acute) History of knee replacement (Acute) Social History Smoking Status: Never smoker alcohol intake: current alcohol intake frequency: a few times a month HPI HPI Details: TAZ GALE, is a 56 M who presents to the office today for left lower extremity pain. Patient states that 2 weeks ago he was playing softball with his granddaughter and was hit in the left albarran twice in the same spot. He has continued to have pain and redness with warmth to the same area since then. He also reports a history of blood clot approximately 1 year ago. He denies any long travel, smoking history or hormonal therapies. No shortness of breath, difficulty breathing or chest pain. He denies fever, chills, sweats. No nausea, vomiting, diarrhea. No other associated symptoms or alleviating/aggravating factors. ROS Const Constitutional: No chills, fever(s), abnormal sleep pattern or fatigue Resp Respiratory: No shortness of breath, chest congestion, pain on inspiration or cough Cardio Cardiology: No chest pain at rest, chest pain with exertion or shortness of breath Musc Musculoskeletal: Positive for abnormal walking; no joint swelling, limited range of motion, muscle cramps, numbness, stiffness, tingling or muscle weakness Skin Skin: Positive for redness (Redness and warmth to the left albarran); no wounds or lesions Neuro Neurology: Positive for abnormal walking; no behavioral changes, confusion, numbness or tingling Psych Psychiatric: No behavioral changes, No confusion, No abnormal sleep pattern Endo Endocrine: No fatigue Exam Const General: cooperative, healthy appearing [facility] Head: normocephalic, atraumatic Ears: hearing grossly normal bilaterally Face and sinus: face symmetric Eyes General: appearance normal, both eyes and all related structures Pupils: PERRL Resp Effort AND Inspection: normal respiratory effort Auscultation: Bilateral: Clear to Auscultation Cardio Rate: regular rate Rhythm: regular rhythm Heart Sounds: S1 normal, S2 normal Musc Musculoskeletal: No decreased ROM, joint tenderness or muscle weakness Skin General: no rashes or lesions noted Other: Erythema and warmth measuring approximately 5 cm in diameter to the anterior left lower extremity over the tibia. No streaking or fluctuance. Neuro General: alert, CN's II-XI intact bilaterally, moves all extremities Extrem General: full ROM, normal capillary refill, pedal edema on the left Location: of the ankle Severity: pitting and 2+, no calf tenderness Other: Negative Homans and Marcelino sign. Psych Appearance: grossly normal Mental Status: mental status grossly normal Assessment AND Plan Problems 1. Contusion of left calf, initial encounter S80.12XA Status Acute 2. Cellulitis of left anterior lower leg L03.116 Status Acute Plan X-ray left lower extremity read and interpreted myself to find no acute fractures. Awaiting radiology interpretation at time of dictation. Patient will be sent to the hospital for Doppler ultrasound of left lower extremity due to history of blood clots. Patient advised of potential red flags when appropriate report to the ED. Patient verbalized understanding of all the above. This note was generated with Boomrat dictation software. It may contain incorrect words, spelling, and punctuation that were not noted in checking the note before signing. Orders Orders: Medications New: Coding Level of Care Code Off vis,est,level 4 Diagnoses Contusion of left calf, initial encounter S80.12XA Encounter type: initial encounter Cellulitis of left anterior lower leg L03.116 08/30/17 1749 <Electronically signed by Marlon JEFFERY> Date Marlon JEFFERY Cosigner Signature: Date (if applicable) CC: TIBIA AND FIBULA Observed: 08/30/2017 Status: F Source: [place] 2 VIEWS 5:16 PM [facility] REPOSITORY [facility] Imaging Services [address] [place] [address] Tibia AND Fibula 2 Views MR#: [id number] Acct: [id number] Name: TAZ GALE Rep #: [id number] : 1960 M 56 From: Sada Hammonds MD PCP: Aleksandar ESPINOZA,Arnav Chi Status: REG CLI Study: Tibia AND Fibula 2 Views Date of Exam: 08/30/17 Exam# [id number] Ordering Dr: Marlon Cottrell STUDY: X-RAY - LEFT TIBIA AND FIBULA REASON FOR EXAM: Male, 56 years old. Pain and swelling redness anterior albarran area status post injury 2 weeks ago TECHNIQUE: 4 view(s) of the tibia and fibula were obtained. COMPARISON: None. FINDINGS: There is a left knee, medial hemiarthroplasty. Normal visualized fibula. There is a subtle focus of soft tissue swelling anterior to the knee without evidence of underlying fracture. There is no visualized obvious foreign body. There is mild soft tissue swelling overlying the region of the patella tendon. There is mild soft tissue swelling about the medial malleolus. RAD/Tibia AND Fibula 2 Views IMPRESSION: Areas of soft tissue swelling as detailed above without visualized fracture or evidence of underlying bony erosion. Medial compartment hemiarthroplasty. Electronically Signed: Sada Hammonds MD at 21:39 EST Tel , Service support , CC: Marlon JEFFERY; Arnav Huertas MD Manufacturing Production Technician: Signed BASIC METABOLIC Collected: 07/12/2017 Status: F Source: [place] PROFILE (BMP) 3:23 PM [facility] REPOSITORY TYPE CODE TESTS RESULT OUT OF RANGE REFERENCE UNITS LAB L501.0100 70-110 mg/dL Normal GLU 94 LAB L501.1000 7-18 mg/dL Normal BUN 15 LAB L501.1100 0.70-1.30 mg/dL Normal 1.12 CREAT,SERUM Result Comment: The validity of the calculated GFR AND GFRAA in patients over 70 years has not been determined. Clinical correlation is essential. LAB L501.1110 >60 mL/min Normal EST GFR 72 Result Comment: Non- GFR Calc LAB L501.1115 >60 mL/min Normal EST GFR - AA 88 Result Comment: GFR Calc LAB L501.1300 10-20 RATIO Normal BUN/CRE 13.4 LAB L501.2200 8.5-10.1 mg/dL CA Normal 8.9 LAB L501.5300 136-145 mmol/L NA Normal 141 LAB L501.5600 3.5-5.1 mmol/L K Normal 3.6 Result Comment: Slight Hemolysis, Result may be falsely increased. LAB L501.5900 98-107 mmol/L Normal CL 103 LAB L501.6100 21.0-32.0 mmol/L Normal CO2 30.0 LAB L501.6200 5-15 Normal 8 GAP Performed By: #### L500.2500 #### [facility] [address], [address] ALLERGIES ALLERGIES DATE TYPE / CODE NAME / CODE REACTION SEVERITY SOURCE 06/22/2018 Drug No Known Unknown [facility] Allergy/4160 Allergies/F00 Hospital 02008(SNOMED [id number](RXNOR Repository CT) M) ENCOUNTERS ENCOUNTERS ADMIT/DISCHARGE ACCOUNT ADMITTING ENCOUNTER LOCATION SOURCE NUMBER CLASS 07/09/2018 [id number] Ambulatory [place] 8 [facility] ing:PT Repository 06/22/2018/ [id number] Emergency [place] 8 6 [facility] ing:ED Repository 06/13/2018 [id number] Ambulatory BMSBuilding:W [place] 2 [facility] Repository 06/12/2018/ [id number] Sybil, Inpatient Enoch [place] 8 2 Amari Encounter [facility] ing:HU6Ydhf: Repository GE256Xhc: 1 06/12/2018 [id number] Sybil, Ambulatory BMSBuilding:B Enoch 2 Amari RYAN.[facility] Repository 06/12/2018 [id number] Sybil, Ambulatory BMSBuilding:B Enoch 6 Amari RYAN.[facility] Repository 09/02/2017 [id number] Ambulatory [place] 5 [facility] ing:CVS Repository 08/30/2017 [id number] Ambulatory [place] 3 [facility] ing:RAD Repository 08/30/2017/ [id number] Ambulatory BMSBuilding:B [place] 8 2 MS.[facility] Repository 07/12/2017 [id number] Ambulatory [place] 5 [facility] ing:LAB.FUTUR Repository E PAYERS PAYERS ENCOUNTER GUARANTOR PAYER SUBSCRIBER SOURCE 07/09/2018 TAZ Bañuelos Primary TAZ [id number] KEVIN [facility] SHAVERDOB: [facility] gregory BAUM y Number: [id number] Hospital [address]Ybd: (687) [id number] Repository [phone] (HP) Date:7433-50-64VB [address]TCA[address] PATINO [address]WN: 07/09/2018 Secondary NOT GIVENUNK [place] Insurance:SELF PAY [facility] Number: Effective Repository Date:2018-06-17 06/22/2018 TAZ D Primary TAZ D [place] [id number] KEVIN Insurance:ANTHEMPolic SHAVERDOB: [facility] [place] Number: [id number] Hospital [address]Cko: [phone]) [id number] Repository [phone] () Date:5587-66-84QV [address] [address]QC: 06/22/2018 Secondary NOT GIVENUNK E[place]ch Insurance:SELF PAY [facility] Number: Effective Repository Date:2018-06-22 06/13/2018 TAZ D Primary TAZ D [place] [id number] KEVIN Insurance:ANTHEMPolic SHAVERDOB: [facility] [place] Number: [id number] Hospital [address]Ral: (330) [id number] Repository [phone] () Date:4841-32-50HG [address] [address]CK: 06/13/2018 Secondary NOT GIVENUNK [place] Insurance:SELF PAY [facility] Number: Effective Repository Date:2018-06-13 06/12/2018 TAZ D Primary TAZ D [place] [id number] KEVIN Insurance:ANTHEMPolic SHAVERDOB: [facility] [place] Number: [id number] Hospital [address]Oif: (330) [id number] Repository [phone] () Date:0389-95-77VD [address] [address]GR: 06/12/2018 Secondary NOT GIVENUNK [place] Insurance:SELF PAY [facility] Number: Effective Repository Date:2018-06-12 06/12/2018 TAZ D Primary TAZ D [place] [id number] KEVIN Insurance:ANTHEMPolic SHAVERDOB: [facility] [place] y Number: [id number] Hospital [address]Qiu: (330) [id number] Repository [phone] (HP) Date:4024-14-44NM [address], [place] [address]RU: 06/12/2018 Secondary NOT GIVENUNK Enoch Insurance:SELF PAY [facility] Number: Effective Repository Date:2018-06-12 06/12/2018 TAZ D Primary TAZ D [place] [id number] KEVIN Insurance:ANTHEMPolic SHAVERDOB: [facility] gregory BAUM y Number: [id number] Hospital [address]Psd: (330) [id number] Repository [phone] (HP) Date:1804-73-07QX [address]TOGFMP, [place] [address]NZ: 06/12/2018 Secondary NOT GIVENUNK [place] Insurance:SELF PAY [facility] Number: Effective Repository Date:2018-06-12 09/02/2017 TAZ D Primary TAZ D [place] [id number] KEVIN Insurance:ANTHEMPolic SHAVERDOB: [facility] gregory BAUM y Number: [id number] Hospital [address]Wdp: (330) [id number] Repository [phone] () Date:6824-07-16GE [address], [place] [address]VM: 09/02/2017 Secondary NOT GIVENUNK [place] Insurance:SELF PAY [facility] Number: Effective Repository Date:2017-08-31 08/30/2017 TAZ D Primary TAZ D [place] [id number] KEVIN Insurance:ANTHEMPolic SHAVERDOB: [facility] [place] y Number: [id number] Hospital [address]Dul: (330) [id number] Repository [phone] () Date:7334-93-89HS [address]IZMXF, [place] [address]UD: 08/30/2017 Secondary NOT GIVENUNK [place] Insurance:SELF PAY [facility] Number: Effective Repository Date:2017-08-30 08/30/2017 TAZ D Primary TAZ D [place] [id number] KEVIN Insurance:CORIE [facility] [id number] Hospital [address]Lxu: (330) Number: Repository [phone] () [id number] Date:2364-84-80NH [address] [address]VN: 08/30/2017 Secondary NOT GIVENUNK Enoch Insurance:SELF PAY [facility] Number: Effective Repository Date:2017-08-30 07/12/2017 Taz D Primary Taz D [place] [id number] KEVIN Insurance:CORIE JaegerB: [facility] [place] [place] [facility] [id number] Hospital [address]Top: (330) Number: Repository [phone] () [id number] Date:9597-78-63OV [address] [place] [address]EH: 07/12/2017 Secondary NOT GIVENUNK [place] Insurance:SELF PAY [facility] Number: Effective Repository Date:2017-07-11
== END 2018-06-22 15:43 | disposition home or self-care (01) ==
PROVIDERS: Emergency Provider Emergency Medicine; Family Provider Family Medicine Geriatric Medicine; PCP Family Medicine Geriatric Medicine
DX: M25.562 Pain in left knee (principal); I10 Essential (primary) hypertension; G47.33 Obstructive sleep apnea (adult) (pediatric); K21.9 Gastro-esophageal reflux disease without esophagitis; Z79.01 Long term (current) use of anticoagulants; Z79.899 Other long term (current) drug therapy; Z86.711 Personal history of pulmonary embolism; Z96.659 Presence of unspecified artificial knee joint
CPT/HCPCS: 73560; 80048; 85025; 85652; 86140; 99283; A4216

== ENCOUNTER → 2018-07-10 16:01 | Outpatient (CLI) | payer BC, SELFPAY ==
[2018-06-22 12:58] VITALS: BMI 29.7
[2018-07-10 17:20] LABS: Absolute Lymphocyte Count 1.89 X10^3/ul (0.83-4.51); Absolute Neutrophil Count 4.9 X10^3/uL (2.0-7.7); Basophil# 0.01 X10^3/uL; Basophil% 0.1 % (0-1); Eosinophils% 3.9 % (0-5); Hematocrit 47.1 % (40-54); Hemoglobin 15.3 g/dl (13.0-16.5); Lymphocyte # 1.89 X10^3/ul (4.0); Lymphocyte % 24.7 % (19-41); Mean Corp Hgb Conc 32.5 g/gl (32-36); Mean Corpuscular Hgb 30.2 pg (27.0-32.0); Mean Corpuscular Volume 92.9 fL (80-94); Mean Platelet Vol. 9.7 fl (6.2-12.0); Monocyte# 0.55 X10^3/uL; Monocyte% 7.2 % (0-10); Neutrophil # 4.87 X10^3/uL (2.7-7.7); Neutrophil % 63.7 % (47-70); Platelet Count 237 K/mm3 (150-450); RBC Distribution Width CV 13.6 % (11.6-14.6); RBC Distribution Width SD 45.1 fl (35.1-43.9); Red Blood Count 5.07 M/mm3 (4.6-6.2); White Blood Count 7.7 K/mm3 (4.4-11.0)
[2018-07-10 17:30] LABS: POSITIVE COUNT NO; POSITIVE DIFFERENTIAL NO; POSITIVE MORPHOLOGY NO
[2018-07-10 18:00] LABS: ALB/GLOB Ratio 1.3 RATIO (0.9-2.4); AST(SGOT) 14 U/L (15-37); Alanine Aminotransfer ALT/SGPT 28 U/L (16-61); Alkaline Phosphatase 78 U/L (45-117); Anion Gap 8 (5-15); BUN 18 mg/dL (7-18); BUN/Creat Ratio 20.4 RATIO (10-20); Calcium,Total 8.4 mg/dL (8.5-10.1); Chloride 105 mmol/L (98-107); Creatinine, Serum 0.88 mg/dL (0.70-1.30); EST Glomerular Filtration Rate 95 mL/min (>60); Est Glom Filt Rate - Afr Amer 115 mL/min (>60); Globulin 3.1 g/dL (2.2-4.2); Glucose 115 mg/dL (74-106); PSA,Total - Annual Screen 4.46 ng/mL (0.00-4.00); Potassium 3.4 mmol/L (3.5-5.1); Protein, Total 7.1 g/dL (6.4-8.2); Sodium Level 141 mmol/L (136-145); Thyroid Stim Hormone (TSH) 1.44 uIU/mL (0.358-3.74)
== END ==
PROVIDERS: Family Provider Family Medicine Geriatric Medicine; PCP Family Medicine Geriatric Medicine; Visit Provider Family Medicine Geriatric Medicine
DX: I10 Essential (primary) hypertension (principal); Z12.5 Encounter for screening for malignant neoplasm of prostate
CPT/HCPCS: 36415; 80053; 84153; 84443; 85025; G0103

== ENCOUNTER → 2018-07-21 12:55 | Outpatient (CLI) | payer BC, SELFPAY ==
[2018-06-22 12:58] VITALS: BMI 29.7
[2018-07-21 13:55] LABS: Anion Gap 10 (5-15); BUN 14 mg/dL (7-18); BUN/Creat Ratio 14.1 RATIO (10-20); Calcium,Total 9.2 mg/dL (8.5-10.1); Chloride 103 mmol/L (98-107); EST Glomerular Filtration Rate 83 mL/min (>60); Est Glom Filt Rate - Afr Amer 100 mL/min (>60); Glucose 151 mg/dL (74-106); Potassium 3.6 mmol/L (3.5-5.1); Sodium Level 141 mmol/L (136-145)
== END ==
PROVIDERS: Family Provider Family Medicine Geriatric Medicine; PCP Family Medicine Geriatric Medicine; Referring Provider Family Medicine Geriatric Medicine; Visit Provider Family Medicine Geriatric Medicine
DX: E87.6 Hypokalemia (principal)
CPT/HCPCS: 36415; 80048

== ENCOUNTER 2018-07-23 15:30 | Outpatient (RCR) | payer BC, SELFPAY ==
[2018-06-13 08:23] VITALS: BMI 29.2
--- NOTE | 2018-06-19 12:12 | HP.PTEVAL_ITS ---
Patient's Visit Information PAM GALE is a 57 year old M referred to Physical Therapy by Amari Knight MD with a diagnosis of L TKA. Date of Evaluation: 06/19/18 Physical Therapist: Zion Washburn PT, - Visit Plan Frequency: 2-3x /Week Duration: 4-6 Weeks Plan: L knee PROM/mobs, stretching and strengthening, balance and proprio, nustep, and HEP - Subjective Findings: DOS: 06/13/18. Pt reports he had L TKA performed on 07/19/16. Pt reports he was cooking turkeys on when his prostheic popped out of place in his L knee. Pt reports there was immediate pain and swelling, but he waited until after dinner to go to the ER. Pt reports he had a retread performed on the following day where they replaced his disc that came out. Pt reports he is still in a lot of pain today. Pt notes his incision is painful and still seeping some. Pt reports he is trying to stretch his L knee at home, but it really pulls on his phoebe when he tries. No Tingling or numbness in L LE. sleep difficulty secondary to pain. 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 Pt negotiates one step at a time. 4/10 at rest, 8/10 at worst. - Pain L TKA Pain Intensity (Out of 10): 4 Pain Intensity Range: 8 - Objective Neuro: B LE sensation is WNL to light touch. Girth at joint line: L knee 41 cm, R knee 37 cm. ROM: R knee 0-125 degrees; L knee. Observation: Incision covered by bandage today. Appears to be healing well with no obvious signs of infection. MMT: R knee is 5/5 throughout. L knee 3-/5 and painful - Goals Goal 1:: Decrease R knee pain x 50% to aid with sleep Goal Time Frame: 4-6 Weeks Goal 2:: Increase R knee ROM x 50 degrees to aid with restoring a normalized gait pattern Goal Time Frame: 4-6 Weeks Goal 3:: Increase R knee strength x 1 grade to aid with RTW Goal Time Frame: 4-6 Weeks Goal 4:: I with HEP - Rehabilitation Potential Physical Therapy Diagnosis: L knee pain, weakness, and limited ROM secondary to L TKA Rehabilitation Potential: Good - Anticipated Interventions Patient/Client Instruction: Educate patient on: Condition, Plan of Care For the Purpose of:: To improve self management Therapeutic Exercise to Include: Strength training, Balance training, Flexibilty training, Gait and locomotor training, Passive ROM, Active ROM, Dynamic Lumbar Stabilization For the Purpose of:: To decrease pain, To increase ROM, To improve muscle performance and motor function Cryotherapy (ice pack, ice massage): Yes For the Purpose of:: To decrease pain Thank you for the opportunity to evaluate your patient. For Medicare and Medicare HMO plans, please review the plan of care and approve it. It will need to be FAXED BACK to us at [phone] for Medicare purposes. For Medicare only, by signing this I certify the plan of care. Please let me know if there are questions or concerns regarding this plan of care. Physician Signature: Date:
--- NOTE | 2018-07-23 16:03 | HP.PTDCSUM ---
HP - PT D/C Summary It has been my pleasure to treat PAM GALE under orders from Amari Knight MD, for the diagnosis of L TKA for a total of 8 visit(s). Discharge Date: Please see the following information for a summary of their discharge status. - Subjective Subjective: Pt reports he has been sore for the last few days since his last treatment - Pain L TKA Pain Intensity (Out of 10): 4 - Objective Objective/Function: L knee pain 4/10. L knee MMT: 5/5 throughout. L knee ROM: 0-4-120. I with HEP. Rx goals achieved - Goals Goal 1:: Decrease L knee pain x 50% to aid with sleep Goal Progress: Goal Met Goal 2:: Increase L knee ROM x 50 degrees to aid with restoring a normalized gait pattern Goal Progress: Goal Met Goal 3:: Increase L knee strength x 1 grade to aid with RTW Goal Progress: Goal Met Goal 4:: I with HEP Goal Progress: Goal Met - Plan Plan: Discharge - D/C Information If there are questions or concerns regarding this patient's physical therapy, please feel free to call me at [phone]. Thank you for the referral of this patient. Sincerely, Zoin Washburn, PT, ATC
== END 2018-07-23 19:00 | disposition home or self-care (01) ==
LOC: PT 15:30
PROVIDERS: Family Provider Family Medicine Geriatric Medicine; PCP Family Medicine Geriatric Medicine; Referring Provider Specialist; Visit Provider Specialist
DX: Z96.652 Presence of left artificial knee joint (principal)
CPT/HCPCS: 97110; 97162; 97530

== ENCOUNTER → 2019-03-06 11:55 | Outpatient (CLI) | payer BC, SELFPAY ==
--- NOTE | 2019-03-06 12:03 | RAD_ITS ---
HISTORY: left leg pain, edemafoot bruising ADDITIONAL HISTORY: None provided. COMPARISON: None TECHNIQUE: Left foot 3 views Number of images including paperwork: 3 FINDINGS: BONES: No acute fracture. JOINTS: No subluxation. Hammertoe deformities. Moderate to severe degenerative changes of the fifth toe PIP joint. SOFT TISSUES: No distinct foreign body. RAD/Foot min 3 Views IMPRESSION: No acute osseous abnormality. at 0344 Reported and signed by: Magdalena Hendrix MD Electronically Signed: Magdalena Hendrix MD at 3:43 EDT Tel , Service support ,
--- NOTE | 2019-03-06 12:03 | RAD_ITS ---
STUDY: X-RAY - LEFT ANKLE REASON FOR EXAM: Male, 58 years old. Left leg pain. TECHNIQUE: 3 view(s) of the ankle. COMPARISON: Tibia and fibula examination dated August 30, 2017 FINDINGS: Stable visualized distal tibia and fibula. Normal medial and lateral malleoli. Normal tibiotalar articulation and ankle mortise. Normal visualized talus and calcaneus. There are degenerative changes of the midfoot. There is diffuse soft tissue swelling. RAD/Ankle min 3 Views IMPRESSION: Degenerative changes. Diffuse soft tissue swelling. Electronically Signed: Janice Duron MD at 16:59 EDT Tel , Service support ,
--- NOTE | 2019-03-06 12:27 | VDLE_ITS ---
Reason For Study: Edema RIGHT LEFT GSV is normal. GSV is normal. CFV is compressible, spontaneous, phasic, CFV is compressible, spontaneous, phasic, competent and demonstrates normal competent, and demonstrates normal augmentation. augmentation. FV is compressible, spontaneous, phasic, FV is compressible, spontaneous, phasic, competent and demonstrates normal competent and demonstrates normal augmentation. augmentation. POP V is compressible, spontaneous, phasic, POP V is compressible, spontaneous, phasic, competent and demonstrates normal competent and demonstrates normal augmentation. augmentation. T/P Trunk is compressible. T/P Trunk is compressible. PTV is compressible. PTV is compressible. RT PerV is compressible. LT PerV is compressible. Procedure Exam performed in department. A preliminary report was called and/or faxed to Aleksandar. Interpretation Summary Deep veins of the lower extremities are bilaterally patent and compressible segmentally. There is no evidence of deep vein thrombosis on either side. Valvular competence appears intact within the proximal deep venous systems bilaterally. The great saphenous veins appear bilaterally patent and compressible segmentally. Ordering Physician: Arnav Huertas Referring Physician: Arnav Huertas Chi Performed By: Milka Mir RVT
== END ==
PROVIDERS: Family Provider Family Medicine Geriatric Medicine; PCP Family Medicine Geriatric Medicine; Referring Provider Family Medicine Geriatric Medicine; Visit Provider Family Medicine Geriatric Medicine
DX: M25.579 Pain in unspecified ankle and joints of unspecified foot (principal); M79.605 Pain in left leg; R60.0 Localized edema
CPT/HCPCS: 73610; 73630; 93970

== ENCOUNTER → 2019-07-16 16:52 | Outpatient (CLI) | payer BC, SELFPAY ==
[2019-07-16 17:30] LABS: Absolute Lymphocyte Count 2.12 X10^3/uL (0.83-4.51); Absolute Neutrophil Count 6.6 X10^3/uL (2.0-7.7); Basophil# 0.04 X10^3/uL; Basophil% 0.4 % (0-1); Eosinophil# 0.37 X10^3/uL; Eosinophils% 3.7 % (0-5); Hematocrit 49.1 % (40-54); Hemoglobin 16.5 g/dL (13.0-16.5); Lymphocyte # 2.12 X10^3/ul (4.0); Lymphocyte % 21.3 % (19-41); Mean Corp Hgb Conc 33.6 g/dL (32-36); Mean Corpuscular Hgb 30.5 pg (27.0-32.0); Mean Corpuscular Volume 90.8 fL (80-94); Mean Platelet Vol. 9.5 fl (6.2-12.0); Monocyte# 0.79 X10^3/uL; Monocyte% 7.9 % (0-10); NRBC Flagged by Analyzer 0 % (0-5); Neutrophil # 6.58 X10^3/uL (2.7-7.7); Neutrophil % 66.2 % (47-70); Platelet Count 202 K/mm3 (150-450); RBC Distribution Width SD 42.9 fl (35.1-43.9); Red Blood Count 5.41 M/mm3 (4.6-6.2)
[2019-07-16 17:54] LABS: ALB/GLOB Ratio 1.3 RATIO (0.9-2.4); AST(SGOT) 22 U/L (15-37); Alanine Aminotransfer ALT/SGPT 36 U/L (16-61); Albumin, Serum 3.9 g/dL (3.2-5.0); Alkaline Phosphatase 75 U/L (45-117); Anion Gap 6 (5-15); BUN 14 mg/dL (7-18); BUN/Creat Ratio 13.2 RATIO (10-20); Calcium,Total 9.1 mg/dL (8.5-10.1); Chloride 107 mmol/L (98-107); Creatinine, Serum 1.06 mg/dL (0.70-1.30); EST Glomerular Filtration Rate 77 mL/min (>60); Est Glom Filt Rate - Afr Amer 93 mL/min (>60); Globulin 3.1 g/dL (2.2-4.2); Glucose 108 mg/dL (74-106); PSA,Total - Annual Screen 3.43 ng/mL (0.00-4.00); Potassium 3.8 mmol/L (3.5-5.1); Sodium Level 143 mmol/L (136-145); Thyroid Stim Hormone (TSH) 1.18 uIU/mL (0.358-3.74)
[2019-07-16 17:55] LABS: Vitamin D,25 Hydroxy 12.2 ng/mL (29.95-100.01)
== END ==
PROVIDERS: Family Provider Family Medicine Geriatric Medicine; PCP Family Medicine Geriatric Medicine; Visit Provider Family Medicine Geriatric Medicine
DX: I10 Essential (primary) hypertension (principal); E55.9 Vitamin D deficiency, unspecified; Z12.5 Encounter for screening for malignant neoplasm of prostate
CPT/HCPCS: 36415; 80053; 82306; 84153; 84443; 85025; G0103

== ENCOUNTER → 2019-12-07 16:53 | Outpatient (CLI) | payer BC, SELFPAY ==
--- NOTE | 2019-12-07 16:56 | RAD_ITS ---
STUDY: X-RAY - RIGHT ANKLE REASON FOR EXAM: Male, 59 years old. patient states he has joint pain all over his body, has had it for a couple years now and states it is now worse TECHNIQUE: 3 view(s) of the ankle. COMPARISON: None. FINDINGS: Normal visualized distal tibia and fibula. Normal medial and lateral malleoli. Normal tibiotalar articulation and ankle mortise. Normal visualized talus and calcaneus. The visualized subtalar, talonavicular, calcaneocuboid and tarsal articulations are normal. The soft tissue structures are unremarkable. RAD/Ankle min 3 Views IMPRESSION: Normal x-ray examination of the ankle. Electronically Signed: Elton Dinero MD at 18:14 EDT , Service support ,
--- NOTE | 2019-12-07 16:58 | RAD_ITS ---
STUDY: X-RAY - RIGHT FOOT CLINICAL: Male, 59 years old. patient states he has joint pain all over his body, has had it for a couple years now and states it is now worse TECHNIQUE: 3 view(s) of the foot. COMPARISON: None. FINDINGS: Normal talus, calcaneus, and tarsal bones. Normal visualized subtalar, talonavicular, calcaneocuboid, tarsal and tarsometatarsal articulations. Normal metatarsi. Normal metatarsophalangeal joint of the great toe. Normal tibial and fibular sesamoid bones. Normal interphalangeal joint of the great toe. Normal phalanges of the great toe. Normal second through fifth metatarsophalangeal joints. There is Hammer toe deformity of the second through fifth toes. The soft tissue structures are unremarkable. RAD/Foot min 3 Views IMPRESSION: Hammertoe deformities Electronically Signed: Elton Dinero MD at 18:21 EDT , Service support ,
--- NOTE | 2019-12-07 16:58 | RAD_ITS ---
STUDY: X-RAY - PELVIS AND RIGHT HIP REASON FOR EXAM: Male, 59 years old. patient states he has joint pain all over his body, has had it for a couple years now and states it is now worse TECHNIQUE: 3 views of the pelvis and hip. COMPARISON: None. FINDINGS: There is a non-specific bowel gas pattern. Normal visualized soft tissue structures. Soft tissue calcifications medial to the lesser trochanter on the right. Normal bilateral iliac wings, sacroiliac joints and visualized sacrum. Normal bilateral superior and inferior pubic rami. Normal pubic symphysis. Normal bilateral ischial tuberosities. Normal visualized femoral head. Normal acetabulum. Normal hip joint. RAD/HIP, UNI W/ Pelvis 2-3 Views IMPRESSION: Possible calcific peritendinitis or myositis ossificans right hip. Electronically Signed: Elton Dinero MD at 18:16 EDT , Service support ,
--- NOTE | 2019-12-07 16:59 | RAD_ITS ---
STUDY: X-RAY - LEFT HAND REASON FOR EXAM: Male, 59 years old. patient states he has joint pain all over his body, has had it for a couple years now and states it is now worse TECHNIQUE: 3 view(s) of the hand. COMPARISON: None. FINDINGS: Normal radiocarpal articulation. Normal distal radioulnar joint. Normal visualized carpal bones. Normal carpal articulations Normal carpometacarpal articulation of the thumb. Normal second through fifth carpometacarpal joints. Normal metacarpi. Normal metacarpophalangeal joint of the thumb. Normal interphalangeal joint of the thumb. Normal proximal and distal phalanges of the thumb. Normal metacarpophalangeal joints of the second through fifth fingers. Normal proximal and distal interphalangeal joints of the second through fifth fingers. Normal phalanges of the second through fifth fingers. 3 mm linear hyperdensity noted in along the interphalangeal joint of the thumb. IMPRESSION: Subcutaneous metallic foreign body in the thumb otherwise Normal x-ray examination of the hand. Electronically Signed: Elton Dinero MD at 17:52 EDT , Service support , RAD/Hand Min 3 Views
--- NOTE | 2019-12-07 17:15 | RAD_ITS ---
STUDY: X-RAY - RIGHT HAND REASON FOR EXAM: Male, 59 years old. patient states he has joint pain all over his body, has had it for a couple years now and states it is now worse TECHNIQUE: 3 view(s) of the hand. COMPARISON: None. FINDINGS: Normal radiocarpal articulation. Normal distal radioulnar joint. Normal visualized carpal bones. Normal carpal articulations Normal carpometacarpal articulation of the thumb. Normal second through fifth carpometacarpal joints. Normal metacarpi. Normal metacarpophalangeal joint of the thumb. Normal interphalangeal joint of the thumb. Normal proximal and distal phalanges of the thumb. Normal metacarpophalangeal joints of the second through fifth fingers. Normal proximal and distal interphalangeal joints of the second through fifth fingers. Flexion of the fifth distal interphalangeal joint. Normal phalanges of the second through fifth fingers. The soft tissue structures are unremarkable. RAD/Hand Min 3 Views IMPRESSION: Probable mallet deformity fifth DIP joint, age indeterminate. Electronically Signed: Elton Dinero MD at 18:02 EDT , Service support ,
[2019-12-07 17:26] LABS: Absolute Lymphocyte Count 1.82 X10^3/uL (0.83-4.51); Absolute Neutrophil Count 5.2 X10^3/uL (2.0-7.7); Basophil# 0.04 X10^3/uL; Basophil% 0.5 % (0-1); Eosinophil# 0.29 X10^3/uL; Eosinophils% 3.6 % (0-5); Hematocrit 48.3 % (40-54); Hemoglobin 15.9 g/dL (13.0-16.5); Lymphocyte # 1.82 X10^3/ul (4.0); Lymphocyte % 22.7 % (19-41); Mean Corp Hgb Conc 32.9 g/dL (32-36); Mean Corpuscular Hgb 30.5 pg (27.0-32.0); Mean Corpuscular Volume 92.7 fL (80-94); Mean Platelet Vol. 9.4 fl (6.2-12.0); Monocyte# 0.66 X10^3/uL; Monocyte% 8.2 % (0-10); NRBC Flagged by Analyzer 0 % (0-5); Neutrophil # 5.18 X10^3/uL (2.7-7.7); Neutrophil % 64.5 % (47-70); Platelet Count 201 K/mm3 (150-450); RBC Distribution Width CV 13.1 % (11.6-14.6); RBC Distribution Width SD 44.2 fl (35.1-43.9); Red Blood Count 5.21 M/mm3 (4.6-6.2)
[2019-12-07 17:34] LABS: Erythrocyte Sedimentation Rate 3 mm/hr (0-20)
[2019-12-07 19:01] LABS: Anion Gap 8 (5-15); BUN 18 mg/dL (7-18); BUN/Creat Ratio 22.6 RATIO (10-20); CRP < 2.90 mg/L (0.0-3.0); Calcium,Total 8.9 mg/dL (8.5-10.1); Chloride 105 mmol/L (98-107); EST Glomerular Filtration Rate 106 mL/min (>60); Est Glom Filt Rate - Afr Amer 129 mL/min (>60); Glucose 104 mg/dL (74-106); Potassium 3.4 mmol/L (3.5-5.1); Rheumatoid Factor < 10.0 IU/mL (<15); Sodium Level 139 mmol/L (136-145)
[2019-12-10 09:06] LABS: ANTINUCLEAR ANTIBODIES DIRECT Negative (Negative)
== END ==
PROVIDERS: PCP Family Medicine Geriatric Medicine; Referring Provider Family Medicine Geriatric Medicine; Visit Provider Family Medicine Geriatric Medicine
DX: R10.30 Lower abdominal pain, unspecified (principal); M25.571 Pain in right ankle and joints of right foot; M79.642 Pain in left hand; M79.641 Pain in right hand; R25.9 Unspecified abnormal involuntary movements; M25.551 Pain in right hip
CPT/HCPCS: 36415; 73130; 73502; 73610; 73630; 80048; 85025; 85652; 86038; 86140; 86431

== ENCOUNTER → 2019-12-22 14:43 | Outpatient (CLI) | payer BC, SELFPAY ==
[2019-12-22 15:42] LABS: Anion Gap 8 (5-15); BUN 18 mg/dL (7-18); BUN/Creat Ratio 20.3 RATIO (10-20); Calcium,Total 8.5 mg/dL (8.5-10.1); Chloride 107 mmol/L (98-107); Creatinine, Serum 0.89 mg/dL (0.70-1.30); EST Glomerular Filtration Rate 94 mL/min (>60); Est Glom Filt Rate - Afr Amer 114 mL/min (>60); Glucose 141 mg/dL (74-106); Potassium 3.7 mmol/L (3.5-5.1); Sodium Level 143 mmol/L (136-145)
== END ==
PROVIDERS: PCP Family Medicine Geriatric Medicine; Visit Provider Family Medicine Geriatric Medicine
DX: E87.6 Hypokalemia (principal)
CPT/HCPCS: 36415; 80048

== ENCOUNTER → 2020-05-05 17:30 | Outpatient (CLI) | payer BC, SELFPAY | PROVIDERS: PCP Family Medicine Geriatric Medicine; Referring Provider Family Medicine Geriatric Medicine; Visit Provider Family Medicine Geriatric Medicine | DX: R68.83 Chills (without fever) (principal) | CPT/HCPCS: 87635; C9803; U0003 ==

== ENCOUNTER → 2020-05-31 14:18 | Outpatient (CLI) | payer BC, SELFPAY ==
--- NOTE | 2020-05-31 14:35 | RAD_ITS ---
STUDY: X-RAY - RIGHT ELBOW REASON FOR EXAM: Male, 59 years old. PAIN X COUPLE WEEKS TECHNIQUE: 3 view(s) of the elbow. COMPARISON: None. FINDINGS: Normal visualized humerus, radius and ulna. Normal radiocapitellar and ulnotrochlear articulations. The soft tissue structures are unremarkable. RAD/Elbow min 3 Views IMPRESSION: Normal x-ray examination of the elbow. Electronically Signed: Victoriano Hoover, at 15:56 EST , Service support ,
== END ==
PROVIDERS: PCP Family Medicine Geriatric Medicine; Referring Provider Family Medicine Geriatric Medicine; Visit Provider Family Medicine Geriatric Medicine
DX: M25.521 Pain in right elbow (principal)
CPT/HCPCS: 73080

== ENCOUNTER → 2020-07-20 11:29 | Outpatient (CLI) | payer BC, SELFPAY ==
[2020-07-20 17:23] LABS: Absolute Lymphocyte Count 1.98 X10^3/uL (0.83-4.51); Absolute Neutrophil Count 5.7 X10^3/uL (2.0-7.7); Basophil# 0.06 X10^3/uL; Basophil% 0.7 % (0-1); Eosinophil# 0.47 X10^3/uL; Eosinophils% 5.2 % (0-5); Hematocrit 50.4 % (40-54); Hemoglobin 16.1 g/dL (13.0-16.5); Lymphocyte # 1.98 X10^3/ul (4.0); Lymphocyte % 21.9 % (19-41); Mean Corp Hgb Conc 31.9 g/dL (32-36); Mean Corpuscular Hgb 29.5 pg (27.0-32.0); Mean Corpuscular Volume 92.5 fL (80-94); Mean Platelet Vol. 9.5 fl (6.2-12.0); Monocyte# 0.74 X10^3/uL; Monocyte% 8.2 % (0-10); NRBC Flagged by Analyzer 0 % (0-5); Neutrophil # 5.74 X10^3/uL (2.7-7.7); Neutrophil % 63.4 % (47-70); Platelet Count 196 K/mm3 (150-450); RBC Distribution Width CV 13.2 % (11.6-14.6); RBC Distribution Width SD 44.8 fl (35.1-43.9); Red Blood Count 5.45 M/mm3 (4.6-6.2)
[2020-07-20 17:35] LABS: ALB/GLOB Ratio 1.3 RATIO (0.9-2.4); AST(SGOT) 13 U/L (15-37); Alanine Aminotransfer ALT/SGPT 33 U/L (16-61); Albumin, Serum 4.1 g/dL (3.2-5.0); Alkaline Phosphatase 67 U/L (45-117); Anion Gap 3 (5-15); BUN 21 mg/dL (7-18); BUN/Creat Ratio 21.9 RATIO (10-20); Calcium,Total 8.8 mg/dL (8.5-10.1); Chloride 110 mmol/L (98-107); Creatinine, Serum 0.96 mg/dL (0.70-1.30); EST Glomerular Filtration Rate 86 mL/min (>60); Est Glom Filt Rate - Afr Amer 104 mL/min (>60); Globulin 3.2 g/dL (2.2-4.2); Glucose 99 mg/dL (74-106); PSA,Total - Annual Screen 4.25 ng/mL (0.00-4.00); Potassium 3.8 mmol/L (3.5-5.1); Protein, Total 7.3 g/dL (6.4-8.2); Sodium Level 142 mmol/L (136-145); Thyroid Stim Hormone (TSH) 1.39 uIU/mL (0.358-3.74)
== END ==
PROVIDERS: PCP Family Medicine Geriatric Medicine; Visit Provider Family Medicine Geriatric Medicine
DX: I10 Essential (primary) hypertension (principal); Z12.5 Encounter for screening for malignant neoplasm of prostate
CPT/HCPCS: 36415; 80053; 84153; 84443; 85025; G0103

== ENCOUNTER → 2020-07-27 | Outpatient (CLI) | payer BC, SELFPAY | END | disposition home or self-care (01) | LOC: LABSPEC 17:19 | PROVIDERS: PCP Family Medicine Geriatric Medicine; Referring Provider Family Medicine Geriatric Medicine; Visit Provider Family Medicine Geriatric Medicine | DX: Z20.822 Contact with and (suspected) exposure to COVID-19 (principal) | CPT/HCPCS: 87633; 87635; C9803; U0005; U0003 ==

== ENCOUNTER → 2021-04-19 15:13 | Outpatient (CLI) | payer BC, SELFPAY ==
[2021-04-19 16:53] LABS: CRP 3.38 mg/L (0.0-3.0); Rheumatoid Factor < 10.0 IU/mL (<15); Uric Acid 8.6 mg/dL (3.5-7.2)
[2021-04-19 17:01] LABS: Absolute Lymphocyte Count 2.07 X10^3/uL (0.83-4.51); Absolute Neutrophil Count 5.4 X10^3/uL (2.0-7.7); Basophil# 0.05 X10^3/uL; Basophil% 0.6 % (0-1); Eosinophil# 0.39 X10^3/uL; Eosinophils% 4.5 % (0-5); Hematocrit 49.1 % (40-54); Hemoglobin 16.2 g/dL (13.0-16.5); Lymphocyte # 2.07 X10^3/ul (0.83-4.51); Lymphocyte % 23.9 % (19-41); Mean Corpuscular Hgb 30.7 pg (27.0-32.0); Mean Platelet Vol. 9.7 fl (6.2-12.0); Monocyte# 0.72 X10^3/uL; Monocyte% 8.3 % (0-10); NRBC Flagged by Analyzer 0 % (0-5); Neutrophil # 5.38 X10^3/uL (2.7-7.7); Neutrophil % 62.1 % (47-70); Platelet Count 210 K/mm3 (150-450); RBC Distribution Width SD 44.5 fl (35.1-43.9); Red Blood Count 5.28 M/mm3 (4.6-6.2); White Blood Count 8.7 K/mm3 (4.4-11.0)
[2021-04-19 17:20] LABS: Erythrocyte Sedimentation Rate 3 mm/hr (0-20)
[2021-04-21 15:34] LABS: ANTINUCLEAR ANTIBODIES DIRECT Negative (Negative)
== END ==
PROVIDERS: PCP Family Medicine Geriatric Medicine; Visit Provider Student in an Organized Health Care Education/Training Program
DX: M67.442 Ganglion, left hand (principal)
CPT/HCPCS: 36415; 84550; 85025; 85652; 86038; 86140; 86431

== ENCOUNTER → 2021-07-05 17:46 | Outpatient (CLI) | payer BC, SELFPAY ==
--- NOTE | 2021-07-05 17:54 | CT_ITS ---
STUDY: CT RIGHT LOWER EXTREMITY WITHOUT CONTRAST REASON FOR EXAM: Varus deformity of the right knee, right knee osteoarthritis, surgical planning. TECHNIQUE: Transaxial CT imaging of the lower extremity was performed. Coronal and sagittal images were reformatted. Individualized dose optimization techniques were used for this CT. COMPARISON: None. FINDINGS: Knee: There are small marginal osteophytes, a subchondral cyst of the medial tibial plateau (coronal reconstruction 29) and severe joint space narrowing of the medial femorotibial compartment (coronal reconstruction 32).. Normal lateral femoral condyle and lateral tibial plateau. There is preservation of the articular joint space of the lateral knee compartment. There are small marginal osteophytes of the patellofemoral articulation, subchondral cystic change of the medial patellar facet (axial image 264) and mild/moderate joint space narrowing of the lateral aspect of the patellofemoral articulation (axial image 262). Normal proximal tibiofibular articulation. There is a very small joint effusion. The quadriceps tendon is grossly normal. The patellar tendon is grossly normal. Normal Hoffa''s fat pad. There is a popliteal cyst measuring approximately 5.6 cm in length (sagittal reconstruction 47). There is soft tissue swelling at the anterior aspect of the knee. Hip: There is moderate joint space narrowing of the superior medial right hip (coronal reconstruction 59). Ankle: Normal tibiotalar, posterior subtalar and talonavicular articulations. There is a small posterior calcaneal enthesophyte. CT/Extremity Lower without Contra IMPRESSION: Right knee osteoarthritis. Electronically Signed: Arnaud Pedraza MD at 14:59 EST Tel , Service support ,
== END ==
PROVIDERS: PCP Family Medicine Geriatric Medicine; Visit Provider Specialist
DX: M21.161 Varus deformity, not elsewhere classified, right knee (principal)
CPT/HCPCS: 73700

== ENCOUNTER → 2021-07-07 13:47 | Outpatient (CLI) | payer BC, SELFPAY ==
--- NOTE | 2021-07-07 13:54 | ECHOD_ITS ---
Reason For Study: ABNORMAL EKG Procedure This was a 2D Doppler, Color Flow transthoracic echocardiogram. The study was technically difficult. Exam performed in department. Left Ventricle Based upon the 2D echocardiographic images obtained appears to be grossly normal left ventricular size, wall motion, and systolic function. The estimated ejection fraction is 65 %. Diastolic function is indeterminate. Right Ventricle Normal RV size. Normal systolic function. Atria Normal left atrium. Normal right atrium. No doppler evidence for ASD. Mitral Valve There is no mitral annular calcification. Mild mitral valve prolapse. Trivial mitral valve insufficiency. Tricuspid Valve Normal tricuspid valve. Trivial tricuspid valve insufficiency. Unable to estimate RV systolic pressure/pulmonary artery pressure due to technically difficult study. Aortic Valve Trisinus/trileaflet aortic valve. Normal aortic valve. Pulmonic Valve The pulmonic valve is not well visualized. Great Vessels Normal sized aortic root. Pericardium/Pleural No pericardial effusion. MMode/2D Measurements & Calculations LVIDd: 4.9 cm IVSd: 1.1 cm Ao root diam: 3.4 cm LVIDs: 3.0 cm LVPWd: 1.2 cm FS: 38.2 % LAV(MOD-bp): 53.3 ml LA A4 area: 18.6 cm2 LA dimension(2D): 4.4 cm LAV(MOD-bp) Indexed: 23.2 ml/m2 LAV(MOD-sp2): 52.1 ml LAV(MOD-sp4): 52.0 ml RA A4 area: 13.6 cm2 Time Measurements MV dec time: 0.17 sec Doppler Measurements & Calculations MV E max royal: 63.5 cm/sec Lat Peak E' Royal: 5.6 cm/sec Med Peak E' Royal: 5.0 cm/sec MV A max royal: 70.7 cm/sec E/E' lat: 11.3 E/E' med: 12.6 MV E/A: 0.90 Ao V2 max: 100.2 cm/sec LV V1 max: 81.3 cm/sec PA V2 max: 98.3 cm/sec Ao max P.0 mmHg LV V1 max P.6 mmHg ECHO/Echo Complete Interpretation Summary The study was technically difficult. Based upon the 2D echocardiographic images obtained appears to be grossly ryan l left ventricular size, wall motion, and systolic function. The estimated ejection fraction is 65 %. Mild mitral valve prolapse. Trivial mitral valve insufficiency. Trivial tricuspid valve insufficiency. Unable to estimate RV systolic pressure/pulmonary artery pressure due to techni max difficult study. Diastolic function is indeterminate. Ordering Physician: Marcello Francois Referring Physician: Arnav Huertas Chi Performed By: Juany Loo, HAL, RVT
== END ==
PROVIDERS: PCP Family Medicine Geriatric Medicine; Referring Provider Internal Medicine Cardiovascular Disease; Visit Provider Internal Medicine Cardiovascular Disease
DX: Z01.810 Encounter for preprocedural cardiovascular examination (principal); I10 Essential (primary) hypertension; I34.1 Nonrheumatic mitral (valve) prolapse; R94.31 Abnormal electrocardiogram [ECG] [EKG]
CPT/HCPCS: 93306

== ENCOUNTER 2021-07-12 05:22 | Day surgery (SDC) | payer BC, SELFPAY ==
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
[2021-06-28 15:31] LABS: Absolute Lymphocyte Count 2.31 X10^3/uL (0.83-4.51); Absolute Neutrophil Count 5.6 X10^3/uL (2.0-7.7); Basophil# 0.05 X10^3/uL; Basophil% 0.5 % (0-1); Eosinophil# 0.38 X10^3/uL; Eosinophils% 4.2 % (0-5); Hematocrit 50.2 % (40-54); Hemoglobin 16.9 g/dL (13.0-16.5); Lymphocyte # 2.31 X10^3/ul (0.83-4.51); Lymphocyte % 25.3 % (19-41); Mean Corp Hgb Conc 33.7 g/dL (32-36); Mean Corpuscular Hgb 30.5 pg (27.0-32.0); Mean Corpuscular Volume 90.6 fL (80-94); Mean Platelet Vol. 9.2 fl (6.2-12.0); Monocyte# 0.71 X10^3/uL; Monocyte% 7.8 % (0-10); NRBC Flagged by Analyzer 0 % (0-5); Neutrophil # 5.63 X10^3/uL (2.7-7.7); Neutrophil % 61.5 % (47-70); Platelet Count 205 K/mm3 (150-450); RBC Distribution Width CV 13.2 % (11.6-14.6); RBC Distribution Width SD 43.8 fl (35.1-43.9); Red Blood Count 5.54 M/mm3 (4.6-6.2); White Blood Count 9.1 K/mm3 (4.4-11.0)
[2021-06-28 16:01] LABS: Albumin, Serum 3.8 g/dL (3.2-5.0); Anion Gap 6 (5-15); BUN 18 mg/dL (7-18); BUN/Creat Ratio 16.8 RATIO (10-20); Calcium,Total 8.8 mg/dL (8.5-10.1); Chloride 105 mmol/L (98-107); Creatinine, Serum 1.07 mg/dL (0.70-1.30); EST Glomerular Filtration Rate 75 mL/min (>60); Est Glom Filt Rate - Afr Amer 91 mL/min (>60); Glucose 144 mg/dL (74-106); Potassium 4.1 mmol/L (3.5-5.1); Sodium Level 141 mmol/L (136-145)
[2021-06-28 16:32] LABS: Magnesium 2.1 mg/dL (1.6-2.6)
[2021-07-12] VITALS (26 sets, daily range): BP systolic 88–148; BP diastolic 63–100; PULSE 78–98; RESP 16–18; TEMP 36.1–36.9; O2SAT 92–98; BMI 29.8
[2021-07-12] MEDS: Celecoxib 200 MG Capsule 400 MG PO (06:20)
[2021-07-12] MEDS: Gabapentin 600 MG Tablet PO (06:21)
[2021-07-12] MEDS: Acetaminophen 500 MG Tablet 1000 MG PO ×2 (06:21→14:00)
[2021-07-12] MEDS: Lactated Ringers 1,000 ML 999 ML IV ×2 (06:21→09:15)
--- NOTE | 2021-07-12 06:59 | OP.PCM_ITS ---
Report of Operation Date of Procedure: 07/12/21 Pre-Operative Diagnosis: Right knee primary osteoarthritis Post-Operative Diagnosis: Right knee primary osteoarthritis Surgery/Procedure Performed:: Right minimally invasive robotic total knee replacement Description of Surgical Findings:: Stable knee with good patella tracking Surgeon: Amari Knight hygiene assistant: Romel Davila Type of Anesthesia: General Anesthesiologist: Konrad Laguerre Special Medications: 2 g Ancef, 1 g TXA at incision, 1 g TXA closure, 10 mg Decadron, joint cocktail (5 mg Duramorph, 30 mL of 0.5% Ropivicaine, 1000 units of epinephrine, 30 mg of Toradol) Specimen's removed: Bony cuts Estimated Blood Loss (mL): 100 Fluids Replaced: 1300 ML Description of Procedure: Implants used: 1. Bolton size 4 triathlon cruciate retaining distal femoral press-fit component 2. Bolton size 5 press-fit tritanium tibial baseplate 3. Roseanna X3 10 mm CS polyethylene 4. Roseanna X3 38 mm asymmetric patella Brief history operative indications: 60-year-old M with history of right knee osteoarthritis with radiographic findings with loss of joint space, osteophyte formation and subchondral sclerosis. Failed conservative measures as mentioned in the H&P. Discussion of total knee arthroplasty as well as risk and benefits were discussed the patient including but not limited to blood loss, DVTs, PEs, neurovascular damage, gene ral risk of anesthesia including loss of life, and stiffness or instability were discussed with patient. Patient demonstrated understanding and was able to sign informed consent. Procedure: On the date of procedure patient's right lower extremity was marked in the preoperative area. The patient was then taken back to the operating room where the patient was placed on the table in the supine position. All bony prominences were identified a well-padded. Anesthesia assumed control of the C-spine and airway and remained controlled throughout the remainder of the procedure. A tourniquet was placed on the right upper thigh and the leg was prepped in a sterile fashion. The surgeon then scrubbed at this time .Upon reentering the room right lower extremity was draped in a standard orthopedic fashion. A timeout was then called and everyone agreed upon the side, the site, the procedure to be performed, patient's identity and antibiotics given. Esmarch bandage was used to exsanguinate the extremity and the tourniquet was placed up to 250 mmHg with the knee in flexion. A midline skin incision was made and sharp dissection was taken down through skin subcutaneous tissue and fat. The standard medial parapatellar incision was made and the patella was subluxed laterally. An Appropriate deep MCL release was done and the fat pad was resected. Our attention was then directed to the patella. The patella was everted and a flat resection was made. The knee was then flexed up in 2 femoral pins were placed inside the incision and 2 tibial pins were placed outside the incision in the medial tibia bicortically. Once this was completed the 2 checkpoints in the femur and tibia were placed. Knee was then flexed up and the bony landmarks were registered. Once this was completed knee was taken through range of motion and manually stressed allowing us to a plan for an appropriate tibial cut. The robotic arm was brought into the field sterilely and checkpoint and saw were registered. Based on the patient's deformity the tibial cut was made in 2 degrees varus. At this time the tensioner was then placed in the joint and ligament tension was checked at 90 degrees and full extension. Based on the patient's ligamentous tension appropriate adjustments were made to the operative plan and ligament releases were done. Once we were happy with our operative plan with balanced flexion and extension gaps our attention was directed to the femur. The robot was brought into the field sterilely and registered. Posterior condylar cuts, anterior chamfer cuts and anterior cuts were appropriately made for a size 4 femur. When these were completed the saws were switched out in the distal femoral and posterior chamfer cuts were made. Protecting the soft tissue throughout this time. A size 5 tibial base plate was selected. the knee was flexed to 90 degrees and the soft tissues and posterior osteophytes were removed from the joint. 40 cc of the periarticular injection was injected into the posterior medial corner of the joint. The appropriate trials were then placed on the femur and tibia. A trial polyethylene was trialed to ensure proper balancing and stability of the knee. The appropriate tibial internal rotation was then marked with a bovie. Our attention was then directed to the patella. The lug holes were drilled and the patella trial was placed. Patellar tracking was checked and deemed appropriate. Once we were happy lug holes were drilled for the femur and trial components were removed. the tibia was subluxed and pinned into place and the keel was punched and drilled appropriately. Final components were verified and opened, and cement was mixed in a vacuum. [employer] Simplex cement was used. The wound was copiously irrigated with normal saline. When the cement was ready the components were impacted into place starting with the tibia, femur and finally cementing the patella. The trial poly component was placed and the knee was placed in full extension. All excess cement was removed in the process. Once the cement had cured the tracking, alignment and balance were verified and a size 10 mm CS polyethylene component was placed. Once the final components were placed a 3-minute dilute Betadine lavage was performed followed by an Irrisept lavage was performed and the wound was copiously irrigated with normal saline solution and the periarticular injection was given. The wound was closed in a layer plascencia fashion using #1 vicryl interrupted sutures for the arthrotomy, 2-0 interrupted Vicryl suture for the subcuticular layer and phoebe for final skin closure. A sterile compressive dressing was then placed. The patient was then awakened from anesthesia, transferred to the [place] and transferred to the PACU for recovery. Post op plan DVT ppx: Xarelto 10 mg daily due to previous DVT, thigh high compression stockings Follow up: in office in 2 weeks for wound check PT: to start POD #0 at hospital, outpatient PT should be arranged. My physician financial services assistant was a vital part of this case. He was important in appropriate retraction during the case, and protection of soft tissues during bony cuts. His intimate knowledge of the case and my steps aided in safe and expedient completion of the procedure as well as appropriate position of the leg during the case. He was also vital in assisting with closure under my direct supervision. Due to the complexity of this case robotic arm was used to assist in the surgery to improve accuracy and clinical outcomes. Complications No intraoperative complications Admit VTE Documentation VTE Present on Admission: No VTE Mechan Device Prophylaxis: SCD's and Thigh High MICHELLE Hose VTE Pharm Prophylaxis ordered?: Yes
[2021-07-12 07:00] LABS: Bedside Glucose 96 mg/dL (70-110)
[2021-07-12] MEDS: dexAMETHasone 10 MG/ML Vial IV (07:45)
--- NOTE | 2021-07-12 09:33 | RAD_ITS ---
STUDY: X-RAY - RIGHT KNEE REASON FOR EXAM: Postoperative evaluation of right total knee arthroplasty. TECHNIQUE: 2 view(s) of the knee. COMPARISON: CT images 07/05/2021. FINDINGS: There is a right total knee arthroplasty without evidence of complication. There is postoperative gas in the soft tissues and overlying skin phoebe. RAD/Knee 1 or 2 Views IMPRESSION: Uncomplicated right total knee arthroplasty. Electronically Signed: Arnaud Pedraza MD at 14:26 EST Tel , Service support ,
[2021-07-12 12:05] LABS: Bedside Glucose 191 mg/dL (70-110)
--- NOTE | 2021-07-12 13:51 | SUR.PHASEII ---
1330 oxygen 2lpm via n/c applied d/t spo2 fluctuates from mid 80s to mid 90s. pt head lowered d/t feeling weak and shaky.
[2021-07-12] MEDS: Cefazolin 1 GM/50 ML BAG IV (14:04)
[2021-07-12] MEDS: Ketorolac 30 MG/ML Syringe IV (15:03)
== END 2021-07-12 17:17 | disposition home or self-care (01) ==
LOC: SDC 05:23 → AC 05:24
PROVIDERS: Anesthesiology; PCP Family Medicine Geriatric Medicine; Referring Provider Specialist; Visit Provider Specialist
PROC: 0SRC0JZ Replacement of Right Knee Joint with Synthetic Substitute, Open Approach (ICD-10-PCS; CPT 27447; principal; 2021-07-12 07:00)
DX: M17.11 Unilateral primary osteoarthritis, right knee (principal); M21.161 Varus deformity, not elsewhere classified, right knee; I10 Essential (primary) hypertension; E78.5 Hyperlipidemia, unspecified; K21.9 Gastro-esophageal reflux disease without esophagitis; G47.33 Obstructive sleep apnea (adult) (pediatric); Z79.01 Long term (current) use of anticoagulants; Z79.1 Long term (current) use of non-steroidal anti-inflammatories (NSAID); Z79.899 Other long term (current) drug therapy; Z86.718 Personal history of other venous thrombosis and embolism; Z86.711 Personal history of pulmonary embolism; Z96.652 Presence of left artificial knee joint
CPT/HCPCS: 01402; 27447; 64447; S2900; 36415; 73560; 80048; 82040; 82962; 83735; 85025; 87081; 97162; C1776; J7120; J2310; J2405

== ENCOUNTER 2021-07-28 12:56 | Outpatient (CLI) | payer BC, SELFPAY ==
--- NOTE | 2021-07-28 13:03 | VDLE_ITS ---
Reason For Study: PAIN RIGHT GSV is normal. CFV is compressible, spontaneous, phasic, competent and demonstrates normal augmentation. FV is compressible, spontaneous, phasic, competent and demonstrates normal augmentation. POP V is compressible, spontaneous, phasic, competent and demonstrates normal augmentation. T/P Trunk is compressible. PTV is compressible. RT PerV is compressible. Hypoechoic, nonvascularized structure measuring 2.46 x 1.58 cm noted in the rt Popliteal space . Procedure Exam performed in department. A preliminary report was called and/or faxed to [employer]. VL/Venous Duplex US, Unilateral Interpretation Summary There is no evidence of right lower extremity deep vein thrombosis. Right great saphenous vein appears patent and compressible segmentally. Right popliteal space nonvascular 2.46 x 1.58 cm structure consistent with a Benson's cyst. Clinical correlation would be appropr iate. Ordering Physician: Amari Knight Referring Physician: GREG DIAZ Performed By: Kathrine Scott, HAL, RVT
== END 2021-07-28 23:59 | disposition short-term general hospital (02) ==
LOC: CVS 12:57
PROVIDERS: PCP Family Medicine Geriatric Medicine; Referring Provider Specialist; Visit Provider Specialist
DX: M79.661 Pain in right lower leg (principal)
CPT/HCPCS: 93971

== ENCOUNTER 2021-08-16 09:59 | Outpatient (CLI) | payer BC, SELFPAY ==
[2021-08-16 12:09] LABS: Absolute Lymphocyte Count 1.78 X10^3/uL (0.83-4.51); Absolute Neutrophil Count 5.8 X10^3/uL (2.0-7.7); Basophil# 0.05 X10^3/uL; Basophil% 0.6 % (0-1); Eosinophil# 0.47 X10^3/uL; Eosinophils% 5.3 % (0-5); Hematocrit 44.8 % (40-54); Hemoglobin 14.1 g/dL (13.0-16.5); Lymphocyte # 1.78 X10^3/ul (0.83-4.51); Lymphocyte % 20.2 % (19-41); Mean Corp Hgb Conc 31.5 g/dL (32-36); Mean Corpuscular Hgb 29.3 pg (27.0-32.0); Mean Corpuscular Volume 93.1 fL (80-94); Mean Platelet Vol. 9.1 fl (6.2-12.0); Monocyte# 0.67 X10^3/uL; Monocyte% 7.6 % (0-10); NRBC Flagged by Analyzer 0 % (0-5); Neutrophil % 65.7 % (47-70); Platelet Count 237 K/mm3 (150-450); RBC Distribution Width CV 13.4 % (11.6-14.6); RBC Distribution Width SD 45.6 fl (35.1-43.9); Red Blood Count 4.81 M/mm3 (4.6-6.2); White Blood Count 8.8 K/mm3 (4.4-11.0)
[2021-08-16 12:41] LABS: ALB/GLOB Ratio 0.9 RATIO (0.9-2.4); AST(SGOT) 15 U/L (15-37); Alanine Aminotransfer ALT/SGPT 27 U/L (16-61); Albumin, Serum 3.6 g/dL (3.2-5.0); Alkaline Phosphatase 84 U/L (45-117); Anion Gap 7 (5-15); BUN 16 mg/dL (7-18); BUN/Creat Ratio 15.2 RATIO (10-20); Calcium,Total 8.8 mg/dL (8.5-10.1); Chloride 102 mmol/L (98-107); Creatinine, Serum 1.05 mg/dL (0.70-1.30); EST Glomerular Filtration Rate 77 mL/min (>60); Est Glom Filt Rate - Afr Amer 93 mL/min (>60); Globulin 3.8 g/dL (2.2-4.2); Glucose 136 mg/dL (74-106); PSA,Total - Annual Screen 3.95 ng/mL (0.00-4.00); Potassium 3.3 mmol/L (3.5-5.1); Protein, Total 7.4 g/dL (6.4-8.2); Sodium Level 139 mmol/L (136-145); Thyroid Stim Hormone (TSH) 1.67 uIU/mL (0.358-3.74)
== END 2021-08-16 23:59 | disposition short-term general hospital (02) ==
LOC: POLAB3 10:00
PROVIDERS: PCP Family Medicine Geriatric Medicine; Visit Provider Family Medicine Geriatric Medicine
DX: I10 Essential (primary) hypertension (principal); Z12.5 Encounter for screening for malignant neoplasm of prostate
CPT/HCPCS: 36415; 80053; 84153; 84443; 85025; G0103

== ENCOUNTER 2021-08-25 14:03 | Outpatient (CLI) | payer BC, SELFPAY ==
[2021-08-25 14:46] LABS: Anion Gap 4 (5-15); BUN 14 mg/dL (7-18); BUN/Creat Ratio 17.1 RATIO (10-20); Calcium,Total 8.9 mg/dL (8.5-10.1); Chloride 103 mmol/L (98-107); Creatinine, Serum 0.82 mg/dL (0.70-1.30); EST Glomerular Filtration Rate 102 mL/min (>60); Est Glom Filt Rate - Afr Amer 124 mL/min (>60); Glucose 102 mg/dL (74-106); Potassium 4.1 mmol/L (3.5-5.1); Sodium Level 140 mmol/L (136-145)
== END 2021-08-25 23:59 | disposition short-term general hospital (02) ==
LOC: LAB 14:03 → LAB.FUTURE 14:04 → LAB 14:04
PROVIDERS: PCP Family Medicine Geriatric Medicine; Visit Provider Family Medicine Geriatric Medicine
DX: E87.6 Hypokalemia (principal)
CPT/HCPCS: 36415; 80048

== ENCOUNTER 2021-09-06 10:42 | Day surgery (SDC) | payer BC, SELFPAY ==
[2021-09-06] VITALS (7 sets, daily range): BP systolic 127–134; BP diastolic 84–100; PULSE 95–107; RESP 16–18; TEMP 36.3–36.9; O2SAT 94–99; BMI 28.2
[2021-09-06] MEDS: Lactated Ringers 1,000 ML 15 ML IV (11:10)
--- NOTE | 2021-09-06 14:32 | PCM.OPRPT ---
Report of Operation Date of Procedure: 09/06/21 Pre-Operative Diagnosis: right knee arthrofibrosis Post-Operative Diagnosis: Right knee arthrofibrosis Surgery/Procedure Performed:: Right knee manipulation under anesthesia Description of Surgical Findings:: Preop flexion 100 degrees, postmanipulation flexion 125 Surgeon: Amari Knight customer account representative: None Type of Anesthesia: General Anesthesiologist: Konrad Laguerre Special Medications: Decadron IV Estimated Blood Loss (mL): 0 Fluids Replaced: 200 mL Description of Procedure: Brief history operative indications: 60-year-old male with history of right total knee replacement done 8 weeks ago presented with arthrofibrosis in the office. He also had associated pain with the stiffness. Based on this we elected to proceed with a manipulation under anesthesia. Risks the procedure were discussed the patient including the risk of general anesthesia which includes loss of life as well as the risk of fracture. Procedure: On the date of procedure patient's right lower extremity is marked in the preoperative area. They were brought back to the operating room where they were left on her gurney. Anesthesia was administered and anesthesia assumed control her C-spine airway and remaining control throughout the main procedure. Once patient was comfortably asleep the preoperative range of motion was measured at 100?. Gentle pressure was placed on the knee with the hip in flexion scar tissue was broken up and the knee was flexed 125?. Patient tolerated the procedure well was awakened by anesthesia and transferred back to recovery. Postoperative plan: Patient will proceed with physical therapy this afternoon. They will start a prednisone Dosepak tomorrow. They will have physical therapy every day for 2 weeks and follow-up in 2 weeks. Montelukast will be written for 6 weeks. Complications No intraoperative complications Admit VTE Documentation VTE Present on Admission: No VTE Mechan Device Prophylaxis: SCD's VTE Pharm Prophylaxis ordered?: No Reason prophylaxis not ordered:: Procedure Not Indicated
[2021-09-06] MEDS: Ketorolac 15 MG/ML Vial IV (15:34)
== END 2021-09-06 23:59 | disposition home or self-care (01) ==
LOC: SDC 10:43 → AC 10:44
PROVIDERS: PCP Family Medicine Geriatric Medicine; Referring Provider Specialist; Visit Provider Specialist
PROC: (CPT 27570; principal; 2021-09-06 12:40)
DX: M24.661 Ankylosis, right knee (principal); Z47.1 Aftercare following joint replacement surgery; Z96.651 Presence of right artificial knee joint; I10 Essential (primary) hypertension; K21.9 Gastro-esophageal reflux disease without esophagitis; Z86.718 Personal history of other venous thrombosis and embolism; G47.30 Sleep apnea, unspecified; E78.5 Hyperlipidemia, unspecified
CPT/HCPCS: 27570; 01380; 64447; J7120; J2405

== ENCOUNTER → 2022-05-28 | Outpatient (CLI) | payer BC, SELFPAY ==
--- NOTE | 2022-05-28 17:06 | MRI_ITS ---
Exam: MR Spine Lumbar W/O Contrast Comparison: July 03, 2016 and CTA of the chest July 28, 2016. History: SPINAL STENOSIS, POST LAMINECTOMY SYNDROME Contrast: FINDINGS: There are artifacts from stabilization hardware at T11-L2, with no vertebral body screws at L1 but only mild decreased height at L1 and small Schmorl''s node in the upper body. No evidence of spinal stenosis. The conus of the cord is at T12-L1. No suspicious fluid collection. Mild soft tissue scarring, no fluid collection in the posterior soft tissues. The posterior spinous process at L1 appears shortened. Normal disc height. Slight decreased T2 signal intensity in the L4-5 disc with minimal endplate changes of the inferior endplate of L4. Mild annular disc bulge L4-5 without significant protrusion or herniation. Normal aorta caliber. Large left renal cyst, 5.8 cm x 5.2 cm, it was 3.8 cm x 3.[address] July 03, 2016. MRI/Spine Lumbar (Routine) IMPRESSION: Postoperative changes at T11-L2. Stable from previous CTs back to 2016. No suspicious acute findings. Mild chronic changes. No significant spinal stenosis, cauda equina or conus impingement, suspicious fluid collection, or frankly herniated disc. Larger but simple-appearing left renal cyst. Electronically Signed: Aura Gonzales MD at 7:37 EST ,
== END | disposition home or self-care (01) ==
PROVIDERS: PCP Family Medicine Geriatric Medicine; Referring Provider Orthopaedic Surgery; Visit Provider Orthopaedic Surgery
DX: M48.061 Spinal stenosis, lumbar region without neurogenic claudication (principal); M47.26 Other spondylosis with radiculopathy, lumbar region; M96.1 Postlaminectomy syndrome, not elsewhere classified
CPT/HCPCS: 72148

== ENCOUNTER → 2022-06-29 | Outpatient (CLI) | payer BC, SELFPAY | END | disposition home or self-care (01) | LOC: PSN 08:56 | PROVIDERS: PCP Family Medicine Geriatric Medicine; Referring Provider Family Medicine Geriatric Medicine; Visit Provider Family Medicine Geriatric Medicine | DX: R68.89 Other general symptoms and signs (principal) | CPT/HCPCS: 87635; 87804; 87807; C9803; U0003; U0005 ==

== ENCOUNTER → 2022-08-20 | Outpatient (CLI) | payer BC, SELFPAY ==
[2022-08-20 13:31] LABS: Absolute Lymphocyte Count 2.03 X10^3/uL (0.83-4.51); Absolute Neutrophil Count 6.4 X10^3/uL (2.0-7.7); Basophil# 0.06 X10^3/uL; Basophil% 0.6 % (0-1); Eosinophil# 0.31 X10^3/uL; Eosinophils% 3.1 % (0-5); Hematocrit 49.4 % (40-54); Hemoglobin 16.1 g/dL (13.0-16.5); Lymphocyte # 2.03 X10^3/ul (0.83-4.51); Lymphocyte % 20.5 % (19-41); Mean Corp Hgb Conc 32.6 g/dL (32-36); Mean Corpuscular Hgb 30.1 pg (27.0-32.0); Mean Corpuscular Volume 92.3 fL (80-94); Mean Platelet Vol. 9.5 fl (6.2-12.0); Monocyte% 9.1 % (0-10); NRBC Flagged by Analyzer 0 % (0-5); Neutrophil # 6.44 X10^3/uL (2.7-7.7); Neutrophil % 65.1 % (47-70); Platelet Count 173 K/mm3 (150-450); RBC Distribution Width CV 13.8 % (11.6-14.6); RBC Distribution Width SD 47.1 fl (35.1-43.9); Red Blood Count 5.35 M/mm3 (4.6-6.2); White Blood Count 9.9 K/mm3 (4.4-11.0)
[2022-08-20 14:13] LABS: ALB/GLOB Ratio 1.2 RATIO (0.9-2.4); AST(SGOT) 19 U/L (15-37); Alanine Aminotransfer ALT/SGPT 30 U/L (16-61); Albumin, Serum 3.6 g/dL (3.2-5.0); Alkaline Phosphatase 72 U/L (45-117); Anion Gap 8 (5-15); BUN 15 mg/dL (7-18); BUN/Creat Ratio 16.8 RATIO (10-20); Calcium,Total 9.1 mg/dL (8.5-10.1); Chloride 104 mmol/L (98-107); Creatinine, Serum 0.89 mg/dL (0.70-1.30); EST Glomerular Filtration Rate 93 mL/min (>60); Est Glom Filt Rate - Afr Amer 112 mL/min (>60); Globulin 3.1 g/dL (2.2-4.2); Glucose 107 mg/dL (74-106); PSA,Total - Annual Screen 5.26 ng/mL (0.00-4.00); Potassium 3.9 mmol/L (3.5-5.1); Protein, Total 6.7 g/dL (6.4-8.2); Sodium Level 141 mmol/L (136-145); Thyroid Stim Hormone (TSH) 2.31 uIU/mL (0.358-3.74)
== END | disposition home or self-care (01) ==
LOC: POLAB3 09:26
PROVIDERS: PCP Family Medicine Geriatric Medicine; Visit Provider Family Medicine Geriatric Medicine
DX: I10 Essential (primary) hypertension (principal); Z12.5 Encounter for screening for malignant neoplasm of prostate
CPT/HCPCS: 36415; 80053; 84153; 84443; 85025; G0103

== ENCOUNTER → 2022-08-30 | Outpatient (CLI) | payer BC, SELFPAY ==
--- NOTE | 2022-08-30 15:40 | RAD_ITS ---
STUDY: X-RAY - UNILATERAL RIBS ( RIGHT ) WITH CHEST REASON FOR EXAM: Male, 61 years old. RIB PAIN TECHNIQUE - RIBS: 5 view(s) of the ribs. TECHNIQUE - CHEST: Single frontal view of the chest. COMPARISON: Chest x-ray September 07, 2015 FINDINGS - RIBS: Normal visualized ribs without a demonstrated fracture. FINDINGS - CHEST: Bibasilar subsegmental atelectasis. Lumbar hardware. The lungs are clear and expanded. There is no demonstrated pleural abnormality. Normal size heart. Normal mediastinum and manolo. Normal visualized pulmonary arteries. Normal visualized aortic arch and descending thoracic aorta. Normal visualized thoracic spine. Normal visualized ribs, clavicles, and shoulders. There is no demonstrated abnormality of the visualized soft tissue structures of the upper abdomen. RAD/Ribs Uni Min 3V w/PA Chest IMPRESSION: RIBS: Normal x-ray examination of the ribs. CHEST: Normal x-ray examination of the chest. Electronically Signed: Elton Dinero MD at 0:04 EST ,
== END | disposition home or self-care (01) ==
LOC: RAD 15:36
PROVIDERS: PCP Family Medicine Geriatric Medicine; Referring Provider Family Medicine Geriatric Medicine; Visit Provider Family Medicine Geriatric Medicine
DX: R07.81 Pleurodynia (principal)
CPT/HCPCS: 71101

== ENCOUNTER → 2023-01-07 | Outpatient (CLI) | payer BC, SELFPAY ==
[2023-01-07 17:49] LABS: PSA,Total- Diagnostic 5.61 ng/mL (0.0-4.0)
== END | disposition home or self-care (01) ==
LOC: LAB 16:36
PROVIDERS: PCP Family Medicine Geriatric Medicine; Referring Provider Urology; Visit Provider Urology
DX: R97.20 Elevated prostate specific antigen [PSA] (principal)
CPT/HCPCS: 36415; 84153

== ENCOUNTER → 2023-02-14 | Outpatient (CLI) | payer BC, SELFPAY ==
--- NOTE | 2023-02-14 13:24 | MRI_ITS ---
MR Prostate WO/W Contrast 02/14/2023 1:46 PM COMPARISON: None CLINICAL HISTORY: Elevated PSA TECHNIQUE: Standard prostate MR protocol was used before and after administration of 19 cc of IV Clariscan. FINDINGS: PSA density: PSA level not provided. Post-biopsy hemorrhage: None Multiparametric MR evaluation: Heterogeneous appearance of the central gland is consistent with benign prostatic hyperplasia. Diffuse T2 hypointensity of the peripheral zone with restricted diffusion most likely represents prostatitis. Capsular margin and neurovascular bundle: Normal Seminal vesicles: Normal Lymph nodes: No lymphadenopathy in the field of view. Bones: No suspicious lesions in the field of view. MRI/Pelvis W/WO Contrast IMPRESSION: PI-RADS 2 - Benign prostatic hyperplasia and prostatitis. Electronically Signed: Zak Shen MD at 20:22 EDT ,
[2023-02-14 13:58] LABS: EGFR FINGERSTICK > 60.0000 mL/min (>60)
== END | disposition home or self-care (01) ==
PROVIDERS: PCP Family Medicine Geriatric Medicine; Referring Provider Urology; Visit Provider Urology
DX: R97.20 Elevated prostate specific antigen [PSA] (principal)
CPT/HCPCS: 72197; A9575

== ENCOUNTER → 2023-07-01 | Outpatient (CLI) | payer BC, SELFPAY ==
[2023-07-01 18:22] LABS: PSA,Total- Diagnostic 6.62 ng/mL (0.0-4.0)
== END | disposition home or self-care (01) ==
LOC: LAB 16:46
PROVIDERS: PCP Family Medicine Geriatric Medicine; Referring Provider Urology; Visit Provider Urology
DX: R97.20 Elevated prostate specific antigen [PSA] (principal)
CPT/HCPCS: 36415; 84153

== ENCOUNTER → 2023-08-16 | Outpatient (CLI) | payer BC, SELFPAY ==
--- NOTE | 2023-08-16 | PROSBIL_PTH ---
PATHOLOGY RESULTS PATIENT: PAM GALE [facility] U#:[id number] AGE/SX: 62/M ROOM: RE08/16/[address]: Dr. Darian Morgan MD : 1960 BED: DIS: 08/16/2023 SPEC #: [id number] RECD: 08/16/23 15:20 STATUS: MONIQUE ALVAREZ #: [id number] GREGORY: 08/16/23 00:[address]: Darian Morgan DEPT: SURGICAL PATHOLOGY RECD BY: Claudia Santamaria ENTERED: 08/19/23 14:13 SP TYPE: PROST BX ANSHUL DR: Dr. Arnav Huertas MD Tissues: PROSTATE RIGHT PROSTATE RIGHT PROSTATE RIGHT PROSTATE LEFT PROSTATE LEFT PROSTATE LEFT Procedures: PROSTATE BX HEADER OPERATION: Bilateral ultrasound-guided prostate biopsy PRE-OP DIAGNOSIS: Elevated PSA TISSUE SUBMITTED: A - Right base, B - Right mid, C - Right apex, D - Left base, E - Left mid, F - Left apex MICROSCOPIC DIAGNOSIS A. Right prostate, base, core biopsy: Prostatic tissue, negative for malignancy. B. Right prostate, mid, core biopsy: Prostatic tissue, negative for malignancy. C. Right prostate, apex, core biopsy: Prostatic tissue, negative for malignancy. Focal minimal chronic inflammation. D. Left prostate, base, core biopsy: Prostatic adenocarcinoma. Rougon grade: 3+3=6 Number of cores involved: 1/2 Proportion of tissue involved: ~10% Perineural invasion: Not identified. Greatest tumor length: 0.7 cm, discontinuous. See comment. E. Left prostate, mid, core biopsy: Prostatic tissue, negative for malignancy. F. Left prostate, apex, core biopsy: Prostatic tissue, negative for malignancy. Focal minimal chronic inflammation. SJ:robert 08/20/2023 COMMENT D. Immunohistochemistry ([id number]) supports the above diagnosis. Case has been reviewed in consultation with Dr. Lee who concurs with the above diagnosis. IDC:AM MICROSCOPIC DESCRIPTION Slides are reviewed. GROSS DESCRIPTION A - Received is one container designated prostate, right base. The specimen consists of two elongated fragments of light yancey-white soft tissue measuring 0.8 and 1.2 cm in length and 0.1 cm in diameter. The specimen is totally submitted in one cassette. B - Received is one container designated prostate, right mid. The specimen consists of two elongated fragments of light yancey-white soft tissue each measuring 1.5 cm in length and 0.1 cm in diameter. The specimen is totally submitted in one cassette. C - Received is one container designated prostate, right apex. The specimen consists of two elongated fragments of light yancey-white soft tissue each measuring 1.0 cm in length and 0.1 cm in diameter. The specimen is totally submitted in one cassette. D - Received is one container designated prostate, left base. The specimen consists of two elongated fragments of light yancey-white soft tissue measuring 1.1 and 1.5 cm in length and 0.1 cm in diameter. The specimen is totally submitted in one cassette. E - Received is one container designated prostate, left mid. The specimen consists of two elongated fragments of light yancey-white soft tissue each measuring 1.1 cm in length and 0.1 cm in diameter. The specimen is totally submitted in one cassette. F - Received is one container designated prostate, left apex. The specimen consists of two elongated fragments of light yancey-white soft tissue each measuring 1.3 cm in length and 0.1 cm in diameter. The specimen is totally submitted in one cassette. / SJ:rg 08/19/2023 TC:0 CPT: 21717 x6
--- NOTE | 2023-08-16 | IMM_PTH ---
PATHOLOGY RESULTS PATIENT: PAM GALE [facility] U#:[id number] AGE/SX: 62/M ROOM: RE08/16/[address]: Dr. Darian Morgan MD : 1960 BED: DIS: 08/16/2023 SPEC #: [id number] RECD: 08/20/23 12:41 STATUS: MONIQUE REQ #: [id number] GREGORY: 08/16/23 00:[address]: Darian Morgan DEPT: IMMUNOHISTOCHEMISTRY RECD BY: Claudia Santamaria ENTERED: 08/20/23 12:42 SP TYPE: IMMUNO OTHR DR: Dr. Arnav Huertas MD Tissues: PROSTATE LEFT Procedures: P40 (add) 34BE12 (initial) PHYSICIAN & INSTITUTION [place] [id number] SPECIMEN INFORMATION: Tissue Source: D - Left prostate, base, core biopsy Clinical Info: Elevated PSA Specimen Number: [id number] CPT code: 58047, 32096 METHODOLOGY: Deparaffinized sections of prefer/formalin-fixed tissue or PAP/DQ stained slides are incubated with monoclonal/polyclonal antibodies/oligonucleotide probes. Localization is made via biotin free immunoperoxidase method. Appropriate controls are performed and reacted as expected. Results on target cell population are indicated in the following table: RESULTS: ANTIBODY / CLONE RESULT Block D P40 (BC28) negative 34BE12 (34BE12) negative These tests were developed and their performance characteristics determined by [facility]. They may not have been cleared or approved by the U.S. Food and Drug Administration. The FDA has determined that such clearance or approval is not necessary. The above immunohistochemical/dualISH markers are ordered and reviewed by the Pathologist. INTERPRETATION: Reza Left prostate, base, core biopsy: Adenocarcinoma. ERICKSON:robert 08/21/2023
== END | disposition home or self-care (01) ==
LOC: LABSPEC 15:41
PROVIDERS: PCP Family Medicine Geriatric Medicine; Referring Provider Urology; Visit Provider Urology
DX: C61 Malignant neoplasm of prostate (principal); R97.20 Elevated prostate specific antigen [PSA]
CPT/HCPCS: 88305; 88341; 88342; G0416

== ENCOUNTER → 2023-08-21 | Outpatient (CLI) | payer BC, SELFPAY ==
[2023-08-21 15:34] LABS: Absolute Lymphocyte Count 1.91 X10^3/uL (0.83-4.51); Absolute Neutrophil Count 6.9 X10^3/uL (2.0-7.7); Basophil# 0.06 X10^3/uL; Basophil% 0.6 % (0-1); Eosinophil# 0.24 X10^3/uL; Eosinophils% 2.4 % (0-5); Hematocrit 50.8 % (40-54); Hemoglobin 16.6 g/dL (13.0-16.5); Lymphocyte # 1.91 X10^3/ul (0.83-4.51); Lymphocyte % 19.4 % (19-41); Mean Corp Hgb Conc 32.7 g/dL (32-36); Mean Corpuscular Hgb 29.9 pg (27.0-32.0); Mean Corpuscular Volume 91.5 fL (80-94); Mean Platelet Vol. 9.3 fl (6.2-12.0); Monocyte# 0.68 X10^3/uL; Monocyte% 6.9 % (0-10); NRBC Flagged by Analyzer 0 % (0-5); Neutrophil % 70.3 % (47-70); Platelet Count 221 K/mm3 (150-450); RBC Distribution Width SD 43.9 fl (35.1-43.9); Red Blood Count 5.55 M/mm3 (4.6-6.2); White Blood Count 9.8 K/mm3 (4.4-11.0)
[2023-08-21 16:06] LABS: ALB/GLOB Ratio 1.2 RATIO (0.9-2.4); AST(SGOT) 15 U/L (15-37); Alanine Aminotransfer ALT/SGPT 32 U/L (16-61); Albumin, Serum 3.8 g/dL (3.2-5.0); Alkaline Phosphatase 76 U/L (45-117); Anion Gap 5 (5-15); BUN 13 mg/dL (7-18); BUN/Creat Ratio 13.4 RATIO (10-20); Calcium,Total 8.8 mg/dL (8.5-10.1); Chloride 108 mmol/L (98-107); Creatinine, Serum 0.97 mg/dL (0.70-1.30); EST Glomerular Filtration Rate 83 mL/min (>60); Est Glom Filt Rate - Afr Amer 101 mL/min (>60); Globulin 3.1 g/dL (2.2-4.2); Glucose 160 mg/dL (74-106); Potassium 3.6 mmol/L (3.5-5.1); Protein, Total 6.9 g/dL (6.4-8.2); Sodium Level 140 mmol/L (136-145); Thyroid Stim Hormone (TSH) 1.27 uIU/mL (0.358-3.74)
== END | disposition home or self-care (01) ==
PROVIDERS: PCP Family Medicine Geriatric Medicine; Visit Provider Family Medicine Geriatric Medicine
DX: I10 Essential (primary) hypertension (principal); Z12.5 Encounter for screening for malignant neoplasm of prostate
CPT/HCPCS: 36415; 80053; 84443; 85025

== ENCOUNTER → 2023-12-17 | Outpatient (CLI) | payer BC, SELFPAY ==
[2023-12-17 18:34] LABS: PSA,Total- Diagnostic 5.54 ng/mL (0.0-4.0)
== END | disposition home or self-care (01) ==
LOC: LAB 15:36
PROVIDERS: PCP Family Medicine Geriatric Medicine; Referring Provider Nurse Practitioner; Visit Provider Nurse Practitioner
DX: C61 Malignant neoplasm of prostate (principal)
CPT/HCPCS: 36415; 84153

== ENCOUNTER → 2024-06-22 | Outpatient (CLI) | payer BC, SELFPAY ==
[2024-06-22 17:39] LABS: PSA,Total- Diagnostic 5.38 ng/mL (0.0-4.0)
== END | disposition home or self-care (01) ==
PROVIDERS: PCP Family Medicine Geriatric Medicine; Referring Provider Urology; Visit Provider Urology
DX: C61 Malignant neoplasm of prostate (principal)
CPT/HCPCS: 36415; 84153

== ENCOUNTER → 2024-06-24 | Outpatient (CLI) | payer BC, SELFPAY ==
--- NOTE | 2024-06-24 07:48 | EKG12_ITS ---
Test Reason : PREOP Blood Pressure : */* mmHG Vent. Rate : 78 BPM Atrial Rate : 78 BPM P-R Int : 162 ms QRS Dur : 92 ms QT Int : 386 ms P-R-T Axes : 47 -14 16 degrees QTcB Int : 440 ms Normal sinus rhythm with sinus arrhythmia Normal ECG Confirmed by Matt Jones ([id number]), medical editor BREANNE CARTER ([id number]) on 06/24/2024 8:29:16 AM Referred By: Darian Morgan Confirmed By: Matt Jones
[2024-06-24 08:50] LABS: Hematocrit 49.6 % (40-54); Hemoglobin 16.5 g/dL (13.0-16.5); Mean Corp Hgb Conc 33.3 g/dL (32-36); Mean Corpuscular Hgb 30.4 pg (27.0-32.0); Mean Corpuscular Volume 91.5 fL (80-94); Mean Platelet Vol. 9.4 fl (6.2-12.0); Platelet Count 195 K/mm3 (150-450); RBC Distribution Width CV 13.3 % (11.6-14.6); RBC Distribution Width SD 44.5 fl (35.1-43.9); Red Blood Count 5.42 M/mm3 (4.6-6.2); White Blood Count 7.8 K/mm3 (4.4-11.0)
[2024-06-24 09:13] LABS: Anion Gap 4 (5-15); BUN 17 mg/dL (7-18); BUN/Creat Ratio 18.2 RATIO (10-20); Calcium,Total 9.1 mg/dL (8.5-10.1); Chloride 105 mmol/L (98-107); Creatinine, Serum 0.94 mg/dL (0.70-1.30); EST Glomerular Filtration Rate 87 mL/min (>60); Est Glom Filt Rate - Afr Amer 105 mL/min (>60); Glucose 120 mg/dL (74-106); Potassium 3.9 mmol/L (3.5-5.1); Sodium Level 140 mmol/L (136-145)
== END | disposition home or self-care (01) ==
PROVIDERS: PCP Family Medicine Geriatric Medicine; Referring Provider Urology; Visit Provider Urology
DX: Z01.810 Encounter for preprocedural cardiovascular examination (principal); Z01.812 Encounter for preprocedural laboratory examination
CPT/HCPCS: 36415; 80048; 85027; 93005

== ENCOUNTER → 2024-07-03 | Outpatient (CLI) | payer BC, SELFPAY ==
--- NOTE | 2024-07-03 | IMM_PTH ---
PATIENT: PAM GALE LOC: [facility] U#:[id number] AGE/SX: 63/M ROOM: RE07/03/[address]: Dr. Darian Morgan MD : 1960 BED: DIS: 07/03/2024 SPEC #: [id number] RECD: 07/07/24 13:24 STATUS: MONIQUE REQ #: [id number] GREGORY: 07/03/24 00:[address]: Darian Morgan DEPT: IMMUNOHISTOCHEMISTRY RECD BY: Dionisio Fraser ENTERED: 07/07/24 13:24 SP TYPE: IMMUNO OTHR DR: Dr. Arnav Huertas MD Tissues: E - PROSTATE LEFT F - PROSTATE LEFT Procedures: 34BE12 (add) P40 (add) P40 (initial) PHYSICIAN & INSTITUTION [place] [id number] SPECIMEN INFORMATION: Tissue Source: E- Left mid, F- Left apex Clinical Info: Elevated PSA Specimen Number: [id number] E,F CPT code: 10464,07355d5 METHODOLOGY: Deparaffinized sections of prefer/formalin-fixed tissue or PAP/DQ stained slides are incubated with monoclonal/polyclonal antibodies/oligonucleotide probes. Localization is made via biotin free immunoperoxidase method. Appropriate controls are performed and reacted as expected. Results on target cell population are indicated in the following table: RESULTS: ANTIBODY / CLONE RESULT Block E P40 (BC28) negative 34BE12 (34BE12) negative Block F P40 (BC28) negative 34BE12 (34BE12) negative These tests were developed and their performance characteristics determined by [facility]. They may not have been cleared or approved by the U.S. Food and Drug Administration. The FDA has determined that such clearance or approval is not necessary. The above immunohistochemical/dualISH markers are ordered and reviewed by the Pathologist. INTERPRETATION: E. Prostate, left mid, core biopsy: Adenocarcinoma. F. Prostate, left apex, core biopsy: Adenocarcinoma. Case has been reviewed in consultation with Dr. Lee who concurs with the above diagnosis. IDC:BERTHA Short 07/08/2024
--- NOTE | 2024-07-03 07:30 | PROSBIL_PTH ---
PATIENT: PAM GALE LOC: [facility] U#:[id number] AGE/SX: 63/M ROOM: RE07/03/[address]: Dr. Darian Morgan MD : 1960 BED: DIS: 07/03/2024 SPEC #: [id number] RECD: 07/03/24 15:01 STATUS: MONIQUE REJose #: [id number] GREGORY: 07/03/24 07:[address]: Darian Morgan DEPT: SURGICAL PATHOLOGY RECD BY: Efrain Tidwell ENTERED: 07/06/24 09:08 SP TYPE: PROST BX ANSHUL DR: Dr. Arnav Huertas MD [facility] Tissues: A - PROSTATE RIGHT B - PROSTATE RIGHT C - PROSTATE RIGHT D - PROSTATE LEFT E - PROSTATE LEFT F - PROSTATE LEFT Procedures: PROSTATE BX HEADER OPERATION: Prostate biopsy PRE-OP DIAGNOSIS: Elevated PSA TISSUE SUBMITTED: A - Right base, B - Right mid, C - Right apex, D - Left base, E - Left mid, F - Left apex MICROSCOPIC DIAGNOSIS A. Right prostate, apex, core biopsy: Prostatic tissue, negative for malignancy. B. Right prostate, mid, core biopsy: Prostatic tissue, negative for malignancy. C. Right prostate, base, core biopsy: Prostatic tissue, negative for malignancy. D. Left prostate, apex, core biopsy: Prostatic tissue, negative for malignancy. E. Left prostate, mid, core biopsy: Prostatic adenocarcinoma. Laurel grade: 3+3=6 Number of cores involved: 1/2 Proportion of tissue involved: <5 % Perineural invasion: Not identified. Greatest tumor length: <0.1 cm See comment. F. Left prostate, base, core biopsy: Prostatic adenocarcinoma. Laurel grade: 3+3=6 Number of cores involved: 1/2 Proportion of tissue involved: ~5 % Perineural invasion: Not identified. Greatest tumor length: 0.2 cm See comment. SJ 07/07/2024 COMMENT E, F. Immunohistochemistry ([id number]) supports the above diagnosis. Case has been reviewed in consultation with Dr. Lee who concurs with the above diagnosis. IDC:AM MICROSCOPIC DESCRIPTION Slides are reviewed. GROSS DESCRIPTION A - Received is one container designated prostate, right base. The specimen consists of two elongated fragments of light yancey-white soft tissue measuring 1.0 and 1.2 cm in length and 0.1 cm in diameter. The specimen is totally submitted in one cassette. B - Received is one container designated prostate, right mid. The specimen consists of two elongated fragments of light yancey-white soft tissue measuring 1.6 and 1.8 cm in length and 0.1 cm in diameter. The specimen is totally submitted in one cassette. C - Received is one container designated prostate, right apex. The specimen consists of two elongated fragments of light yancey-white soft tissue each measuring 1.8 cm in length and 0.1 cm in diameter. The specimen is totally submitted in one cassette. D - Received is one container designated prostate, left base. The specimen consists of two elongated fragments of light yancey-white soft tissue each measuring 1.5 cm in length and 0.1 cm in diameter. The specimen is totally submitted in one cassette. E - Received is one container designated prostate, left mid. The specimen consists of two elongated fragments of light yancey-white soft tissue measuring 1.8 and 2.0 cm in length and 0.1 cm in diameter. The specimen is totally submitted in one cassette. F - Received is one container designated prostate, left apex. The specimen consists of two elongated fragments of light yancey-white soft tissue measuring 1.8 and 1.5 cm in length and 0.1 cm in diameter. The specimen is totally submitted in one cassette. / 07/06/2024 TC:0 CPT: 26432 x6
== END | disposition home or self-care (01) ==
LOC: LABSPEC 15:19
PROVIDERS: PCP Family Medicine Geriatric Medicine; Referring Provider Urology; Visit Provider Urology
DX: C61 Malignant neoplasm of prostate (principal); R97.20 Elevated prostate specific antigen [PSA]
CPT/HCPCS: 88305; 88341; 88342; G0416

== ENCOUNTER → 2024-07-27 | Outpatient (CLI) | payer BC, SELFPAY ==
--- NOTE | 2024-07-27 15:35 | RAD_ITS ---
STUDY: X-RAY - LEFT FOOT CLINICAL: Male, 63 years old. LEFT FOOT PAIN TECHNIQUE: 3 views of the left foot. COMPARISON: None. FINDINGS: Normal talus, calcaneus, and tarsal bones. Normal visualized subtalar, talonavicular, calcaneocuboid, tarsal and tarsometatarsal articulations. Normal metatarsi. Normal metatarsophalangeal joint of the great toe. Normal tibial and fibular sesamoid bones. Normal interphalangeal joint of the great toe. Normal phalanges of the great toe. Normal second through fifth metatarsophalangeal joints. Normal interphalangeal joints and phalanges of the lesser toes. The soft tissue structures are unremarkable. There is no demonstrated fracture. RAD/Foot 2 Views IMPRESSION: Normal x-ray examination of the left foot. Electronically Signed: Yosi Simmons MD at 15:15 EST ,
[2024-07-27 15:59] LABS: Absolute Lymphocyte Count 1.78 X10^3/uL (0.83-4.51); Absolute Neutrophil Count 5.5 X10^3/uL (2.0-7.7); Basophil# 0.05 X10^3/uL; Basophil% 0.6 % (0-1); Eosinophils% 3.6 % (0-5); Hematocrit 48.7 % (40-54); Hemoglobin 16.1 g/dL (13.0-16.5); Lymphocyte # 1.78 X10^3/ul (0.83-4.51); Lymphocyte % 21.5 % (19-41); Mean Corp Hgb Conc 33.1 g/dL (32-36); Mean Corpuscular Hgb 30.3 pg (27.0-32.0); Mean Corpuscular Volume 91.7 fL (80-94); Mean Platelet Vol. 9.2 fl (6.2-12.0); Monocyte# 0.62 X10^3/uL; Monocyte% 7.5 % (0-10); NRBC Flagged by Analyzer 0 % (0-5); Neutrophil # 5.48 X10^3/uL (2.7-7.7); Neutrophil % 66.2 % (47-70); Platelet Count 193 K/mm3 (150-450); RBC Distribution Width CV 13.4 % (11.6-14.6); RBC Distribution Width SD 45.3 fl (35.1-43.9); Red Blood Count 5.31 M/mm3 (4.6-6.2); White Blood Count 8.3 K/mm3 (4.4-11.0)
[2024-07-27 16:09] LABS: Erythrocyte Sedimentation Rate 4 mm/hr (0-20)
[2024-07-27 16:27] LABS: ALB/GLOB Ratio 1.1 RATIO (0.9-2.4); AST(SGOT) 23 U/L (15-37); Alanine Aminotransfer ALT/SGPT 32 U/L (16-61); Albumin, Serum 3.7 g/dL (3.2-5.0); Alkaline Phosphatase 85 U/L (45-117); Anion Gap 4 (5-15); BUN 13 mg/dL (7-18); BUN/Creat Ratio 10.7 RATIO (10-20); CRP < 2.90 mg/L (0.0-3.0); Calcium,Total 8.7 mg/dL (8.5-10.1); Chloride 107 mmol/L (98-107); Creatinine, Serum 1.21 mg/dL (0.70-1.30); EST Glomerular Filtration Rate 65 mL/min (>60); Est Glom Filt Rate - Afr Amer 78 mL/min (>60); Globulin 3.3 g/dL (2.2-4.2); Glucose 159 mg/dL (74-106); Potassium 3.9 mmol/L (3.5-5.1); Sodium Level 138 mmol/L (136-145); Uric Acid 7.4 mg/dL (3.5-7.2)
== END | disposition home or self-care (01) ==
PROVIDERS: PCP Family Medicine Geriatric Medicine; Visit Provider Family Medicine Geriatric Medicine
DX: E79.0 Hyperuricemia without signs of inflammatory arthritis and tophaceous disease (principal); M79.672 Pain in left foot
CPT/HCPCS: 36415; 73620; 80053; 84550; 85025; 85652; 86140

== ENCOUNTER → 2024-08-27 | Outpatient (CLI) | payer BC, SELFPAY ==
[2024-08-27 17:06] LABS: Absolute Lymphocyte Count 2.18 X10^3/uL (0.83-4.51); Basophil# 0.11 X10^3/uL; Basophil% 1.1 % (0-1); Eosinophil# 0.57 X10^3/uL; Eosinophils% 5.8 % (0-5); Hemoglobin 17.5 g/dL (13.0-16.5); Lymphocyte # 2.18 X10^3/ul (0.83-4.51); Lymphocyte % 22.2 % (19-41); Mean Corp Hgb Conc 32.4 g/dL (32-36); Mean Corpuscular Hgb 30.7 pg (27.0-32.0); Mean Corpuscular Volume 94.7 fL (80-94); Mean Platelet Vol. 9.1 fl (6.2-12.0); Monocyte# 0.81 X10^3/uL; Monocyte% 8.3 % (0-10); NRBC Flagged by Analyzer 0 % (0-5); Neutrophil % 61.3 % (47-70); Platelet Count 201 K/mm3 (150-450); RBC Distribution Width CV 13.7 % (11.6-14.6); RBC Distribution Width SD 47.8 fl (35.1-43.9); White Blood Count 9.8 K/mm3 (4.4-11.0)
[2024-08-27 17:21] LABS: ALB/GLOB Ratio 1.1 RATIO (0.9-2.4); AST(SGOT) 13 U/L (15-37); Alanine Aminotransfer ALT/SGPT 35 U/L (16-61); Albumin, Serum 3.8 g/dL (3.2-5.0); Alkaline Phosphatase 84 U/L (45-117); Anion Gap 5 (5-15); BUN 16 mg/dL (7-18); BUN/Creat Ratio 16.4 RATIO (10-20); Calcium,Total 8.9 mg/dL (8.5-10.1); Chloride 104 mmol/L (98-107); Creatinine, Serum 0.98 mg/dL (0.70-1.30); EST Glomerular Filtration Rate 83 mL/min (>60); Est Glom Filt Rate - Afr Amer 100 mL/min (>60); Globulin 3.6 g/dL (2.2-4.2); Glucose 91 mg/dL (74-106); Potassium 3.3 mmol/L (3.5-5.1); Protein, Total 7.4 g/dL (6.4-8.2); Sodium Level 139 mmol/L (136-145); Uric Acid 7.6 mg/dL (3.5-7.2)
== END | disposition home or self-care (01) ==
LOC: POLAB3 16:13
PROVIDERS: PCP Family Medicine Geriatric Medicine; Visit Provider Family Medicine Geriatric Medicine
DX: Z12.5 Encounter for screening for malignant neoplasm of prostate (principal); I10 Essential (primary) hypertension; M10.9 Gout, unspecified
CPT/HCPCS: 36415; 80053; 84443; 84550; 85025

== ENCOUNTER → 2024-09-09 | Outpatient (CLI) | payer BC, SELFPAY ==
--- NOTE | 2024-09-09 13:14 | NEURO_ITS ---
NCS and/or EMG Patient Report Ordering Doctor: Arnav Huertas Chi DATE OF SERVICE: 09/09/24 Taz presents for electrodiagnostic testing of the lower limbs. Reports numbness and tingling in both feet. Electrodiagnostic findings: Left peroneal motor response was not obtainable. Right peroneal motor nerve demonstrates prolonged latency with normal amplitude and reduced conduction velocity. No significant drop in conduction across the fibular head. Tibial motor responses within normal limits
--- NOTE | 2024-09-09 13:14 | NEURO ---
NCS and/or EMG Patient Report Ordering Doctor: Arnav Huertas Chi DATE OF SERVICE: 09/09/24 Taz presents for electrodiagnostic testing of the lower limbs. He reports numbness and tingling in both feet. Electrodiagnostic findings: Left peroneal motor response was not obtainable. Right peroneal motor nerve demonstrates prolonged distal latency with normal amplitude and reduced conduction velocity. No significant drop in conduction across the fibular head. Tibial motor responses are within normal limits. Borderline prolonged left sural latency. Prolonged superficial peroneal latency bilaterally. Prolonged H?reflux bilaterally. Prolonged tibial F waves and right peroneal F?wave. Needle EMG testing was performed the lower limbs. All muscles tested showed no evidence of denervation with normal motor unit action potentials Electrodiagnostic impression: This is an abnormal study in the lower limbs 1. 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 2. No electrodiagnostic evidence is noted for lumbosacral radiculopathy. Multi Select Codes Neurology Neurology Interp Codes: 62305-15 Musc test done w/n test comp (interp) (2) and 25847-85 Nrv cndj test 9-10 studies (interp)
== END | disposition home or self-care (01) ==
LOC: PSN 06:43
PROVIDERS: PCP Family Medicine Geriatric Medicine; Referring Provider Family Medicine Geriatric Medicine; Visit Provider Family Medicine Geriatric Medicine
DX: G62.9 Polyneuropathy, unspecified (principal)
CPT/HCPCS: 95886; 95911

== ENCOUNTER → 2025-02-25 | Outpatient (CLI) | payer BC, SELFPAY ==
--- OUTSIDE RECORDS SUMMARY | 2025-01-28 08:09 | XMS RPT_ITS | CCD ---
Author Organization [facility] Care Team Providers Care Passport Support Manager Name Role Phone Aleksandar, Arnav Chi Primary Care Unavailable Matt Jones Attending Unavailable Eddie, Darian Funk Referring Unavailable AhmaBarrington clark Attending Unavailable Aleksandar, Arnav Chi Consulting Unavailable Aleksandar, Arnav Chi Referring Unavailable Aleksandar, Arnav Chi Primary Care Unavailable Aleksandar, Arnav Chi Attending Unavailable Aleksandar, Arnav Chi Referring Unavailable Aleksandar, Arnav Chi Primary Care Unavailable Aleksandar, Arnav Chi Primary Care Unavailable [place], Roshni Attending Unavailable [place], Roshni Referring Unavailable EddieDarian Attending Unavailable Aleksandar, Arnav Chi Primary Care Unavailable Eddie, Frankie Referring Unavailable Eddie, Darian Funk Attending Unavailable Aleksandar, Arnav Chi Primary Care Unavailable Eddie, Frankie Referring Unavailable Eddie, Darian Funk Attending Unavailable Eddie, Frankie Referring Unavailable Aleksandar, Arnav Chi Primary Care Unavailable Aleksandar, Arnav Chi Attending Unavailable Aleksandar, Arnav Chi Primary Care Unavailable Aleksandar, Arnav Chi Attending Unavailable Aleksandar, Arnav Chi Primary Care Unavailable Medications Current Medications Medication Drug Class(es) Dates Sig (Normalized) Sig (Original) acetaminophen 325 mg / HYDROcodone bitartrate 5 mg oral tablet (7 sources) Opioid Agonist Start: 2 take 1 tablet by mouth every six hours Hydrocodone-Acetaminop hen Active 1 - 2 TABLET PO EVERY 6 HOURS September 05, 2021 12:00am cholecalciferol 0.025 mg oral tablet (7 sources) Vitamin D Start: 2 take 1 tablet by mouth every other day Cholecalciferol (Vitamin D3) (Vitamin D3) 25 mcg (1,000 unit) Tablet Active 25 MCG PO EVERY OTHER DAY September 05, 2021 12:00am esomeprazole 20 mg delayed release oral capsule (7 sources) Proton Pump Inhibitor Start: 6 take 20 mg by mouth at bedtime Esomeprazole Magnesium Active 20 MG PO AT BEDTIME July 10, 2016 12:00am hydroCHLOROthiazide 12.5 mg oral tablet (7 sources) Thiazide Diuretic Start: 1 take 12.5 mg by mouth at bedtime Hydrochlorothiazide Active 12.5 MG PO AT BEDTIME June 28, 2021 12:00am olmesartan medoxomil 20 mg oral tablet (7 sources) Angiotensin 2 Receptor Pratima Start: 1 take 20 mg by mouth at bedtime Olmesartan Active 20 MG PO AT BEDTIME June 28, 2021 12:00am Completed/Discontinued Medications Medication Drug Class(es) Dates Sig (Normalized) Sig (Original) acetaminophen 325 mg / oxyCODONE hydrochloride 5 mg oral tablet (7 sources) Opioid Agonist Start: 07-20-2016 End: 08-30-2017 take 1 tablet by mouth every four hours as needed Oxycodone-Acetami nophen Discontinued 1 - 2 TABLET PO EVERY 4 HOURS NEEDED July 20, 2016 12:00am August 30, 2017 5:01pm aspirin 325 mg delayed release oral tablet (7 sources) Platelet Aggregation Inhibitor, Nonsteroidal Anti-inflammatory Drug Start: 07-20-2016 End: 07-31-2016 take 325 mg by mouth twice daily Aspirin Discontinued 325 MG PO TWICE A DAY July 20, 2016 12:00am July 31, 2016 11:45am diazePAM 10 mg oral tablet (7 sources) Benzodiazepine Start: 07-20-2016 End: 08-30-2017 take 10 mg by mouth three times daily as needed Diazepam Discontinued 10 MG PO 3 TIMES DAILY NEEDED July 20, 2016 4:02pm August 30, 2017 5:00pm docusate sodium 100 mg oral capsule (7 sources) Start: 07-20-2016 End: 08-30-2017 take 100 mg by mouth twice daily as needed Docusate Sodium Discontinued 100 MG PO TWICE DAILY NEEDED July 20, 2016 12:00am August 30, 2017 5:00pm doxycycline hyclate 100 mg oral capsule (7 sources) Tetracycline-class Drug Start: 08-30-2017 End: 09-09-2017 take 100 mg by mouth twice daily Doxycycline Hyclate Discontinued 100 MG PO TWICE A DAY 10 05August 30, 2017 12:00am September 09, 2017 12:07am ibuprofen 200 mg oral tablet (7 sources) Nonsteroidal Anti-inflammatory Drug Start: 07-31-2016 End: 08-30-2017 take 400 mg by mouth three times daily Ibuprofen Discontinued 400 MG PO THREE TIMES A DAY July 31, 2016 12:00am August 30, 2017 5:01pm oxyCODONE hydrochloride 5 mg oral tablet (7 sources) Opioid Agonist Start: 06-14-2018 End: 06-21-2018 take 5-10 mg by mouth every four hours as needed Oxycodone Discontinued 5 - 10 MG PO EVERY 4 HOURS NEEDED 60 June 14, 2018 12:00am June 21, 2018 12:13am promethazine hydrochloride 25 mg oral tablet (7 sources) Phenothiazine Start: 07-20-2016 End: 08-30-2017 take 25 mg by mouth every four hours as needed Promethazine Discontinued 25 MG PO EVERY 4 HOURS NEEDED July 20, 2016 12:00am August 30, 2017 5:01pm rivaroxaban 20 mg oral tablet (7 sources) Factor Xa Inhibitor Start: 07-31-2016 End: 08-30-2017 take 20 mg by mouth once daily Rivaroxaban Discontinued 20 MG PO DAILY July 31, 2016 12:00am August 30, 2017 5:01pm Problems Problem Classification Problem Date Documented Date Episodic/Chronic Cancer of prostate (1 source) Malignant neoplasm of prostate; Translations: [Malignant neoplasm of prostate] Onset: 07-21-2024 Chronic Esophageal disorders (7 sources) Gastroesophageal reflux disease; Translations: [Gastro-esophageal reflux disease without esophagitis] 06-13-2018 Chronic Essential hypertension (7 sources) Benign essential hypertension; Translations: [Essential (primary) hypertension] 06-13-2018 Chronic Heart valve disorders (7 sources) Mitral valve prolapse; Translations: [Nonrheumatic mitral (valve) prolapse] 07-07-2021 Chronic Nonspecific chest pain (7 sources) Chest pain; Translations: [Chest pain, unspecified] 06-13-2018 Episodic Other circulatory disease (7 sources) History of cardiac arrhythmia; Translations: [Personal history of other diseases of the circulatory system] 07-07-2021 Episodic Other nervous system disorders (2 sources) Polyneuropathy, unspecified; Translations: [Polyneuropathy, unspecified] Onset: 10-06-2024 Chronic Other nutritional; endocrine; and metabolic disorders (1 source) Hyperuricemia without signs of inflammatory arthritis and tophaceous disease; Translations: [Hyperuricemia without signs of inflammatory arthritis and tophaceous disease] Onset: 08-18-2024 Episodic Other screening for suspected conditions (not mental disorders or infectious disease) (9 sources) Electrocardiogram abnormal; Translations: [Abnormal electrocardiogram [ECG] [EKG]] Onset: 08-11-2024 06-13-2018 Episodic Residual codes; unclassified (7 sources) Obstructive sleep apnea syndrome; Translations: [Obstructive sleep apnea (adult) (pediatric)] 07-07-2021 Chronic Skin and subcutaneous tissue infections (7 sources) Cellulitis of lower leg; Translations: [Cellulitis of left lower limb] 06-13-2018 Episodic Superficial injury; contusion (7 sources) Contusion of lower leg; Translations: [Contusion of left lower leg, initial encounter] 06-13-2018 Episodic Results Test Name Value Interpretation Reference Range Facility NCS and/or EMG Patienton NCS and/or EMG Patient [facility] [address] [place] [address] MR#: [id number] Acct: [id number] Name: TAZ GALE Rep #: [id number] : 1960 63 From: Barrington Lovelace MD Referring Dr: Arnav Huertas. Status: REG [facility] Location: [facility] Date: 09/09/24 Sex: M C NCS and/or EMG Patient Report Ordering Doctor: Arnav Huertas Chi DATE OF SERVICE: 09/09/24 Taz presents for electrodiagnostic testing of the lower limbs. He reports numbness and tingling in both feet. Electrodiagnostic findings: Left peroneal motor response was not obtainable. Right peroneal motor nerve demonstrates prolonged distal latency with normal amplitude and reduced conduction velocity. No significant drop in conduction across the fibular head. Tibial motor responses are within normal limits. Borderline prolonged left sural latency. Prolonged superficial peroneal latency bilaterally. Prolonged H???reflux bilaterally. Prolonged tibial F waves and right peroneal F???wave. Needle EMG testing was performed the lower limbs. All muscles tested showed no evidence of denervation with normal motor unit action potentials Electrodiagnostic impression: This is an abnormal study in the lower limbs 1. 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 2. No electrodiagnostic evidence is noted for lumbosacral radiculopathy. Multi Select Codes Neurology Neurology Interp Codes: 64411-48 Musc test done w/n test comp (interp) (2) and 79583-24 Nrv cndj test 9-10 studies (interp) 09/09/24 1346 Date Barrington Lovelace MD CC: Dr. Barrington Lovelace MD; Dr. Arnav Huertas MD Date Dictated: 09/09/241313 Date Transcribed: 09/09/241313 Caregiver Services Home: AA Signed Normal [facility] CBC W/Diff, Automatedon 02-2024 Absolute Lymph 2.18 X10 3/uL Normal 0.83-4.51 [facility] Comment on above: Performed By: #### L 501.9520, L500.4050, L100.0100, L501.1400 ####[facility] [address] [place], [address] Absolute Neut 6.0 X10 3/uL Normal 2.0-7.7 [facility] Comment on above: Performed By: #### L 501.9520, L500.4050, L100.0100, L501.1400 ####[facility] [address] [place], [address] Basophils/100 WBC (Bld) 1.1 % High 0-1 [facility] Comment on above: Performed By: #### L 501.9520, L500.4050, L100.0100, L501.1400 ####[facility] [address] [place], [address] Eosinophils/100 WBC (Bld) 5.8 % High 0-5 [facility] Comment on above: Performed By: #### L 501.9520, L500.4050, L100.0100, L501.1400 ####[facility] [address] [place], [address] Erythrocyte distribution width (RBC) [Ratio] 13.7 % Normal 11.6-14.6 [facility] Comment on above: Performed By: #### L 501.9520, L500.4050, L100.0100, L501.1400 ####[facility] [address] [place], [address] Hematocrit (Bld) [Volume fraction] 54.0 % Normal 40-54 [facility] Comment on above: Performed By: #### L 501.9520, L500.4050, L100.0100, L501.1400 ####[facility] [address] [place], [address] Hemoglobin (Bld) [Mass/Vol] 17.5 g/dL High 13.0-16.5 [facility] Comment on above: Performed By: #### L 501.9520, L500.4050, L100.0100, L501.1400 ####[facility] [address] [place], [address] IG% 1.300 High 0.0-0.9 [facility] Comment on above: Result Comment: IG% - Immature Granulocytes (promyelocytes, myelocytes and metamyelocytes) > 1% indicates that a LEFT SHIFT is Present. Performed By: #### L 501.9520, L500.4050, L100.0100, L501.1400 ####[facility] [address] [place], [address] Lymphocytes/100 WBC (Bld) 22.2 % Normal 19-41 [facility] Comment on above: Performed By: #### L 501.9520, L500.4050, L100.0100, L501.1400 ####[facility] [address] [place], [address] MCH (RBC) [Entitic mass] 30.7 pg Normal 27.0-32.0 [facility] Comment on above: Performed By: #### L 501.9520, L500.4050, L100.0100, L501.1400 ####[facility] [address] [place], [address] MCHC (RBC) [Mass/Vol] 32.4 g/dL Normal 32-36 [facility] Comment on above: Performed By: #### L 501.9520, L500.4050, L100.0100, L501.1400 ####[facility] [address] [place], [address] MCV (RBC) [Entitic vol] 94.7 fL High 80-94 [facility] Comment on above: Performed By: #### L 501.9520, L500.4050, L100.0100, L501.1400 ####[facility] [address] [place], [address] Monocytes/100 WBC (Bld) 8.3 % Normal 0-10 [facility] Comment on above: Performed By: #### L 501.9520, L500.4050, L100.0100, L501.1400 ####[facility] [address] [place], [address] Neutrophils/100 WBC (Bld) 61.3 % Normal 47-70 [facility] Comment on above: Performed By: #### L 501.9520, L500.4050, L100.0100, L501.1400 ####[facility] [address] [place], [address] Nucleated RBC (Bld) [#/Vol] 0 10*3/uL Normal 0-5 [facility] Comment on above: Performed By: #### L 501.9520, L500.4050, L100.0100, L501.1400 ####[facility] [address] [place], [address] Platelet mean volume (Bld) [Entitic vol] 9.1 fL Normal 6.2-12.0 [facility] Comment on above: Performed By: #### L 501.9520, L500.4050, L100.0100, L501.1400 ####[facility] [address] [place], [address] Platelets (Bld) [#/Vol] 201 10*3/uL Normal 150-450 [facility] Comment on above: Performed By: #### L 501.9520, L500.4050, L100.0100, L501.1400 ####[facility] [address] [place], [address] RBC (Bld) [#/Vol] 5.70 10*6/uL Normal 4.6-6.2 [facility] Comment on above: Performed By: #### L 501.9520, L500.4050, L100.0100, L501.1400 ####[facility] [address] [place], [address] RDW SD 47.8 fl High 35.1-43.9 [facility] Comment on above: Performed By: #### L 501.9520, L500.4050, L100.0100, L501.1400 ####[facility] [address] [place], [address] WBC (Bld) [#/Vol] 9.8 10*3/uL Normal 4.4-11.0 [facility] Comment on above: Performed By: #### L 501.9520, L500.4050, L100.0100, L501.1400 ####[facility] [address] [place], [address] Comprehensive Metabolic Prof ilmuna 08-27-2024 Albumin [Mass/Vol] 3.8 g/dL Normal 3.2-5.0 [facility] Comment on above: Performed By: #### L 501.9520, L500.4050, L100.0100, L501.1400 ####[facility] [address] [place], [address] Albumin/Globulin [Mass ratio] 1.1 {ratio} Normal 0.9-2.4 [facility] Comment on above: Performed By: #### L 501.9520, L500.4050, L100.0100, L501.1400 ####[facility] [address] [place], [address] ALK P 84 U/L Normal 45-117 [facility] Comment on above: Performed By: #### L 501.9520, L500.4050, L100.0100, L501.1400 ####[facility] [address] [place], [address] ALT [Catalytic activity/Vol] 35 U/L Normal 16-61 [facility] Comment on above: Performed By: #### L 501.9520, L500.4050, L100.0100, L501.1400 ####[facility] [address] [place], [address] AST [Catalytic activity/Vol] 13 U/L Low 15-37 [facility] Comment on above: Performed By: #### L 501.9520, L500.4050, L100.0100, L501.1400 ####[facility] [address] [place], [address] Bilirubin [Mass/Vol] 0.40 mg/dL Normal 0.20-1.00 [facility] Comment on above: Result Comment: For patients on eltrombopag therapy, use of Dimension Kincaid TBIL is not recommended. Performed By: #### L 501.9520, L500.4050, L100.0100, L501.1400 ####[facility] [address] [place], [address] BUN/CRE 16.4 RATIO Normal 10-20 [facility] Comment on above: Performed By: #### L 501.9520, L500.4050, L100.0100, L501.1400 ####[facility] [address] [place], [address] CA,Total 8.9 mg/dL Normal 8.5-10.1 [facility] Comment on above: Performed By: #### L 501.9520, L500.4050, L100.0100, L501.1400 ####[facility] [address] [place], [address] Chloride [Moles/Vol] 104 mmol/L Normal 98-107 [facility] Comment on above: Performed By: #### L 501.9520, L500.4050, L100.0100, L501.1400 ####[facility] [address] [place], [address] CO2 [Moles/Vol] 30.0 mmol/L Normal 21.0-32.0 [facility] Comment on above: Performed By: #### L 501.9520, L500.4050, L100.0100, L501.1400 ####[facility] [address] [place], [address] Creatinine [Mass/Vol] 0.98 mg/dL Normal 0.70-1.30 [facility] Comment on above: Result Comment: The validity of the calculated GFR GFRAA in patients over 70 years has not been determined. Clinical correlation is essential. Performed By: #### L 501.9520, L500.4050, L100.0100, L501.1400 ####[facility] [address] [place], [address] EST GFR - AA 100 mL/min Normal >60 [facility] Comment on above: Result Comment: Afri can Malian GFR Calc Performed By: #### L 501.9520, L500.4050, L100.0100, L501.1400 ####[facility] [address] [place], [address] GAP 5 Normal 5-15 [facility] Comment on above: Performed By: #### L 501.9520, L500.4050, L100.0100, L501.1400 ####[facility] [address] [place], [address] GFR/1.73 sq M.predicted among non-blacks MDRD (S/P/Bld) [Vol rate/Area] 83 mL/min/{1.73_m2} Normal >60 [facility] Comment on above: Result Comment: Non- GFR Calc Performed By: #### L 501.9520, L500.4050, L100.0100, L501.1400 ####[facility] [address] [place], [address] Globulin (S) [Mass/Vol] 3.6 g/dL Normal 2.2-4.2 [facility] Comment on above: Performed By: #### L 501.9520, L500.4050, L100.0100, L501.1400 ####[facility] [address] [place], [address] Glucose [Mass/Vol] 91 mg/dL Normal 74-106 [facility] Comment on above: Performed By: #### L 501.9520, L500.4050, L100.0100, L501.1400 ####[facility] [address] [place], [address] Potassium [Moles/Vol] 3.3 mmol/L Low 3.5-5.1 [facility] Comment on above: Performed By: #### L 501.9520, L500.4050, L100.0100, L501.1400 ####[facility] [address] [place], [address] Sodium [Moles/Vol] 139 mmol/L Normal 136-145 [facility] Comment on above: Performed By: #### L 501.9520, L500.4050, L100.0100, L501.1400 ####[facility] [address] [place], [address] T PROT 7.4 g/dL Normal 6.4-8.2 [facility] Comment on above: Performed By: #### L 501.9520, L500.4050, L100.0100, L501.1400 ####[facility] [address] [place], [address] Urea nitrogen [Mass/Vol] 16 mg/dL Normal 7-18 [facility] Comment on above: Performed By: #### L 501.9520, L500.4050, L100.0100, L501.1400 ####[facility] [address] [place], [address] Thyroid Stim Hormone (TSH)on 08-27-2024 TSH 2.020 uIU/mL Normal 0.358-3.740 [facility] Comment on above: Performed By: #### L 501.9520, L500.4050, L100.0100, L501.1400 ####[facility] [address] [place], [address] Uric Acidon 08-27-2024 URIC 7.6 mg/dL High 3.5-7.2 [facility] Comment on above: Result Comment: The drugs N-Acetylcysteine and Metamizole may falsely depress this assay. Performed By: #### L 501.9520, L500.4050, L100.0100, L501.1400 ####[facility] [address] [place], [address] CBC W/Diff, Automatedon 01-0 6-5 Absolute Lymph 1.78 X10 3/uL Normal 0.83-4.51 [facility] Comment on above: Performed By: #### L 501.1400, L500.4050, L501.6710, L100.0100, L101.9900 #### [facility] [address] [place], [address] Absolute Neut 5.5 X10 3/uL Normal 2.0-7.7 [facility] Comment on above: Performed By: #### L 501.1400, L500.4050, L501.6710, L100.0100, L101.9900 #### [facility] [address] [place], [address] Basophils/100 WBC (Bld) 0.6 % Normal 0-1 [facility] Comment on above: Performed By: #### L 501.1400, L500.4050, L501.6710, L100.0100, L101.9900 #### [facility] [address] [place], [address] Eosinophils/100 WBC (Bld) 3.6 % Normal 0-5 [facility] Comment on above: Performed By: #### L 501.1400, L500.4050, L501.6710, L100.0100, L101.9900 #### [facility] [address] [place], [address] Erythrocyte distribution width (RBC) [Ratio] 13.4 % Normal 11.6-14.6 [facility] Comment on above: Performed By: #### L 501.1400, L500.4050, L501.6710, L100.0100, L101.9900 #### [facility] [address] [place], [address] Hematocrit (Bld) [Volume fraction] 48.7 % Normal 40-54 [facility] Comment on above: Performed By: #### L 501.1400, L500.4050, L501.6710, L100.0100, L101.9900 #### [facility] [address] [place], [address] Hemoglobin (Bld) [Mass/Vol] 16.1 g/dL Normal 13.0-16.5 [facility] Comment on above: Performed By: #### L 501.1400, L500.4050, L501.6710, L100.0100, L101.9900 #### [facility] [address] [place], [address] IG% 0.600 Normal 0.0-0.9 [facility] Comment on above: Result Comment: IG% - Immature Granulocytes (promyelocytes, myelocytes and metamyelocytes) > 1% indicates that a LEFT SHIFT is Present. Performed By: #### L 501.1400, L500.4050, L501.6710, L100.0100, L101.9900 #### [facility] [address] [place], [address] Lymphocytes/100 WBC (Bld) 21.5 % Normal 19-41 [facility] Comment on above: Performed By: #### L 501.1400, L500.4050, L501.6710, L100.0100, L101.9900 #### [facility] [address] [place], [address] MCH (RBC) [Entitic mass] 30.3 pg Normal 27.0-32.0 [facility] Comment on above: Performed By: #### L 501.1400, L500.4050, L501.6710, L100.0100, L101.9900 #### [facility] [address] [place], [address] MCHC (RBC) [Mass/Vol] 33.1 g/dL Normal 32-36 [facility] Comment on above: Performed By: #### L 501.1400, L500.4050, L501.6710, L100.0100, L101.9900 #### [facility] [address] [place], [address] MCV (RBC) [Entitic vol] 91.7 fL Normal 80-94 [facility] Comment on above: Performed By: #### L 501.1400, L500.4050, L501.6710, L100.0100, L101.9900 #### [facility] [address] [place], [address] Monocytes/100 WBC (Bld) 7.5 % Normal 0-10 [facility] Comment on above: Performed By: #### L 501.1400, L500.4050, L501.6710, L100.0100, L101.9900 #### [facility] [address] [place], [address] Neutrophils/100 WBC (Bld) 66.2 % Normal 47-70 [facility] Comment on above: Performed By: #### L 501.1400, L500.4050, L501.6710, L100.0100, L101.9900 #### [facility] [address] [place], [address] Nucleated RBC (Bld) [#/Vol] 0 10*3/uL Normal 0-5 [facility] Comment on above: Performed By: #### L 501.1400, L500.4050, L501.6710, L100.0100, L101.9900 #### [facility] [address] [place], [address] Platelet mean volume (Bld) [Entitic vol] 9.2 fL Normal 6.2-12.0 [facility] Comment on above: Performed By: #### L 501.1400, L500.4050, L501.6710, L100.0100, L101.9900 #### [facility] [address] [place], [address] Platelets (Bld) [#/Vol] 193 10*3/uL Normal 150-450 [facility] Comment on above: Performed By: #### L 501.1400, L500.4050, L501.6710, L100.0100, L101.9900 #### [facility] [address] [place], [address] RBC (Bld) [#/Vol] 5.31 10*6/uL Normal 4.6-6.2 [facility] Comment on above: Performed By: #### L 501.1400, L500.4050, L501.6710, L100.0100, L101.9900 #### [facility] [address] [place], [address] RDW SD 45.3 fl High 35.1-43.9 [facility] Comment on above: Performed By: #### L 501.1400, L500.4050, L501.6710, L100.0100, L101.9900 #### [facility] [address] [place], [address] WBC (Bld) [#/Vol] 8.3 10*3/uL Normal 4.4-11.0 [facility] Comment on above: Performed By: #### L 501.1400, L500.4050, L501.6710, L100.0100, L101.9900 #### [facility] [address] [place], [address] CRPon 07-27-2024 C-REACTIVE PROT < 2.90 Normal 0.0-3.0 [facility] Comment on above: Result Comment: C-Re active Protein (CRP) provides useful information for the diagnosis, therapy and monitoring of inflammatory processes and associated diseases. For the evaluation of Relative Risk for Cardiovascular Disease, a High Sensitivity CRP (HSCRP) should be ordered. Performed By: #### L 501.1400, L500.4050, L501.6710, L100.0100, L101.9900 ####[facility] [address] [place], [address] Comprehensive Metabolic Prof ilon 07-27-2024 Albumin [Mass/Vol] 3.7 g/dL Normal 3.2-5.0 [facility] Comment on above: Performed By: #### L 501.1400, L500.4050, L501.6710, L100.0100, L101.9900 #### [facility] [address] [place], [address] Albumin/Globulin [Mass ratio] 1.1 {ratio} Normal 0.9-2.4 [facility] Comment on above: Performed By: #### L 501.1400, L500.4050, L501.6710, L100.0100, L101.9900 #### [facility] [address] [place], [address] ALK P 85 U/L Normal 45-117 [facility] Comment on above: Performed By: #### L 501.1400, L500.4050, L501.6710, L100.0100, L101.9900 #### [facility] [address] [place], [address] ALT [Catalytic activity/Vol] 32 U/L Normal 16-61 [facility] Comment on above: Performed By: #### L 501.1400, L500.4050, L501.6710, L100.0100, L101.9900 #### [facility] [address] [place], [address] AST [Catalytic activity/Vol] 23 U/L Normal 15-37 [facility] Comment on above: Result Comment: Slig ht Hemolysis, Result may be falsely increased. Performed By: #### L 501.1400, L500.4050, L501.6710, L100.0100, L101.9900 #### [facility] [address] [place], [address] Bilirubin [Mass/Vol] 0.40 mg/dL Normal 0.20-1.00 [facility] Comment on above: Result Comment: For patients on eltrombopag therapy, use of Dimension Kincaid TBIL is not recommended. Performed By: #### L 501.1400, L500.4050, L501.6710, L100.0100, L101.9900 #### [facility] [address] [place], [address] BUN/CRE 10.7 RATIO Normal 10-20 [facility] Comment on above: Performed By: #### L 501.1400, L500.4050, L501.6710, L100.0100, L101.9900 #### [facility] [address] [place], [address] CA,Total 8.7 mg/dL Normal 8.5-10.1 [facility] Comment on above: Performed By: #### L 501.1400, L500.4050, L501.6710, L100.0100, L101.9900 #### [facility] [address] [place], [address] Chloride [Moles/Vol] 107 mmol/L Normal 98-107 [facility] Comment on above: Performed By: #### L 501.1400, L500.4050, L501.6710, L100.0100, L101.9900 #### [facility] [address] [place], [address] CO2 [Moles/Vol] 27.0 mmol/L Normal 21.0-32.0 [facility] Comment on above: Performed By: #### L 501.1400, L500.4050, L501.6710, L100.0100, L101.9900 #### [facility] [address] [place], [address] Creatinine [Mass/Vol] 1.21 mg/dL Normal 0.70-1.30 [facility] Comment on above: Result Comment: The validity of the calculated GFR GFRAA in patients over 70 years has not been determined. Clinical correlation is essential. Performed By: #### L 501.1400, L500.4050, L501.6710, L100.0100, L101.9900 #### [facility] [address] [place], [address] EST GFR - AA 78 mL/min Normal >60 [facility] Comment on above: Result Comment: Afri can Malian GFR Calc Performed By: #### L 501.1400, L500.4050, L501.6710, L100.0100, L101.9900 #### [facility] [address] [place], [address] GAP 4 Low 5-15 [facility] Comment on above: Performed By: #### L 501.1400, L500.4050, L501.6710, L100.0100, L101.9900 #### [facility] [address] [place], [address] GFR/1.73 sq M.predicted among non-blacks MDRD (S/P/Bld) [Vol rate/Area] 65 mL/min/{1.73_m2} Normal >60 [facility] Comment on above: Result Comment: Non- GFR Calc Performed By: #### L 501.1400, L500.4050, L501.6710, L100.0100, L101.9900 #### [facility] [address] [place], [address] Globulin (S) [Mass/Vol] 3.3 g/dL Normal 2.2-4.2 [facility] Comment on above: Performed By: #### L 501.1400, L500.4050, L501.6710, L100.0100, L101.9900 #### [facility] [address] [place], [address] Glucose [Mass/Vol] 159 mg/dL High 74-106 [facility] Comment on above: Result Comment: Fast ing Glucose result greater than or equal to 126 mg/dL suggests DIABETES MELLITUS per A.D.A. criteria. Performed By: #### L 501.1400, L500.4050, L501.6710, L100.0100, L101.9900 #### [facility] [address] [place], [address] Potassium [Moles/Vol] 3.9 mmol/L Normal 3.5-5.1 [facility] Comment on above: Result Comment: Slig ht Hemolysis, Result may be falsely increased. Performed By: #### L 501.1400, L500.4050, L501.6710, L100.0100, L101.9900 #### [facility] [address] [place], [address] Sodium [Moles/Vol] 138 mmol/L Normal 136-145 [facility] Comment on above: Performed By: #### L 501.1400, L500.4050, L501.6710, L100.0100, L101.9900 #### [facility] [address] [place], [address] T PROT 7.0 g/dL Normal 6.4-8.2 [facility] Comment on above: Performed By: #### L 501.1400, L500.4050, L501.6710, L100.0100, L101.9900 #### [facility] [address] [place], [address] Urea nitrogen [Mass/Vol] 13 mg/dL Normal 7-18 [facility] Comment on above: Performed By: #### L 501.1400, L500.4050, L501.6710, L100.0100, L101.9900 #### [facility] [address] [place], [address] Erythrocyte Sed Rateon 07-27 SED RATE 4 mm/hr Normal 0-20 [facility] Comment on above: Performed By: #### L 501.1400, L500.4050, L501.6710, L100.0100, L101.9900 #### [facility] [address] [place], [address] Foot 2 Viewson 07-27-2024 Foot 2 Views [facility] Services [address] [place] [address] Foot 2 Views MR#: [id number] Acct: [id number] Name: TAZ GALE Rep #: [id number] : 1960 M 63 From: Ysoi Simmons MD PCP: Dr. Arnav Huertas MD Status: REG CLI Study: Foot 2 Views Date of Exam: 07/27/24 Exam# [id number] Ordering [place]: [place] [id number] STUDY: X-RAY - LEFT FOOT CLINICAL: Male, 63 years old. LEFT FOOT PAIN TECHNIQUE: 3 views of the left foot. COMPARISON: None. FINDINGS: Normal talus, calcaneus, and tarsal bones. Normal visualized subtalar, talonavicular, calcaneocuboid, tarsal and tarsometatarsal articulations. Normal metatarsi. Normal metatarsophalangeal joint of the great toe. Normal tibial and fibular sesamoid bones. Normal interphalangeal joint of the great toe. Normal phalanges of the great toe. Normal second through fifth metatarsophalangeal joints. Normal interphalangeal joints and phalanges of the lesser toes. The soft tissue structures are unremarkable. There is no demonstrated fracture. RAD/Foot 2 Views IMPRESSION: Normal x-ray examination of the left foot. Electronically Signed: Yosi Simmons MD at 15:15 EST Reading Location ID and State: [facility] / [place] , Service support , CC: Dr. Arnav Huertas MD Caregiver Services Home: Signed Normal [facility] Uric Acidon 07-27-2024 URIC 7.4 mg/dL High 3.5-7.2 [facility] Comment on above: Result Comment: The drugs N-Acetylcysteine and Metamizole may falsely depress this assay. Performed By: #### L 501.1400, L500.4050, L501.6710, L100.0100, L101.9900 ####[facility] [address] [place], [address] 34BE12 (add)on 07-03-2024 34BE12 (add) --- Patient Age/Sex Location Account Attending Physician TAZ GALE 63/M LABSPEC [id number] Dr. Darian Morgan MD Specimen: [id number] Received: 07/07/24 Status: MONIQUE Lambert Num: [id number] Spec Type: IMMUNO Subm Dr: Dr. Darian Morgan MD PHYSICIAN INSTITUTION [place] [address] SPECIMEN INFORMATION: Tissue Source: E- Left mid, F- Left apex Clinical Info: Elevated PSA Specimen Number: [id number] E,F CPT code: 54645,46769u5 METHODOLOGY: Deparaffinized sections of prefer/formalin-fixed tissue or PAP/DQ stained slides are incubated with monoclonal/polyclonal antibodies/oligonucleot carolyn probes. Localization is made via biotin free immunoperoxidase method. Appropriate controls are performed and reacted as expected. Results on target cell population are indicated in the following table: RESULTS: ANTIBODY / CLONE RESULT Block E P40 (BC28) negative 34BE12 (34BE12) negative Block F P40 (BC28) negative 34BE12 (34BE12) negative These tests were developed and their performance characteristics determined by [facility]. They may not have been cleared or approved by the U.S. Food and Drug Administration. The FDA has determined that such clearance or approval is not necessary. The above immunohistochemical/vernon Sherrill markers are ordered and reviewed by the Pathologist. INTERPRETATION: E. Prostate, left mid, core biopsy: Adenocarcinoma. F. Prostate, left apex, core biopsy: Adenocarcinoma. Case has been reviewed in consultation with Dr. Lee who concurs with the above diagnosis. IDC:BERTHA Short 07/08/2024 Signed (signature on file) Dr. Wilton Mitchell MD 07/08/24 1224 Normal [facility] Comment on above: Performed By: #### P 34BE12. #### [facility] [place], [address] PROSTATE BXon 07-03-2024 PROSTATE BX --- Patient Age/Sex Location Account Attending Physician TAZ GALE 63/M LABSPEC [id number] Dr. Darian Morgan MD Specimen: [id number] Received: 07/03/24 Status: MONIQUE Lambert Num: [id number] Spec Type: PROST BX Subm Dr: Dr. Darian Morgan MD HEADER OPERATION: Prostate biopsy PRE-OP DIAGNOSIS: Elevated PSA TISSUE SUBMITTED: A - Right base, B - Right mid, C - Right apex, D - Left base, E - Left mid, F - Left apex MICROSCOPIC DIAGNOSIS A. Right prostate, apex, core biopsy: Prostatic tissue, negative for malignancy. B. Right prostate, mid, core biopsy: Prostatic tissue, negative for malignancy. C. Right prostate, base, core biopsy: Prostatic tissue, negative for malignancy. D. Left prostate, apex, core biopsy: Prostatic tissue, negative for malignancy. E. Left prostate, mid, core biopsy: Prostatic adenocarcinoma. Danya grade: 3+3=6 Number of cores involved: 1/2 Proportion of tissue involved: <5 % Perineural invasion: Not identified. Greatest tumor length: <0.1 cm See comment. F. Left prostate, base, core biopsy: Prostatic adenocarcinoma. Danya grade: 3+3=6 Number of cores involved: 1/2 Proportion of tissue involved: 5 % Perineural invasion: Not identified. Greatest tumor length: 0.2 cm See comment. SJ.mr 07/07/2024 COMMENT E, F. Immunohistochemistry ([id number]) supports the above diagnosis. Case has been reviewed in consultation with Dr. Lee who concurs with the above diagnosis. IDC:AM Patient Age/Sex Location Account Attending Physician [facility]ALE 63[id number]. Darian Morgan MD MICROSCOPIC DESCRIPTION Slides are reviewed. GROSS DESCRIPTION A - Received is one container designated prostate, right base. The specimen consists of two elongated fragments of light yancey-white soft tissue measuring 1.0 and 1.2 cm in length and 0.1 cm in diameter. The specimen is totally submitted in one cassette. B - Received is one container designated prostate, right mid. The specimen consists of two elongated fragments of light yancey-white soft tissue measuring 1.6 and 1.8 cm in length and 0.1 cm in diameter. The specimen is totally submitted in one cassette. C - Received is one container designated prostate, right apex. The specimen consists of two elongated fragments of light yancey-white soft tissue each measuring 1.8 cm in length and 0.1 cm in diameter. The specimen is totally submitted in one cassette. D - Received is one container designated prostate, left base. The specimen consists of two elongated fragments of light yancey-white soft tissue each measuring 1.5 cm in length and 0.1 cm in diameter. The specimen is totally submitted in one cassette. E - Received is one container designated prostate, left mid. The specimen consists of two elongated fragments of light yancey-white soft tissue measuring 1.8 and 2.0 cm in length and 0.1 cm in diameter. The specimen is totally submitted in one cassette. F - Received is one container designated prostate, left apex. The specimen consists of two elongated fragments of light yancey-white soft tissue measuring 1.8 and 1.5 cm in length and 0.1 cm in diameter. The specimen is totally submitted in one cassette. / 07/06/2024 TC:0 CPT: 15795 x6 Patient Age/Sex Location Account Attending Physician TAZ GALE 63/M LABSPEC [id number] Dr. Darian Morgan MD Signed (signature on file) Dr. Wilton Mitchell MD 07/08/24 1225 Normal [facility] Comment on above: Performed By: #### P PROSB ####[facility] [id number] [facility] [place], [address] 12 Lead EKGon 06-24-2024 12 Lead EKG [facility] [address] [place] [address] 12 Lead EKG 06/24/24 0801 MR#: [id number] Acct: [id number] Name: TAZ GALE Rep #: [id number] : 1960 63 From: Matt Jones MD Attending Dr: Dr. Darian Morgan MD Status: REG CLI Ordering Dr: Darian Morgan MD Date: 06/24/24 Location: [facility] Sex: M C Admitted: Test Reason : PREOP Blood Pressure : */* mmHG Vent. Rate : 78 BPM Atrial Rate : 78 BPM P-R Int : 162 ms QRS Dur : 92 ms QT Int : 386 ms P-R-T Axes : 47 -14 16 degrees QTcB Int : 440 ms Normal sinus rhythm with sinus arrhythmia Normal ECG Confirmed by Matt Jones ([id number]), photograph editor BREANNE CARTER ([id number]) on 06/24/2024 8:29:16 AM Referred By: Darian Morgan Confirmed By: Matt Jones 06/24/24 0829 Date Matt Jones MD CC: Dr. Darian Morgan MD; Dr. Arnav Huertas MD Signed [facility] Basic Metabolic Profile (BMP )on 06-24-2024 BUN/CRE 18.2 RATIO Normal 10-20 [facility] Comment on above: Performed By: #### L 100.0500, L500.2500 #### [facility] [address] [place], [address] CA,Total 9.1 mg/dL Normal 8.5-10.1 [facility] Comment on above: Performed By: #### L 100.0500, L500.2500 #### [facility] [address] [place], [address] Chloride [Moles/Vol] 105 mmol/L Normal 98-107 [facility] Comment on above: Performed By: #### L 100.0500, L500.2500 #### [facility] [address] [place], [address] CO2 [Moles/Vol] 31.0 mmol/L Normal 21.0-32.0 [facility] Comment on above: Performed By: #### L 100.0500, L500.2500 #### [facility] [address] [place], [address] Creatinine [Mass/Vol] 0.94 mg/dL Normal 0.70-1.30 [facility] Comment on above: Result Comment: The validity of the calculated GFR GFRAA in patients over 70 years has not been determined. Clinical correlation is essential. Performed By: #### L 100.0500, L500.2500 #### [facility] [address], [address] EST GFR - AA 105 mL/min Normal >60 [facility] Comment on above: Result Comment: Afri can Malian GFR Calc Performed By: #### L 100.0500, L500.2500 #### [facility] [address], [address] GAP 4 Low 5-15 [facility] Comment on above: Performed By: #### L 100.0500, L500.2500 #### [facility] [address] [place], [address] GFR/1.73 sq M.predicted among non-blacks MDRD (S/P/Bld) [Vol rate/Area] 87 mL/min/{1.73_m2} Normal >60 [facility] Comment on above: Result Comment: Non- GFR Calc Performed By: #### L 100.0500, L500.2500 #### [facility] [address] [place], [address] Glucose [Mass/Vol] 120 mg/dL High 74-106 [facility] Comment on above: Result Comment: Fast ing Glucose result from 100 to 125 mg/dL suggests IMPAIRED HOMEOSTASIS per A.D.A. criteria. Performed By: #### L 100.0500, L500.2500 #### [facility] [address] [place], [address] Potassium [Moles/Vol] 3.9 mmol/L Normal 3.5-5.1 [facility] Comment on above: Performed By: #### L 100.0500, L500.2500 #### [facility] [address] [place], [address] Sodium [Moles/Vol] 140 mmol/L Normal 136-145 [facility] Comment on above: Performed By: #### L 100.0500, L500.2500 #### [facility] [address] [place], [address] Urea nitrogen [Mass/Vol] 17 mg/dL Normal 7-18 [facility] Comment on above: Performed By: #### L 100.0500, L500.2500 #### [facility] [address] [place], [address] CBC-Complete Blood Cnt No Di ffon 06-24-2024 Erythrocyte distribution width (RBC) [Ratio] 13.3 % Normal 11.6-14.6 [facility] Comment on above: Performed By: #### L 100.0500, L500.2500 #### [facility] [address] [place], [address] Hematocrit (Bld) [Volume fraction] 49.6 % Normal 40-54 [facility] Comment on above: Performed By: #### L 100.0500, L500.2500 #### [facility] [address] [place], [address] Hemoglobin (Bld) [Mass/Vol] 16.5 g/dL Normal 13.0-16.5 [facility] Comment on above: Performed By: #### L 100.0500, L500.2500 #### [facility] [address] [place], [address] MCH (RBC) [Entitic mass] 30.4 pg Normal 27.0-32.0 [facility] Comment on above: Performed By: #### L 100.0500, L500.2500 #### [facility] [address] [place], [address] MCHC (RBC) [Mass/Vol] 33.3 g/dL Normal 32-36 [facility] Comment on above: Performed By: #### L 100.0500, L500.2500 #### [facility] [address] [place], [address] MCV (RBC) [Entitic vol] 91.5 fL Normal 80-94 [facility] Comment on above: Performed By: #### L 100.0500, L500.2500 #### [facility] [address] [place], [address] Platelet mean volume (Bld) [Entitic vol] 9.4 fL Normal 6.2-12.0 [facility] Comment on above: Performed By: #### L 100.0500, L500.2500 #### [facility] [address] [place], [address] Platelets (Bld) [#/Vol] 195 10*3/uL Normal 150-450 [facility] Comment on above: Performed By: #### L 100.0500, L500.2500 #### [facility] [address] [place], [address] RBC (Bld) [#/Vol] 5.42 10*6/uL Normal 4.6-6.2 [facility] Comment on above: Performed By: #### L 100.0500, L500.2500 #### [facility] [address] [place], [address] RDW SD 44.5 fl High 35.1-43.9 [facility] Comment on above: Performed By: #### L 100.0500, L500.2500 #### [facility] [address] [place], [address] WBC (Bld) [#/Vol] 7.8 10*3/uL Normal 4.4-11.0 [facility] Comment on above: Performed By: #### L 100.0500, L500.2500 #### [facility] [address] [place], [address] PSA,Total- Diagnosticon 12-0 -2023 PSA, DIAGNOSTIC 5.38 ng/mL High 0.0-4.0 [facility] Comment on above: Result Comment: This test was performed using the TPSA assay method for the ShelfX chemistry system. Values obtained with different assay methods cannot be used interchangably. When changing PSA assays in the course of monitoring a patient, additional sequential testing should be carried out to confirm baseline values. Performed By: #### L 501.9940 #### [facility] [address] [place], [address] PSA,Total- Diagnosticon 05-2 PSA, DIAGNOSTIC 5.54 ng/mL High 0.0-4.0 [facility] Comment on above: Result Comment: This test was performed using the TPSA assay method for the ShelfX chemistry system. Values obtained with different assay methods cannot be used interchangably. When changing PSA assays in the course of monitoring a patient, additional sequential testing should be carried out to confirm baseline values. Performed By: #### L 501.9940 ####[facility] [address] [facility] [place], [address] No Panel InformationOrdered By: Darian Morgan on 07-01-2023 Prostate Specific Antigen Total 6.62 ng/mL 0.0-4.0 [facility] Comment on above: This test was perfor med using the TPSA assay method for theShelfX chemistry system. Values obtained with differentassay methods cannot be used interchangably.When changing PSA assays in the course of monitoring apatient, additional sequential testing should be carriedout to confirm baseline values. Basophil percentageOrdered B y: Darian Morgan on 02-14-2023 Creatinine [Mass/Vol] 1.0 mg/dL 0.70-1.30 [facility] No Panel InformationOrdered By: Darian Morgan on 02-14-2023 Bedside Estimated GFR (eGFR) > 60.0000 mL/min >60 [facility] No Panel InformationOrdered By: Darian Morgan on 01-07-2023 Prostate Specific Antigen Total 5.61 ng/mL 0.0-4.0 [facility] Comment on above: This test was perfor med using the TPSA assay method for theShelfX chemistry system. Values obtained with differentassay methods cannot be used interchangably.When changing PSA assays in the course of monitoring apatient, additional sequential testing should be carriedout to confirm baseline values. Absolute lymphocyte countOrd ered By: Dr. Huertas on 08-20-2022 Lymphocytes Auto (Unsp spec) [#/Vol] 2.03 10*3/uL 0.83-4.51 [facility] Basophil percentageOrdered B y: Dr. Huertas on 08-20-2022 Basophils/100 WBC (Bld) 0.6 % 0-1 [facility] Bilirubin [Mass/Vol] 0.60 mg/dL 0.20-1.00 [facility] Comment on above: For patients on eltr ombopag therapy, use of Dimension Kincaid TBIL is not recommended. Chloride [Moles/Vol] 104 mmol/L 98-107 [facility] Eosinophils/100 WBC (Bld) 3.1 % 0-5 [facility] Glucose [Mass/Vol] 107 mg/dL 74-106 [facility] Comment on above: Fasting Glucose resu lt from 100 to 125 mg/dL suggests IMPAIRED HOMEOSTASIS per A.D.A. criteria. Neutrophils (Bld) [#/Vol] 6.4 10*3/uL 2.0-7.7 [facility] Neutrophils/100 WBC (Bld) 65.1 % 47-70 [facility] Potassium [Moles/Vol] 3.9 mmol/L 3.5-5.1 [facility] Protein [Mass/Vol] 6.7 g/dL 6.4-8.2 [facility] Sodium [Moles/Vol] 141 mmol/L 136-145 [facility] WBC (Bld) [#/Vol] 9.9 10*3/uL 4.4-11.0 [facility] Blood erythrocytes count (nu mber/volume)Ordered By: Dr. Huertas on 08-20-2022 RBC (Bld) [#/Vol] 5.35 10*6/uL 4.6-6.2 [facility] Blood hemoglobin measurement (mass/volume)Ordered By: Dr. Huertas on 08-20-2022 Hemoglobin (Bld) [Mass/Vol] 16.1 g/dL 13.0-16.5 [facility] Blood lymphocytes/100 leukoc ytesOrdered By: Dr. Huertas on 08-20-2022 Lymphocytes/100 WBC (Bld) 20.5 % 19-41 [facility] Blood monocytes/100 leukocyt esOrdered By: Dr. Huertas on 08-20-2022 Monocytes/100 WBC (Bld) 9.1 % 0-10 [facility] Blood platelet mean volumeOr dered By: Dr. Huertas on 08-20-2022 Platelet mean volume (Bld) [Entitic vol] 9.5 fL 6.2-12.0 [facility] Determination of erythrocyte mean corpuscular volume (MCV)Ordered By: Dr. Huertas on 08-20-2022 MCV (RBC) [Entitic vol] 92.3 fL 80-94 [facility] Hematocrit Auto (Bld) [Volum e fraction]Ordered By: Dr. Huertas on 08-20-2022 Hematocrit (Bld) [Volume fraction] 49.4 % 40-54 [facility] - Chemistry and C hemistry - challengeOrdered By: Dr. Huertas on 08-20-2022 ALP [Catalytic activity/Vol] 72 U/L 45-117 [facility] ALT [Catalytic activity/Vol] 30 U/L 16-61 [facility] CO2 [Moles/Vol] 29.0 mmol/L 21.0-32.0 [facility] Globulin (S) [Mass/Vol] 3.1 g/dL 2.2-4.2 [facility] Urea nitrogen/Creatinine [Mass ratio] 16.8 mg/mg 10-20 [facility] - Hematology and Cell countsOrdered By: Dr. Huertas on 08-20-2022 Erythrocyte distribution width (RBC) [Entitic vol] 47.1 fL 35.1-43.9 [facility] Erythrocyte distribution width (RBC) [Ratio] 13.8 % 11.6-14.6 [facility] Immature granulocytes/100 WBC (Bld) 1.600 % 0.0-0.9 [facility] Comment on above: IG% - Immature Granu locytes (promyelocytes, myelocytes and metamyelocytes) > 1% indicates that a LEFT SHIFT is Present. MCH (RBC) [Entitic mass] 30.1 pg 27.0-32.0 [facility] Nucleated RBC/100 WBC (Bld) [Ratio] 0 % 0-5 [facility] MCHC Auto (RBC) [Mass/Vol]Or dered By: Dr. Huertas on 08-20-2022 MCHC (RBC) [Mass/Vol] 32.6 g/dL 32-36 [facility] No Panel InformationOrdered By: Dr. Huertas on 08-20-2022 Estimated GFR (MDRD) Amer 112 mL/min >60 [facility] Comment on above: GFR Calc Estimated GFR (MDRD) Non-Af Amer 93 mL/min >60 [facility] Comment on above: Non- GFR Calc Prostate Specific Antigen Screen 5.26 ng/mL 0.00-4.00 [facility] Comment on above: This test was perfor med using the TPSA assay method for the[employer] chemistry system. Values obtained with differentassay methods cannot be used interchangably.When changing PSA assays in the course of monitoring apatient, additional sequential testing should be carriedout to confirm baseline values. Thyroid Stimulating Hormone (TSH) 2.31 uIU/mL 0.358-3.74 [facility] Platelets bldOrdered By: Dr. Huertas on 08-20-2022 Platelets (Bld) [#/Vol] 173 10*3/uL 150-450 [facility] Serum or plasma albumin stevan urement (mass/volume)Ordered By: Dr. Huertas on 08-20-2022 Albumin [Mass/Vol] 3.6 g/dL 3.2-5.0 [facility] Serum or plasma albumin/glob ulin mass ratioOrdered By: Dr. Huertas on 08-20-2022 Albumin/Globulin [Mass ratio] 1.2 {ratio} 0.9-2.4 [facility] Serum or plasma calcium stevan urement (mass/volume)Ordered By: Dr. Huertas on 08-20-2022 Calcium [Mass/Vol] 9.1 mg/dL 8.5-10.1 [facility] Serum or plasma creatinine m easurement (mass/volume)Ordered By: Dr. Huertas on 08-20-2022 Creatinine [Mass/Vol] 0.89 mg/dL 0.70-1.30 [facility] Comment on above: The validity of the calculated GFR & GFRAA in patients over 70 years has not been determined. Clinical correlation is essential. Serum or plasma urea nitroge n measurement (mass/volume)Ordered By: Dr. Huertas on 08-20-2022 Urea nitrogen [Mass/Vol] 15 mg/dL 7-18 [facility] Thin prep Papanicolaou smear with manual screeningOrdered By: Dr. Huertas on 08-20-2022 Thin prep Papanicolaou smear with manual screening 19 U/L 15-37 [facility] Thin prep Papanicolaou smear with manual screening 8 5-15 [facility] Laboratory - Microbiology an d Antimicrobial susceptibilityOrdered By: Dr. Huertas on 06-29-2022 SARS-CoV-2 (COVID-19) RNA URIAH+probe Ql (Unsp spec) Not detected Not Detect [facility] Comment on above: Normal Reference Ran ge: Not DetectedMethod:(RT-PCR) real-time reverse transcriptase PCRLuminex KEZIA Instrument*The Food and Drug Administration (FDA) has issued an Emergency Use Authorization (EAU) for the KEZIA SARS-CoV-2 Assay for the rapid detection of the virus that causes COVID-19. This test has been validated, but the FDAs independent review of this validation is pending.*Negative results do not preclude infection and should not be used as the sole basis for treatment or patient management. Optimum specimen types and timing for peak viral levels during infections caused by SARS-CoV-2 have not been determined. Collection of multiple specimens from the same patient may be necessary to detect the virus. The possibility of a false negative result should be considered if the patient has clinical presentation or has had recent exposure. No Panel InformationOrdered By: Dr. Huertas on 06-29-2022 Influenza Types A,B Direct FA (CLARISA) Influenzae A [facility] RSV Ag EIAOrdered By: Dr. Brittany patel on 06-29-2022 RSV Ag Immune stain Ql (Tiss) [facility] No Panel Information Influenza Types A,B Direct FA (CLARISA) Influenzae A [facility] Work Phone: RSV Ag EIA RSV Ag Immune stain Ql (Tiss) [facility] Work Phone: Encounters Encounter Date Encounter Type Care Provider Facility Start: 09-09-2024 ambulatory Arsal Ahmad Facility:[facility] Start: 09-09-2024 End: 09-09-2024 ambulatory Arnav Chi Aleksandar [facility] Start: 08-27-2024 End: 08-27-2024 ambulatory [facility] Aleksandar [facility] Start: 07-27-2024 End: 07-27-2024 ambulatory Arnav Chi Aleksandar Facility:[facility] Start: 07-23-2024 [facility] Start: 07-03-2024 End: 07-03-2024 ambulatory [facility] Start: 06-24-2024 End: 06-24-2024 ambulatory Arnav Chi Aleksandar Facility:[facility] Start: 06-24-2024 End: 06-24-2024 ambulatory [facility] Facility:[facility] Start: 06-22-2024 End: 06-22-2024 ambulatory [facility] Facility:[facility] Start: 12-17-2023 End: 12-17-2023 ambulatory Arnav Chi Aleksandar Facility:[facility] Start: 08-16-2023 End: 08-16-2023 ambulatory [facility] Work Phone: Start: 08-16-2023 End: 08-16-2023 Patient encounter procedure [facility] Specimen Work Phone: Start: 07-01-2023 End: 07-01-2023 ambulatory [facility] Work Phone: Start: 07-01-2023 End: 07-01-2023 [facility] Start: 02-14-2023 End: 02-14-2023 ambulatory [facility] Work Phone: Start: 02-14-2023 End: 02-14-2023 Patient encounter procedure [facility] Work Phone: Start: 01-07-2023 End: 01-07-2023 Patient encounter procedure [facility] Work Phone: Start: 08-30-2022 End: 08-30-2022 ambulatory [facility] Work Phone: Start: 08-30-2022 End: 08-30-2022 [facility] Start: 08-20-2022 End: 08-20-2022 ambulatory [facility] Work Phone: Start: 08-20-2022 End: 08-20-2022 Patient encounter procedure [facility], Phy Office 3rd Flr Start: 06-29-2022 End: 06-29-2022 ambulatory [facility] Work Phone: Start: 06-29-2022 End: 06-29-2022 Patient encounter procedure [facility]Neurology Start: 05-28-2022 End: 05-28-2022 ambulatory [facility] Work Phone: Start: 05-28-2022 End: 05-28-2022 Patient encounter procedure [facility] Start: 07-07-2021 Patient encounter status [facility] Procedures Date Procedure Procedure Detail Performing Clinician Start: 02-14-2023 MRI of pelvis with contrast Start: 08-30-2022 X-ray of chest posteroanterior view Start: 05-28-2022 MRI of lumbar spine History of operative procedure on knee Status post left knee surgery Influenza Types A,B Direct FA (CLARISA) Influenza Types A,B Direct FA (CLARISA) Respiratory syncytia l virus antigen assay Respiratory syncytia l virus antigen assay Immunizations Immunization Date Immunization Notes Care Provider Fa cility 06-14-2018 influenza, injectabl e, quadrivalent, preservative free [facility] 06-14-2018 influenza, seasonal, injectable [facility] 07-05-2016 Influenza virus vaccine [facility] Payers Date Payer Category Payer Self-pay [id number] 2016 Unknown [id number] Unknown [id number] 2.16.8 [id number] Unknown [id number] 2.16.8 [id number] Unknown [id number] 2.16.8 [id number] Unknown [id number] 2.16.8 [id number] Unknown [id number] 2.16.8 [id number] Unknown [id number] 2.16.8 [id number] Unknown [id number] 2.16.8 [id number] Unknown [id number] 2.16.8 [id number] Unknown [id number] 2.16.8 [id number] Social History Date Type Detail Facility Start: 09-05-2021 End: 09-05-2021 Tobacco smoking status NHIS Unknown if ever smoked [facility] Start: 07-29-2016 None [facility] Start: 07-29-2016 Spouse/ Signif icant Other [facility] Start: 1960 Sex Assigned At Male [facility] Medical Equipment Procedure Code Equipment Code Equipment Origin al Text Equipment Identifier Dates ANATOMIC MENISCA L BEARING FDA Start: 06-13-2018 CEMENT,BONE ALEJANDRINA H 1/2 BATCH FDA Start: 07-12-2021 ([id number]) Coated knee femu r prosthesis ()[id number] FDA Start: 07-12-2021 ([id number]) Coated knee tibi a prosthesis ()[id number] FDA Start: 07-12-2021 ([id number]) Polyethylene pat patrick prosthesis ()[id number] FDA Start: 07-12-2021 ([id number]) Tibial insert [id number] FDA Start: 07-12-2021 ANATOMIC MENISCA L BEARING FDA Start: 06-13-2018 CEMENT,BONE ALEJANDRINA H 1/2 BATCH FDA Start: 07-12-2021 ANATOMIC MENISCA L BEARING FDA Start: 06-13-2018 CEMENT,BONE ALEJANDRINA H 1/2 BATCH FDA Start: 07-12-2021 ANATOMIC MENISCA L BEARING FDA Start: 06-13-2018 CEMENT,BONE ALEJANDRINA H 1/2 BATCH FDA Start: 07-12-2021 ANATOMIC MENISCA L BEARING FDA Start: 06-13-2018 CEMENT,BONE ALEJANDRINA H 1/2 BATCH FDA Start: 07-12-2021 ANATOMIC MENISCA L BEARING FDA Start: 06-13-2018 CEMENT,BONE ALEJANDRINA H 1/2 BATCH FDA Start: 07-12-2021 ANATOMIC MENISCA L BEARING FDA Start: 06-13-2018 CEMENT,BONE ALEJANDRINA H 1/2 BATCH FDA Start: 07-12-2021 Evaluation note Note Date & Type Note Facility Evaluation note No assessment information availa [facility] Work Phone: Chief Complaint and Reason for Visit Chief Complaint SPINAL STENOSIS, RAD ICULOPATHY Chief Complaint SPINAL STENOSIS, RAD ICULOPATHY SCREENING Chief Complaint PSA ELEVATED PSA Chief Complaint PSA 6 MONTHS - ROUTI NE ELEVATED PROSTATE SPECIFIC ANTIGEN Chief Complaint PSA 6 MONTHS - ROUTI NE Advance Directives No Advanced Directives Records Found Advance Directive Response Recorded Date/ Time Advance Directives No July 28, 2016 5:00pm Living Will No September 05, 2 022 8:55am Power of Stem Sizer No September 05, 2021 8:55am Advance Directive Response Recorded Date/ Time Advance Directives No July 28, 2016 6:00pm Living Will No September 05, 2 022 9:55am Power of Stem Sizer No September 05, 2021 9:55am Summary Purpose Family History No Family History Records Found Additional Source Comments Goals (unrecognized section and content) Goals may be documented in a n alternate sectionGoals may be documented in an alternate sectionGoals may be documented in an alternate sectionGoals may be documented in an alternate sectionGoals may be documented in an alternate sectionGoals may be documented in an alternate sectionGoals may be documented in an alternate section Care Teams (unrecognized sec tion and content) Team Status: Active Member Role Status Dates Dr. Arnav Huertas MD Family Provider Active Dr. Arnav Huertas MD Primary Care Provider Active Team Status: Inactive Member Role Status Dates Dr. Arnav Huertas MD Primary Care Provider Active Dr. Chidi Moralez DO Attending Provider, Referring P vi Active Team Status: Inactive Member Role Status Dates Dr. Arnav Huertas MD Primary Care Provi rhoda, Attending Provider, Referring Provider Active Team Status: Inactive Member Role Status Dates Dr. Arnav Huertas MD Primary Care Provider, Attending Provider Active Team Status: Active Member Role Status Dates Dr. Arnav Huertas MD Primary Care Provi rhoda, Attending Provider, Referring Provider Active Team Status: Inactive Member Role Status Dates Dr. Arnav Huertas MD Primary Care Provider Active Dr. Darian Morgan MD Attending Provider, Referr ing Provider Active (unrecognized sect ion and content) No Status Records Found INFORMATION SOURCE (unrecogn ized section and content) DATE CREATED AUTHOR 10/08/2024 [facility] FOR RECORDS PERTAINING TO PATIENTS WHO ARE OR HAVE BEEN ENROLLED IN A CHEMICAL DEPENDENCY/SUBSTANCEABUSE PROGRAM, SOME INFORMATION MAY BE OMITTED. This clinical summary was aggregated from multiple sources. Caution should be exercised in using it in the provision of clinical care. This summary normalizes information from multiple sources, and as a consequence, information in this document may materially change the coding, format and clinical context of patient data. In addition, data may be omitted in some cases. CLINICAL DECISIONS SHOULD BE BASED ON THE PRIMARY CLINICAL RECORDS. [employer] provides no warranty or guarantee of the accuracy or completeness of information in this document.
--- OUTSIDE RECORDS SUMMARY | 2025-02-25 07:27 | XMS RPT_ITS | CCD ---
Author Organization [facility] Care Team Providers Care Cut Press Operator Name Role Phone Darian Morgan Attending Unavailable Darian Morgan Referring Unavailable Aleksandar, Arnav Chi Primary Care Unavailable Darian Morgan Attending Unavailable EddieDarian Referring Unavailable Aleksandar, Arnav Chi Primary Care Unavailable Matt Jones Attending Unavailable EddieDarian Referring Unavailable Aleksandar, Arnav Chi Primary Care Unavailable Barrington Lovelace Attending Unavailable Aleksandar, Arnav Chi Referring Unavailable Aleksandar, Arnav Chi Primary Care Unavailable Aleksandar, Arnav Chi Consulting Unavailable Aleksandar, Arnav Chi Attending Unavailable Aleksandar, Arnav Chi Primary Care Unavailable Aleksandar, Arnav Chi Attending Unavailable Aleksandar, Arnav Chi Primary Care Unavailable Aleksandar, Arnav Chi Attending Unavailable Aleksandar, Arnav Chi Referring Unavailable Aleksandar, Arnav Chi Primary Care Unavailable Darian Morgan Attending Unavailable EddieDarian Referring Unavailable Aleksandar, Arnav Chi Primary Care [...] 2016 12:00am August 30, 2017 5:01pm Problems Active Problems Problem Classification Problem Date Documented Date [...] unspecified; Translations: [Polyneuropathy, unspecified] Onset: 10-06-2024 Chronic Residual codes; unclassified (7 sources) Obstructive sleep apnea syndrome; Translations: [Obstructive sleep apnea (adult) (pediatric)] 07-07-2021 Chronic Skin and subcutaneous tissue infections (7 sources) Cellulitis of lower leg; Translations: [Cellulitis of left lower limb] 06-13-2018 Episodic Superficial injury; contusion (7 sources) Contusion of lower leg; Translations: [Contusion of left lower leg, initial encounter] 06-13-2018 Episodic Past or Other Problems Problem Classification Problem Date Documented Date Episodic/Chronic Other nutritional; endocrine; and metabolic disorders (1 source) Hyperuricemia without signs of inflammatory arthritis and tophaceous disease; Translations: [Hyperuricemia without signs of inflammatory arthritis and tophaceous disease] Onset: 08-18-2024 Episodic Other screening for suspected conditions (not mental disorders or infectious disease) (9 sources) Electrocardiogram abnormal; Translations: [Abnormal electrocardiogram [ECG] [EKG]] Onset: 08-11-2024 06-13-2018 Episodic Results Test Name Value Interpretation Reference Range Facility NCS and/or EMG Patienton NCS and/or EMG Patient [facility]monary Services/Neurology [address] [place] [address] MR#: [id number] Acct: [id number] Name: TAZ GALE Rep #: [id number] : 1960 63 From: Barrington Lovelace MD Referring Dr: Arnav Huertas. Status: REG CLI Location: [facility] Date: 09/09/24 Sex: M C NCS and/or [...] Multi Select Codes Neurology Neurology Interp Codes: 30104-30 Musc test done w/n test comp (interp) (2) and 52114-25 Nrv cndj test 9-10 studies (interp) 09/09/24 1346 Date Barrington Lovelace MD CC: Dr. Barrington Lovelace MD; Dr. Arnav Huertas MD Date Dictated: 09/09/241313 Date Transcribed: 09/09/241313 Service Clerk: AA Signed Normal [facility] CBC W/Diff, Automatedon 0 -2024 Absolute Lymph 2.18 X10 3/uL Normal 0.83-4.51 [facility] Comment on above: Performed By: #### L 501.9520, L500.4050, L100.0100, L501.1400 ####[facility] [address] [place], [address] Absolute Neut 6.0 X10 3/uL Normal 2.0-7.7 [facility] Comment on above: Performed By: #### L 501.9520, L500.4050, L100.0100, L501.1400 ####[facility] [address] [place], [address] Basophils/100 WBC (Bld) 1.1 % High 0-1 [facility] Comment on above: Performed By: #### L 501.9520, L500.4050, L100.0100, L501.1400 ####[facility] [address] [place], [address] Eosinophils/100 WBC (Bld) 5.8 % High 0-5 [facility] Comment on above: Performed By: #### L 501.9520, L500.4050, L100.0100, L501.1400 ####[facility] [address] [place], [address] Erythrocyte distribution width (RBC) [Ratio] 13.7 % Normal 11.6-14.6 [facility] Comment on above: Performed By: #### L 501.9520, L500.4050, L100.0100, L501.1400 ####[facility] [address] [place], [address] Hematocrit (Bld) [Volume fraction] 54.0 % Normal 40-54 [facility] Comment on above: Performed By: #### L 501.9520, L500.4050, L100.0100, L501.1400 ####[facility] [address] [place], [address] Hemoglobin (Bld) [Mass/Vol] 17.5 g/dL High 13.0-16.5 [facility] Comment on above: Performed By: #### L 501.9520, L500.4050, L100.0100, L501.1400 ####[facility] [address] [place], [address] IG% 1.300 High 0.0-0.9 [facility] Comment on above: Result Comment: IG% - Immature Granulocytes (promyelocytes, myelocytes and metamyelocytes) > 1% indicates that a LEFT SHIFT is Present. Performed By: #### L 501.9520, L500.4050, L100.0100, L501.1400 ####[facility] [address] [place], [address] Lymphocytes/100 WBC (Bld) 22.2 % Normal 19-41 [facility] Comment on above: Performed By: #### L 501.9520, L500.4050, L100.0100, L501.1400 ####[facility] [address] [place], [address] MCH (RBC) [Entitic mass] 30.7 pg Normal 27.0-32.0 [facility] Comment on above: Performed By: #### L 501.9520, L500.4050, L100.0100, L501.1400 ####[facility] [address] [place], [address] MCHC (RBC) [Mass/Vol] 32.4 g/dL Normal 32-36 [facility] Comment on above: Performed By: #### L 501.9520, L500.4050, L100.0100, L501.1400 ####[facility] [address] [place], [address] MCV (RBC) [Entitic vol] 94.7 fL High 80-94 [facility] Comment on above: Performed By: #### L 501.9520, L500.4050, L100.0100, L501.1400 ####[facility] [address] [place], [address] Monocytes/100 WBC (Bld) 8.3 % Normal 0-10 [facility] Comment on above: Performed By: #### L 501.9520, L500.4050, L100.0100, L501.1400 ####[facility] [address] [place], [address] Neutrophils/100 WBC (Bld) 61.3 % Normal 47-70 [facility] Comment on above: Performed By: #### L 501.9520, L500.4050, L100.0100, L501.1400 ####[facility] [address] [place], [address] Nucleated RBC (Bld) [#/Vol] 0 10*3/uL Normal 0-5 [facility] Comment on above: Performed By: #### L 501.9520, L500.4050, L100.0100, L501.1400 ####[facility] [address] [place], [address] Platelet mean volume (Bld) [Entitic vol] 9.1 fL Normal 6.2-12.0 [facility] Comment on above: Performed By: #### L 501.9520, L500.4050, L100.0100, L501.1400 ####[facility] [address] [place], [address] Platelets (Bld) [#/Vol] 201 10*3/uL Normal 150-450 [facility] Comment on above: Performed By: #### L 501.9520, L500.4050, L100.0100, L501.1400 ####[facility] [address] [place], [address] RBC (Bld) [#/Vol] 5.70 10*6/uL Normal 4.6-6.2 [facility] Comment on above: Performed By: #### L 501.9520, L500.4050, L100.0100, L501.1400 ####[facility] [address] [place], [address] RDW SD 47.8 fl High 35.1-43.9 [facility] Comment on above: Performed By: #### L 501.9520, L500.4050, L100.0100, L501.1400 ####[facility] [address] [place], [address] WBC (Bld) [#/Vol] 9.8 10*3/uL Normal 4.4-11.0 [facility] Comment on above: Performed By: #### L 501.9520, L500.4050, L100.0100, L501.1400 ####[facility] [address] [place], [address] Comprehensive Metabolic [facility] 08-27-2024 Albumin [Mass/Vol] 3.8 g/dL Normal 3.2-5.0 [facility] Comment on above: Performed By: #### L 501.9520, L500.4050, L100.0100, L501.1400 ####[facility] [address] [place], [address] Albumin/Globulin [Mass ratio] 1.1 {ratio} Normal 0.9-2.4 [facility] Comment on above: Performed By: #### L 501.9520, L500.4050, L100.0100, L501.1400 ####[facility] [address] [place], [address] ALK P 84 U/L Normal 45-117 [facility] Comment on above: Performed By: #### L 501.9520, L500.4050, L100.0100, L501.1400 ####[facility] [address] [place], [address] ALT [Catalytic activity/Vol] 35 U/L Normal 16-61 [facility] Comment on above: Performed By: #### L 501.9520, L500.4050, L100.0100, L501.1400 ####[facility] [address] [place], [address] AST [Catalytic activity/Vol] 13 U/L Low 15-37 [facility] Comment on above: Performed By: #### L 501.9520, L500.4050, L100.0100, L501.1400 ####[facility] [address] [place], [address] Bilirubin [Mass/Vol] 0.40 mg/dL Normal 0.20-1.00 [facility] Comment on above: Result Comment: For patients on eltrombopag therapy, use of Dimension [place] TBIL is not recommended. Performed By: #### L 501.9520, L500.4050, L100.0100, L501.1400 ####[facility] [address] [place], [address] BUN/CRE 16.4 RATIO Normal 10-20 [facility] Comment on above: Performed By: #### L 501.9520, L500.4050, L100.0100, L501.1400 ####[facility] [address] [place], [address] CA,Total 8.9 mg/dL Normal 8.5-10.1 [facility] Comment on above: Performed By: #### L 501.9520, L500.4050, L100.0100, L501.1400 ####[facility] [address] [place], [address] Chloride [Moles/Vol] 104 mmol/L Normal 98-107 [facility] Comment on above: Performed By: #### L 501.9520, L500.4050, L100.0100, L501.1400 ####[facility] [address] [place], [address] CO2 [Moles/Vol] 30.0 mmol/L Normal 21.0-32.0 [facility] Comment on above: Performed By: #### L 501.9520, L500.4050, L100.0100, L501.1400 ####[facility] [address] [place], [address] Creatinine [Mass/Vol] 0.98 mg/dL Normal 0.70-1.30 [facility] Comment on above: Result Comment: The validity of the calculated GFR GFRAA in patients over 70 years has not been determined. Clinical correlation is essential. Performed By: #### L 501.9520, L500.4050, L100.0100, L501.1400 ####[facility] [address] [place], [address] EST GFR - AA 100 mL/min Normal >60 [facility] Comment on above: Result Comment: Afri can [place] GFR Calc Performed By: #### L 501.9520, L500.4050, L100.0100, L501.1400 ####[facility] [address] [place], [address] GAP 5 Normal 5-15 [facility] Comment on above: Performed By: #### L 501.9520, L500.4050, L100.0100, L501.1400 ####[facility] [address] [place], [address] GFR/1.73 sq M.predicted among non-blacks MDRD (S/P/Bld) [Vol rate/Area] 83 mL/min/{1.73_m2} Normal >60 [facility] Comment on above: Result Comment: Non- GFR Calc Performed By: #### L 501.9520, L500.4050, L100.0100, L501.1400 ####[facility] [address] [place], [address] Globulin (S) [Mass/Vol] 3.6 g/dL Normal 2.2-4.2 [facility] Comment on above: Performed By: #### L 501.9520, L500.4050, L100.0100, L501.1400 ####[facility] [address] [place], [address] Glucose [Mass/Vol] 91 mg/dL Normal 74-106 [facility] Comment on above: Performed By: #### L 501.9520, L500.4050, L100.0100, L501.1400 ####[facility] [address] [place], [address] Potassium [Moles/Vol] 3.3 mmol/L Low 3.5-5.1 [facility] Comment on above: Performed By: #### L 501.9520, L500.4050, L100.0100, L501.1400 ####[facility] [address] [place], [address] Sodium [Moles/Vol] 139 mmol/L Normal 136-145 [facility] Comment on above: Performed By: #### L 501.9520, L500.4050, L100.0100, L501.1400 ####[facility] [address] [place], [address] T PROT 7.4 g/dL Normal 6.4-8.2 [facility] Comment on above: Performed By: #### L 501.9520, L500.4050, L100.0100, L501.1400 ####[facility] [address] [place], [address] Urea nitrogen [Mass/Vol] 16 mg/dL Normal 7-18 [facility] Comment on above: Performed By: #### L 501.9520, L500.4050, L100.0100, L501.1400 ####[facility] [address] [place], [address] Thyroid Stim Hormone (TSH)on 08-27-2024 TSH 2.020 uIU/mL Normal 0.358-3.740 [facility] Comment on above: Performed By: #### L 501.9520, L500.4050, L100.0100, L501.1400 ####[facility] [address] [place], [address] Uric Acidon 08-27-2024 URIC 7.6 mg/dL High 3.5-7.2 [facility] Comment on above: Result Comment: The drugs N-Acetylcysteine and Metamizole may falsely depress this assay. Performed By: #### L 501.9520, L500.4050, L100.0100, L501.1400 ####[facility] [address] [place], [address] CBC W/Diff, Automatedon 01-0 -2024 Absolute Lymph 1.78 X10 3/uL Normal 0.83-4.51 [facility] Comment on above: Performed By: #### L 500.4050, L501.6710, L100.0100, L101.9900, L501.1400 #### [facility] [address] [place], [address] Absolute Neut 5.5 X10 3/uL Normal 2.0-7.7 [facility] Comment on above: Performed By: #### L 500.4050, L501.6710, L100.0100, L101.9900, L501.1400 #### [facility] [address] [place], [address] Basophils/100 WBC (Bld) 0.6 % Normal 0-1 [facility] Comment on above: Performed By: #### L 500.4050, L501.6710, L100.0100, L101.9900, L501.1400 #### [facility] [address] [place], [address] Eosinophils/100 WBC (Bld) 3.6 % Normal 0-5 [facility] Comment on above: Performed By: #### L 500.4050, L501.6710, L100.0100, L101.9900, L501.1400 #### [facility] [address] [place], [address] Erythrocyte distribution width (RBC) [Ratio] 13.4 % Normal 11.6-14.6 [facility] Comment on above: Performed By: #### L 500.4050, L501.6710, L100.0100, L101.9900, L501.1400 #### [facility] [address] [place], [address] Hematocrit (Bld) [Volume fraction] 48.7 % Normal 40-54 [facility] Comment on above: Performed By: #### L 500.4050, L501.6710, L100.0100, L101.9900, L501.1400 #### [facility] [address] [place], [address] Hemoglobin (Bld) [Mass/Vol] 16.1 g/dL Normal 13.0-16.5 [facility] Comment on above: Performed By: #### L 500.4050, L501.6710, L100.0100, L101.9900, L501.1400 #### [facility] [address] [place], [address] IG% 0.600 Normal 0.0-0.9 [facility] Comment on above: Result Comment: IG% - Immature Granulocytes (promyelocytes, myelocytes and metamyelocytes) > 1% indicates that a LEFT SHIFT is Present. Performed By: #### L 500.4050, L501.6710, L100.0100, L101.9900, L501.1400 #### [facility] [address] [place], [address] Lymphocytes/100 WBC (Bld) 21.5 % Normal 19-41 [facility] Comment on above: Performed By: #### L 500.4050, L501.6710, L100.0100, L101.9900, L501.1400 #### [facility] [address] [place], [address] MCH (RBC) [Entitic mass] 30.3 pg Normal 27.0-32.0 [facility] Comment on above: Performed By: #### L 500.4050, L501.6710, L100.0100, L101.9900, L501.1400 #### [facility] [address] [place], [address] MCHC (RBC) [Mass/Vol] 33.1 g/dL Normal 32-36 [facility] Comment on above: Performed By: #### L 500.4050, L501.6710, L100.0100, L101.9900, L501.1400 #### [facility] [address] [place], [address] MCV (RBC) [Entitic vol] 91.7 fL Normal 80-94 [facility] Comment on above: Performed By: #### L 500.4050, L501.6710, L100.0100, L101.9900, L501.1400 #### [facility] [address] [place], [address] Monocytes/100 WBC (Bld) 7.5 % Normal 0-10 [facility] Comment on above: Performed By: #### L 500.4050, L501.6710, L100.0100, L101.9900, L501.1400 #### [facility] [address] [place], [address] Neutrophils/100 WBC (Bld) 66.2 % Normal 47-70 [facility] Comment on above: Performed By: #### L 500.4050, L501.6710, L100.0100, L101.9900, L501.1400 #### [facility] [address] [place], [address] Nucleated RBC (Bld) [#/Vol] 0 10*3/uL Normal 0-5 [facility] Comment on above: Performed By: #### L 500.4050, L501.6710, L100.0100, L101.9900, L501.1400 #### [facility] [address] [place], [address] Platelet mean volume (Bld) [Entitic vol] 9.2 fL Normal 6.2-12.0 [facility] Comment on above: Performed By: #### L 500.4050, L501.6710, L100.0100, L101.9900, L501.1400 #### [facility] [address] [place], [address] Platelets (Bld) [#/Vol] 193 10*3/uL Normal 150-450 [facility] Comment on above: Performed By: #### L 500.4050, L501.6710, L100.0100, L101.9900, L501.1400 #### [facility] [address] [place], [address] RBC (Bld) [#/Vol] 5.31 10*6/uL Normal 4.6-6.2 [facility] Comment on above: Performed By: #### L 500.4050, L501.6710, L100.0100, L101.9900, L501.1400 #### [facility] [address] [place], [address] RDW SD 45.3 fl High 35.1-43.9 [facility] Comment on above: Performed By: #### L 500.4050, L501.6710, L100.0100, L101.9900, L501.1400 #### [facility] [address] [place], [address] WBC (Bld) [#/Vol] 8.3 10*3/uL Normal 4.4-11.0 [facility] Comment on above: Performed By: #### L 500.4050, L501.6710, L100.0100, L101.9900, L501.1400 #### [facility] [address] [place], [address] CRPon 07-27-2024 C-REACTIVE PROT < 2.90 Normal 0.0-3.0 [facility] Comment on above: Result Comment: C-Re active Protein (CRP) provides useful information for the diagnosis, therapy and monitoring of inflammatory processes and associated diseases. For the evaluation of Relative Risk for Cardiovascular Disease, a High Sensitivity CRP (HSCRP) should be ordered. Performed By: #### L 500.4050, L501.6710, L100.0100, L101.9900, L501.1400 ####[facility] [address] [place], [address] Comprehensive Metabolic Prof ilon 07-27-2024 Albumin [Mass/Vol] 3.7 g/dL Normal 3.2-5.0 [facility] Comment on above: Performed By: #### L 500.4050, L501.6710, L100.0100, L101.9900, L501.1400 #### [facility] [address] [place], [address] Albumin/Globulin [Mass ratio] 1.1 {ratio} Normal 0.9-2.4 [facility] Comment on above: Performed By: #### L 500.4050, L501.6710, L100.0100, L101.9900, L501.1400 #### [facility] [address] [place], [address] ALK P 85 U/L Normal 45-117 [facility] Comment on above: Performed By: #### L 500.4050, L501.6710, L100.0100, L101.9900, L501.1400 #### [facility] [address] [place], [address] ALT [Catalytic activity/Vol] 32 U/L Normal 16-61 [facility] Comment on above: Performed By: #### L 500.4050, L501.6710, L100.0100, L101.9900, L501.1400 #### [facility] [address] [place], [address] AST [Catalytic activity/Vol] 23 U/L Normal 15-37 [facility] Comment on above: Result Comment: Slig ht Hemolysis, Result may be falsely increased. Performed By: #### L 500.4050, L501.6710, L100.0100, L101.9900, L501.1400 #### [facility] [address] [place], [address] Bilirubin [Mass/Vol] 0.40 mg/dL Normal 0.20-1.00 [facility] Comment on above: Result Comment: For patients on eltrombopag therapy, use of Dimension [place] TBIL is not recommended. Performed By: #### L 500.4050, L501.6710, L100.0100, L101.9900, L501.1400 #### [facility] [address] [place], [address] BUN/CRE 10.7 RATIO Normal 10-20 [facility] Comment on above: Performed By: #### L 500.4050, L501.6710, L100.0100, L101.9900, L501.1400 #### [facility] [address] [place], [address] CA,Total 8.7 mg/dL Normal 8.5-10.1 [facility] Comment on above: Performed By: #### L 500.4050, L501.6710, L100.0100, L101.9900, L501.1400 #### [facility] [address] [place], [address] Chloride [Moles/Vol] 107 mmol/L Normal 98-107 [facility] Comment on above: Performed By: #### L 500.4050, L501.6710, L100.0100, L101.9900, L501.1400 #### [facility] [address] [place], [address] CO2 [Moles/Vol] 27.0 mmol/L Normal 21.0-32.0 [facility] Comment on above: Performed By: #### L 500.4050, L501.6710, L100.0100, L101.9900, L501.1400 #### [facility] [address] [place], [address] Creatinine [Mass/Vol] 1.21 mg/dL Normal 0.70-1.30 [facility] Comment on above: Result Comment: The validity of the calculated GFR GFRAA in patients over 70 years has not been determined. Clinical correlation is essential. Performed By: #### L 500.4050, L501.6710, L100.0100, L101.9900, L501.1400 #### [facility] [address] [place], [address] EST GFR - AA 78 mL/min Normal >60 [facility] Comment on above: Result Comment: Afri can [place] GFR Calc Performed By: #### L 500.4050, L501.6710, L100.0100, L101.9900, L501.1400 #### [facility] [address] [place], [address] GAP 4 Low 5-15 [facility] Comment on above: Performed By: #### L 500.4050, L501.6710, L100.0100, L101.9900, L501.1400 #### [facility] [address] [place], [address] GFR/1.73 sq M.predicted among non-blacks MDRD (S/P/Bld) [Vol rate/Area] 65 mL/min/{1.73_m2} Normal >60 [facility] Comment on above: Result Comment: Non- GFR Calc Performed By: #### L 500.4050, L501.6710, L100.0100, L101.9900, L501.1400 #### [facility] [address] [place], [address] Globulin (S) [Mass/Vol] 3.3 g/dL Normal 2.2-4.2 [facility] Comment on above: Performed By: #### L 500.4050, L501.6710, L100.0100, L101.9900, L501.1400 #### [facility] [address] [place], [address] Glucose [Mass/Vol] 159 mg/dL High 74-106 [facility] Comment on above: Result Comment: Fast ing Glucose result greater than or equal to 126 mg/dL suggests DIABETES MELLITUS per A.D.A. criteria. Performed By: #### L 500.4050, L501.6710, L100.0100, L101.9900, L501.1400 #### [facility] [address] [place], [address] Potassium [Moles/Vol] 3.9 mmol/L Normal 3.5-5.1 [facility] Comment on above: Result Comment: Slig ht Hemolysis, Result may be falsely increased. Performed By: #### L 500.4050, L501.6710, L100.0100, L101.9900, L501.1400 #### [facility] [address] [place], [address] Sodium [Moles/Vol] 138 mmol/L Normal 136-145 [facility] Comment on above: Performed By: #### L 500.4050, L501.6710, L100.0100, L101.9900, L501.1400 #### [facility] [address] [place], [address] T PROT 7.0 g/dL Normal 6.4-8.2 [facility] Comment on above: Performed By: #### L 500.4050, L501.6710, L100.0100, L101.9900, L501.1400 #### [facility] [address] [place], [address] Urea nitrogen [Mass/Vol] 13 mg/dL Normal 7-18 [facility] Comment on above: Performed By: #### L 500.4050, L501.6710, L100.0100, L101.9900, L501.1400 #### [facility] [address] [place], [address] Erythrocyte Sed Rateon 07-27 SED RATE 4 mm/hr Normal 0-20 [facility] Comment on above: Performed By: #### L 500.4050, L501.6710, L100.0100, L101.9900, L501.1400 #### [facility] [address] [place], [address] Foot 2 Viewson 07-27-2024 Foot 2 Views [facility] [address] [place] [address] Foot 2 Views MR#: [id number] Acct: [id number] Name: TAZ GALE Rep #: [id number] : 1960 M 63 From: Yosi Simmons MD PCP: Dr. Arnav Huertas MD Status: REG CLI Study: Foot 2 Views Date of Exam: 07/27/24 Exam# [id number] Ordering [place]: [place] [id number] STUDY: X-RAY - LEFT FOOT CLINICAL: Male, [...] 15:15 EST Reading Location ID and State: [facility] / [place] , Service support , CC: Dr. Arnav Huertas MD Service Clerk: Signed Normal [facility] Uric Acidon 07-27-2024 URIC 7.4 mg/dL High 3.5-7.2 [facility] Comment on above: Result Comment: The drugs N-Acetylcysteine and Metamizole may falsely depress this assay. Performed By: #### L 500.4050, L501.6710, L100.0100, L101.9900, L501.1400 ####[facility] [address] [place], [address] [id number] (add)on 07-03-2024 [id number] (add) --- Patient Age/Sex Location Account Attending Physician TAZ GALE 63/M LABSPEC [id number] Dr. Darian Morgan MD Specimen: [id number] Received: 07/07/24 Status: MONIQUE Lambert Num: [id number] Spec Type: IMMUNO Subm Dr: Dr. Darian Morgan MD PHYSICIAN INSTITUTION [place] [id number] SPECIMEN INFORMATION: Tissue Source: E- Left mid, F- Left apex Clinical Info: Elevated PSA Specimen Number: [id number] E,F CPT code: 84507,00192t6 METHODOLOGY: Deparaffinized sections of prefer/formalin-fixed tissue or [...] developed and their performance characteristics determined by [facility]. They may not have been cleared [...] Dr. Wilton Mitchell MD 07/08/24 1224 Normal [facility] Comment on above: Performed By: #### P [id number]. #### [facility] [place], [address] PROSTATE BXon 07-03-2024 PROSTATE BX --- Patient Age/Sex Location Account Attending Physician TAZ GALE 63/M LABSPEC [id number] Dr. Darian Morgan MD Specimen: [id number] Received: 07/03/24 Status: MONIQUE Lambert Num: [id number] Spec Type: PROST BX Subm Dr: Dr. [...] Left prostate, mid, core biopsy: Prostatic adenocarcinoma. Golden grade: 3+3=6 Number of cores involved: 1/2 Proportion of tissue involved: <5 % Perineural invasion: Not identified. Greatest tumor length: <0.1 cm See comment. F. Left prostate, base, core biopsy: Prostatic adenocarcinoma. Danya grade: 3+3=6 Number of cores involved: 1/2 Proportion of tissue involved: 5 % Perineural invasion: Not identified. Greatest tumor length: 0.2 cm See comment. SJ.mr 07/07/2024 COMMENT E, F. Immunohistochemistry ([id number]) supports the above diagnosis. Case has been reviewed in consultation with Dr. Lee who concurs with the above diagnosis. IDC:AM Patient Age/Sex Location Account Attending Physician [facility] GALE 63[id number]. Darian Morgan MD MICROSCOPIC DESCRIPTION Slides [...] submitted in one cassette. / 07/06/2024 TC:0 [facility]: [address]15 x6 Patient Age/Sex Location Account Attending Physician TAZ GALE 63/M LABSPEC [id number] Dr. Darian Morgan MD Signed (signature on file) Dr. Wilton Mitchell MD 07/08/24 1225 Normal [facility] Comment on above: Performed By: #### P PROSB ####[facility] [id number] [facility] [place], [place], [id number] 12 Lead EKGon 06-24-2024 12 Lead EKG [facility] Cardiovascular Services [address] [place] [address] 12 Lead EKG 06/24/24 0801 MR#: [id number] Acct: [id number] Name: TAZ GALE Rep #: [id number] : 1960 63 From: Matt Jones MD Attending Dr: Dr. Darian Morgan MD Status: REG CLI Ordering Dr: Darian Morgan MD Date: 06/24/24 Location: [facility] Sex: M C Admitted: Test Reason : PREOP Blood Pressure : */* mmHG Vent. Rate : 78 BPM Atrial Rate : 78 BPM P-R Int : 162 ms QRS Dur : 92 ms QT Int : 386 ms P-R-T Axes : 47 -14 16 degrees QTcB Int : 440 ms Normal sinus rhythm with sinus arrhythmia Normal ECG Confirmed by Matt Jones ([id number]), associate entertainment editor BREANNE CARTER ([id number]) on 06/24/2024 8:29:16 AM Referred By: Darian Morgan Confirmed By: Matt Jones 06/24/24 0829 Date Matt Jones MD CC: Dr. Darian Morgan MD; Dr. Arnav Huertas MD Signed Normal [facility] Basic Metabolic Profile (BMP )on 06-24-2024 BUN/CRE 18.2 RATIO Normal 10-20 [facility] Comment on above: Performed By: #### L 100.0500, L500.2500 #### [facility] [address] [place], [address] CA,Total 9.1 mg/dL Normal 8.5-10.1 [facility] Comment on above: Performed By: #### L 100.0500, L500.2500 #### [facility] [address] [place], [address] Chloride [Moles/Vol] 105 mmol/L Normal 98-107 [facility] Comment on above: Performed By: #### L 100.0500, L500.2500 #### [facility] [address] [place], [address] CO2 [Moles/Vol] 31.0 mmol/L Normal 21.0-32.0 [facility] Comment on above: Performed By: #### L 100.0500, L500.2500 #### [facility] [address] [place], [address] Creatinine [Mass/Vol] 0.94 mg/dL Normal 0.70-1.30 [facility] Comment on above: Result Comment: The validity of the calculated GFR GFRAA in patients over 70 years has not been determined. Clinical correlation is essential. Performed By: #### L 100.0500, L500.2500 #### [facility] [address] [place], [address] EST GFR - AA 105 mL/min Normal >60 [facility] Comment on above: Result Comment: Afri can [place] GFR Calc Performed By: #### L 100.0500, L500.2500 #### [facility] [address] [place], [address] GAP 4 Low 5-15 [facility] Comment on above: Performed By: #### L 100.0500, L500.2500 #### [facility] [address] [place], [address] GFR/1.73 sq M.predicted among non-blacks MDRD (S/P/Bld) [Vol rate/Area] 87 mL/min/{1.73_m2} Normal >60 [facility] Comment on above: Result Comment: Non- GFR Calc Performed By: #### L 100.0500, L500.2500 #### [facility] [address] [place], [address] Glucose [Mass/Vol] 120 mg/dL High 74-106 [facility] Comment on above: Result Comment: Fast ing Glucose result from 100 to 125 mg/dL suggests IMPAIRED HOMEOSTASIS per A.D.A. criteria. Performed By: #### L 100.0500, L500.2500 #### [facility] [address] [place], [address] Potassium [Moles/Vol] 3.9 mmol/L Normal 3.5-5.1 [facility] Comment on above: Performed By: #### L 100.0500, L500.2500 #### [facility] [address] [place], [address] Sodium [Moles/Vol] 140 mmol/L Normal 136-145 [facility] Comment on above: Performed By: #### L 100.0500, L500.2500 #### [facility] [address] [place], [address] Urea nitrogen [Mass/Vol] 17 mg/dL Normal 7-18 [facility] Comment on above: Performed By: #### L 100.0500, L500.2500 #### [facility] [address] [place], [address] CBC-Complete Blood Cnt No ffon 06-24-2024 Erythrocyte distribution width (RBC) [Ratio] 13.3 % Normal 11.6-14.6 [facility] Comment on above: Performed By: #### L 100.0500, L500.2500 #### [facility] [address] [place], [address] Hematocrit (Bld) [Volume fraction] 49.6 % Normal 40-54 [facility] Comment on above: Performed By: #### L 100.0500, L500.2500 #### [facility] [address] [place], [address] Hemoglobin (Bld) [Mass/Vol] 16.5 g/dL Normal 13.0-16.5 [facility] Comment on above: Performed By: #### L 100.0500, L500.2500 #### [facility] [address] [place], [address] MCH (RBC) [Entitic mass] 30.4 pg Normal 27.0-32.0 [facility] Comment on above: Performed By: #### L 100.0500, L500.2500 #### [facility] [address] [place], [address] MCHC (RBC) [Mass/Vol] 33.3 g/dL Normal 32-36 [facility] Comment on above: Performed By: #### L 100.0500, L500.2500 #### [facility] [address] [place], [address] MCV (RBC) [Entitic vol] 91.5 fL Normal 80-94 [facility] Comment on above: Performed By: #### L 100.0500, L500.2500 #### [facility] [address] [place], [address] Platelet mean volume (Bld) [Entitic vol] 9.4 fL Normal 6.2-12.0 [facility] Comment on above: Performed By: #### L 100.0500, L500.2500 #### [facility] [address] [place], [address] Platelets (Bld) [#/Vol] 195 10*3/uL Normal 150-450 [facility] Comment on above: Performed By: #### L 100.0500, L500.2500 #### [facility] [address] [place], [address] RBC (Bld) [#/Vol] 5.42 10*6/uL Normal 4.6-6.2 [facility] Comment on above: Performed By: #### L 100.0500, L500.2500 #### [facility] [address] [place], [address] RDW SD 44.5 fl High 35.1-43.9 [facility] Comment on above: Performed By: #### L 100.0500, L500.2500 #### [facility] [address] [place], [address] WBC (Bld) [#/Vol] 7.8 10*3/uL Normal 4.4-11.0 [facility] Comment on above: Performed By: #### L 100.0500, L500.2500 #### [facility] [address] [place], [place], [id number] PSA,Total- Diagnosticon 12-0 PSA, DIAGNOSTIC 5.38 ng/mL High 0.0-4.0 [facility] Comment on above: Result Comment: This test was performed using the TPSA assay method for the [employer] chemistry system. Values obtained with different assay methods cannot be used interchangably. When changing PSA assays in the course of monitoring a patient, additional sequential testing should be carried out to confirm baseline values. Performed By: #### L 501.9940 #### [facility] [address] [place], [place], [address] No Panel InformationOrdered By: Darian Morgan on 07-01-2023 Prostate Specific Antigen Total 6.62 ng/mL 0.0-4.0 [facility] Comment on above: This test was perfor med using the TPSA assay method for the[employer] chemistry system. Values obtained with differentassay methods cannot be used interchangably.When changing PSA assays in the course of monitoring apatient, additional sequential testing should be carriedout to confirm baseline values. Basophil percentageOrdered B y: Darian Morgan on 02-14-2023 Creatinine [Mass/Vol] 1.0 mg/dL 0.70-1.30 [facility] No Panel InformationOrdered By: Darian Morgan on 02-14-2023 Bedside Estimated GFR (eGFR) > 60.0000 mL/min >60 [facility] No Panel InformationOrdered By: Darian Morgan on 01-07-2023 Prostate Specific Antigen Total 5.61 ng/mL 0.0-4.0 [facility] Comment on above: This test was perfor med using the TPSA assay method for the[employer] chemistry system. Values obtained with differentassay methods cannot be used interchangably.When changing PSA assays in the course of monitoring apatient, additional sequential testing should be carriedout to confirm baseline values. Absolute lymphocyte countOrd ered By: Dr. Huertas on 08-20-2022 Lymphocytes Auto (Unsp spec) [#/Vol] 2.03 10*3/uL 0.83-4.51 [facility] Basophil percentageOrdered B y: Dr. Huertas on 08-20-2022 Basophils/100 WBC (Bld) 0.6 % 0-1 [facility] Bilirubin [Mass/Vol] 0.60 mg/dL 0.20-1.00 [facility] Comment on above: For patients on eltr ombopag therapy, use of Dimension [place] TBIL is not recommended. Chloride [Moles/Vol] 104 mmol/L 98-107 [facility] Eosinophils/100 WBC (Bld) 3.1 % 0-5 [facility] Glucose [Mass/Vol] 107 mg/dL 74-106 [facility] Comment on above: Fasting Glucose resu lt from 100 to 125 mg/dL suggests IMPAIRED HOMEOSTASIS per A.D.A. criteria. Neutrophils (Bld) [#/Vol] 6.4 10*3/uL 2.0-7.7 [facility] Neutrophils/100 WBC (Bld) 65.1 % 47-70 [facility] Potassium [Moles/Vol] 3.9 mmol/L 3.5-5.1 [facility] Protein [Mass/Vol] 6.7 g/dL 6.4-8.2 [facility] Sodium [Moles/Vol] 141 mmol/L 136-145 [facility] WBC (Bld) [#/Vol] 9.9 10*3/uL 4.4-11.0 [facility] Blood erythrocytes count (nu mber/volume)Ordered By: Dr. Huertas on 08-20-2022 RBC (Bld) [#/Vol] 5.35 10*6/uL 4.6-6.2 [facility] Blood hemoglobin measurement (mass/volume)Ordered By: Dr. Huertas on 08-20-2022 Hemoglobin (Bld) [Mass/Vol] 16.1 g/dL 13.0-16.5 [facility] Blood lymphocytes/100 leukoc ytesOrdered By: Dr. Huertas on 08-20-2022 Lymphocytes/100 WBC (Bld) 20.5 % 19-41 [facility] Blood monocytes/100 leukocyt esOrdered By: Dr. Huertas on 08-20-2022 Monocytes/100 WBC (Bld) 9.1 % 0-10 [facility] Blood platelet mean volumeOr dered By: Dr. Huertas on 08-20-2022 Platelet mean volume (Bld) [Entitic vol] 9.5 fL 6.2-12.0 [facility] Determination of erythrocyte mean corpuscular volume (MCV)Ordered By: Dr. Huertas on 08-20-2022 MCV (RBC) [Entitic vol] 92.3 fL 80-94 [facility] Hematocrit Auto (Bld) [Volum e fraction]Ordered By: Dr. Huertas on 08-20-2022 Hematocrit (Bld) [Volume fraction] 49.4 % 40-54 [facility] - Chemistry and C hemistry - challengeOrdered By: Dr. Huertas on 08-20-2022 ALP [Catalytic activity/Vol] 72 U/L 45-117 [facility] ALT [Catalytic activity/Vol] 30 U/L 16-61 [facility] CO2 [Moles/Vol] 29.0 mmol/L 21.0-32.0 [facility] Globulin (S) [Mass/Vol] 3.1 g/dL 2.2-4.2 [facility] Urea nitrogen/Creatinine [Mass ratio] 16.8 mg/mg 10-20 [facility] - Hematology and Cell countsOrdered By: Dr. Huertas on 08-20-2022 Erythrocyte distribution width (RBC) [Entitic vol] 47.1 fL 35.1-43.9 [facility] Erythrocyte distribution width (RBC) [Ratio] 13.8 % 11.6-14.6 [facility] Immature granulocytes/100 WBC (Bld) 1.600 % 0.0-0.9 [facility] Comment on above: IG% - Immature Granu locytes (promyelocytes, myelocytes and metamyelocytes) > 1% indicates that a LEFT SHIFT is Present. MCH (RBC) [Entitic mass] 30.1 pg 27.0-32.0 [facility] Nucleated RBC/100 WBC (Bld) [Ratio] 0 % 0-5 [facility] Auto (RBC) [Mass/Vol]Or dered By: Dr. Huertas on 08-20-2022 MCHC (RBC) [Mass/Vol] 32.6 g/dL 32-36 [facility] No Panel InformationOrdered By: Dr. Huertas on 08-20-2022 Estimated GFR (MDRD) Amer 112 mL/min >60 [facility] Comment on above: GFR Calc Estimated GFR (MDRD) Non-Af Amer 93 mL/min >60 [facility] Comment on above: Non- GFR Calc Prostate Specific Antigen Screen 5.26 ng/mL 0.00-4.00 [facility] Comment on above: This test was perfor med using the TPSA assay method for [employer] chemistry system. Values obtained with differentassay methods cannot be used interchangably.When changing PSA assays in the course of monitoring apatient, additional sequential testing should be carriedout to confirm baseline values. Thyroid Stimulating Hormone (TSH) 2.31 uIU/mL 0.358-3.74 [facility] Platelets bldOrdered By: Dr. Huertas on 08-20-2022 Platelets (Bld) [#/Vol] 173 10*3/uL 150-450 [facility] Serum or plasma albumin stevan urement (mass/volume)Ordered By: Dr. Huertas on 08-20-2022 Albumin [Mass/Vol] 3.6 g/dL 3.2-5.0 [facility] Serum or plasma albumin/glob ulin mass ratioOrdered By: Dr. Huertas on 08-20-2022 Albumin/Globulin [Mass ratio] 1.2 {ratio} 0.9-2.4 [facility] Serum or plasma calcium stevan urement (mass/volume)Ordered By: Dr. Huertas on 08-20-2022 Calcium [Mass/Vol] 9.1 mg/dL 8.5-10.1 [facility] Serum or plasma creatinine m easurement (mass/volume)Ordered By: Dr. Huertas on 08-20-2022 Creatinine [Mass/Vol] 0.89 mg/dL 0.70-1.30 [facility] Comment on above: The validity of the calculated GFR & GFRAA in patients over 70 years has not been determined. Clinical correlation is essential. Serum or plasma urea nitroge n measurement (mass/volume)Ordered By: Dr. Huertas on 08-20-2022 Urea nitrogen [Mass/Vol] 15 mg/dL 7-18 [facility] Thin prep Papanicolaou smear with manual screeningOrdered By: Dr. Huertas on 08-20-2022 Thin prep Papanicolaou smear with manual screening 19 U/L 15-37 [facility] Thin prep Papanicolaou smear with manual screening 8 5-15 [facility] - Microbiology an d Antimicrobial susceptibilityOrdered By: Dr. Huertas on 06-29-2022 SARS-CoV-2 (COVID-19) RNA URIAH+probe Ql (Unsp spec) Not detected Not Detect [facility] Comment on above: Normal Reference Ran ge: [...] Types A,B Direct FA (CLARISA) Influenzae A [facility] RSV Ag EIAOrdered By: Dr. Brittany patel on 06-29-2022 RSV Ag Immune stain Ql (Tiss) [facility] No Panel Information Influenza Types A,B Direct FA (CLARISA) Influenzae A [facility] Work Phone: RSV Ag EIA RSV Ag Immune stain Ql (Tiss) [facility] Work Phone: Encounters Encounter Date Encounter Type Care Provider Facility Start: 09-09-2024 [facility] Start: 09-09-2024 End: 09-09-2024 ambulatory [facility] Chi Aleksandar Facility:[facility] Start: 08-27-2024 End: 08-27-2024 ambulatory [facility] Aleksandar Facility:[facility] Start: 07-27-2024 End: 07-27-2024 ambulatory [facility] Aleksandar Facility:[facility] Start: 07-23-2024 Encounter for prepro cedural cardiovascular examination Darian Funk [facility] Start: 07-03-2024 End: 07-03-2024 ambulatory Darian Morgan Facility:[facility] Start: 06-24-2024 End: 06-24-2024 ambulatory Matt Jones Facility:[facility] Start: 06-24-2024 End: 06-24-2024 ambulatory Frankie Eddie Facility:[facility] Start: 06-22-2024 End: 06-22-2024 ambulatory Frankie [facility] Facility:[facility] Start: 08-16-2023 End: 08-16-2023 ambulatory [facility] Work Phone: Start: 08-16-2023 End: 08-16-2023 Patient encounter procedure [facility]-Laboratory, Specimen Work Phone: Start: 07-01-2023 End: 07-01-2023 ambulatory [facility] Work Phone: Start: 07-01-2023 End: 07-01-2023 Patient encounter procedure [facility] Work Phone: Start: 02-14-2023 End: 02-14-2023 ambulatory [facility] Work Phone: Start: 02-14-2023 End: 02-14-2023 Patient encounter procedure [facility] Work Phone: Start: 01-07-2023 End: 01-07-2023 Patient encounter procedure [facility]Laboratory Work Phone: Start: 08-30-2022 End: 08-30-2022 ambulatory [facility] Work Phone: Start: 08-30-2022 End: 08-30-2022 Patient encounter procedure [facility]-Radiology, [facility] Start: 08-20-2022 End: 08-20-2022 ambulatory [facility] Work Phone: Start: 08-20-2022 End: 08-20-2022 Patient encounter procedure [facility]-Laboratory, Phy Office 3rd Flr Start: 06-29-2022 End: 06-29-2022 ambulatory [facility] Work Phone: Start: 06-29-2022 End: 06-29-2022 Patient encounter procedure [facility]-Pulmonary Services/Neurology Start: 05-28-2022 End: 05-28-2022 ambulatory [facility] Work Phone: Start: 05-28-2022 End: 05-28-2022 Patient encounter procedure [facility]-MRI - [facility] Start: 07-07-2021 Patient encounter status [facility] Procedures Date Procedure Procedure Detail Performing Clinician [...] Immunization Date Immunization Notes Care Provider Fa [facility] 06-14-2018 influenza, injectabl e, quadrivalent, preservative free [facility] 06-14-2018 influenza, seasonal, injectable [facility] 07-05-2016 Influenza virus vaccine [facility] Payers Date Payer Category Payer Self-pay [id number] 2016 Unknown [id number] Unknown [id number] 2.16.8 [id number] Unknown [id number] 2.16.8 [id number] Unknown [id number] 2.16.8 [id number] Unknown [id number] 2.16.8 [id number] Unknown [id number] 2.16.8 [id number] Unknown [id number] 2.16.8 [id number] Unknown [id number] 2.16.8 [id number] Unknown [id number] 2.16.8 [id number] Social History Date Type Detail Facility Start: 09-05-2021 End: 09-05-2021 Tobacco smoking status NHIS Unknown if ever smoked [facility] Start: 07-29-2016 None [facility] Start: 07-29-2016 Spouse/ Signif icant Other [facility] Start: 1960 Sex Assigned At Male [facility] Medical Equipment Procedure Code Equipment Code Equipment Origin al Text Equipment Identifier Dates ANATOMIC MENISCA L BEARING FDA Start: 06-13-2018 CEMENT,BONE ALEJANDRINA H 1/2 BATCH FDA Start: 07-12-2021 ([id number]) Coated knee femu r prosthesis [id number] FDA Start: 07-12-2021 ([id number]) Coated knee tibi a prosthesis [id number] FDA Start: 07-12-2021 ([id number]) Polyethylene pat patrick prosthesis ()[id number] FDA Start: 07-12-2021 ([id number]) Tibial insert [id number] FDA Start: 07-12-2021 ANATOMIC MENISCA L BEARING [...] Note Facility Evaluation note No assessment information [facility] Work Phone: Chief Complaint and Reason [...] September 05, 2 022 8:55am Power of Rehab Aide No September 05, 2021 8:55am Advance Directive Response Recorded Date/ Time Advance Directives No July 28, 2016 6:00pm Living Will No September 05, 2 022 9:55am Power of Rehab Aide No September 05, 2021 9:55am Summary Purpose [...] ized section and content) DATE CREATED AUTHOR 02/01/2025 [facility] [place] [facility] FOR RECORDS PERTAINING TO PATIENTS WHO ARE [...] BE BASED ON THE PRIMARY CLINICAL RECORDS. [employer] provides no warranty or guarantee of the accuracy or completeness of information in this document.
[2025-02-25 08:55] LABS: PSA,Total- Diagnostic 4.68 ng/mL (0.00-4.00)
== END | disposition home or self-care (01) ==
LOC: LAB 07:24
PROVIDERS: PCP Family Medicine Geriatric Medicine; Referring Provider Urology; Visit Provider Urology
DX: C61 Malignant neoplasm of prostate (principal)
CPT/HCPCS: 36415; 84153

== ENCOUNTER → 2025-06-14 | Outpatient (CLI) | payer BC, SELFPAY ==
[2025-06-14 17:10] LABS: Hematocrit 50.8 % (40-54); Hemoglobin 16.8 g/dL (13.0-16.5); Immature Granulocytes Count 0.080 X10^3/uL (0.0-0.0); Mean Corp Hgb Conc 33.1 g/dL (32-36); Mean Corpuscular Volume 92.5 fL (80-94); Mean Platelet Vol. 9.3 fl (6.2-12.0); NRBC Flagged by Analyzer 0 % (0-5); Platelet Count 180 K/mm3 (150-450); RBC Distribution Width CV 13.4 % (11.6-14.6); RBC Distribution Width SD 45.9 fl (35.1-43.9); Red Blood Count 5.49 M/mm3 (4.6-6.2); White Blood Count 8.7 K/mm3 (4.4-11.0)
[2025-06-14 17:28] LABS: D-Dimer Quantitative (DVT/PE) 0.33 FEU/ug/m (0.27-0.49)
[2025-06-14 18:24] LABS: CPK Total, Creatine Kinase 242 U/L (24-195); Pro- Brain NATRIURETIC PEPTIDE 37 pg/mL (<=900); Troponin T High Sensitivity < 6 ng/L (<=22)
[2025-06-14 18:26] LABS: Anion Gap 11 (5-15); BUN 17 mg/dL (4-19); BUN/Creat Ratio 16.6 RATIO (10-20); Calcium,Total 9.1 mg/dL (7.6-11.0); Carbon Dioxide 26.9 mmol/L (21.0-32.0); Chloride 103 mmol/L (98-108); Glucose 129 mg/dL (70-99); Potassium 3.9 mmol/L (3.3-5.1)
[2025-06-15 00:42] LABS: Xtra Tube Kwok EXTRA TUBE
[2025-06-16 04:07] LABS: Myoglobin, Serum 48 ng/mL (28-72)
== END | disposition home or self-care (01) ==
LOC: POLAB3 16:41
PROVIDERS: PCP Family Medicine Geriatric Medicine; Visit Provider Family Medicine Geriatric Medicine
DX: R07.9 Chest pain, unspecified (principal)
CPT/HCPCS: 36415; 80048; 82550; 83874; 83880; 84484; 85025; 85379

== ENCOUNTER → 2025-06-24 | Outpatient (CLI) | payer BC, SELFPAY ==
--- NOTE | 2025-06-24 10:41 | EKG12_ITS ---
Test Reason : CHEST PAIN Blood Pressure : */* mmHG Vent. Rate : 86 BPM Atrial Rate : 86 BPM P-R Int : 164 ms QRS Dur : 94 ms QT Int : 378 ms P-R-T Axes : 49 -12 33 degrees QTcB Int : 452 ms Normal sinus rhythm Low voltage QRS Borderline ECG When compared with ECG of 24-Jun-2024 08:01, No significant change was found Confirmed by ELIZABETH ESPINOZA, GISELLE ([id number]), material expeditor BREANNE CARTER ([id number]) on 06/25/2025 11:39:25 AM Referred By: Arnav Huertas Confirmed By: GISELLE JOHNSON MD
--- NOTE | 2025-06-24 17:17 | STRESSREP ---
Stress Test Report Exercise stress test. 64-year-old male with a history of chest. Stress protocol: Resting EKG demonstrates normal sinus rhythm with a rate of 87 bpm resting blood pressure is 122/88 mmHg. The patient exercised according to the regular Cristian protocol for a total duration of 8 minutes attaining a maximum heart rate of 179 bpm which was 113% of maximum predicted heart rate; the maximum workload was 10.1 metabolic equivalents. At rest there were no ST or T wave changes noted to suggest ischemia and at peak exercise upsloping ST changes only were noted which did not meet the criteria for ischemia. No clinical angina was noted the test was terminated due to the target heart rate being achieved/fatigue. The peak blood pressure was 170/92 mmHg. Rate-pressure product was 29,000. Conclusion: Exercise stress test with no EKG changes for ischemia at a high workload. No arrhythmias noted.
== END | disposition home or self-care (01) ==
LOC: CVS 10:39
PROVIDERS: PCP Family Medicine Geriatric Medicine; Referring Provider Family Medicine Geriatric Medicine; Visit Provider Family Medicine Geriatric Medicine
DX: R07.9 Chest pain, unspecified (principal); R06.02 Shortness of breath
CPT/HCPCS: 93005; 93017